=== PATIENT | male | born 1970 | race Caucasian/White ===

== ENCOUNTER 2017-03-24 02:39 | Inpatient (IN) ==
[2017-03-24] MEDS ORDERED: 0.9 % Sodium Chloride 1,000 ML IVC ONE (02:42)
[2017-03-24] MEDS ORDERED: Ipratropium/Albuterol Neb 3 ML IH ONE (02:43)
--- NOTE | 2017-03-24 02:49 | Emergency Department Note ---
Disposition Clinical Impression: Fever Qualifiers: Fever type: unspecified Qualified Code(s): R50.9 - Fever, unspecified UTI (urinary tract infection) Qualifiers: Urinary tract infection type: site unspecified Hematuria presence: with hematuria Qualified Code(s): N39.0 - Urinary tract infection, site not specified Pneumonia Qualifiers: Pneumonia type: due to unspecified organism Laterality: bilateral Lung location : unspecified part of lung Qualified Code(s): J18.9 - Pneumonia, unspecified organism Disposition: Admitted As Inpatient Condition: Good Fever HPI - General Chief Complaint: ED Fever Stated Complaint: fever Time Seen by Provider: 03/24/17 02:41 Source: patient Mode of arrival: EMS Limitations: physical limitation Nursing Notes Reviewed: Yes Vital Signs Reviewed: Yes - History of Present Illness HPI Narrative: 46-year-old male history of seizures, tracheostomy, quadriplegia who presents to the ER via EMS from nursing facility due to fever. EMS reports they were dispatched for a fever of 101.9 at the facility. Patient is currently being treated for UTI diagnosed today. He has received a dose of Levaquin. He denies any chest pain or shortness of breath. No recent illnesses that he is aware of. He does report pain in his lower extremities. Patient was given Tylenol prior to arrival. No other complaints. He does have an indwelling Farrell and has a history of multiple UTIs in the past requiring hospitalization. Pt Subjective Complaint: fever Onset (ago): unknown Maximum Temperature Reported: 101.9 F Temperature Source: oral Associated symptoms: Denies: cough, chest pain, dyspnea Improves with: nothing Worsens with: nothing Treatments prior to arrival fever: acetaminophen - Related Data Home Medications Medication Instructions Recorded Confirmed Benztropine Mesylate 1 mg GTUBE HS 07/04/15 08/11/16 CarBAMazepine 300 mg GTUBE BID 07/04/15 08/11/16 Folic Acid 1 mg GTUBE QAM 07/04/15 08/11/16 Ipratropium/Albuterol Neb [Duoneb] 3 ml IH QID PRN 07/04/15 08/11/16 LevETIRAcetam [Keppra] 250 mg GTUBE BID 07/04/15 08/11/16 OLANZapine [Zyprexa] 10 mg GTUBE BID 07/04/15 08/11/16 Potassium Chloride Elixir 50 meq GTUBE DAILY 09/28/15 08/11/16 [Potassium Chloride] Cyclobenzaprine [Flexeril] 10 mg GTUBE TID PRN 11/05/15 08/11/16 Topiramate [Topamax] 150 mg GTUBE QAM 11/05/15 08/11/16 Acetaminophen [Tylenol] 650 mg GTUBE Q6HR PRN 12/11/15 08/11/16 Docusate Sodium [Dok] 100 mg PO BID 12/11/15 08/11/16 Fluticasone/Salmeterol [Advair 1 each IH BID 12/11/15 08/11/16 250-50 Diskus] Guaifenesin [Diabetic Tussin Ex] 200 mg GTUBE Q4H PRN 12/11/15 08/11/16 Albuterol Neb [Proventil Neb] 2.5 mg IH Q4H 03/18/16 08/11/16 Polyvinyl Alcohol [Artificial 1 drop BOTH EYES BID 03/18/16 08/11/16 Tears] Trazodone HCl 100 mg GTUBE HS 03/18/16 08/11/16 clonazePAM [Klonopin] 2 mg GTUBE QPM 03/18/16 08/11/16 Aspirin/Calcium Carbonate/Mag 325 mg PO DAILY 08/11/16 08/11/16 [Aspirin Buffered 325 mg Tab] Fluocinolone Acetonide Oil 1 appl TP AD 08/11/16 08/11/16 [Dermotic] Ketoconazole 2% CRM [Nizoral Cream] 1 appl TP Q6H 08/11/16 08/11/16 Ketoconazole Shampoo [Nizoral 1 appl TP QWEEK 08/11/16 08/11/16 Shampoo] Melatonin/Pyridoxine [Melatonin 10 mg SL HS 08/11/16 08/11/16 Sublingual Tablet] Na Phos,M-B/Na Phos,Di-Ba [Fleet 230 ml RC Q48H 08/11/16 08/11/16 Enema Extra] Sertraline [Zoloft] 75 mg GTUBE DAILY 08/11/16 08/11/16 Zinc Oxide [Triple Paste] 1 appl TP DAILY 08/11/16 08/11/16 Previous Rx's Medication Instructions Recorded Ertapenem [INVanz] 1,000 mg IVPB DAILY 28 Days 08/16/16 Hydrocortisone [Cortizone-10] 28 gm TP Q6HR PRN #1 gel..gram. 08/16/16 OxyCODONE ER (12 HR) [OxyCONTIN] 5 mg PO BID PRN #30 tab.er.12h 08/16/16 OxyCODONE Immed Rel [Roxicodone 5 10 mg GTUBE QID PRN #30 tablet 08/16/16 MG] Vancomycin [Vancocin] 1,000 mg IV Q12HR 28 Days 08/16/16 Allergies Allergy/AdvReac Type Severity Reaction Status Date / Time Penicillins Allergy See Verified 08/11/16 06:57 Comments All systems ED: reviewed and negative except as stated. Constitutional: Reports: fever, weakness Cardiovascular: Denies: chest pain Respiratory: Denies: cough, dyspnea Gastrointestinal: Denies: abdominal pain, nausea, vomiting Fever PMH - Past Medical History Medical history: Reports: CHF, hepatitis, seizures, other Surgical history: Reports: tracheostomy, other Psychiatric history: Reports: anxiety, bipolar, depression - Social History Smoking Status: Current every day smoker Alcohol use: Reports: none, unknown Drug use: Reports: none Physical Exam - General Limitations: physical limitation General appearance: alert - Head Head exam: atraumatic, normocephalic, normal inspection - Eye Eye exam: Present: normal appearance, EOMI - ENT ENT exam: normal exam - Neck Neck exam: Present: normal inspection, other (Tracheostomy in place) - Chest Chest inspection: Present: normal inspection, symmetric chest wall rise - Respiratory Respiratory exam: Present: wheezes (Bilateral wheezing with diminished breath sounds.). Absent: respiratory distress, accessory muscle use - Cardiovascular Cardiovascular exam: Present: normal rhythm, tachycardia, normal heart sounds - Abdominal Exam Abdominal exam: Present: soft, Non-Tender, other (Patient has a suprapubic catheter with purulence around the entry site.). Absent: tenderness - Extremities Exam Extremities exam: Present: normal inspection - Expanded Upper Extremity Exam Shoulder exam: Present: normal inspection Arm exam: Present: normal inspection Elbow exam: Present: normal inspection Forearm/Wrist exam: Present: normal inspection Hand exam: Present: normal inspection - Expanded Lower Extremity Exam Hip/Pelvis exam: Present: normal inspection Upper leg exam: Present: normal inspection Knee exam: Present: normal inspection Lower leg exam: Present: normal inspection Ankle exam: Present: normal inspection Foot/toe exam: Present: normal inspection - Neurological Exam Neurological exam: Present: alert - Psychiatric Psychiatric exam: Present: normal affect, normal mood - Skin Skin exam: Present: warm, dry, intact, normal color Course Course Narrative: Patient seen and examined. Vital signs reviewed. He is 90% on room air. I reviewed his previous hospitalization showing that he has had multiple UTIs requiring hospitalization for sepsis in the past. We will get a chest x-ray, labs including cultures and lactate as well as a urinalysis. Vital Signs Temperature 101.6 F H 03/24/17 02:41 Pulse Rate 84 03/24/17 02:41 Respiratory Rate 16 03/24/17 02:41 Blood Pressure 105/63 03/24/17 02:41 O2 Sat by Pulse Oximetry 87 03/24/17 02:41 Temperature 101.6 F H 03/24/17 02:41 Pulse Rate 76 03/24/17 04:30 Respiratory Rate 20 03/24/17 03:45 Blood Pressure 126/76 03/24/17 04:30 O2 Sat by Pulse Oximetry 90 03/24/17 04:30 Oxygen Delivery Oxygen Delivery Trach Mask Fever - MDM Narrative Medical decision making narrative: 46-year-old male presents to the ER due to fever. Febrile to 101.9 at the nursing facility. He has a history of UTIs and was diagnosed with one today and started on Levaquin. The patient's chest x-ray here shows concern for developing pneumonia. His urinalysis does show a UTI as well. We did obtain a culture of the patient's suprapubic site. Patient given IV fluids in the emergency department. Vancomycin and cefepime given for pneumonia and UTI. He will be admitted to the hospitalist service for further management. - Lab Data Lab results reviewed: Yes I reviewed the patient's lab results. Result diagrams: 03/24/17 03:50 03/24/17 03:50 Lab Results 03/24/17 03/24/17 03/24/17 Range/Units 02:45 03:50 03:50 WBC 7.5 (4.3-11.1) K/mcL RBC 4.73 (4.19-5.50) M/mcL Hgb 14.3 (12.9-16.9) g/dL Hct 44.8 (37.5-50.1) % MCV 94.7 (83.0-100.0) fL MCH 30.2 (28.0-33.3) pg MCHC 31.9 (31.6-35.5) g/dL RDW 14.0 (11.5-14.5) % Plt Count 101 L (140-400) K/mcL MPV 11.7 (9.4-12.4) fL Immature Gran % 0.5 (0-4) % Seg Neutrophils % 51.1 % Lymphocytes % 34.5 % Monocytes % 13.4 % Eosinophils % 0.1 % Basophils % 0.4 % Neutrophils # 3.8 (1.6-8.9) K/mcL Lymphocytes # 2.6 (0.6-4.6) K/mcL Monocytes # 1.0 (0.0-1.3) K/mcL Eosinophils # 0.0 (0.0-0.6) K/mcL Basophils # 0.0 (0.0-0.2) K/mcL PT 13.5 H (9.4-12.1) Seconds INR 1.2 Sodium (136-145) mEq/L Potassium (3.5-4.5) mEq/L Chloride (98-109) mEq/L Carbon Dioxide (19-29) mEq/L BUN (8-26) mg/dL Creatinine (0.72-1.25) mg/dL Est GFR ( Amer) (> 60) Est GFR (Non-Af Amer) (> 60) BUN/Creatinine Ratio (6-26) Glucose (70-99) mg/dL Calculated Osmolality (280-300) Lactic Acid (0.5-2.2) mmol/L Calcium (8.6-10.8) mg/dL Total Bilirubin (0.2-1.2) mg/dL Direct Bilirubin (0.0-0.5) mg/dL Indirect Bilirubin (0.0-1.2) mg/dL AST (5-34) Units/L ALT (0-55) Units/L Alkaline Phosphatase (38-126) Units/L Serum Total Protein (6.0-8.3) g/dL Albumin (3.5-5.0) g/dL Globulin (2.4-3.5) g/dL Albumin/Globulin Ratio (1.1-2.2) Urine Color Dark Yellow (Yellow) Urine Clarity Cloudy A (Clear) Urine pH 7.0 (5.0-8.0) pH Units Ur Specific [place] 1.025 (1.010-1.025) Urine Protein 100 H (Neg-Trace) mg/dL Urine Glucose (UA) Normal (Normal) mg/dL Urine Ketones Negative (Negative) mg/dL Urine Blood Moderate H (Negative) Urine Nitrite Positive A (Negative) Urine Bilirubin Small H (Negative) Urine Urobilinogen Normal (Normal) mg/dL Ur Leukocyte Esterase Large H (Negative) Urine Microscopic RBC 5-15 H (0-3) per hpf Urine Microscopic WBC TNTC H (0-3) per hpf Ur Squamous Epith Cells Moderate H (None-Few) per lpf Urine Bacteria Many H (None-Few) per hpf Hyaline Casts None Seen (None-Few) per lpf Urine Yeast Test Not Performed Ur Culture Indicated? YES A (NO) 03/24/17 03/24/17 Range/Units 03:50 03:50 WBC (4.3-11.1) K/mcL RBC (4.19-5.50) M/mcL Hgb (12.9-16.9) g/dL Hct (37.5-50.1) % MCV (83.0-100.0) fL MCH (28.0-33.3) pg MCHC (31.6-35.5) g/dL RDW (11.5-14.5) % Plt Count (140-400) K/mcL MPV (9.4-12.4) fL Immature Gran % (0-4) % Seg Neutrophils % % Lymphocytes % % Monocytes % % Eosinophils % % Basophils % % Neutrophils # (1.6-8.9) K/mcL Lymphocytes # (0.6-4.6) K/mcL Monocytes # (0.0-1.3) K/mcL Eosinophils # (0.0-0.6) K/mcL Basophils # (0.0-0.2) K/mcL PT (9.4-12.1) Seconds INR Sodium 143 (136-145) mEq/L Potassium 3.1 L (3.5-4.5) mEq/L Chloride 109 (98-109) mEq/L Carbon Dioxide 24 (19-29) mEq/L BUN 20 (8-26) mg/dL Creatinine 0.61 L (0.72-1.25) mg/dL Est GFR ( Amer) > 60 (> 60) Est GFR (Non-Af Amer) > 60 (> 60) BUN/Creatinine Ratio 33 H (6-26) Glucose 105 H (70-99) mg/dL Calculated Osmolality 299 (280-300) Lactic Acid 0.7 (0.5-2.2) mmol/L Calcium 7.7 L (8.6-10.8) mg/dL Total Bilirubin 0.7 (0.2-1.2) mg/dL Direct Bilirubin 0.4 (0.0-0.5) mg/dL Indirect Bilirubin 0.3 (0.0-1.2) mg/dL AST 35 H (5-34) Units/L ALT 52 (0-55) Units/L Alkaline Phosphatase 135 H (38-126) Units/L Serum Total Protein 7.1 (6.0-8.3) g/dL Albumin 3.1 L (3.5-5.0) g/dL Globulin 4.0 H (2.4-3.5) g/dL Albumin/Globulin Ratio 0.8 L (1.1-2.2) Urine Color (Yellow) Urine Clarity (Clear) Urine pH (5.0-8.0) pH Units Ur Specific [place] (1.010-1.025) Urine Protein (Neg-Trace) mg/dL Urine Glucose (UA) (Normal) mg/dL Urine Ketones (Negative) mg/dL Urine Blood (Negative) Urine Nitrite (Negative) Urine Bilirubin (Negative) Urine Urobilinogen (Normal) mg/dL Ur Leukocyte Esterase (Negative) Urine Microscopic RBC (0-3) per hpf Urine Microscopic WBC (0-3) per hpf Ur Squamous Epith Cells (None-Few) per lpf Urine Bacteria (None-Few) per hpf Hyaline Casts (None-Few) per lpf Urine Yeast Ur Culture Indicated? (NO) - Radiology Data Radiology results reviewed: Yes I reviewed the patient's radiology results. Chest X-Ray 03/24/17 02:43 IMPRESSION: Tracheostomy tube appears stable. Bilaterality the cysts with patchy opacities suggestive of multifocal airspace disease. D/ / Mandeep King MD / Mandeep King MD Interpreting Provider: Mandeep King MD assandra - Henri Situation: Demographics, MOA Background: Presenting Complaint, Relevant PMH, Meds, & Allergies Assessment: Vital Signs, Course and respsone to treatment, Exam Concerns, Patient/Family Expectation, Pertinant Lab Results, Outstanding Labs Recommendation: Barrier(s) to disposition, Recommendation based on pending studies, treatments, or consults SKassandra Report Given to: Dr. Charbel Álvarez Repor Time: 05:09 (requests vanc and zosyn or cefipime) Attestation Statement - Attestation Attestation: I, Jayson Quinonez MD, personally evaluated this patient and discussed their management with the resident physician. I reviewed the resident's note and agree with the documented findings, medical decision making, and plan of care. 46-year-old male presents to the emergency department from a local halfway for fever. Patient is quadriplegic with a tracheostomy. He was apparently just diagnosed with a urinary tract infection which is a recurrent problem. He has a chronic indwelling Farrell catheter. Levaquin and has received one dose. Tonight he developed a fever with some increased congestion. In the emergency Department patient has a temp of 101.6. He complains of pain in his legs. No chest pain or difficulty breathing. On examination patient is a well-developed quadriplegic male in no acute distress. He is alert and answers questions. No cyanosis. He is mildly diaphoretic. Patent tracheostomy tube in place. Chest is nontender to palpation. Breath sounds are decreased but equal bilaterally. No definite rales or wheezes noted. Heart regular. Abdomen soft with normal bowel sounds. Labs reviewed. Significant UTI noted. Chest x-ray shows some patchy bilateral airspace disease. No acute changes on EKG. The hospitalist, Dr. Barger, was consulted and accepted admission of the patient.
[2017-03-24 02:58] LABS: Bilirubin,Urine Small (Negative); Blood,Urine Moderate (Negative); Clarity,Urine Cloudy (Clear); Color,Urine Dark Yellow (Yellow); Glucose,Urine (UA) Normal (Normal); Ketones,Urine Negative (Negative); Leukocyte Esterase,Urine Large (Negative); Nitrite,Urine Positive (Negative); Protein,Urine 100 mg/dL (Neg-Trace); Specific Gravity,Urine 1.025 (1.010-1.025); Urobilinogen,Urine Normal (Normal)
[2017-03-24 03:01] LABS: Bacteria,Urine Many per hpf (None-Few); Hyaline Casts,Urine None Seen per lpf (None-Few); Squamous Epithelial Cell,Urine Moderate per lpf (None-Few); WBC,Urine TNTC per hpf (0-3)
[2017-03-24 04:02] LABS: Basophils % 0.4 %; Eosinophils % 0.1 %; Hematocrit 44.8 % (37.5-50.1); Hemoglobin 14.3 g/dL (12.9-16.9); Immature Granulocytes % 0.5 % (0-4); Lymphocytes # 2.6 K/mcL (0.6-4.6); Lymphocytes % 34.5 %; Mean Corpuscular HGB Conc 31.9 g/dL (31.6-35.5); Mean Corpuscular Hemoglobin 30.2 pg (28.0-33.3); Mean Corpuscular Volume 94.7 fL (83.0-100.0); Mean Platelet Volume 11.7 fL (9.4-12.4); Monocytes % 13.4 %; Neutrophils # 3.8 K/mcL (1.6-8.9); Platelet Count 101 K/mcL (140-400); Red Blood Count 4.73 M/mcL (4.19-5.50); Segmented Neutrophils % 51.1 %
[2017-03-24 04:08] LABS: INR 1.2; Prothrombin Time 13.5 Seconds (9.4-12.1)
[2017-03-24 04:20] LABS: Alanine Aminotransferase 52 Units/L (0-55); Albumin 3.1 g/dL (3.5-5.0); Albumin/Globulin Ratio 0.8 (1.1-2.2); Alkaline Phosphatase 135 Units/L (38-126); Aspartate Amino Transferase 35 Units/L (5-34); BUN/Creatinine Ratio 33 (6-26); Bilirubin,Direct 0.4 mg/dL (0.0-0.5); Bilirubin,Indirect 0.3 mg/dL (0.0-1.2); Bilirubin,Total 0.7 mg/dL (0.2-1.2); Blood Urea Nitrogen 20 mg/dL (8-26); Calcium 7.7 mg/dL (8.6-10.8); Carbon Dioxide 24 mEq/L (19-29); Chloride 109 mEq/L (98-109); Glucose 105 mg/dL (70-99); Osmolality,Calculated 299 (280-300); Potassium 3.1 mEq/L (3.5-4.5); Sodium 143 mEq/L (136-145); Total Protein 7.1 g/dL (6.0-8.3); eGFR For African Americans > 60 (> 60); eGFR For Non-African Americans > 60 (> 60)
[2017-03-24] MEDS ORDERED: Piperacillin/Tazobactam 3.375 GM in D5% in Water (Mini-Bag+) 100 ML IVPB ONE (04:26)
[2017-03-24] MEDS ORDERED: Vancomycin 1,250 MG in D5% in Water 250 ML IVPB ONE ×2 (04:27→05:11)
[2017-03-24] MEDS ORDERED: Azithromycin 500 MG in D5% in Water 250 ML IVPB ONE (04:47)
[2017-03-24] MEDS ORDERED: Azithromycin 500 MG VIAL IVPB ONE (05:07)
[2017-03-24] MEDS ORDERED: Cefepime HCl 2,000 MG in D5% in Water (Mini-Bag+) 100 ML IVPB ONE (05:12)
[2017-03-24] MEDS ORDERED: Acetaminophen 325 MG TABLET PO ONE (05:20)
[2017-03-24] MEDS ORDERED: *HR* LORazepam 2 MG/ML VIAL IVP PRN (07:56)
[2017-03-24] MEDS ORDERED: Vancomycin 1,250 MG in D5% in Water 250 ML IVPB SCH (08:00)
--- NOTE | 2017-03-24 08:00 | Internal Med History&Physical ---
Date of Encounter: 03/24/17 Time of Encounter: 07:58 Assessment and Plan (1) Healthcare-associated pneumonia Current visit: Yes Status: Acute Acute metabolic encephalopathy secondary to Acute on chronic respiratory failure due to possible acute COPD exacerbation from healthcare associated pneumonia present upon admission and UTI Continue cefepime and vancomycin, add Levaquin Sputum cultures, urine cultures pending Blood cultures, deep suctioning by respiratory therapy Solu-Medrol, ordered ABG, aspiration and fall precautions Protonix 40 GI prophylaxis and subcutaneous heparin for DVT prophylaxis. The patient will be admitted as inpatient, expected stay more than commitments. Full code. Time spent on this admission 40 minutes. High risk due to respiratory failure (2) Chronic respiratory failure Current visit: Yes Status: Acute Qualifiers: Respiratory failure complication: hypoxia Qualified Code(s): J96.11 - Chronic respiratory failure with hypoxia (3) Swallowing impairment Current visit: No Status: Chronic Nothing by mouth for now, may order speech evaluation when he is more awake (4) Hypokalemia Current visit: No Status: Resolved Add potassium to IV fluids (5) Paraplegia, unspecified Current visit: No Status: Acute (6) Bipolar disorder Current visit: No Status: Chronic Qualifiers: Active/Remission status: remission status unspecified Qualified Code(s): F31.9 - Bipolar disorder, unspecified (7) Seizure disorder Current visit: No Status: Chronic Continue Keppra IV Resume carbamazepine and topiramate when able to swallow Ativan as needed IV (8) Quadriplegia and quadriparesis Current visit: No Status: Chronic Internal Medicine - H&P: HPI Chief complaint: Fever Admitted From: Emergency Dept History of present illness: Mr. Mathew is a 46 year old male with a past medical history of quadriplegia with multiple infections in the past with MRSA pseudomonas, Morganella, tobacco use, seizure disorder, was transferred from a alf by the EMS after he developed a fever 101.9. Apparently she was being treated for UTI and received 1 dose of Levaquin. His UA shows positive nitrates to numerous to count white blood cells and many bacteria. Potassium is 3.1. Chest x-ray showed multifocal opacities compatible with pneumonia. He was started on vancomycin and cefepime at the emergency room. Currently the patient is now responding, he wakes up but is not able to provide any history and mumbles. An ABG was ordered. No other history could be taken from the patient. Past Med Surg Social Fam HX - Past Medical History Medical history: CHF (Systolic versus diastolic), hepatitis (Hepatitis C), hypertension, seizures, other (Seizure disorder, tobacco use, multiple infections with MRSA, Proteus, Morganella, sepsis and bacteremia, quadriplegic, history of C. difficile, COPD oxygen dependent, dysphagia and history of aspiration, bipolar disorder, large bowel obstruction, Guillain-Orient, CVA according to prior records) Psychiatric history: anxiety, bipolar, depression - Past Surgical History Surgical History: tracheostomy, other (PEG tube in the past) - Social History Smoking Status: Current every day smoker Smokeless Tobacco Status: No Alcohol use: none, unknown Drug use: none - Family History Mother Living Status: Hx Family Cardiac Disorders: Yes Hx Family Respiratory Disorders: Yes Hx Family Cancer: Yes - Additional Family History Additional family history: Mother with heart disease Internal Medicine - H&P: Meds Benztropine Mesylate 1 mg GTUBE HS 07/04/15 [History] CarBAMazepine 300 mg GTUBE BID 07/04/15 [History] Folic Acid 1 mg GTUBE QAM 07/04/15 [History] Ipratropium/Albuterol Neb [Duoneb] 3 ml IH QID PRN 07/04/15 [History] LevETIRAcetam [Keppra] 250 mg GTUBE BID 07/04/15 [History] OLANZapine [Zyprexa] 10 mg GTUBE BID 07/04/15 [History] Potassium Chloride Elixir [Potassium Chloride] 50 meq GTUBE DAILY 09/28/15 [ History] Cyclobenzaprine [Flexeril] 10 mg GTUBE TID PRN 11/05/15 [History] Topiramate [Topamax] 150 mg GTUBE QAM 11/05/15 [History] Acetaminophen [Tylenol] 650 mg GTUBE Q6HR PRN 12/11/15 [History] Docusate Sodium [Dok] 100 mg PO BID 12/11/15 [History] Fluticasone/Salmeterol [Advair 250-50 Diskus] 1 each IH BID 12/11/15 [History] Guaifenesin [Diabetic Tussin Ex] 200 mg GTUBE Q4H PRN 12/11/15 [History] Albuterol Neb [Proventil Neb] 2.5 mg IH Q4H 03/18/16 [History] Polyvinyl Alcohol [Artificial Tears] 1 drop BOTH EYES BID 03/18/16 [History] Trazodone HCl 100 mg GTUBE HS 03/18/16 [History] clonazePAM [Klonopin] 2 mg GTUBE QPM 03/18/16 [History] Aspirin/Calcium Carbonate/Mag [Aspirin Buffered 325 mg Tab] 325 mg PO DAILY [History] Fluocinolone Acetonide Oil [Dermotic] 1 appl TP AD 08/11/16 [History] Ketoconazole 2% CRM [Nizoral Cream] 1 appl TP Q6H 08/11/16 [History] Ketoconazole Shampoo [Nizoral Shampoo] 1 appl TP QWEEK 08/11/16 [History] Melatonin/Pyridoxine [Melatonin Sublingual Tablet] 10 mg SL HS 08/11/16 [History ] Na Phos,M-B/Na Phos,Di-Ba [Fleet Enema Extra] 230 ml RC Q48H 08/11/16 [History] Sertraline [Zoloft] 75 mg GTUBE DAILY 08/11/16 [History] Zinc Oxide [Triple Paste] 1 appl TP DAILY 08/11/16 [History] Ertapenem [INVanz] 1,000 mg IVPB DAILY 28 Days 08/16/16 [Rx] Hydrocortisone [Cortizone-10] 28 gm TP Q6HR PRN #1 gel..gram. 08/16/16 [Rx] OxyCODONE ER (12 HR) [OxyCONTIN] 5 mg PO BID PRN #30 tab.er.12h 08/16/16 [Rx] OxyCODONE Immed Rel [Roxicodone 5 MG] 10 mg GTUBE QID PRN #30 tablet 08/16/16 [ Rx] Vancomycin [Vancocin] 1,000 mg IV Q12HR 28 Days 08/16/16 [Rx] Allergies Penicillins Allergy (Verified 08/11/16 06:57) See Comments REACTION UNKNOWN- ONLY LISTED AN ALLERGY ON ECF MAR All Systems PM: A 10-system review of systems was performed and is negative for pertinent findings except as documented above in the HPI. Review of systems: Unable to be completed due to the patient's status - Constitutional Vitals: Temp Pulse Resp BP Pulse Ox 98.9 F 76 16 111/63 90 03/24/17 06:14 03/24/17 04:30 03/24/17 06:14 03/24/17 06:14 03/24/17 04:30 General appearance: Present: A&O X 0 - Head Head exam: Present: atraumatic, normocephalic - Eye Eye exam: Present: PERRL, conjuntiva pink, sclera anicteric Pupils: Present: PERRL - Neck Neck exam general surgery: Present: supple. Absent: lymphadenopathy, trachea midline Additional comments: Trach tube placed with thick secretions Very dry mucosa - Respiratory Respiratory exam: Present: decreased breath sounds, CTAB, wheezes. Absent: accessory muscle use, rales, rhonchi - Cardiovascular Cardiovascular exam: Present: RRR, +S1, +S2. Absent: diastolic murmur, gallop, rubs, systolic murmur - GI/Abdominal GI/Abdominal exam: Present: distended, normal bowel sounds, soft, no peritoneal signs. Absent: tenderness Additional comments: Suprapubic catheter in place - Extremities Exam Extremities exam: Present: pedal edema (+2 pitting edema with erythema that appears chronic in both lower extremities), warm, radial pulses palpable and symetrical. Absent: calf tenderness, cyanotic - Neurological Exam Neurological exam: Present: CN II-XII intact, no focal deficits. Absent: oriented X3, pronater drift, facial droop, speech deficit - Skin Skin exam: Present: dry, intact Internal Med - H&P Results - Labs CBC & Chem 7: 03/24/17 03:50 03/24/17 03:50
[2017-03-24 08:02] LABS: ABG Base Excess 1.1 mEq/L (-2.0 to 3.0); ABG HCO3 27.6 mEQ/L (21-27); ABG Oxygen Saturation 97 % (95-98); ABG PCO2 50 mmHg (35-45); ABG PH 7.35 pH Units (7.32-7.45); ABG PO2 96 mmHg (85-104); ABG TCO2 29.1 mEq/L (20-26)
[2017-03-24 08:04] LABS: Blood Gas FiO2 60 %
[2017-03-24] MEDS: Nicotine 21 MG PATCH.TD24 TD SCH (10:02)
[2017-03-24] MEDS: Pantoprazole 40 MG VIAL IVP SCH (10:02)
[2017-03-24] MEDS: Levofloxacin 750 MG/150 ML 750 MG/150 ML BAG IVPB SCH (10:02)
[2017-03-24] MEDS: Cefepime HCl 1,000 MG in D5% in Water (Mini-Bag+) 100 ML IVPB SCH ×2 (10:03→18:30)
[2017-03-24] MEDS: MethylPREDNISolone 40 MG/ML VIAL IVP SCH ×2 (10:04→18:30)
[2017-03-24] MEDS: *HR* Heparin 5,000 UNIT/ML VIAL SQ SCH ×3 (10:04→22:40)
[2017-03-24] MEDS: Ipratropium/Albuterol Neb 3 ML IH SCH ×3 (10:44→22:55)
[2017-03-24] MEDS ORDERED: Acetaminophen 325 MG TABLET PO PRN (11:27)
[2017-03-24] MEDS ORDERED: Naloxone 0.4 MG/ML INJ IVP PRN (11:27)
[2017-03-24] MEDS ORDERED: 0.9 % Sodium Chloride 1,000 ML IVC SCH (11:30)
[2017-03-24] MEDS ORDERED: Scopolamine Patch 1.5 MG PATCH.TD72 TD ONE (11:37)
[2017-03-24] MEDS: clonazePAM 1 MG TABLET PO SCH (18:33)
[2017-03-24] MEDS: Vancomycin 1,250 MG in D5% in Water 250 ML IVPB SCH (20:21)
[2017-03-24] MEDS: Baclofen 10 MG TABLET PO SCH (22:39)
[2017-03-24] MEDS: CarBAMazepine XR (12 hr) 100 MG TAB PO SCH (22:39)
[2017-03-24] MEDS: traZODone 50 MG TABLET PO SCH (22:40)
[2017-03-24] MEDS: *HR* Morphine 2 MG/ML SYRINGE IVP PRN (22:55)
[2017-03-25] MEDS: MethylPREDNISolone 40 MG/ML VIAL IVP SCH ×3 (00:39→15:45)
[2017-03-25] MEDS: Ipratropium/Albuterol Neb 3 ML IH SCH ×4 (04:14→22:24)
[2017-03-25] MEDS: *HR* Morphine 2 MG/ML SYRINGE IVP PRN ×4 (04:16→22:09)
[2017-03-25 04:48] LABS: BUN/Creatinine Ratio 25 (6-26); Blood Urea Nitrogen 16 mg/dL (8-26); Calcium 8.8 mg/dL (8.6-10.8); Carbon Dioxide 26 mEq/L (19-29); Chloride 109 mEq/L (98-109); Glucose 115 mg/dL (70-99); Osmolality,Calculated 298 (280-300); Potassium 3.4 mEq/L (3.5-4.5); Sodium 143 mEq/L (136-145); eGFR For African Americans > 60 (> 60); eGFR For Non-African Americans > 60 (> 60)
[2017-03-25 04:49] LABS: Hematocrit 47.8 % (37.5-50.1); Immature Platelets 12.9 % (1.1-6.1); Mean Corpuscular HGB Conc 31.4 g/dL (31.6-35.5); Mean Corpuscular Hemoglobin 30.2 pg (28.0-33.3); Mean Corpuscular Volume 96.2 fL (83.0-100.0); Mean Platelet Volume 12.1 fL (9.4-12.4); Red Blood Count 4.97 M/mcL (4.19-5.50); Red Cell Distribution Width 13.5 % (11.5-14.5)
[2017-03-25] MEDS: Cefepime HCl 1,000 MG in D5% in Water (Mini-Bag+) 100 ML IVPB SCH ×2 (05:46→18:55)
[2017-03-25] MEDS: *HR* Heparin 5,000 UNIT/ML VIAL SQ SCH ×3 (05:47→22:03)
[2017-03-25] MEDS: Pantoprazole 40 MG VIAL IVP SCH (09:48)
[2017-03-25] MEDS: Nicotine 21 MG PATCH.TD24 TD SCH (09:48)
[2017-03-25] MEDS: CarBAMazepine XR (12 hr) 100 MG TAB PO SCH ×2 (09:49→21:59)
[2017-03-25] MEDS: Topiramate 100 MG TABLET PO SCH (09:49)
[2017-03-25] MEDS: Aspirin Enteric Coated 325 MG Tablet PO SCH (09:49)
[2017-03-25] MEDS: Baclofen 10 MG TABLET PO SCH ×2 (09:49→21:36)
[2017-03-25] MEDS: Folic Acid 1 MG TABLET PO SCH (09:49)
[2017-03-25] MEDS: Levofloxacin 750 MG/150 ML 750 MG/150 ML BAG IVPB SCH (10:49)
[2017-03-25] MEDS: Vancomycin 1,250 MG in D5% in Water 250 ML IVPB SCH (13:02)
[2017-03-25] MEDS ORDERED: Vancomycin 1,250 MG in D5% in Water 250 ML IVPB ONE (17:14)
--- NOTE | 2017-03-25 17:21 | Internal Med Progress Note ---
Date of Encounter: 03/26/17 Time of Encounter: 17:17 - Assessment and plan (1) Pneumonia Current Visit: No Status: Acute Qualifiers: Pneumonia type: due to methicillin-resistant Staphylococcus aureus (MRSA) Laterality: bilateral Lung location: lower lobe of lung Qualified Code(s): J15.212 - Pneumonia due to Methicillin resistant Staphylococcus aureus (2) Urinary tract infection Current Visit: No Status: Acute Qualifiers: Urinary tract infection type: acute cystitis Hematuria presence: with hematuria Qualified Code(s): N30.01 - Acute cystitis with hematuria (3) Sepsis Current Visit: No Status: Acute Qualifiers: Sepsis type: sepsis due to unspecified organism Qualified Code(s): A41.9 - Sepsis, unspecified organism (4) Acute kidney injury Current Visit: No Status: Resolved (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 Mathew is a 46 year old male with a past medical history of quadriplegia with multiple infections in the past with MRSA pseudomonas, Morganella, tobacco use, seizure disorder, was transferred from a halfway by the EMS after he developed a fever 101.9. Apparently she was being treated for UTI and received 1 dose of Levaquin. His UA shows positive nitrates to numerous to count white blood cells and many bacteria. Potassium is 3.1. Chest x-ray showed multifocal opacities compatible with pneumonia. He was started on vancomycin and cefepime at the emergency room. #1 sepsis, secondary to possible pneumonia and UTI. Blood cultures are pending but urine culture showed gram-negative rods. Patient has history of for MRSA and Pseudomonas pneumonia and therefore IV vancomycin since the time and Levaquin has been started. Patient has history of aspiration. Follow daily CBC. 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 # COPD continue nebulizer #4 hypokalemia potassium supplemented rechecked daily #5 bipolar and seizure disorder continue home medication - Constitutional Vitals: Temp Pulse Resp BP Pulse Ox 98.0 F 73 18 118/74 92 03/25/17 04:47 03/25/17 15:00 03/25/17 15:42 03/25/17 15:42 08/05/17 15:42 General appearance: Present: A&O X 0 - Head Head exam: Present: atraumatic, normocephalic - Eye Eye exam: Present: PERRL, conjuntiva pink, sclera anicteric Pupils: Present: PERRL - Neck Neck exam general surgery: Present: supple, trachea midline. Absent: lymphadenopathy - Respiratory Respiratory exam: Present: CTAB. Absent: accessory muscle use, rales, rhonchi, wheezes - Cardiovascular Cardiovascular exam: Present: RRR, +S1, +S2. Absent: diastolic murmur, gallop, rubs, systolic murmur - GI/Abdominal GI/Abdominal exam: Present: normal bowel sounds, soft, no peritoneal signs. Absent: distended, tenderness - Extremities Exam Extremities exam: Present: warm, radial pulses palpable and symetrical. Absent : calf tenderness, cyanotic, pedal edema - Neurological Exam Neurological exam: Present: CN II-XII intact, oriented X3, no focal deficits. Absent: pronater drift, facial droop, speech deficit - Skin Skin exam: Present: dry, intact Internal Medicine: Result - Labs CBC & Chem 7: 03/26/17 00:25 03/26/17 00:25 Labs: Short CBC 03/25/17 Range/Units 03:50 WBC 6.0 (4.3-11.1) K/mcL Hgb 15.0 (12.9-16.9) g/dL Hct 47.8 (37.5-50.1) % Plt Count 89 L (140-400) K/mcL BMP 03/25/17 03:50 Sodium 143 Potassium 3.4 L Chloride 109 Carbon Dioxide 26 BUN 16 Creatinine 0.64 L Glucose 115 H Calcium 8.8 - ABG Interpretation ABG results: ABG ABG pH 7.35 pH Units (7.32-7.45) 03/24/17 07:54 ABG pCO2 50 mmHg (35-45) H 03/24/17 07:54 ABG pO2 96 mmHg (85-104) 03/24/17 07:54 ABG O2 Saturation 97 % (95-98) 03/24/17 07:54 PT/INR, D-dimer PT 13.5 Seconds (9.4-12.1) H 03/24/17 03:50 Consult Discharge Plan - Plan Referrals: Kevin Caro MD [Primary Care Provider] -
[2017-03-25] MEDS: clonazePAM 1 MG TABLET PO SCH (18:55)
[2017-03-25] MEDS: *HR* OxyCODONE Immed Rel 5 MG TABLET PO PRN (18:55)
[2017-03-25] MEDS: Artificial Tears SOLN 15 ML BOTTLE BOTH EYES SCH (21:35)
[2017-03-25] MEDS: traZODone 50 MG TABLET PO SCH (21:38)
[2017-03-26] MEDS: MethylPREDNISolone 40 MG/ML VIAL IVP SCH ×4 (00:22→23:13)
[2017-03-26 00:46] LABS: Basophils % 0.3 %; Eosinophils # 0.1 K/mcL (0.0-0.6); Eosinophils % 0.7 %; Hematocrit 49.3 % (37.5-50.1); Hemoglobin 14.9 g/dL (12.9-16.9); Immature Granulocytes % 0.4 % (0-4); Lymphocytes # 1.3 K/mcL (0.6-4.6); Mean Corpuscular HGB Conc 30.2 g/dL (31.6-35.5); Mean Corpuscular Hemoglobin 30.2 pg (28.0-33.3); Mean Corpuscular Volume 99.8 fL (83.0-100.0); Monocytes # 0.8 K/mcL (0.0-1.3); Monocytes % 11.2 %; Neutrophils # 4.7 K/mcL (1.6-8.9); Red Blood Count 4.94 M/mcL (4.19-5.50); Red Cell Distribution Width 13.2 % (11.5-14.5); Segmented Neutrophils % 68.4 %
[2017-03-26 00:47] LABS: Platelet Count 89 K/mcL (140-400)
[2017-03-26] MEDS ORDERED: Vancomycin 1,250 MG in D5% in Water 250 ML IVPB SCH (01:00)
[2017-03-26 01:16] LABS: Alanine Aminotransferase 37 Units/L (0-55); Albumin 2.9 g/dL (3.5-5.0); Albumin/Globulin Ratio 0.8 (1.1-2.2); Alkaline Phosphatase 111 Units/L (38-126); Aspartate Amino Transferase 27 Units/L (5-34); BUN/Creatinine Ratio 23 (6-26); Bilirubin,Total 0.5 mg/dL (0.2-1.2); Blood Urea Nitrogen 13 mg/dL (8-26); Calcium 8.4 mg/dL (8.6-10.8); Carbon Dioxide 16 mEq/L (19-29); Chloride 115 mEq/L (98-109); Globulin 3.8 g/dL (2.4-3.5); Glucose 113 mg/dL (70-99); Magnesium 1.9 mg/dL (1.6-2.6); Osmolality,Calculated 295 (280-300); Potassium 4.3 mEq/L (3.5-4.5); Sodium 142 mEq/L (136-145); Total Protein 6.7 g/dL (6.0-8.3); eGFR For African Americans > 60 (> 60); eGFR For Non-African Americans > 60 (> 60)
[2017-03-26] MEDS: *HR* Morphine 2 MG/ML SYRINGE IVP PRN ×3 (02:46→17:47)
[2017-03-26] MEDS: Ipratropium/Albuterol Neb 3 ML IH SCH ×4 (03:47→22:13)
[2017-03-26] MEDS: Cefepime HCl 1,000 MG in D5% in Water (Mini-Bag+) 100 ML IVPB SCH ×2 (05:53→17:47)
[2017-03-26] MEDS: *HR* Heparin 5,000 UNIT/ML VIAL SQ SCH ×3 (06:01→21:43)
[2017-03-26] MEDS: Artificial Tears SOLN 15 ML BOTTLE BOTH EYES SCH ×2 (11:10→21:22)
[2017-03-26] MEDS: CarBAMazepine XR (12 hr) 100 MG TAB PO SCH ×2 (11:10→20:51)
[2017-03-26] MEDS: Pantoprazole 40 MG VIAL IVP SCH (11:10)
[2017-03-26] MEDS: Topiramate 100 MG TABLET PO SCH (11:10)
[2017-03-26] MEDS: Baclofen 10 MG TABLET PO SCH ×2 (11:10→20:51)
[2017-03-26] MEDS: Nicotine 21 MG PATCH.TD24 TD SCH (11:10)
[2017-03-26] MEDS: Folic Acid 1 MG TABLET PO SCH (11:11)
[2017-03-26] MEDS: Aspirin Enteric Coated 325 MG Tablet PO SCH (11:11)
[2017-03-26] MEDS: Levofloxacin 750 MG/150 ML 750 MG/150 ML BAG IVPB SCH (12:29)
[2017-03-26] MEDS: Vancomycin 1,500 MG in D5% in Water 250 ML IVPB SCH (14:27)
--- NOTE | 2017-03-26 16:12 | Internal Med Progress Note ---
Date of Encounter: 03/26/17 Time of Encounter: 16:10 - Assessment and plan (1) Pneumonia Current Visit: Yes Status: Acute Qualifiers: Pneumonia type: due to methicillin-resistant Staphylococcus aureus (MRSA) Laterality: bilateral Lung location: lower lobe of lung Qualified Code(s): J15.212 - Pneumonia due to Methicillin resistant Staphylococcus aureus (2) Urinary tract infection Current Visit: Yes Status: Acute Qualifiers: Urinary tract infection type: acute cystitis Hematuria presence: with hematuria Qualified Code(s): N30.01 - Acute cystitis with hematuria (3) Sepsis Current Visit: Yes Status: Acute Qualifiers: Sepsis type: sepsis due to unspecified organism Qualified Code(s): A41.9 - Sepsis, unspecified organism (4) Acute kidney injury Current Visit: Yes Status: Resolved (5) Guillain-[place]anto Current Visit: Yes Status: Chronic (6) Hypokalemia Current Visit: Yes Status: Resolved (7) DVT prophylaxis Current Visit: Yes Status: Acute (8) Encephalopathy acute Current Visit: Yes Status: Acute - Subjective Interval history: Mr. Mathew is a 46 year old male with a past medical history of quadriplegia with multiple infections in the past with MRSA pseudomonas, Morganella, tobacco use, seizure disorder, was transferred from a assisted by the EMS after he developed a fever 101.9. Apparently she was being treated for UTI and received 1 dose of Levaquin. His UA shows positive nitrates to numerous to count white blood cells and many bacteria. Potassium is 3.1. Chest x-ray showed multifocal opacities compatible with pneumonia. He was started on vancomycin and cefepime at the emergency room. #1 sepsis, secondary to possible pneumonia and UTI. Blood cultures are pending but urine culture showed Providencia Sturatii. Wound culture shows Staph. Patient has history of for MRSA and Pseudomonas pneumonia and therefore IV vancomycin will be continued and IV cefipime will be added and dc IV cipro.. Patient has history of aspiration. Follow daily CBC. 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 # COPD continue nebulizer #4 hypokalemia potassium supplemented rechecked daily #5 bipolar and seizure disorder continue home medication Overall looks much better .Reduce IVF. - Constitutional Vitals: Temp Pulse Resp BP Pulse Ox 97.3 F L 60 16 109/73 96 03/26/17 07:00 08/06/17 07:00 03/26/17 11:08 03/26/17 07:00 03/26/17 11:08 General appearance: Present: A&O X 0 - Head Head exam: Present: atraumatic, normocephalic - Eye Eye exam: Present: PERRL, conjuntiva pink, sclera anicteric Pupils: Present: PERRL - Neck Neck exam general surgery: Present: supple, trachea midline. Absent: lymphadenopathy - Respiratory Respiratory exam: Present: decreased breath sounds, rhonchi. Absent: accessory muscle use, rales, wheezes - Cardiovascular Cardiovascular exam: Present: RRR, +S1, +S2. Absent: diastolic murmur, gallop, rubs, systolic murmur - GI/Abdominal GI/Abdominal exam: Present: normal bowel sounds, soft, no peritoneal signs. Absent: distended, tenderness - Extremities Exam Extremities exam: Present: warm, radial pulses palpable and symetrical. Absent : calf tenderness, cyanotic, pedal edema - Neurological Exam Neurological exam: Present: CN II-XII intact, oriented X3, no focal deficits. Absent: pronater drift, facial droop, speech deficit - Skin Skin exam: Present: dry, intact Internal Medicine: Result - Labs CBC & Chem 7: 03/26/17 00:25 03/26/17 00:25 Labs: Short CBC 03/26/17 Range/Units 00:25 WBC 6.9 (4.3-11.1) K/mcL Hgb 14.9 (12.9-16.9) g/dL Hct 49.3 (37.5-50.1) % Plt Count 89 L (140-400) K/mcL Neutrophils # 4.7 (1.6-8.9) K/mcL BMP 03/26/17 00:25 Sodium 142 Potassium 4.3 Chloride 115 H Carbon Dioxide 16 L BUN 13 Creatinine 0.56 L Glucose 113 H Calcium 8.4 L Liver Function 03/26/17 Range/Units 00:25 Total Bilirubin 0.5 (0.2-1.2) mg/dL AST 27 (5-34) Units/L ALT 37 (0-55) Units/L Alkaline Phosphatase 111 (38-126) Units/L Albumin 2.9 L (3.5-5.0) g/dL - ABG Interpretation ABG results: ABG ABG pH 7.35 pH Units (7.32-7.45) 03/24/17 07:54 ABG pCO2 50 mmHg (35-45) H 03/24/17 07:54 ABG pO2 96 mmHg (85-104) 03/24/17 07:54 ABG O2 Saturation 97 % (95-98) 03/24/17 07:54 PT/INR, D-dimer PT 13.5 Seconds (9.4-12.1) H 03/24/17 03:50 Consult Discharge Plan - Plan Referrals: Kevin Caro MD [Primary Care Provider] -
[2017-03-26] MEDS: clonazePAM 1 MG TABLET PO SCH (17:47)
[2017-03-26] MEDS: 0.9 % Sodium Chloride 1,000 ML IVC SCH (17:48)
[2017-03-26] MEDS: traZODone 50 MG TABLET PO SCH (20:52)
[2017-03-26] MEDS: *HR* OxyCODONE Immed Rel 5 MG TABLET PO PRN (20:54)
[2017-03-27] MEDS: Vancomycin 1,500 MG in D5% in Water 250 ML IVPB SCH (01:27)
[2017-03-27] MEDS: Ipratropium/Albuterol Neb 3 ML IH SCH ×4 (03:24→22:40)
[2017-03-27] MEDS: *HR* Morphine 2 MG/ML SYRINGE IVP PRN ×4 (05:46→22:25)
[2017-03-27] MEDS: *HR* Heparin 5,000 UNIT/ML VIAL SQ SCH ×3 (05:48→22:24)
[2017-03-27] MEDS: Cefepime HCl 1,000 MG in D5% in Water (Mini-Bag+) 100 ML IVPB SCH (05:51)
[2017-03-27 06:05] LABS: Basophils % 0.2 %; Hematocrit 54.1 % (37.5-50.1); Hemoglobin 16.4 g/dL (12.9-16.9); Immature Granulocytes % 0.5 % (0-4); Lymphocytes # 1.4 K/mcL (0.6-4.6); Lymphocytes % 21.4 %; Mean Corpuscular HGB Conc 30.3 g/dL (31.6-35.5); Mean Corpuscular Hemoglobin 29.4 pg (28.0-33.3); Mean Platelet Volume 12.1 fL (9.4-12.4); Monocytes # 0.4 K/mcL (0.0-1.3); Monocytes % 5.4 %; Neutrophils # 4.8 K/mcL (1.6-8.9); Platelet Count 117 K/mcL (140-400); Red Blood Count 5.58 M/mcL (4.19-5.50); Red Cell Distribution Width 13.3 % (11.5-14.5); Segmented Neutrophils % 72.5 %
[2017-03-27 06:10] LABS: Alanine Aminotransferase 42 Units/L (0-55); Albumin 3.4 g/dL (3.5-5.0); Albumin/Globulin Ratio 0.8 (1.1-2.2); Alkaline Phosphatase 130 Units/L (38-126); Aspartate Amino Transferase 26 Units/L (5-34); BUN/Creatinine Ratio 21 (6-26); Bilirubin,Total 0.5 mg/dL (0.2-1.2); Blood Urea Nitrogen 12 mg/dL (8-26); Calcium 9.1 mg/dL (8.6-10.8); Carbon Dioxide 26 mEq/L (19-29); Chloride 109 mEq/L (98-109); Globulin 4.3 g/dL (2.4-3.5); Glucose 148 mg/dL (70-99); Magnesium 1.8 mg/dL (1.6-2.6); Osmolality,Calculated 301 (280-300); Potassium 3.5 mEq/L (3.5-4.5); Sodium 144 mEq/L (136-145); Total Protein 7.7 g/dL (6.0-8.3); eGFR For African Americans > 60 (> 60); eGFR For Non-African Americans > 60 (> 60)
[2017-03-27] MEDS: Baclofen 10 MG TABLET PO SCH ×2 (09:51→22:23)
[2017-03-27] MEDS: Aspirin Enteric Coated 325 MG Tablet PO SCH (09:52)
[2017-03-27] MEDS: Topiramate 100 MG TABLET PO SCH (09:52)
[2017-03-27] MEDS: MethylPREDNISolone 40 MG/ML VIAL IVP SCH ×2 (09:53→16:30)
[2017-03-27] MEDS: CarBAMazepine XR (12 hr) 100 MG TAB PO SCH ×2 (09:53→22:58)
[2017-03-27] MEDS: Nicotine 21 MG PATCH.TD24 TD SCH (09:53)
[2017-03-27] MEDS: Folic Acid 1 MG TABLET PO SCH (09:53)
[2017-03-27] MEDS: Artificial Tears SOLN 15 ML BOTTLE BOTH EYES SCH ×2 (10:13→22:24)
--- NOTE | 2017-03-27 13:55 | Internal Med Progress Note ---
Date of Encounter: 03/27/17 Time of Encounter: 13:50 - Assessment and plan (1) Pneumonia Current Visit: Yes Status: Acute Qualifiers: Pneumonia type: due to methicillin-resistant Staphylococcus aureus (MRSA) Laterality: bilateral Lung location: lower lobe of lung Qualified Code(s): J15.212 - Pneumonia due to Methicillin resistant Staphylococcus aureus (2) Urinary tract infection Current Visit: Yes Status: Acute Qualifiers: Urinary tract infection type: acute cystitis Hematuria presence: with hematuria Qualified Code(s): N30.01 - Acute cystitis with hematuria (3) Sepsis Current Visit: Yes Status: Acute Qualifiers: Sepsis type: sepsis due to unspecified organism Qualified Code(s): A41.9 - Sepsis, unspecified organism (4) Acute kidney injury Current Visit: Yes Status: Resolved (5) Guillain-[place] Current Visit: Yes Status: Chronic (6) Hypokalemia Current Visit: Yes Status: Resolved (7) DVT prophylaxis Current Visit: Yes Status: Acute (8) Encephalopathy acute Current Visit: Yes Status: Acute - Subjective Interval history: Mr. Mathew is a 46 year old male with a past medical history of quadriplegia with multiple infections in the past with MRSA pseudomonas, Morganella, tobacco use, seizure disorder, was transferred from a [facility] by the EMS after he developed a fever 101.9. Apparently she was being treated for UTI and received 1 dose of Levaquin. His UA shows positive nitrates to numerous to count white blood cells and many bacteria. Potassium is 3.1. Chest x-ray showed multifocal opacities compatible with pneumonia. He was started on vancomycin and cefepime at the emergency room. #1 sepsis, secondary to possible pneumonia and UTI. Blood cultures are pending but urine culture showed Providencia Sturatii which is only sensitive to cephalosporins and imipenem. Patient is allergic to penicillin. Safely primary started but now he has rash on his chest extending to both shoulders. Cefepime discontinued. Will watch it for now.. Wound culture shows Staph MRSA sensitive to clindamycin and Doxy beside Zyvox daptomycin and vancomycin. Continue vancomycin for now.. Patient has history of for MRSA and Pseudomonas pneumonia and therefore IV vancomycin will be continued . Consult infectious disease for choice of antibiotics. Patient has history of aspiration. Follow daily CBC. 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 # COPD continue nebulizer and steroids #4 hypokalemia potassium supplemented rechecked daily #5 bipolar and seizure disorder continue home medication Overall looks much better .Reduce IVF. - Constitutional Vitals: Temp Pulse Resp BP Pulse Ox 97.7 F 63 15 127/87 96 03/27/17 11:48 03/27/17 11:48 03/27/17 11:48 03/27/17 11:48 03/27/17 11:48 General appearance: Present: A&O X 0 - Head Head exam: Present: atraumatic, normocephalic - Eye Eye exam: Present: PERRL, conjuntiva pink, sclera anicteric Pupils: Present: PERRL - Neck Neck exam general surgery: Present: supple, trachea midline. Absent: lymphadenopathy - Respiratory Respiratory exam: Present: CTAB. Absent: accessory muscle use, rales, rhonchi, wheezes Additional comments: Across the chest is a rash which extends in the shoulder area at the edges maculopapular noitching..Patient is quadriplegic.No worsening of breathing. - Cardiovascular Cardiovascular exam: Present: RRR, +S1, +S2. Absent: diastolic murmur, gallop, rubs, systolic murmur - GI/Abdominal GI/Abdominal exam: Present: normal bowel sounds, soft, no peritoneal signs. Absent: distended, tenderness - Extremities Exam Extremities exam: Present: warm, radial pulses palpable and symetrical. Absent : calf tenderness, cyanotic, pedal edema - Neurological Exam Neurological exam: Present: CN II-XII intact, oriented X3, no focal deficits. Absent: pronater drift, facial droop, speech deficit - Skin Skin exam: Present: dry, intact Internal Medicine: Result - Labs CBC & Chem 7: 03/27/17 05:44 03/27/17 05:44 Labs: Short CBC 03/27/17 Range/Units 05:44 WBC 6.7 (4.3-11.1) K/mcL Hgb 16.4 D (12.9-16.9) g/dL Hct 54.1 H (37.5-50.1) % Plt Count 117 L (140-400) K/mcL Neutrophils # 4.8 (1.6-8.9) K/mcL BMP 03/27/17 05:44 Sodium 144 Potassium 3.5 Chloride 109 Carbon Dioxide 26 BUN 12 Creatinine 0.56 L Glucose 148 H Calcium 9.1 Liver Function 03/27/17 Range/Units 05:44 Total Bilirubin 0.5 (0.2-1.2) mg/dL AST 26 (5-34) Units/L ALT 42 (0-55) Units/L Alkaline Phosphatase 130 H (38-126) Units/L Albumin 3.4 L (3.5-5.0) g/dL - ABG Interpretation ABG results: ABG ABG pH 7.35 pH Units (7.32-7.45) 03/24/17 07:54 ABG pCO2 50 mmHg (35-45) H 03/24/17 07:54 ABG pO2 96 mmHg (85-104) 03/24/17 07:54 ABG O2 Saturation 97 % (95-98) 03/24/17 07:54 PT/INR, D-dimer PT 13.5 Seconds (9.4-12.1) H 03/24/17 03:50 Consult Discharge Plan - Plan Referrals: Kevin Caro MD [Primary Care Provider] -
[2017-03-27] MEDS: 0.9 % Sodium Chloride 1,000 ML IVC SCH (14:00)
--- NOTE | 2017-03-27 14:05 | Infectious Disease Consult ---
Date of Encounter: 03/27/17 Time of Encounter: 14:00 Assessment and Plan (1) Sepsis Status: Acute Assessment and plan: Transferred from [facility] after developing a fever 101.9 F after receiving one dose of Levaquin for a UTI. Previous MRSA, pseudomonas, and Morganella infections. Since admission he has met two SIRS criteria of fever 101.6 F and tachypnea respiratory rate 24. Labs on admission revealed WBC 11.3, lactic acid 0.7, BUN 28, creatinine 0.61 and UA revealed positive nitrates to numerous to count white blood cells and many bacteria. Chest x-ray showed multifocal opacities. He was started on vancomycin, Levaquin , and cefepime in the emergency room. Of note, patient developed rash on anterior neck, chest, and shoulders but nursing in unsure whether the onset was related to vancomycin administration. Levaquin was discontinued 03/26/17 Would culture collected 03/24/17 at supra-pubic catheter site reveals MRSA sensitive to Cipro, Clindamycin, daptomycin, gentamicin, Zyvox, rifampin, tetracycline, and vancomycin. Blood cultures collected 03/24/17 show no growth to date. Urine culture collected 03/24/17 is positive for Providencia stuartii sensitive to cefepime, ceftazidime, ceftriaxone, ertapenem, imipenem, Zosyn, and Bactrim. (Patient is allergic to penicillin). Patient has been on cefepime and vancomycin since 03/24/17. Recommendations: CXR reviewed and is unchanged since 08/11/16. Will discus case with radiologist and adjust antibiotic regimen if there is further concern for Healthcare- associated pneumonia. Agree with Cefepime and Vancomycin at this time. Duration of treatment depends on clinical course. Continue to monitor for drug toxicities and dose adjust antibiotics. Plan to transition to Doxycycline & Bactrim upon discharge. Qualifiers: Sepsis type: sepsis due to unspecified organism Qualified Code(s): A41.9 - Sepsis, unspecified organism (2) Catheter-associated urinary tract infection Status: Acute Assessment and plan: Transferred from [facility] after developing a fever 101.9 F after receiving one dose of Levaquin for a UTI. Previous MRSA, pseudomonas, and Morganella infections. He was started on vancomycin, Levaquin, and cefepime in the emergency room. Of note, patient developed rash on anterior neck, chest, and shoulders but nursing in unsure whether the onset was related to vancomycin administration. Levaquin was discontinued 03/26/17 Urine culture collected 03/24/17 is positive for Providencia stuartii sensitive to cefepime, ceftazidime, ceftriaxone, ertapenem, imipenem, Zosyn, and Bactrim. (Patient is allergic to penicillin). Patient has been on cefepime and vancomycin since 03/24/17. Recommendations: Placement of new Farrell catheter. Agree with Cefepime and Vancomycin at this time. Duration of treatment depends on clinical course. Continue to monitor for drug toxicities and dose adjust antibiotics. Plan to transition to Bactrim upon discharge. Qualifiers: Indwelling urinary catheter type: cystostomy catheter Encounter type: initial encounter Qualified Code(s): T83.510A - Infection and inflammatory reaction due to cystostomy catheter, initial encounter; N39.0 - Urinary tract infection, site not specified (3) Infection of skin due to methicillin resistant Staphylococcus aureus (MRSA) Status: Acute Assessment and plan: Would culture collected 03/24/17 at supra-pubic catheter site reveals MRSA sensitive to Cipro, Clindamycin, daptomycin, doxycycline, gentamicin, Zyvox, rifampin, tetracycline, and vancomycin. Agree with Vancomycin at this time. Duration of treatment depends on clinical course. Continue to monitor for drug toxicities and dose adjust antibiotics. Plan to transition to Doxycycline upon discharge. (4) Chronic respiratory failure Status: Acute Assessment and plan: Tracheostomy in place Qualifiers: Respiratory failure complication: hypoxia Qualified Code(s): J96.11 - Chronic respiratory failure with hypoxia Infectious Disease HPI - Data of Consult Requesting Physician: Daniel Braswell MD Primary Care Provider: Kevin Caro MD - Consult Narrative Reason for consult: choice antibiotics for UTI and pneumonia History of present illness: Mr. Mathew is a 46 year old male that was admitted on 03/24/17 for fever while receiving outpatient treatment for a UTI. Infectious disease was consulted on 03/27/17 for "multilobular pneumonia, history of MRSA and also UTI with gram-negative rods. Patient has developed a rash on cephalosporin, question choice antibiotics for UTI and pneumonia." Mr. Mathew is a 46 year old male [facility] resident with a PMH significant for quadriplegia, indwelling suprapubic catheter, tracheostomy after an accident , CHF, hepatitis, seizure disorder, and previous MRSA, pseudomonas, and Morganella infections that was transferred to ED after developing a fever 101.9 F after receiving one dose of Levaquin for a UTI. The patient is awake and has limited ability to communicate due to tracheostomy. able to provide any history. Since admission he has met two SIRS criteria of fever 101.6 F and tachypnea respiratory rate 24. Labs on admission revealed WBC 7.5, lactic acid 0.7, BUN 28, creatinine 0.61 and UA revealed positive nitrates, too numerous to count white blood cells, and many bacteria. Chest x-ray showed multifocal opacities. He was started on Levaquin, vancomycin , and cefepime in the emergency room. Of note, patient developed rash on anterior neck, chest, and shoulders, nursing in unsure whether the onset was related to vancomycin administration. Levaquin was discontinued 03/26/17 Would culture collected 03/24/17 at supra-pubic catheter site reveals MRSA sensitive to Cipro, Clindamycin, daptomycin, gentamicin, Zyvox, rifampin, tetracycline, and vancomycin. Blood cultures collected 03/24/17 shows no growth to date. Urine culture collected 03/24/17 is positive for Providencia stuartii sensitive to cefepime, ceftazidime, ceftriaxone, ertapenem, imipenem, Zosyn, and Bactrim. (Patient is allergic to penicillin). Patient has been on cefepime and vancomycin since 03/24/17. Today the patient denies any complains and nursing reports purulent drainage from suprapubic catheter site. CC: Daniel Braswell MD Past Med Surg Social Fam HX - Past Medical History Medical history: CHF, hepatitis, hypertension, seizures, other Psychiatric history: anxiety, bipolar, depression - Past Surgical History Surgical History: tracheostomy, other - Social History Smoking Status: Current every day smoker Smokeless Tobacco Status: No Alcohol use: none, unknown Drug use: none - Family History Mother Living Status: Hx Family Cardiac Disorders: Yes Hx Family Respiratory Disorders: Yes Hx Family Cancer: Yes Infectious Disease-CN:Meds Benztropine Mesylate 1 mg PO HS 07/04/15 [History] Folic Acid 1 mg PO QAM 07/04/15 [History] Ipratropium/Albuterol Neb [Duoneb] 3 ml IH QID PRN 07/04/15 [History] LevETIRAcetam [Keppra] 250 mg PO BID 07/04/15 [History] OLANZapine [Zyprexa] 10 mg PO BID 07/04/15 [History] Potassium Chloride Elixir [Potassium Chloride] 60 meq PO DAILY 09/28/15 [History ] Topiramate [Topamax] 150 mg PO QAM 11/05/15 [History] Acetaminophen [Tylenol] 650 mg PO Q6HR PRN 12/11/15 [History] Docusate Sodium [Dok] 100 mg PO BID 12/11/15 [History] Fluticasone/Salmeterol [Advair 250-50 Diskus] 1 puff IH BID 12/11/15 [History] Guaifenesin [Diabetic Tussin Ex] 200 mg PO Q4H PRN 12/11/15 [History] Polyvinyl Alcohol [Artificial Tears] 1 drop BOTH EYES BID 03/18/16 [History] Trazodone HCl 100 mg PO HS 03/18/16 [History] clonazePAM [Klonopin] 2 mg PO QPM 03/18/16 [History] Aspirin/Calcium Carbonate/Mag [Aspirin Buffered 325 mg Tab] 325 mg PO DAILY [History] Fluocinolone Acetonide Oil [Dermotic] 1 appl TP AD 08/11/16 [History] Ketoconazole 2% CRM [Nizoral Cream] 1 appl TP Q6H 08/11/16 [History] Ketoconazole Shampoo [Nizoral Shampoo] 1 appl TP QWEEK 08/11/16 [History] Melatonin/Pyridoxine [Melatonin Sublingual Tablet] 10 mg SL HS 08/11/16 [History ] Na Phos,M-B/Na Phos,Di-Ba [Fleet Enema Extra] 230 ml RC Q48H 08/11/16 [History] Sertraline [Zoloft] 75 mg PO DAILY 08/11/16 [History] Zinc Oxide [Triple Paste] 1 appl TP DAILY 08/11/16 [History] Baclofen [Lioresal] 10 mg PO BID 03/24/17 [History] CarBAMazepine [Carbamazepine ER] 300 mg PO BID 03/24/17 [History] Furosemide [Lasix] 40 mg PO DAILY 03/24/17 [History] OxyCODONE Immed Rel [Roxicodone 5 MG] 20 mg PO Q6H PRN 03/24/17 [History] Allergies Penicillins Allergy (Verified 08/11/16 06:57) See Comments REACTION UNKNOWN- ONLY LISTED AN ALLERGY ON ECF MAR Review of systems: Travel: denies recent travel Animal exposure:[default value] Sick contacts: Denies. [default value] exposed to small children. Diet: denies ingestion of undercooked or raw meats. Dental: denies recent dental procedures - Constitutional Constitutional: Present: chills, fever(s). Absent: night sweats, weight gain, weight loss - EENT Eyes: Absent: change in vision Nose, mouth and throat: Absent: nasal congestion, nasal obstruction, odynophagia , sore throat Additional comments: Tracheostomy in place - Cardiovascular Cardiovascular: Absent: chest pain, edema, palpitations - Respiratory Respiratory: Absent: cough, dyspnea on exertion, chest congestion, excessive phlegm production - Gastrointestinal Gastrointestinal: Present: abdominal pain (Suprapubic). Absent: change in bowel habits, diarrhea, nausea, vomiting - Genitourinary Genitourinary: dysuria Additional comments: Suprapubic catheter - Musculoskeletal Musculoskeletal: Present: abnormal gait, atrophy, limited range of motion - Integumentary Integumentary: Present: changing lesions (Drainage from superior catheter site) . Absent: erythema - Neurological Neurological: Present: weakness. Absent: numbness, tremor(s) Additional comments: Quadriplegic - Endocrine Endocrine: Absent: cold intolerance, heat intolerance, polydipsia, polyphagia, polyuria Exam - Constitutional Vitals: Temp Pulse Resp BP Pulse Ox 97.7 F 63 15 127/87 96 03/27/17 11:48 03/27/17 11:48 03/27/17 11:48 03/27/17 11:48 03/27/17 11:48 General appearance: cooperative, no acute distress, no febrile, no obese - Head Head exam: Present: atraumatic, normal inspection, normocephalic - Eye Eye exam: Present: PERRL, conjuntiva pink - ENT ENT exam: Present: mucous membranes moist, normal oropharynx - Neck Additional comments: Tracheostomy in place, bandages intact, no surrounding erythema - Respiratory Respiratory exam: Present: CTAB. Absent: decreased breath sounds, rales, rhonchi - Cardiovascular Cardiovascular exam: Present: RRR, +S1, +S2 - GI/Abdominal GI/Abdominal exam: Present: firm, normal bowel sounds, tenderness (Suprapubic). Absent: distended, guarding, rigid - Extremities Exam Extremities exam: Present: pedal edema. Absent: full ROM Additional comments: 1+ pedal edema, quadriplegia, no active range of motion - Neurological Exam Neurological exam: Present: alert Additional comments: He answers questions appropriately, quadriplegic - Skin Skin exam: Present: dry, warm. Absent: erythema Additional comments: No purulent drainage from Suprapubic catheter site, no surrounding erythema or wound dehiscence Infectious Disease CN: Results - Labs CBC & Chem 7: 03/28/17 07:28 03/27/17 05:44 Cultures: Cultures 03/25/17 01:55 Sputum Culture - Final Sputum Microbiology 03/24/17 04:30 Wound Culture - Final Abdomen Staphylococcus aureus Consult Discharge Plan - Plan Referrals: Kevin Caro MD [Primary Care Provider] - - Attending Attestation I examined this patient and my medical decision-making was reviewed with the Resident Physician. I agree with the documented findings, disposition and treatment plan as described except to the extent set forth below. This is an addendum to original report dictated by resident physician, please refer to his note for full detail. Patient is a 46-year-old gentleman with unfortunate medical history that is extensive including quadriplegia, history of Mccormick Felipe syndrome, status post PEG and suprapubic catheter placement with multiple infections in the past was transferred from the [facility] for a fever of 11.9 Fahrenheit. Since admission he has met two SIRS criteria of fever 101.6 F and tachypnea respiratory rate 24. Labs on admission revealed WBC 7.5, lactic acid 0.7, BUN 28, creatinine 0.61 and UA revealed positive nitrates, too numerous to count white blood cells, and many bacteria. Chest x-ray showed multifocal opacities. He was started on Levaquin, vancomycin , and cefepime in the emergency room. Of note, patient developed rash on anterior neck, chest, and shoulders, nursing in unsure whether the onset was related to vancomycin administration. Levaquin was discontinued 03/26/17 Would culture collected 03/24/17 at supra-pubic catheter site reveals MRSA sensitive to Cipro, Clindamycin, daptomycin, gentamicin, Zyvox, rifampin, tetracycline, and vancomycin. Blood cultures collected 03/24/17 shows no growth to date. Urine culture collected 03/24/17 is positive for Providencia stuartii sensitive to cefepime, ceftazidime, ceftriaxone, ertapenem, imipenem, Zosyn, and Bactrim. (Patient is allergic to penicillin). Patient has been on cefepime and vancomycin since 03/24/17. Agree with Cefepime and Vancomycin at this time. Duration of treatment depends on clinical course. Continue to monitor for drug toxicities and dose adjust antibiotics. Plan to transition to Bactrim upon discharge. Monitor labs and for drug toxicity.
[2017-03-27] MEDS ORDERED: Vancomycin 1,250 MG in D5% in Water 250 ML IVPB SCH (16:00)
[2017-03-27] MEDS: *HR* OxyCODONE Immed Rel 5 MG TABLET PO PRN (16:29)
[2017-03-27] MEDS: clonazePAM 1 MG TABLET PO SCH (16:29)
[2017-03-27] MEDS: traZODone 50 MG TABLET PO SCH (22:23)
[2017-03-28] MEDS: MethylPREDNISolone 40 MG/ML VIAL IVP SCH ×3 (01:08→17:49)
[2017-03-28] MEDS: *HR* OxyCODONE Immed Rel 5 MG TABLET PO PRN ×2 (01:23→21:08)
[2017-03-28] MEDS: *HR* Morphine 2 MG/ML SYRINGE IVP PRN ×5 (02:15→23:37)
[2017-03-28] MEDS: Ipratropium/Albuterol Neb 3 ML IH SCH ×4 (03:22→22:08)
[2017-03-28] MEDS: 0.9 % Sodium Chloride 1,000 ML IVC SCH (06:01)
[2017-03-28] MEDS: *HR* Heparin 5,000 UNIT/ML VIAL SQ SCH ×3 (06:01→21:09)
[2017-03-28 08:15] LABS: Basophils % 0.3 %; Eosinophils % 0.3 %; Immature Granulocytes % 0.6 % (0-4); Lymphocytes % 20.4 %; Monocytes % 10.5 %; Segmented Neutrophils % 67.9 %
[2017-03-28 08:17] LABS: Hemoglobin 16.4 g/dL (12.9-16.9); Immature Platelets 13.1 % (1.1-6.1); Lymphocytes # 1.4 K/mcL (0.6-4.6); Mean Corpuscular HGB Conc 29.8 g/dL (31.6-35.5); Mean Corpuscular Hemoglobin 29.9 pg (28.0-33.3); Mean Corpuscular Volume 100.2 fL (83.0-100.0); Mean Platelet Volume 12.7 fL (9.4-12.4); Monocytes # 0.7 K/mcL (0.0-1.3); Neutrophils # 4.8 K/mcL (1.6-8.9); Red Blood Count 5.49 M/mcL (4.19-5.50); Red Cell Distribution Width 13.5 % (11.5-14.5)
[2017-03-28 08:18] LABS: Platelet Count 84 K/mcL (140-400)
--- NOTE | 2017-03-28 08:44 | Infectious Disease Progress No ---
Date of Encounter: 03/28/17 Time of Encounter: 08:43 - Assessment and Plan (1) Sepsis Current Visit: Yes Status: Acute Transferred from [facility] after developing a fever 101.9 F after receiving one dose of Levaquin for a UTI. Previous MRSA, pseudomonas, and Morganella infections. Since admission he has met two SIRS criteria of fever 101.6 F and tachypnea respiratory rate 24. Labs on admission revealed WBC 11.3, lactic acid 0.7, BUN 28, creatinine 0.61 and UA revealed positive nitrates to numerous to count white blood cells and many bacteria. Chest x-ray showed multifocal opacities. He was started on vancomycin, Levaquin , and cefepime in the emergency room. Of note, patient developed rash on anterior neck, chest, and shoulders but nursing in unsure whether the onset was related to vancomycin administration. Levaquin was discontinued 03/26/17 Would culture collected 03/24/17 at supra-pubic catheter site reveals MRSA sensitive to Cipro, Clindamycin, daptomycin, gentamicin, Zyvox, rifampin, tetracycline, and vancomycin. Blood cultures collected 03/24/17 show no growth to date. Urine culture collected 03/24/17 is positive for Providencia stuartii sensitive to cefepime, ceftazidime, ceftriaxone, ertapenem, imipenem, Zosyn, and Bactrim. (Patient is allergic to penicillin). Patient started on cefepime and vancomycin 03/24/17. Cefepime has been discontinued. Unable to drawl a vancomycin trough for 2 days and his last dose of vancomycin was given 03/26/17. Recommendations: Case discussed with radiologist and CXR is unchanged since 08/11/16. Continue to monitor for drug toxicities and dose adjust antibiotics. Continue Doxycycline & Bactrim upon discharge. Duration of treatment through 04/03/17 Qualifiers: Sepsis type: sepsis due to unspecified organism Qualified Code(s): A41.9 - Sepsis, unspecified organism (2) Catheter-associated urinary tract infection Current Visit: Yes Status: Acute [facility]red from [facility] after developing a fever 101.9 F after receiving one dose of Levaquin for a UTI. Previous MRSA, pseudomonas, and Morganella infections. He was started on vancomycin, Levaquin, and cefepime in the emergency room. Of note, patient developed rash on anterior neck, chest, and shoulders but nursing in unsure whether the onset was related to vancomycin administration. Levaquin was discontinued 03/26/17 Urine culture collected 03/24/17 is positive for Providencia stuartii sensitive to cefepime, ceftazidime, ceftriaxone, ertapenem, imipenem, Zosyn, and Bactrim. Recommendations: Placed new Farrell catheter. Continue Bactrim DS BID PO upon discharge. Duration of treatment depends on clinical course. Continue to monitor for drug toxicities and dose adjust antibiotics. Qualifiers: Indwelling urinary catheter type: cystostomy catheter Encounter type: initial encounter Qualified Code(s): T83.510A - Infection and inflammatory reaction due to cystostomy catheter, initial encounter; N39.0 - Urinary tract infection, site not specified (3) Infection of skin due to methicillin resistant Staphylococcus aureus (MRSA) Current Visit: Yes Status: Acute Would culture collected 03/24/17 at supra-pubic catheter site reveals MRSA sensitive to Cipro, Clindamycin, daptomycin, doxycycline, gentamicin, Zyvox, rifampin, tetracycline, and vancomycin. Continue doxycycline 100 mg twice a day by mouth upon discharge. Duration of treatment depends on clinical course. Continue to monitor for drug toxicities and dose adjust antibiotics. (4) Chronic respiratory failure Current Visit: Yes Status: Acute Continue current management. Tracheostomy in place Qualifiers: Respiratory failure complication: hypoxia Qualified Code(s): J96.11 - Chronic respiratory failure with hypoxia - Subjective Interval history: Patient seen and examined. Patient denies any new complaints. Patient has limited communication with trach in place. Nursing reports unable to drawl a vancomycin trough for 2 days and his last dose of vancomycin was given 03/26/17. Infect Dis PN-Objective Data - Labs CBC & Chem 7: 03/29/17 11:18 03/29/17 08:26 Labs: Laboratory Results - last 24 hr 03/27/17 03/28/17 03/28/17 12:52 07:28 08:29 WBC 7.0 RBC 5.49 Hgb 16.4 Hct 55.0 H MCV 100.2 H MCH 29.9 MCHC 29.8 L RDW 13.5 Plt Count 84 L MPV 12.7 H Immature Gran % 0.6 Seg Neutrophils % 67.9 Lymphocytes % 20.4 Monocytes % 10.5 Eosinophils % 0.3 Basophils % 0.3 Neutrophils # 4.8 Lymphocytes # 1.4 Monocytes # 0.7 Eosinophils # 0.0 Basophils # 0.0 Immature Plt Fraction 13.1 H Specimen Rejected Hemolyzed Volume Cultures: Cultures 03/25/17 01:55 Sputum Culture - Final Sputum Exam - Constitutional Vitals: Temp Pulse Resp BP Pulse Ox 97.8 F 58 13 124/83 95 03/28/17 07:37 03/28/17 07:37 03/28/17 07:37 03/28/17 07:37 03/28/17 07:37 General appearance: cooperative, no acute distress, no febrile - Head Head exam: Present: atraumatic, normal inspection, normocephalic - Eye Eye exam: Present: PERRL, conjuntiva pink - ENT ENT exam: Present: mucous membranes moist, normal oropharynx - Neck Additional comments: Tracheostomy in place, bandages intact, no surrounding erythema - Respiratory Respiratory exam: Present: CTAB. Absent: decreased breath sounds, rales, rhonchi, tachypnea - Cardiovascular Cardiovascular exam: Present: RRR, +S1, +S2. Absent: diastolic murmur, systolic murmur - GI/Abdominal GI/Abdominal exam: Present: firm, normal bowel sounds, tenderness (Suprapubic). Absent: distended, guarding - Extremities Exam Extremities exam: Present: pedal edema. Absent: full ROM Additional comments: 1+ pedal edema, quadriplegia, no active range of motion - Neurological Exam Additional comments: answers questions appropriately, quadriplegic - Skin Skin exam: Present: dry. Absent: erythema, rash Additional comments: No purulent drainage from Suprapubic catheter site, no surrounding erythema or wound dehiscence Consult Discharge Plan - Plan Referrals: Kevin Caro MD [Primary Care Provider] - - Attending Attestation I examined this patient and my medical decision-making was reviewed with the Resident Physician. I agree with the documented findings, disposition and treatment plan as described except to the extent set forth below.
[2017-03-28] MEDS: Topiramate 100 MG TABLET PO SCH (09:42)
[2017-03-28] MEDS: CarBAMazepine XR (12 hr) 100 MG TAB PO SCH ×2 (09:43→21:08)
[2017-03-28] MEDS: Folic Acid 1 MG TABLET PO SCH (09:44)
[2017-03-28] MEDS: Baclofen 10 MG TABLET PO SCH ×2 (09:44→21:09)
[2017-03-28] MEDS: Aspirin Enteric Coated 325 MG Tablet PO SCH (09:44)
[2017-03-28] MEDS: Nicotine 21 MG PATCH.TD24 TD SCH (09:45)
[2017-03-28] MEDS: Artificial Tears SOLN 15 ML BOTTLE BOTH EYES SCH ×2 (09:45→21:09)
[2017-03-28] MEDS: Doxycycline 100 MG CAPSULE PO SCH (17:49)
[2017-03-28] MEDS: clonazePAM 1 MG TABLET PO SCH (17:49)
--- NOTE | 2017-03-28 17:51 | Internal Med Progress Note ---
Date of Encounter: 03/28/17 Time of Encounter: 12:45 - Assessment and plan (1) Urinary tract infection Current Visit: Yes Status: Acute Assessment and plan: Patient has chronic urinary catheter; urine culture grows resistant Providencia , sensitive to carbapenems, third and fourth generation cephalosporins; continue IV Cefepime, goal to change to PO Bactrim upon discharge; ID on board; Qualifiers: Urinary tract infection type: acute cystitis Hematuria presence: with hematuria Qualified Code(s): N30.01 - Acute cystitis with hematuria (2) Pneumonia Current Visit: Yes Status: Acute Assessment and plan: Improving oxygen requirements. Blood cultures remain negative. Continue IV antibiotics. Patient has trach collar, chronic dysphagia/dysarthria and multiple episodes of aspiration and pneumonia in the past. Qualifiers: Pneumonia type: due to unspecified organism Laterality: bilateral Lung location: lower lobe of lung Qualified Code(s): J18.9 - Pneumonia, unspecified organism (3) Sepsis Current Visit: Yes Status: Acute Assessment and plan: Due to UTI, pneumonia and wound infection at PEG site. Wound culture grows MRSA -Continue IV vancomycin, gold to switch to oral doxycycline at discharge. Qualifiers: Sepsis type: sepsis due to unspecified organism Qualified Code(s): A41.9 - Sepsis, unspecified organism (4) CHF (congestive heart failure) Current Visit: Yes Status: Chronic Qualifiers: Congestive heart failure type: unspecified congestive heart failure type Congestive heart failure chronicity: chronic Qualified Code(s): I50.9 - Heart failure, unspecified (5) Hepatitis C Current Visit: Yes Status: Chronic Qualifiers: Viral hepatitis chronicity: chronic Hepatic coma status: without hepatic coma Qualified Code(s): B18.2 - Chronic viral hepatitis C (6) COPD (chronic obstructive pulmonary disease) Current Visit: Yes Status: Chronic Assessment and plan: Improving. We will change steroids to oral prednisone. Continue when necessary bronchodilators and supplemental oxygen. Wean down FiO2 as tolerated. Patient is on chronic trach collar. Continue IV antibiotics. Qualifiers: COPD type: unspecified COPD Qualified Code(s): J44.9 - Chronic obstructive pulmonary disease, unspecified (7) Back pain Current Visit: Yes Status: Chronic Qualifiers: Back pain location: low back pain Chronicity: chronic Back pain laterality: bilateral Sciatica presence: without sciatica Qualified Code(s) : M54.5 - Low back pain; G89.29 - Other chronic pain (8) Paraplegia, unspecified Current Visit: Yes Status: Chronic Assessment and plan: requires higher level of nursing care; frequent repositioning and pressure ulcer prophylaxis; (9) Bipolar disorder Current Visit: Yes Status: Chronic Qualifiers: Active/Remission status: remission status unspecified Qualified Code(s): F31.9 - Bipolar disorder, unspecified (10) Seizure disorder Current Visit: Yes Status: Chronic (11) Neurogenic bladder Current Visit: Yes Status: Chronic (12) Depression Current Visit: Yes Status: Chronic Qualifiers: Depression Type: unspecified Qualified Code(s): F32.9 - Major depressive disorder, single episode, unspecified - Subjective Interval history: Reports chronic back pain; no chest or abdominal pain, no constipation; - Constitutional Vitals: Temp Pulse Resp BP Pulse Ox 97.1 F L 80 12 106/71 95 03/28/17 16:26 03/28/17 16:26 03/28/17 16:26 03/28/17 16:26 03/28/17 16:26 General appearance: Present: A&O X 1, answers questions appropriately - Respiratory Respiratory exam: Present: CTAB. Absent: accessory muscle use, rales, rhonchi, wheezes - Cardiovascular Cardiovascular exam: Present: RRR, +S1, +S2. Absent: diastolic murmur, gallop, rubs, systolic murmur - GI/Abdominal GI/Abdominal exam: Present: distended, firm, normal bowel sounds, soft, no peritoneal signs. Absent: tenderness - Extremities Exam Extremities exam: Present: pedal edema, warm, radial pulses palpable and symmetrical. Absent: calf tenderness, cyanotic - Neurological Exam Neurological exam: Present: altered, no focal deficits (dysarthria- chronic), strengths equal and symetr throughout (0-1/5 motor power in B/L LE). Absent: pronater drift, facial droop, speech deficit Internal Medicine: Result - Labs CBC & Chem 7: 03/28/17 07:28 03/27/17 05:44 Labs: Short CBC 03/28/17 Range/Units 07:28 WBC 7.0 (4.3-11.1) K/mcL Hgb 16.4 (12.9-16.9) g/dL Hct 55.0 H (37.5-50.1) % Plt Count 84 L (140-400) K/mcL Neutrophils # 4.8 (1.6-8.9) K/mcL - ABG Interpretation ABG results: ABG ABG pH 7.35 pH Units (7.32-7.45) 03/24/17 07:54 ABG pCO2 50 mmHg (35-45) H 03/24/17 07:54 ABG pO2 96 mmHg (85-104) 03/24/17 07:54 ABG O2 Saturation 97 % (95-98) 03/24/17 07:54 PT/INR, D-dimer PT 13.5 Seconds (9.4-12.1) H 03/24/17 03:50 Consult Discharge Plan - Plan Referrals: Kevin Caro MD [Primary Care Provider] -
[2017-03-28] MEDS: Sulfamethoxazole/Trimeth DS 1 EACH TABLET PO SCH (21:09)
[2017-03-28] MEDS: traZODone 50 MG TABLET PO SCH (21:09)
[2017-03-28] MEDS: levETIRAcetam 250 MG TABLET PO SCH (23:37)
[2017-03-29] MEDS: Ipratropium/Albuterol Neb 3 ML IH SCH ×4 (03:47→22:20)
[2017-03-29] MEDS: *HR* OxyCODONE Immed Rel 5 MG TABLET PO PRN ×3 (04:06→18:30)
[2017-03-29] MEDS: *HR* Heparin 5,000 UNIT/ML VIAL SQ SCH ×3 (06:51→21:22)
--- NOTE | 2017-03-29 08:15 | Infectious Disease Progress No ---
Date of Encounter: 03/29/17 Time of Encounter: 08:14 - Assessment and Plan (1) Sepsis Current Visit: Yes Status: Acute Transferred from shelter after developing a fever 101.9 F after receiving one dose of Levaquin for a UTI. Since admission he has met two SIRS criteria of fever 101.6 F and tachypnea respiratory rate 24. Labs on admission revealed WBC 11.3, lactic acid 0.7, BUN 28, creatinine 0.61 and UA revealed positive nitrates to numerous to count white blood cells and many bacteria. Chest x-ray showed multifocal opacities. He was started on vancomycin, Levaquin , and cefepime in the emergency room. Of note, patient developed rash on anterior neck, chest, and shoulders but nursing in unsure whether the onset was related to vancomycin administration. Levaquin was discontinued 03/26/17 Would culture collected 03/24/17 at supra-pubic catheter site reveals MRSA sensitive to Cipro, Clindamycin, daptomycin, gentamicin, Zyvox, rifampin, tetracycline, and vancomycin. Blood cultures collected 03/24/17 show no growth to date. Urine culture collected 03/24/17 is positive for Providencia stuartii sensitive to cefepime, ceftazidime, ceftriaxone, ertapenem, imipenem, Zosyn, and Bactrim. (Patient is allergic to penicillin). Patient started on cefepime and vancomycin 03/24/17. Cefepime has been discontinued. Unable to drawl a vancomycin trough for 2 days and his last dose of vancomycin was given 03/26/17. Recommendations: Case discussed with radiologist and CXR is unchanged since 08/11/16. Continue to monitor for drug toxicities and dose adjust antibiotics. Continue Doxycycline & Bactrim upon discharge. Duration of treatment depends on clinical course. Qualifiers: Sepsis type: sepsis due to unspecified organism Qualified Code(s): A41.9 - Sepsis, unspecified organism (2) Catheter-associated urinary tract infection Current Visit: Yes Status: Acute Transferred from shelter after developing a fever 101.9 F after receiving one dose of Levaquin for a UTI. Previous MRSA, pseudomonas, and Morganella infections. He was started on vancomycin, Levaquin, and cefepime in the emergency room. Of note, patient developed rash on anterior neck, chest, and shoulders but nursing in unsure whether the onset was related to vancomycin administration. Levaquin was discontinued 03/26/17 Urine culture collected 03/24/17 is positive for Providencia stuartii sensitive to cefepime, ceftazidime, ceftriaxone, ertapenem, imipenem, Zosyn, and Bactrim. Recommendations: Placed new Farrell catheter. Continue Bactrim DS BID PO upon discharge. Duration of treatment through 04/07/17 Qualifiers: Indwelling urinary catheter type: cystostomy catheter Encounter type: initial encounter Qualified Code(s): T83.510A - Infection and inflammatory reaction due to cystostomy catheter, initial encounter; N39.0 - Urinary tract infection, site not specified (3) Infection of skin due to methicillin resistant Staphylococcus aureus (MRSA) Current Visit: Yes Status: Acute Would culture collected 03/24/17 at supra-pubic catheter site reveals MRSA sensitive to Cipro, Clindamycin, daptomycin, doxycycline, gentamicin, Zyvox, rifampin, tetracycline, and vancomycin. Continue doxycycline 100 mg twice a day by mouth upon discharge. Duration of treatment through 04/07 (4) Chronic respiratory failure Current Visit: Yes Status: Acute Continue current management. Tracheostomy in place Qualifiers: Respiratory failure complication: hypoxia Qualified Code(s): J96.11 - Chronic respiratory failure with hypoxia - Subjective Interval history: Patient seen and examined after he was feed breakfast. Patient denies any new complaints. Patient has limited communication with trach in place. Patient was switched over to oral antibiotics. Infect Dis PN-Objective Data - Labs CBC & Chem 7: 03/29/17 11:18 03/29/17 08:26 Labs: Laboratory Results - last 24 hr 03/28/17 03/28/17 07:28 08:29 WBC 7.0 RBC 5.49 Hgb 16.4 Hct 55.0 H MCV 100.2 H MCH 29.9 MCHC 29.8 L RDW 13.5 Plt Count 84 L MPV 12.7 H Immature Gran % 0.6 Seg Neutrophils % 67.9 Lymphocytes % 20.4 Monocytes % 10.5 Eosinophils % 0.3 Basophils % 0.3 Neutrophils # 4.8 Lymphocytes # 1.4 Monocytes # 0.7 Eosinophils # 0.0 Basophils # 0.0 Immature Plt Fraction 13.1 H Specimen Rejected Volume Cultures: Cultures 03/25/17 01:55 Sputum Culture - Final Sputum Exam - Constitutional Vitals: Temp Pulse Resp BP Pulse Ox 97.0 F L 61 10 99/79 94 03/29/17 07:28 03/29/17 07:28 03/29/17 07:28 03/29/17 07:28 03/29/17 07:28 General appearance: average body habitus, cooperative, no acute distress, no febrile - Head Head exam: Present: atraumatic, normal inspection, normocephalic - Eye Eye exam: Present: PERRL, conjuntiva pink - ENT ENT exam: Present: mucous membranes moist, normal oropharynx Additional comments: Tracheostomy in place, bandages intact, no surrounding erythema - Neck Additional comments: Tracheostomy in place, bandages intact, no surrounding erythema - Respiratory Respiratory exam: Present: wheezes (Mild expiratory wheeze). Absent: accessory muscle use, decreased breath sounds, respiratory distress - Cardiovascular Cardiovascular exam: Present: RRR, +S1, +S2 - GI/Abdominal GI/Abdominal exam: Present: hypoactive bowel sounds, soft. Absent: guarding, hyperactive bowel sounds, tenderness - Extremities Exam Extremities exam: Present: pedal edema. Absent: full ROM, tenderness Additional comments: 2+ pedal edema, quadriplegia, no active range of motion lower extremities. - Neurological Exam Neurological exam: Present: alert. Absent: altered Additional comments: answers questions appropriately, able to flex left arm without assistance - Psychiatric Psychiatric exam: Present: normal affect, normal mood - Skin Skin exam: Present: dry, warm Additional comments: No purulent drainage from Suprapubic catheter site, no surrounding erythema or wound dehiscence Consult Discharge Plan - Plan Referrals: Kevin Caro MD [Primary Care Provider] - - Attending Attestation I examined this patient and my medical decision-making was reviewed with the Resident Physician. I agree with the documented findings, disposition and treatment plan as described except to the extent set forth below.
[2017-03-29 09:23] LABS: Alanine Aminotransferase 55 Units/L (0-55); Albumin 3.2 g/dL (3.5-5.0); Albumin/Globulin Ratio 0.8 (1.1-2.2); Alkaline Phosphatase 112 Units/L (38-126); BUN/Creatinine Ratio 24 (6-26); Bilirubin,Total 0.6 mg/dL (0.2-1.2); Blood Urea Nitrogen 12 mg/dL (8-26); Calcium 8.8 mg/dL (8.6-10.8); Carbon Dioxide 16 mEq/L (19-29); Chloride 113 mEq/L (98-109); Glucose 80 mg/dL (70-99); Osmolality,Calculated 289 (280-300); Sodium 140 mEq/L (136-145); Total Protein 7.2 g/dL (6.0-8.3); eGFR For African Americans > 60 (> 60); eGFR For Non-African Americans > 60 (> 60)
[2017-03-29 09:24] LABS: Aspartate Amino Transferase 42 Units/L (5-34)
[2017-03-29 09:25] LABS: Potassium 3.9 mEq/L (3.5-4.5)
[2017-03-29] MEDS: Doxycycline 100 MG CAPSULE PO SCH ×2 (10:03→18:30)
[2017-03-29] MEDS: Artificial Tears SOLN 15 ML BOTTLE BOTH EYES SCH ×2 (10:03→21:25)
[2017-03-29] MEDS: Aspirin Enteric Coated 325 MG Tablet PO SCH (10:03)
[2017-03-29] MEDS: Sulfamethoxazole/Trimeth DS 1 EACH TABLET PO SCH ×2 (10:03→21:23)
[2017-03-29] MEDS: levETIRAcetam 250 MG TABLET PO SCH ×2 (10:04→21:23)
[2017-03-29] MEDS: Folic Acid 1 MG TABLET PO SCH (10:04)
[2017-03-29] MEDS: Nicotine 21 MG PATCH.TD24 TD SCH (10:06)
[2017-03-29] MEDS: predniSONE 20 MG TABLET PO SCH (10:06)
[2017-03-29] MEDS: Baclofen 10 MG TABLET PO SCH ×2 (10:06→21:24)
[2017-03-29] MEDS: CarBAMazepine XR (12 hr) 100 MG TAB PO SCH ×2 (10:07→21:23)
[2017-03-29] MEDS: Topiramate 100 MG TABLET PO SCH (10:08)
[2017-03-29 11:33] LABS: Basophils % 0.3 %; Eosinophils # 0.2 K/mcL (0.0-0.6); Eosinophils % 2.7 %; Hematocrit 48.2 % (37.5-50.1); Hemoglobin 15.2 g/dL (12.9-16.9); Immature Platelets 12.1 % (1.1-6.1); Lymphocytes # 1.1 K/mcL (0.6-4.6); Lymphocytes % 17.9 %; Mean Corpuscular HGB Conc 31.5 g/dL (31.6-35.5); Mean Corpuscular Hemoglobin 30.1 pg (28.0-33.3); Mean Corpuscular Volume 95.4 fL (83.0-100.0); Mean Platelet Volume 12.3 fL (9.4-12.4); Monocytes # 0.6 K/mcL (0.0-1.3); Monocytes % 9.4 %; Neutrophils # 4.3 K/mcL (1.6-8.9); Platelet Count 124 K/mcL (140-400); Red Blood Count 5.05 M/mcL (4.19-5.50); Red Cell Distribution Width 13.7 % (11.5-14.5); Segmented Neutrophils % 68.7 %
--- NOTE | 2017-03-29 14:25 | Discharge Summary ---
Date of Encounter: 03/29/17 Time of Encounter: 14:12 - Discharge Diagnosis (1) Wound infection Priority: Primary Status: Acute (2) Urinary tract infection Priority: Primary Status: Acute Qualifiers: Urinary tract infection type: acute cystitis Hematuria presence: with hematuria Qualified Code(s): N30.01 - Acute cystitis with hematuria (3) Pneumonia Priority: Primary Status: Acute Qualifiers: Pneumonia type: due to unspecified organism Laterality: bilateral Lung location: lower lobe of lung Qualified Code(s): J18.9 - Pneumonia, unspecified organism (4) Sepsis Priority: Primary Status: Acute Qualifiers: Sepsis type: sepsis due to unspecified organism Qualified Code(s): A41.9 - Sepsis, unspecified organism (5) CHF (congestive heart failure) Priority: Secondary Status: Chronic Qualifiers: Congestive heart failure type: unspecified congestive heart failure type Congestive heart failure chronicity: chronic Qualified Code(s): I50.9 - Heart failure, unspecified (6) Hepatitis C Priority: Secondary Status: Chronic Qualifiers: Viral hepatitis chronicity: chronic Hepatic coma status: without hepatic coma Qualified Code(s): B18.2 - Chronic viral hepatitis C (7) COPD (chronic obstructive pulmonary disease) Priority: Secondary Status: Chronic Qualifiers: COPD type: unspecified COPD Qualified Code(s): J44.9 - Chronic obstructive pulmonary disease, unspecified (8) Back pain Priority: Secondary Status: Chronic Qualifiers: Back pain location: low back pain Chronicity: chronic Back pain laterality: bilateral Sciatica presence: without sciatica Qualified Code(s) : M54.5 - Low back pain; G89.29 - Other chronic pain (9) Paraplegia, unspecified Priority: Secondary Status: Chronic (10) Bipolar disorder Priority: Secondary Status: Chronic Qualifiers: Active/Remission status: remission status unspecified Qualified Code(s): F31.9 - Bipolar disorder, unspecified (11) Seizure disorder Priority: Secondary Status: Chronic (12) Neurogenic bladder Priority: Secondary Status: Chronic (13) Depression Priority: Secondary Status: Chronic Qualifiers: Depression Type: unspecified Qualified Code(s): F32.9 - Major depressive disorder, single episode, unspecified - Discharge Medications Home Medications: Benztropine Mesylate 1 mg PO HS 07/04/15 [History] Folic Acid 1 mg PO QAM 07/04/15 [History] Ipratropium/Albuterol Neb [Duoneb] 3 ml IH QID PRN 07/04/15 [History] LevETIRAcetam [Keppra] 250 mg PO BID 07/04/15 [History] OLANZapine [Zyprexa] 10 mg PO BID 07/04/15 [History] Potassium Chloride Elixir [Potassium Chloride] 60 meq PO DAILY 09/28/15 [History ] Topiramate [Topamax] 150 mg PO QAM 11/05/15 [History] Acetaminophen [Tylenol] 650 mg PO Q6HR PRN 12/11/15 [History] Docusate Sodium [Dok] 100 mg PO BID 12/11/15 [History] Fluticasone/Salmeterol [Advair 250-50 Diskus] 1 puff IH BID 12/11/15 [History] Guaifenesin [Diabetic Tussin Ex] 200 mg PO Q4H PRN 12/11/15 [History] Polyvinyl Alcohol [Artificial Tears] 1 drop BOTH EYES BID 03/18/16 [History] Trazodone HCl 100 mg PO HS 03/18/16 [History] Aspirin/Calcium Carbonate/Mag [Aspirin Buffered 325 mg Tab] 325 mg PO DAILY [History] Fluocinolone Acetonide Oil [Dermotic] 1 appl TP AD 08/11/16 [History] Ketoconazole 2% CRM [Nizoral Cream] 1 appl TP Q6H 08/11/16 [History] Ketoconazole Shampoo [Nizoral Shampoo] 1 appl TP QWEEK 08/11/16 [History] Melatonin/Pyridoxine [Melatonin Sublingual Tablet] 10 mg SL HS 08/11/16 [History ] Na Phos,M-B/Na Phos,Di-Ba [Fleet Enema Extra] 230 ml RC Q48H 08/11/16 [History] Sertraline [Zoloft] 75 mg PO DAILY 08/11/16 [History] Zinc Oxide [Triple Paste] 1 appl TP DAILY 08/11/16 [History] Baclofen [Lioresal] 10 mg PO BID 03/24/17 [History] CarBAMazepine [Carbamazepine ER] 300 mg PO BID 03/24/17 [History] Furosemide [Lasix] 40 mg PO DAILY 03/24/17 [History] Doxycycline 100 mg PO BIDWM #20 03/29/17 [Rx] OxyCODONE Immed Rel [Roxicodone 5 MG] 20 mg PO Q6H PRN #30 03/29/17 [Rx] Sulfamethoxazole/Trimeth DS [Bactrim Ds] 1 each PO BID #20 tab 03/29/17 [Rx] clonazePAM [Klonopin] 2 mg PO QPM #20 03/29/17 [Rx] Allergies/Adverse Reactions: Allergies Penicillins Allergy (Verified 08/11/16 06:57) See Comments REACTION UNKNOWN- ONLY LISTED AN ALLERGY ON ECF MAR Date of admission: 03/24/17 11:40 Primary care physician: Kevin Caro MD Consults: 03/27/17 13:47 Consult to Infectious Diseases [CONS] Routine Consulting Provider: [facility] Reason for Consult: Patient has multilobular pneumonia history of MRSA and also UTI with her gram-negative rods. Patient has developed a rash on cephalosporin question choice antibiotics for UTI and pneumonia. Time Notified: 13:48 Call Completed: No Discharging clinician: Sydni Borjas Anticipated date of discharge: 03/29/17 - Patient Status Disposition: Transfer SNF Condition: Fair Functional capacity at discharge: bed bound Overall status at discharge: patient is progressing back to baseline - Discharge Instructions Follow Up With: Kevin Caro MD [Primary Care Provider] - Additional Instructions: F/up with PCP in 1-2 weeks - Diet and Activity Activity: as per physical therapy, wear oxygen at all times Diet: low fat, low cholesterol, low salt diet, other (mechanical soft diet, honey-thick liquids) Hospital course: Mr. Mathew is a 46 year old male with history of quadriplegia, chronic suprapubic catheter, tracheostomy, bedbound status, was admitted with dyspnea. He was noted to have sepsis secondary to possible pneumonia and catheter associated UTI. He was started on broad-spectrum IV antibiotics, IV hydration and supplemental oxygen, bronchodilators and his clinical condition gradually improved. Blood and sputum cultures remained negative. Urine culture grew Providencia stuartii and suprapubic catheter site culture grew MRSA. Due to his multiple antibiotic allergies and documented rash, infectious diseases was consulted and patient is currently medically stable for discharge with oral Bactrim and Doxycycline. - Time Spent with Patient Total time spent providing and/or coordinating discharge services: Greater than 30 minutes (45 min) - Constitutional Vitals: Temp Pulse Resp BP Pulse Ox 98.1 F 79 14 102/76 93 03/29/17 11:26 03/29/17 11:26 03/29/17 11:26 03/29/17 11:26 03/29/17 11:26 General appearance: Present: A&O X 2, answers questions appropriately - Respiratory Respiratory exam: Present: CTAB (coarse breath sounds B/L). Absent: accessory muscle use, rales, rhonchi, wheezes - Cardiovascular Cardiovascular exam: Present: RRR, +S1, +S2. Absent: diastolic murmur, gallop, rubs, systolic murmur
--- NOTE | 2017-03-29 14:28 | Physician Discharge Referral ---
ExtendedCare Referral Info Transfer To: [facility] Provider in Charge: Sydni Borjas Provider in Charge after Transfer: PCP Institutional Level of Care: Skilled - Diagnosis (1) Wound infection Priority: Primary Status: Acute (2) Urinary tract infection Priority: Primary Status: Acute (3) Pneumonia Priority: Primary Status: Acute (4) Sepsis Priority: Primary Status: Acute (5) CHF (congestive heart failure) Priority: Secondary Status: Chronic (6) Hepatitis C Priority: Secondary Status: Chronic (7) COPD (chronic obstructive pulmonary disease) Priority: Secondary Status: Chronic (8) Back pain Priority: Secondary Status: Chronic (9) Paraplegia, unspecified Priority: Secondary Status: Chronic (10) Bipolar disorder Priority: Secondary Status: Chronic (11) Seizure disorder Priority: Secondary Status: Chronic (12) Neurogenic bladder Priority: Secondary Status: Chronic (13) Depression Priority: Secondary Status: Chronic Expected Duration of Placement: longterm Prognosis: Fair Aware of Diagnosis: Patient Aware of Prognosis: Patient - Transfer Medications Home Medications: Benztropine Mesylate 1 mg PO HS 07/04/15 [History] Folic Acid 1 mg PO QAM 07/04/15 [History] Ipratropium/Albuterol Neb [Duoneb] 3 ml IH QID PRN 07/04/15 [History] LevETIRAcetam [Keppra] 250 mg PO BID 07/04/15 [History] OLANZapine [Zyprexa] 10 mg PO BID 07/04/15 [History] Potassium Chloride Elixir [Potassium Chloride] 60 meq PO DAILY 09/28/15 [History ] Topiramate [Topamax] 150 mg PO QAM 11/05/15 [History] Acetaminophen [Tylenol] 650 mg PO Q6HR PRN 12/11/15 [History] Docusate Sodium [Dok] 100 mg PO BID 12/11/15 [History] Fluticasone/Salmeterol [Advair 250-50 Diskus] 1 puff IH BID 12/11/15 [History] Guaifenesin [Diabetic Tussin Ex] 200 mg PO Q4H PRN 12/11/15 [History] Polyvinyl Alcohol [Artificial Tears] 1 drop BOTH EYES BID 03/18/16 [History] Trazodone HCl 100 mg PO HS 03/18/16 [History] Aspirin/Calcium Carbonate/Mag [Aspirin Buffered 325 mg Tab] 325 mg PO DAILY [History] Fluocinolone Acetonide Oil [Dermotic] 1 appl TP AD 08/11/16 [History] Ketoconazole 2% CRM [Nizoral Cream] 1 appl TP Q6H 08/11/16 [History] Ketoconazole Shampoo [Nizoral Shampoo] 1 appl TP QWEEK 08/11/16 [History] Melatonin/Pyridoxine [Melatonin Sublingual Tablet] 10 mg SL HS 08/11/16 [History ] Na Phos,M-B/Na Phos,Di-Ba [Fleet Enema Extra] 230 ml RC Q48H 08/11/16 [History] Sertraline [Zoloft] 75 mg PO DAILY 08/11/16 [History] Zinc Oxide [Triple Paste] 1 appl TP DAILY 08/11/16 [History] Baclofen [Lioresal] 10 mg PO BID 03/24/17 [History] CarBAMazepine [Carbamazepine ER] 300 mg PO BID 03/24/17 [History] Furosemide [Lasix] 40 mg PO DAILY 03/24/17 [History] Doxycycline 100 mg PO BIDWM #20 03/29/17 [Rx] OxyCODONE Immed Rel [Roxicodone 5 MG] 20 mg PO Q6H PRN #30 03/29/17 [Rx] Sulfamethoxazole/Trimeth DS [Bactrim Ds] 1 each PO BID #20 tab 03/29/17 [Rx] clonazePAM [Klonopin] 2 mg PO QPM #20 03/29/17 [Rx] Allergies/Adverse Reactions: Allergies Penicillins Allergy (Verified 08/11/16 06:57) See Comments REACTION UNKNOWN- ONLY LISTED AN ALLERGY ON ECF MAR - Respiratory Orders Oxygen / L per min (5L/min via trach collar mask) Smoking Cessation: Smoking cessation has been advised. For more information, call the [place] Tobacco Quit Line at 9-895-TRIZ-NOW. - Ancillary Orders May use pressure relief devices daily prn - Advance Directives Code Status: Full Code - Mobility Orders Bedrest - Rehabiliation Orders Rehab Orders: ROM Exercises, Evaluation for Physical Therapy, Evaluation for Occupational Therapy - Diet Orders Cardiac CERTIFICATION: I certify that the transfer of the above named patient to an Extended Care Facility is necessary for the continuing treatment of the diagnosis listed. The above information is true and accurate reflection of patient's current condition. Confidential - Redisclosure prohibited without a patient's written consent.
[2017-03-29] MEDS: clonazePAM 1 MG TABLET PO SCH (18:30)
[2017-03-29] MEDS: traZODone 50 MG TABLET PO SCH (21:23)
[2017-03-30] MEDS: Ipratropium/Albuterol Neb 3 ML IH SCH ×2 (05:02→09:43)
[2017-03-30 05:56] LABS: Basophils % 0.1 %; Eosinophils # 0.1 K/mcL (0.0-0.6); Eosinophils % 1.6 %; Hematocrit 45.7 % (37.5-50.1); Hemoglobin 14.6 g/dL (12.9-16.9); Immature Granulocytes % 0.9 % (0-4); Lymphocytes # 2.1 K/mcL (0.6-4.6); Lymphocytes % 27.7 %; Mean Corpuscular HGB Conc 31.9 g/dL (31.6-35.5); Mean Platelet Volume 12.2 fL (9.4-12.4); Monocytes % 13.8 %; Neutrophils # 4.2 K/mcL (1.6-8.9); Platelet Count 107 K/mcL (140-400); Red Blood Count 4.71 M/mcL (4.19-5.50); Red Cell Distribution Width 13.9 % (11.5-14.5); Segmented Neutrophils % 55.9 %
[2017-03-30 06:09] LABS: Alanine Aminotransferase 70 Units/L (0-55); Albumin 3.1 g/dL (3.5-5.0); Albumin/Globulin Ratio 0.9 (1.1-2.2); Alkaline Phosphatase 114 Units/L (38-126); Aspartate Amino Transferase 49 Units/L (5-34); BUN/Creatinine Ratio 22 (6-26); Bilirubin,Total 0.5 mg/dL (0.2-1.2); Blood Urea Nitrogen 11 mg/dL (8-26); Calcium 8.6 mg/dL (8.6-10.8); Carbon Dioxide 24 mEq/L (19-29); Chloride 112 mEq/L (98-109); Globulin 3.6 g/dL (2.4-3.5); Glucose 119 mg/dL (70-99); Osmolality,Calculated 303 (280-300); Sodium 146 mEq/L (136-145); Total Protein 6.7 g/dL (6.0-8.3); eGFR For African Americans > 60 (> 60); eGFR For Non-African Americans > 60 (> 60)
[2017-03-30 06:45] LABS: Potassium 2.6 mEq/L (3.5-4.5)
[2017-03-30] MEDS: *HR* Heparin 5,000 UNIT/ML VIAL SQ SCH (06:47)
[2017-03-30 07:24] VITALS: BP 100/71
[2017-03-30] MEDS: predniSONE 20 MG TABLET PO SCH (09:19)
[2017-03-30] MEDS: Aspirin Enteric Coated 325 MG Tablet PO SCH (09:19)
[2017-03-30] MEDS: Doxycycline 100 MG CAPSULE PO SCH (09:19)
[2017-03-30] MEDS: Baclofen 10 MG TABLET PO SCH (09:19)
[2017-03-30] MEDS: Folic Acid 1 MG TABLET PO SCH (09:20)
[2017-03-30] MEDS: CarBAMazepine XR (12 hr) 100 MG TAB PO SCH (09:20)
[2017-03-30] MEDS: Topiramate 100 MG TABLET PO SCH (09:20)
[2017-03-30] MEDS: levETIRAcetam 250 MG TABLET PO SCH (09:20)
[2017-03-30] MEDS: Sulfamethoxazole/Trimeth DS 1 EACH TABLET PO SCH (09:20)
[2017-03-30] MEDS: *HR* OxyCODONE Immed Rel 5 MG TABLET PO PRN (09:21)
[2017-03-30] MEDS: Artificial Tears SOLN 15 ML BOTTLE BOTH EYES SCH (09:21)
[2017-03-30] MEDS: Nicotine 21 MG PATCH.TD24 TD SCH (09:22)
[2017-03-30] MEDS ORDERED: Aminoglycoside Consult 1 EACH MC ONE (12:52)
--- NOTE | 2017-03-30 18:11 | Internal Med Progress Note ---
Date of Encounter: 03/30/17 Time of Encounter: 10:30 - Assessment and plan (1) Wound infection Status: Acute (2) Urinary tract infection Status: Acute Assessment and plan: Patient has chronic urinary catheter; urine culture grows resistant Providencia , continue Bactrim; SPC to be changed at the [facility]; Qualifiers: Urinary tract infection type: acute cystitis Hematuria presence: with hematuria Qualified Code(s): N30.01 - Acute cystitis with hematuria (3) Pneumonia Status: Acute Assessment and plan: Stable oxygen requirements. Blood and sputum cultures remain negative. Continue antibiotics. Patient has trach collar, chronic dysphagia/dysarthria and multiple episodes of aspiration and pneumonia in the past. Patient was scheduled for discharge yesterday, however was noted to have aspirated for particles which were suctioned from his tracheostomy. Speech therapy evaluation was completed and patient continues to be at high risk for aspiration, however can safely tolerate honey thick liquids and mechanically altered soft diet at this time. Patient is also noted to be noncompliant at the [facility] and continues to eat regular food after signing of the liver, at his own risk. These findings have been explained and reinforced to the patient. He is currently medically stable for discharge back to [facility]. Qualifiers: Pneumonia type: due to unspecified organism Laterality: bilateral Lung location: lower lobe of lung Qualified Code(s): J18.9 - Pneumonia, unspecified organism (4) Sepsis Status: Acute Qualifiers: Sepsis type: sepsis due to unspecified organism Qualified Code(s): A41.9 - Sepsis, unspecified organism (5) CHF (congestive heart failure) Status: Chronic Qualifiers: Congestive heart failure type: unspecified congestive heart failure type Congestive heart failure chronicity: chronic Qualified Code(s): I50.9 - Heart failure, unspecified (6) Hepatitis C Status: Chronic Qualifiers: Viral hepatitis chronicity: chronic Hepatic coma status: without hepatic coma Qualified Code(s): B18.2 - Chronic viral hepatitis C (7) COPD (chronic obstructive pulmonary disease) Status: Chronic Qualifiers: COPD type: unspecified COPD Qualified Code(s): J44.9 - Chronic obstructive pulmonary disease, unspecified (8) Back pain Status: Chronic Qualifiers: Back pain location: low back pain Chronicity: chronic Back pain laterality: bilateral Sciatica presence: without sciatica Qualified Code(s) : M54.5 - Low back pain; G89.29 - Other chronic pain (9) Paraplegia, unspecified Status: Chronic (10) Bipolar disorder Status: Chronic Qualifiers: Active/Remission status: remission status unspecified Qualified Code(s): F31.9 - Bipolar disorder, unspecified (11) Seizure disorder Status: Chronic (12) Neurogenic bladder Status: Chronic (13) Depression Status: Chronic Qualifiers: Depression Type: unspecified Qualified Code(s): F32.9 - Major depressive disorder, single episode, unspecified - Subjective Interval history: Denies new complaints; no cough, dyspnea' noted to have copious secretions from trach site; - Constitutional Vitals: Temp Pulse Resp BP Pulse Ox 97.9 F 67 18 100/71 90 03/30/17 07:00 03/30/17 07:00 03/30/17 09:52 03/30/17 07:00 03/30/17 09:52 General appearance: Present: A&O X 3, answers questions appropriately - Respiratory Respiratory exam: Present: CTAB, rhonchi (B/L posterior scattered). Absent: accessory muscle use, rales, wheezes - Cardiovascular Cardiovascular exam: Present: RRR, +S1, +S2. Absent: diastolic murmur, gallop, rubs, systolic murmur Internal Medicine: Result - Labs CBC & Chem 7: 03/30/17 05:48 03/30/17 05:48 Labs: Short CBC 03/30/17 Range/Units 05:48 WBC 7.5 (4.3-11.1) K/mcL Hgb 14.6 (12.9-16.9) g/dL Hct 45.7 (37.5-50.1) % Plt Count 107 L (140-400) K/mcL Neutrophils # 4.2 (1.6-8.9) K/mcL BMP 03/30/17 05:48 Sodium 146 H Potassium 2.6 L D Chloride 112 H Carbon Dioxide 24 BUN 11 Creatinine 0.51 L Glucose 119 H Calcium 8.6 Liver Function 03/30/17 Range/Units 05:48 Total Bilirubin 0.5 (0.2-1.2) mg/dL AST 49 H (5-34) Units/L ALT 70 H (0-55) Units/L Alkaline Phosphatase 114 (38-126) Units/L Albumin 3.1 L (3.5-5.0) g/dL - ABG Interpretation ABG results: ABG ABG pH 7.35 pH Units (7.32-7.45) 03/24/17 07:54 ABG pCO2 50 mmHg (35-45) H 03/24/17 07:54 ABG pO2 96 mmHg (85-104) 03/24/17 07:54 ABG O2 Saturation 97 % (95-98) 03/24/17 07:54 PT/INR, D-dimer PT 13.5 Seconds (9.4-12.1) H 03/24/17 03:50 Consult Discharge Plan - Plan Additional Instructions: F/up with PCP in 1-2 weeks Referrals: Kevin Caro MD [Primary Care Provider] -
== END 2017-03-30 12:53 | DRG 720 ==
LOC: EMEROO 02:39 → 2NENU 02:39 → SUATTDRO 11:40
PROVIDERS: ADMIT Hospitalist; ATTEND Internal Medicine

== ENCOUNTER 2017-05-07 23:59 | Inpatient (IN) ==
[2017-05-08] MEDS ORDERED: Levofloxacin 750 MG/150 ML 750 MG/150 ML BAG IVPB ONE (00:17)
[2017-05-08] MEDS ORDERED: Vancomycin 1,250 MG in D5% in Water 250 ML IVPB ONE (00:19)
--- NOTE | 2017-05-08 00:22 | Emergency Department Note ---
Disposition Clinical Impression: Sepsis Qualifiers: Sepsis type: sepsis due to unspecified organism Qualified Code(s): A41.9 - Sepsis, unspecified organism Disposition: Admitted As Inpatient Condition: Fair Time of Disposition: 04:16 General Adult HPI - General Chief complaint: ED Fever Stated complaint: poss infection Time Seen by Provider: 05/08/17 00:09 Source: patient, EMS Limitations: no limitations Nursing Notes Reviewed: Yes Vital Signs Reviewed: Yes - History of Present Illness HPI Narrative: Mr. Mathew, a 47-year-old male, presents from [facility] for evaluation of fever. Patient has indwelling suprapubic catheter as well as a chronic tracheostomy. He had a left upper extremity PICC line through which she was receiving on an unknown antibiotic for the past 2 weeks for pneumonia. PMH: Congestive heart failure, hypertension, quadriplegia, indwelling suprapubic catheter, chronic tracheostomy, anxiety, bipolar, depression, hepatitis ROS: Positive: Fever, back pain Negative: Dyspnea, diaphoresis, Pain Scale: 7 - Related Data Home Medications Medication Instructions Recorded Confirmed Benztropine Mesylate 1 mg PO HS 07/04/15 03/24/17 Folic Acid 1 mg PO QAM 07/04/15 03/24/17 Ipratropium/Albuterol Neb [Duoneb] 3 ml IH QID PRN 07/04/15 03/24/17 LevETIRAcetam [Keppra] 250 mg PO BID 07/04/15 03/24/17 OLANZapine [Zyprexa] 10 mg PO BID 07/04/15 03/24/17 Potassium Chloride Elixir 60 meq PO DAILY 09/28/15 03/24/17 [Potassium Chloride] Topiramate [Topamax] 150 mg PO QAM 11/05/15 03/24/17 Acetaminophen [Tylenol] 650 mg PO Q6HR PRN 12/11/15 03/24/17 Docusate Sodium [Dok] 100 mg PO BID 12/11/15 03/24/17 Fluticasone/Salmeterol [Advair 1 puff IH BID 12/11/15 03/24/17 250-50 Diskus] Guaifenesin [Diabetic Tussin Ex] 200 mg PO Q4H PRN 12/11/15 03/24/17 Polyvinyl Alcohol [Artificial 1 drop BOTH EYES BID 03/18/16 03/24/17 Tears] Trazodone HCl 100 mg PO HS 03/18/16 03/24/17 Aspirin/Calcium Carbonate/Mag 325 mg PO DAILY 08/11/16 03/24/17 [Aspirin Buffered 325 mg Tab] Fluocinolone Acetonide Oil 1 appl TP AD 08/11/16 03/24/17 [Dermotic] Ketoconazole 2% CRM [Nizoral Cream] 1 appl TP Q6H 08/11/16 03/24/17 Ketoconazole Shampoo [Nizoral 1 appl TP QWEEK 08/11/16 03/24/17 Shampoo] Melatonin/Pyridoxine [Melatonin 10 mg SL HS 08/11/16 03/24/17 Sublingual Tablet] Na Phos,M-B/Na Phos,Di-Ba [Fleet 230 ml RC Q48H 08/11/16 03/24/17 Enema Extra] Sertraline [Zoloft] 75 mg PO DAILY 08/11/16 03/24/17 Zinc Oxide [Triple Paste] 1 appl TP DAILY 08/11/16 03/24/17 Baclofen [Lioresal] 10 mg PO BID 03/24/17 03/24/17 CarBAMazepine [Carbamazepine ER] 300 mg PO BID 03/24/17 03/24/17 Furosemide [Lasix] 40 mg PO DAILY 03/24/17 03/24/17 Previous Rx's Medication Instructions Recorded Doxycycline 100 mg PO BIDWM #20 03/29/17 OxyCODONE Immed Rel [Roxicodone 5 20 mg PO Q6H PRN #30 03/29/17 MG] Sulfamethoxazole/Trimeth DS 1 each PO BID #20 tab 03/29/17 [Bactrim Ds] clonazePAM [Klonopin] 2 mg PO QPM #20 03/29/17 Allergies Allergy/AdvReac Type Severity Reaction Status Date / Time Penicillins Allergy See Verified 08/11/16 06:57 Comments All systems ED: reviewed and negative except as stated. Past Medical History - Past Medical History Medical history: Reports: CHF, hepatitis, hypertension, seizures, other Surgical history: Reports: tracheostomy, other Psychiatric history: Reports: anxiety, bipolar, depression - Social History Smoking Status: Current every day smoker Smokeless Tobacco Status: No Alcohol use: Reports: none, unknown Drug use: Reports: none Physical Exam Vital Signs Reviewed General: Patient is alert, oriented, and in no acute distress. HEENT: No facial asymmetry. Head is normocephalic and atraumatic. PERRLA, EOMI. oral mucosa moist. Trachea midline. Cardiovascular: Heart regular rate and rhythm without clicks, rubs, gallops, or murmurs. No JVD. PMI nondisplaced. 2+ bilateral pitting pedal edema with venous stasis changes. Respiratory: Symmetric chest rise with poor respiratory effort. Bilateral breath sounds have scattered wheezes without crackles or rhonchi. Tracheostomy in place. Surrounding tissue is not erythematous. Abdomen: Bowel sounds present normoactive x-4 quadrants. Abdomen is soft, nondistended, and nontender. Skin: Bilateral sacral superficial skin breakdown; stage I. Psych: Patient's affect is appropriate for situation. - General Limitations: no limitations General appearance: alert, in no apparent distress Course Course Narrative: SIRS (+) on intake vitals. Patient is trach dependent and had a PICC line in place. [facility] in a prison. Today, staff at the prison pulled his PICC line and sent it with the patient for us. Unfortunately, it is sitting exposed on the bedside. No useful cultures will be obtainable from the PICC line. Additionally, patient has poor vascular access which was the indication for the PICC line placement. Patient had thick mucus discharge from his tracheostomy tube. Patient respiratory was able to suction after which patient's breathing seemed to come easier. Patient does not have a speech For his tracheostomy. As such, I am attempting my best to lip read to obtain an appropriate history and physical. Peripheral IV access obtained using ultrasound. Patient's chest x-ray returned showing no acute disease. Patient's laboratory work shows UTI. Assessment: Urosepsis. I discussed the patient with the admitting hospitalist who agrees to accept him for continued evaluation and management. Chest X-Ray 05/08/17 02:50 IMPRESSION: No acute disease. D/ / Pawel Martinez MD / Pawel Martinez MD Interpreting Provider: Pawel Martinez MD Vital Signs Temperature 100.2 F H 05/08/17 00:07 Pulse Rate 122 05/08/17 00:07 Respiratory Rate 25 05/08/17 00:07 Blood Pressure 107/90 05/08/17 00:07 O2 Sat by Pulse Oximetry 96 05/08/17 00:07 Temperature 100.2 F H 05/08/17 00:07 Pulse Rate 126 05/08/17 03:38 Respiratory Rate 21 05/08/17 04:42 Blood Pressure 134/101 05/08/17 04:42 O2 Sat by Pulse Oximetry 95 05/08/17 03:38 Oxygen Delivery Oxygen Delivery Room Air Medical Decision Making - Lab Data Lab results reviewed: Yes I reviewed the patient's lab results. Result diagrams: 05/08/17 01:55 05/08/17 01:55 Lab Results 05/08/17 05/08/17 05/08/17 Range/Units 01:55 01:55 01:55 WBC 13.6 H (4.3-11.1) K/mcL RBC 4.69 (4.19-5.50) M/mcL Hgb 14.0 (12.9-16.9) g/dL Hct 44.3 (37.5-50.1) % MCV 94.5 (83.0-100.0) fL MCH 29.9 (28.0-33.3) pg MCHC 31.6 (31.6-35.5) g/dL RDW 13.7 (11.5-14.5) % Plt Count 177 (140-400) K/mcL MPV 11.0 (9.4-12.4) fL Immature Gran % 0.4 (0-4) % Seg Neutrophils % 72.5 % Lymphocytes % 13.1 % Monocytes % 11.7 % Eosinophils % 2.1 % Basophils % 0.2 % Neutrophils # 9.9 H (1.6-8.9) K/mcL Lymphocytes # 1.8 (0.6-4.6) K/mcL Monocytes # 1.6 H (0.0-1.3) K/mcL Eosinophils # 0.3 (0.0-0.6) K/mcL Basophils # 0.0 (0.0-0.2) K/mcL PT 11.5 (9.4-12.1) Seconds INR 1.1 APTT 31.3 (26.0-36.0) Seconds Sodium 137 (136-145) mEq/L Potassium 3.5 (3.5-4.5) mEq/L Chloride 99 (98-109) mEq/L Carbon Dioxide 27 (19-29) mEq/L BUN 13 (8-26) mg/dL Creatinine 0.64 L (0.72-1.25) mg/dL Est GFR ( Amer) > 60 (> 60) Est GFR (Non-Af Amer) > 60 (> 60) BUN/Creatinine Ratio 20 (6-26) Glucose 111 H (70-99) mg/dL Calculated Osmolality 285 (280-300) Lactic Acid (0.5-2.2) mmol/L Calcium 9.3 (8.6-10.8) mg/dL Phosphorus 3.3 (2.3-4.7) mg/dL Magnesium 1.9 (1.6-2.6) mg/dL Total Bilirubin 0.9 (0.2-1.2) mg/dL Direct Bilirubin 0.5 (0.0-0.5) mg/dL Indirect Bilirubin 0.4 (0.0-1.2) mg/dL AST 24 (5-34) Units/L ALT 31 (0-55) Units/L Alkaline Phosphatase 137 H (38-126) Units/L Troponin I (0-0.03) ng/mL Serum Total Protein 8.4 H (6.0-8.3) g/dL Albumin 3.6 (3.5-5.0) g/dL Globulin 4.8 H (2.4-3.5) g/dL Albumin/Globulin Ratio 0.8 L (1.1-2.2) Ur Specimen Adequacy Urine Color (Yellow) Urine Clarity (Clear) Urine pH (5.0-8.0) pH Units Ur Specific Russell (1.010-1.025) Urine Protein (Neg-Trace) mg/dL Urine Glucose (UA) (Normal) mg/dL Urine Ketones (Negative) mg/dL Urine Blood (Negative) Urine Nitrite (Negative) Urine Bilirubin (Negative) Urine Urobilinogen (Normal) mg/dL Ur Leukocyte Esterase (Negative) Urine Microscopic RBC (0-3) per hpf Urine Microscopic WBC (0-3) per hpf Ur Squamous Epith Cells (None-Few) per lpf Triple Phos Crystals Urine Bacteria (None-Few) per hpf Hyaline Casts Ur Culture Indicated? (NO) 05/08/17 05/08/17 05/08/17 Range/Units 01:55 01:55 02:10 WBC (4.3-11.1) K/mcL RBC (4.19-5.50) M/mcL Hgb (12.9-16.9) g/dL Hct (37.5-50.1) % MCV (83.0-100.0) fL MCH (28.0-33.3) pg MCHC (31.6-35.5) g/dL RDW (11.5-14.5) % Plt Count (140-400) K/mcL MPV (9.4-12.4) fL Immature Gran % (0-4) % Seg Neutrophils % % Lymphocytes % % Monocytes % % Eosinophils % % Basophils % % Neutrophils # (1.6-8.9) K/mcL Lymphocytes # (0.6-4.6) K/mcL Monocytes # (0.0-1.3) K/mcL Eosinophils # (0.0-0.6) K/mcL Basophils # (0.0-0.2) K/mcL PT (9.4-12.1) Seconds INR APTT (26.0-36.0) Seconds Sodium (136-145) mEq/L Potassium (3.5-4.5) mEq/L Chloride (98-109) mEq/L Carbon Dioxide (19-29) mEq/L BUN (8-26) mg/dL Creatinine (0.72-1.25) mg/dL Est GFR ( Amer) (> 60) Est GFR (Non-Af Amer) (> 60) BUN/Creatinine Ratio (6-26) Glucose (70-99) mg/dL Calculated Osmolality (280-300) Lactic Acid 1.2 (0.5-2.2) mmol/L Calcium (8.6-10.8) mg/dL Phosphorus (2.3-4.7) mg/dL Magnesium (1.6-2.6) mg/dL Total Bilirubin (0.2-1.2) mg/dL Direct Bilirubin (0.0-0.5) mg/dL Indirect Bilirubin (0.0-1.2) mg/dL AST (5-34) Units/L ALT (0-55) Units/L Alkaline Phosphatase (38-126) Units/L Troponin I 0.01 (0-0.03) ng/mL Serum Total Protein (6.0-8.3) g/dL Albumin (3.5-5.0) g/dL Globulin (2.4-3.5) g/dL Albumin/Globulin Ratio (1.1-2.2) Ur Specimen Adequacy See below A Urine Color Dark Yellow (Yellow) Urine Clarity Turbid A (Clear) Urine pH 8.5 H (5.0-8.0) pH Units Ur Specific Russell 1.025 (1.010-1.025) Urine Protein >=300 H (Neg-Trace) mg/dL Urine Glucose (UA) Normal (Normal) mg/dL Urine Ketones Negative (Negative) mg/dL Urine Blood Moderate H (Negative) Urine Nitrite Positive A (Negative) Urine Bilirubin Negative (Negative) Urine Urobilinogen Normal (Normal) mg/dL Ur Leukocyte Esterase Large H (Negative) Urine Microscopic RBC 5-15 H (0-3) per hpf Urine Microscopic WBC 3-5 H (0-3) per hpf Ur Squamous Epith Cells Few (None-Few) per lpf Triple Phos Crystals Present Urine Bacteria Many H (None-Few) per hpf Hyaline Casts Test Not Performed Ur Culture Indicated? YES A (NO) - Radiology Data Radiology results reviewed: Yes I reviewed the patient's radiology results. - EKG Data EKG #1 EKG attestation: Yes I reviewed and interpreted this EKG. EKG results narrative: EKG dated 05/08/17 at 00:16 interpreted as sinus tachycardia with a rate of 123. Substantial baseline artifact. Normal intervals. Normal axis. Nonspecific ST-T changes. Compared to previous dated 08/11/2016 showed no acute ischemic changes. Critical Care Time Critical Care Time: Yes Total Critical Care Time: 35 Attestation: Critical care performed: Time is exclusive of separately billable procedures. Time includes: direct patient care, patient reassessment, coordination of patient care, interpretation of data (laboratory data, radiology data, and respiratory data), review of patient's medical records, medical consultation and documentation of patient care. Procedures included in critical care time: Procedures excluded from critical care time: Attestation Statement - Attestation Attestation: I, Jayson Quinonez MD, personally evaluated this patient and discussed their management with the resident physician. I reviewed the resident's note and agree with the documented findings, medical decision making, and plan of care. 47-year-old prison patient with quadriplegia and a permanent tracheostomy referred to the emergency department for evaluation of fever. Patient had a PICC line which was removed at the prison because they thought it might be causing his fever. Patient also has a suprapubic catheter. Patient denies shortness of breath and reports that his breathing feels normal for him. Complains of some generalized pain. On examination well-developed quadriplegic male in no distress. He is alert. No cyanosis or diaphoresis. Chest is nontender to palpation. Breath sounds are equal bilaterally with a few scattered wheezes. Heart tachycardic and regular. Abdomen is soft with normal bowel sounds. There is moderate edema of the lower extremities bilaterally. Labs reviewed. Chest x-ray negative. Patient meets sepsis criteria but not severe sepsis. The hospitalist, Dr. Tobin, was consulted and accepted admission of the patient.
[2017-05-08 02:04] LABS: Basophils % 0.2 %; Eosinophils # 0.3 K/mcL (0.0-0.6); Eosinophils % 2.1 %; Hematocrit 44.3 % (37.5-50.1); Immature Granulocytes % 0.4 % (0-4); Lymphocytes # 1.8 K/mcL (0.6-4.6); Lymphocytes % 13.1 %; Mean Corpuscular HGB Conc 31.6 g/dL (31.6-35.5); Mean Corpuscular Hemoglobin 29.9 pg (28.0-33.3); Mean Corpuscular Volume 94.5 fL (83.0-100.0); Monocytes # 1.6 K/mcL (0.0-1.3); Monocytes % 11.7 %; Neutrophils # 9.9 K/mcL (1.6-8.9); Platelet Count 177 K/mcL (140-400); Red Blood Count 4.69 M/mcL (4.19-5.50); Red Cell Distribution Width 13.7 % (11.5-14.5); Segmented Neutrophils % 72.5 %
[2017-05-08] MEDS: 0.9 % Sodium Chloride 1,000 ML IVC SCH ×4 (02:06→20:15)
[2017-05-08 02:09] LABS: INR 1.1; Prothrombin Time 11.5 Seconds (9.4-12.1)
[2017-05-08 02:12] LABS: Activated Partial Thrombo Time 31.3 Seconds (26.0-36.0)
[2017-05-08 02:17] LABS: Bilirubin,Urine Negative (Negative); Blood,Urine Moderate (Negative); Clarity,Urine Turbid (Clear); Color,Urine Dark Yellow (Yellow); Glucose,Urine (UA) Normal (Normal); Ketones,Urine Negative (Negative); Leukocyte Esterase,Urine Large (Negative); Nitrite,Urine Positive (Negative); PH,Urine 8.5 pH Units (5.0-8.0); Protein,Urine >=300 mg/dL (Neg-Trace); Specific Gravity,Urine 1.025 (1.010-1.025); Urobilinogen,Urine Normal (Normal)
[2017-05-08 02:25] LABS: Bacteria,Urine Many per hpf (None-Few); Squamous Epithelial Cell,Urine Few per lpf (None-Few)
[2017-05-08 02:26] LABS: Triple Phosphate Crystal,Urine Present
[2017-05-08 02:44] LABS: Alanine Aminotransferase 31 Units/L (0-55); Albumin 3.6 g/dL (3.5-5.0); Albumin/Globulin Ratio 0.8 (1.1-2.2); Alkaline Phosphatase 137 Units/L (38-126); Aspartate Amino Transferase 24 Units/L (5-34); BUN/Creatinine Ratio 20 (6-26); Bilirubin,Direct 0.5 mg/dL (0.0-0.5); Bilirubin,Indirect 0.4 mg/dL (0.0-1.2); Bilirubin,Total 0.9 mg/dL (0.2-1.2); Blood Urea Nitrogen 13 mg/dL (8-26); Calcium 9.3 mg/dL (8.6-10.8); Carbon Dioxide 27 mEq/L (19-29); Chloride 99 mEq/L (98-109); Globulin 4.8 g/dL (2.4-3.5); Glucose 111 mg/dL (70-99); Magnesium 1.9 mg/dL (1.6-2.6); Osmolality,Calculated 285 (280-300); Phosphorous 3.3 mg/dL (2.3-4.7); Potassium 3.5 mEq/L (3.5-4.5); Sodium 137 mEq/L (136-145); Total Protein 8.4 g/dL (6.0-8.3); eGFR For African Americans > 60 (> 60); eGFR For Non-African Americans > 60 (> 60)
[2017-05-08] MEDS ORDERED: 0.9 % Sodium Chloride 1,000 ML IVC ONE (04:09)
[2017-05-08] MEDS: *HR* OxyCODONE Immed Rel 5 MG TABLET PO PRN ×2 (06:25→13:47)
--- NOTE | 2017-05-08 10:20 | Internal Med History&Physical ---
Date of Encounter: 05/08/17 Time of Encounter: 10:00 Assessment and Plan (1) Sepsis Current visit: No Status: Acute Patient with recurrent sepsis. Present on admission.Multiple potential sources. He did receive the IV fluids as per sepsis protocol. Lactic acid is normal. He remains febrile but hemodynamically stable. Today to closely monitor. I am primarily concerned about sepsis related to his left arm at the site of the previous PICC line. I will check an ultrasound to look for underlying phlebitis. He is on vancomycin and I will continue this pending discussion with infectious disease. Apparently he had possibly a rash with vancomycin. He was also given 1 dose of Levaquin in the emergency room. Blood cultures are pending. Unfortunately PICC culture may be limited as it has not been sent to the lab since admission. 1030: I discussed the case with ID who will see later today/. Continue Vanco for now. Qualifiers: Sepsis type: sepsis due to unspecified organism Qualified Code(s): A41.9 - Sepsis, unspecified organism (2) Quadriplegia and quadriparesis Current visit: No Status: Chronic (3) Cellulitis Current visit: Yes Status: Acute See discussion above, suspected PICC associated infection. Blood cultures pending to rule out bacteremia. (4) Decubitus ulcer, buttock Current visit: Yes Status: Acute Do not appear to be infected. Continue wound care measures. Qualifiers: Pressure ulcer stage: unspecified pressure ulcer stage Laterality: left Qualified Code(s): L89.329 - Pressure ulcer of left buttock, unspecified stage (5) Yeast dermatitis Current visit: Yes Status: Acute Nystatin powder (6) COPD (chronic obstructive pulmonary disease) Current visit: No Status: Chronic Stable, no evidence of exacerbation. Monitor. Bronchodilators as needed. Pulmonary toilet Qualifiers: COPD type: unspecified COPD Qualified Code(s): J44.9 - Chronic obstructive pulmonary disease, unspecified (7) Chronic respiratory failure Current visit: Yes Status: Acute Stable, trache, monitor Qualifiers: Respiratory failure complication: hypoxia Qualified Code(s): J96.11 - Chronic respiratory failure with hypoxia Internal Medicine - H&P: HPI Admitted From: Emergency Dept Plans for Post Hospital Care: Transfer [facility] History of present illness: Mr. Mathew is a 47 year old male who has a history of quadriplegia with a chronic trach, intermittent ventilation but not every night, chronic suprapubic catheter, essentially bedbound. He is recently admitted to our facility from March 24 or 03/29/2017 for sepsis felt to be secondary to catheter associated UTI versus pneumonia. Initially started during that admission on broad- spectrum antibiotics. Ultimately he had urine growing out Providencia stuartii and he was noted to have MRSA and his suprapubic catheter site. He was seen by infectious disease and ultimately sent home on a course of Bactrim and doxycycline. Unclear how long he took these medications on record review. Patient now is brought back to the emergency room for recurrent sepsis. He during his last month did have some type of infection for which she received some type of antibiotic via a PICC line in his left upper extremity. Patient states the PICC line was removed yesterday and he was transported here with a PICC tip specimen in a cup. On arrival to our emergency department patient was febrile with a temperature of 99.7, pulse of 110, respiratory rate is 16, blood pressure 128/89, satting 96 % on room air. On exam he appeared chronically ill, mildly diaphoretic. Lungs were fairly clear, heart cardiac without murmur, abdomen was soft nontender, extremities showed pitting edema bilaterally. He has numerous wounds including left buttock ulcers, and bilateral heel ulcers. He is also noted to have significant pain and redness and swelling at his left arm at the area of the previous PICC line. White blood cell count 13.6, hemoglobin 14. BUN/ creatinine and creatinine 13 over 0.64, blood sugar 111. Urinalysis showed 5- 15 white blood cells. Lactic acid was normal. Chest x-ray showed no acute process. He should have blood cultures performed as well as urine culture. He was given empiric Levaquin and vancomycin in the emergency department. She currently denies any chest pain or shortness of breath. He denies cough. States she does have chronic back pain. He is a very limited historian. He denies any nausea or vomiting. No Ddarrhea. Past Med Surg Social Fam HX - Past Medical History Medical history: CHF, hepatitis, hypertension, seizures, other Psychiatric history: anxiety, bipolar, depression - Past Surgical History Surgical History: tracheostomy, other - Social History Smoking Status: Current every day smoker Smokeless Tobacco Status: No Alcohol use: none, unknown Drug use: none Occupational status: unemployed Current living situation: [facility] Activity Level: Bed bound Recent Out of Country Travel Within the Last 8 Weeks: No Exposure or Possible Exposure to Illness During Travel: No - Family History Mother Living Status: Hx Family Cardiac Disorders: Yes Hx Family Respiratory Disorders: Yes Hx Family Cancer: Yes Internal Medicine - H&P: Meds Benztropine Mesylate 1 mg PO HS 07/04/15 [History] Folic Acid 1 mg PO QAM 07/04/15 [History] Ipratropium/Albuterol Neb [Duoneb] 3 ml IH QID PRN 07/04/15 [History] LevETIRAcetam [Keppra] 250 mg PO BID 07/04/15 [History] OLANZapine [Zyprexa] 10 mg PO BID 07/04/15 [History] Potassium Chloride Elixir [Potassium Chloride] 60 meq PO DAILY 09/28/15 [History ] Topiramate [Topamax] 150 mg PO QAM 11/05/15 [History] Acetaminophen [Tylenol] 650 mg PO Q6HR PRN 12/11/15 [History] Docusate Sodium [Dok] 100 mg PO BID 12/11/15 [History] Fluticasone/Salmeterol [Advair 250-50 Diskus] 1 puff IH BID 12/11/15 [History] Guaifenesin [Diabetic Tussin Ex] 200 mg PO Q4H PRN 12/11/15 [History] Polyvinyl Alcohol [Artificial Tears] 1 drop BOTH EYES BID 03/18/16 [History] Trazodone HCl 100 mg PO HS 03/18/16 [History] Aspirin/Calcium Carbonate/Mag [Aspirin Buffered 325 mg Tab] 325 mg PO DAILY [History] Ketoconazole Shampoo [Nizoral Shampoo] 1 appl TP QWEEK 08/11/16 [History] Melatonin/Pyridoxine [Melatonin Sublingual Tablet] 10 mg SL HS 08/11/16 [History ] Na Phos,M-B/Na Phos,Di-Ba [Fleet Enema Extra] 230 ml RC Q48H 08/11/16 [History] Sertraline [Zoloft] 75 mg PO DAILY 08/11/16 [History] Baclofen [Lioresal] 10 mg PO BID 03/24/17 [History] CarBAMazepine [Carbamazepine ER] 300 mg PO BID 03/24/17 [History] Furosemide [Lasix] 40 mg PO DAILY 03/24/17 [History] OxyCODONE Immed Rel [Roxicodone 5 MG] 20 mg PO Q6H PRN #30 03/29/17 [Rx] clonazePAM [Klonopin] 2 mg PO QPM #20 03/29/17 [Rx] 3 Allergy/AdvReac Type Severity Reaction Status Date / Time Penicillins Allergy See Verified 08/11/16 06:57 Comments ROS unobtainable: due to mental status All Systems PM: A 10-system review of systems was performed and is negative for pertinent findings except as documented above in the HPI. Limited review of systems due to his trach - Constitutional Vitals: Temp Pulse Resp BP Pulse Ox 99.7 F H 110 16 128/89 96 05/08/17 06:43 05/08/17 06:43 05/08/17 06:43 05/08/17 06:43 05/08/17 06:43 General appearance: Present: A&O X 3, no acute distress - Head Head exam: Present: atraumatic, normocephalic - Eye Eye exam: Present: PERRL, conjuntiva pink, sclera anicteric Pupils: Present: PERRL - ENT ENT exam: Present: mucous membranes moist Additional comments: Trach is intact, some dried secretions, yellow at the exit of the trach - Neck Neck exam general surgery: Present: supple, trachea midline. Absent: lymphadenopathy - Respiratory Respiratory exam: Present: CTAB. Absent: accessory muscle use, rales, rhonchi, wheezes - Cardiovascular Cardiovascular exam: Present: +S1, +S2, tachycardia. Absent: diastolic murmur, gallop, rubs, systolic murmur - GI/Abdominal GI/Abdominal exam: Present: normal bowel sounds, soft, no peritoneal signs. Absent: distended, tenderness Additional comments: The catheter which appears intact no significant redness or erythema - Extremities Exam Extremities exam: Present: warm, radial pulses palpable and symmetrical. Absent : calf tenderness, cyanotic, pedal edema Additional comments: Plan refill less than 2.5 seconds. Distal pulses intact. Bilateral lower extremities have pitting edema all the way up to the thighs. Possible superficial scabs on anterior shins - Neurological Exam Neurological exam: Present: CN II-XII intact, oriented X3, no focal deficits. Absent: pronater drift, facial droop, speech deficit - Skin Skin exam: Present: dry, intact Additional comments: Bilateral groin yeast dermatitis Patient has bilateral ulcers of both heels are proximally silver dollar in size which are unstageable. The right heel appears worse with sloughing skin over the top. No significant drainage noted Patient has left buttock linear ulcers, 3 which are at least stage II possibly stage III without significant erythema or drainage. He appears to have healed ulcers over his right buttock. Patient's left upper extremity at the site of the prior PICC line is diffusely erythematous, warm and firm. The PICC site itself does not show any obvious drainage. The erythema extends from his medial forearm and approximately a 10" vertical x 2-3 inch with diameter area. The erythematous confluent, no fluctuance, no crepitance. Internal Med - H&P Results - Labs CBC & Chem 7: 05/08/17 01:55 05/08/17 01:55
[2017-05-08] MEDS ORDERED: Naloxone 0.4 MG/ML INJ IVP PRN (10:39)
[2017-05-08] MEDS ORDERED: Ipratropium/Albuterol Neb 3 ML IH PRN (10:41)
[2017-05-08] MEDS ORDERED: *HR* OxyCODONE Immed Rel 5 MG TABLET PO PRN (10:41)
[2017-05-08] MEDS ORDERED: Ketoconazole Shampoo 120 ML BOTTLE TP SCH (10:45)
[2017-05-08] MEDS ORDERED: SODIUM PHOSPHATE DIBASIC RC SCH (10:45)
[2017-05-08] MEDS ORDERED: SODIUM PHOSPHATE MONOBASIC RC SCH (10:45)
[2017-05-08] MEDS ORDERED: Vancomycin 1,500 MG in D5% in Water 250 ML IVPB SCH (11:00)
[2017-05-08] MEDS: Acetaminophen 325 MG TABLET PO PRN ×2 (16:16→22:26)
[2017-05-08] MEDS: Vancomycin 1,250 MG in D5% in Water 250 ML IVPB SCH (16:19)
[2017-05-08] MEDS: clonazePAM 1 MG TABLET PO SCH (17:39)
[2017-05-08] MEDS ORDERED: PYRIDOXINE SL SCH (21:00)
[2017-05-08] MEDS ORDERED: MELATONIN SL SCH (21:00)
[2017-05-08] MEDS: CarBAMazepine XR (12 hr) 100 MG TAB PO SCH (21:30)
[2017-05-08] MEDS: Baclofen 10 MG TABLET PO SCH (21:31)
[2017-05-08] MEDS: Budesonide/Formoterol 80/4.5 MDI IH SCH (21:31)
[2017-05-08] MEDS: Artificial Tears SOLN 15 ML BOTTLE BOTH EYES SCH (21:31)
[2017-05-08] MEDS: levETIRAcetam 250 MG TABLET PO SCH (21:31)
[2017-05-08] MEDS: OLANZapine 10 MG TAB.RAPDIS PO SCH (21:31)
[2017-05-08] MEDS: GuaiFENesin Liq 200 MG/10 ML UDC PO PRN (22:26)
[2017-05-08 22:44] LABS: blaKPC Carbapenem-Resist Gene Not Detected (Not Detect)
[2017-05-08 22:45] LABS: Acinetobacter baumannii by PCR Not Detected (Not Detect); Candida albicans by PCR Not Detected (Not Detect); Candida glabrata by PCR Not Detected (Not Detect); Candida krusei by PCR Not Detected (Not Detect); Candida parapsilosis by PCR Not Detected (Not Detect); Candida tropicalis by PCR Not Detected (Not Detect); Enterococcus by PCR Not Detected (Not Detect); Escherichia coli by PCR Not Detected (Not Detect); Klebsiella oxytoca by PCR Not Detected (Not Detect); Klebsiella pneumoniae by PCR Not Detected (Not Detect); Pseudomonas aeruginosa by PCR Not Detected (Not Detect); Serratia marcescens by PCR Not Detected (Not Detect); Staphylococcus aureus by PCR ***DETECTED*** (Not Detect); Streptococcus agalactiae(B)PCR Not Detected (Not Detect); Streptococcus by PCR Not Detected (Not Detect); Streptococcus pneumoniae PCR Not Detected (Not Detect); Streptococcus pyogenes (A) PCR Not Detected (Not Detect); mecA Methicillin-Resist Gene ***DETECTED*** (Not Detect); vanA/B Vancomycin-Resist Genes Not Detected (Not Detect)
[2017-05-09] MEDS ORDERED: Acetaminophen 325 MG TABLET PO ONE (00:45)
[2017-05-09] MEDS: 0.9 % Sodium Chloride 1,000 ML IVC SCH (03:00)
[2017-05-09 04:59] LABS: BUN/Creatinine Ratio 19 (6-26); Blood Urea Nitrogen 10 mg/dL (8-26); Calcium 8.1 mg/dL (8.6-10.8); Carbon Dioxide 15 mEq/L (19-29); Chloride 110 mEq/L (98-109); Glucose 86 mg/dL (70-99); Osmolality,Calculated 284 (280-300); Potassium 2.9 mEq/L (3.5-4.5); Sodium 138 mEq/L (136-145); eGFR For African Americans > 60 (> 60); eGFR For Non-African Americans > 60 (> 60)
[2017-05-09] MEDS: Vancomycin 1,250 MG in D5% in Water 250 ML IVPB SCH ×2 (05:22→16:03)
[2017-05-09 07:08] LABS: Basophils % 0.4 %; Eosinophils # 0.3 K/mcL (0.0-0.6); Eosinophils % 3.6 %; Hematocrit 38.1 % (37.5-50.1); Hemoglobin 12.1 g/dL (12.9-16.9); Immature Granulocytes % 0.6 % (0-4); Immature Platelets 5.6 % (1.1-6.1); Lymphocytes % 14.6 %; Mean Corpuscular HGB Conc 31.8 g/dL (31.6-35.5); Mean Corpuscular Volume 94.3 fL (83.0-100.0); Mean Platelet Volume 10.8 fL (9.4-12.4); Neutrophils # 4.6 K/mcL (1.6-8.9); Platelet Count 121 K/mcL (140-400); Red Blood Count 4.04 M/mcL (4.19-5.50); Red Cell Distribution Width 13.9 % (11.5-14.5); Segmented Neutrophils % 66.8 %
[2017-05-09 07:18] LABS: BUN/Creatinine Ratio 17 (6-26); Blood Urea Nitrogen 9 mg/dL (8-26); Calcium 8.3 mg/dL (8.6-10.8); Carbon Dioxide 20 mEq/L (19-29); Chloride 107 mEq/L (98-109); Glucose 108 mg/dL (70-99); Osmolality,Calculated 283 (280-300); Sodium 137 mEq/L (136-145); eGFR For African Americans > 60 (> 60); eGFR For Non-African Americans > 60 (> 60)
[2017-05-09 07:21] LABS: Potassium 2.5 mEq/L (3.5-4.5)
[2017-05-09] MEDS: Potassium Chloride Elixir 20 MEQ/15 ML UDC PO SCH ×2 (08:41→09:29)
[2017-05-09] MEDS: Artificial Tears SOLN 15 ML BOTTLE BOTH EYES SCH ×2 (08:41→21:54)
[2017-05-09] MEDS: Aspirin Enteric Coated 325 MG Tablet PO SCH (08:42)
[2017-05-09] MEDS: Folic Acid 1 MG TABLET PO SCH (08:42)
[2017-05-09] MEDS: OLANZapine 10 MG TAB.RAPDIS PO SCH ×2 (08:43→21:55)
[2017-05-09] MEDS: levETIRAcetam 250 MG TABLET PO SCH ×2 (08:43→21:55)
[2017-05-09] MEDS: CarBAMazepine XR (12 hr) 100 MG TAB PO SCH ×2 (08:44→21:55)
[2017-05-09] MEDS: Baclofen 10 MG TABLET PO SCH ×2 (08:44→21:55)
[2017-05-09] MEDS: Topiramate 100 MG TABLET PO SCH (08:45)
[2017-05-09] MEDS: *HR* OxyCODONE Immed Rel 5 MG TABLET PO PRN ×3 (08:45→21:55)
[2017-05-09] MEDS: 0.9 % Sodium Chloride w KCl 40 MEQ/1,000 ML MLS IVC SCH ×2 (08:46→17:27)
[2017-05-09] MEDS ORDERED: Potassium Chloride Elixir 20 MEQ/15 ML UDC PO SCH (09:00)
[2017-05-09] MEDS: Budesonide/Formoterol 80/4.5 MDI IH SCH ×2 (10:57→23:02)
[2017-05-09] MEDS ORDERED: Melatonin 3 MG TABLET PO PRN (12:34)
--- NOTE | 2017-05-09 13:56 | Internal Med Progress Note ---
Date of Encounter: 05/09/17 Time of Encounter: 08:40 - Assessment and plan (1) Sepsis Current Visit: Yes Status: Suspected Assessment and plan: Patient with bacteremia with gram-positive cocci. Catheter tip culture positive for staph aureus. Concern for MRSA bacteremia. Continue treatment with intravenous vancomycin. Infectious disease has been consulted. Monitor vital signs. If patient continues to have fever, we will get ARMOND. High risk for complications. Repeat blood cultures in the morning Qualifiers: Sepsis type: methicillin resistant Staphylococcus aureus Qualified Code(s) : A41.02 - Sepsis due to Methicillin resistant Staphylococcus aureus (2) PICC line infection Current Visit: Yes Status: Acute Assessment and plan: Catheter tip culture positive for staph aureus. Qualifiers: Encounter type: initial encounter Qualified Code(s): T80.219A - Unspecified infection due to central venous catheter, initial encounter (3) Cellulitis Current Visit: Yes Status: Acute Assessment and plan: Left upper extremity cellulitis at site of PICC line. Improving. Qualifiers: Site of cellulitis: extremity Site of cellulitis of extremity: upper extremity Laterality: left Qualified Code(s): L03.114 - Cellulitis of left upper limb (4) Chronic respiratory failure Current Visit: Yes Status: Chronic Assessment and plan: Currently on room air but with trach in place Qualifiers: Respiratory failure complication: hypoxia Qualified Code(s): J96.11 - Chronic respiratory failure with hypoxia (5) COPD (chronic obstructive pulmonary disease) Current Visit: Yes Status: Chronic Qualifiers: COPD type: unspecified COPD Qualified Code(s): J44.9 - Chronic obstructive pulmonary disease, unspecified (6) Decubitus ulcer, buttock Current Visit: Yes Status: Acute Assessment and plan: Stage II to stage III. Continue local wound care Qualifiers: Pressure ulcer stage: unspecified pressure ulcer stage Laterality: left Qualified Code(s): L89.329 - Pressure ulcer of left buttock, unspecified stage (7) Quadriplegia and quadriparesis Current Visit: No Status: Chronic Assessment and plan: Continue prophylactic measures for decubitus ulcers. (8) Yeast dermatitis Current Visit: Yes Status: Acute Assessment and plan: Continue topical ketoconazole (9) Superficial venous thrombosis of left upper extremity Current Visit: Yes Status: Acute Assessment and plan: Patient with SVT in left upper extremity basilic vein. Likely thrombophlebitis. Continue IV antibiotics. Warm compresses - Subjective Interval history: Patient is awake and alert. Has chronic back pain. He denies any fever at this time. He did have a temperature of 101.9 last night - Constitutional Vitals: Temp Pulse Resp BP Pulse Ox 99.1 F 93 16 115/74 91 05/09/17 10:00 05/09/17 10:00 05/09/17 10:59 05/09/17 10:00 05/09/17 10:59 General appearance: Present: cooperative, A&O X 3, no acute distress - Eye Eye exam: Present: EOMI, PERRL, conjuntiva pink, sclera anicteric - ENT ENT exam: Present: mucous membranes moist Additional comments: Tracheostomy in place - Neck Neck exam general surgery: Present: supple, trachea midline. Absent: lymphadenopathy - Respiratory Respiratory exam: Present: CTAB. Absent: accessory muscle use, rales, rhonchi, wheezes - Cardiovascular Cardiovascular exam: Present: RRR, +S1, +S2. Absent: diastolic murmur, gallop, rubs, systolic murmur - GI/Abdominal GI/Abdominal exam: Present: normal bowel sounds, soft, no peritoneal signs. Absent: distended, tenderness - Extremities Exam Extremities exam: Present: warm, radial pulses palpable and symmetrical. Absent : calf tenderness, cyanotic, pedal edema Additional comments: Cellulitis involving left upper extremity improving - Skin Skin exam: Present: dry, intact Internal Medicine: Result - Labs CBC & Chem 7: 05/09/17 06:59 05/09/17 06:59 Labs: Short CBC 05/09/17 Range/Units 06:59 WBC 6.9 (4.3-11.1) K/mcL Hgb 12.1 L D (12.9-16.9) g/dL Hct 38.1 (37.5-50.1) % Plt Count 121 L (140-400) K/mcL Neutrophils # 4.6 (1.6-8.9) K/mcL BMP 05/09/17 05/09/17 04:39 06:59 Sodium 138 137 Potassium 2.9 L 2.5 L* Chloride 110 H 107 Carbon Dioxide 15 L 20 BUN 10 9 Creatinine 0.54 L 0.52 L Glucose 86 108 H Calcium 8.1 L 8.3 L - ABG Interpretation ABG results: PT/INR, D-dimer PT 11.5 Seconds (9.4-12.1) 05/08/17 01:55 Consult Discharge Plan - Plan Referrals: NONE,PCP [Primary Care Provider] -
--- NOTE | 2017-05-09 15:45 | Infectious Disease Consult ---
Date of Encounter: 05/09/17 Time of Encounter: 15:40 Assessment and Plan (1) Sepsis Status: Suspected Assessment and plan: The patient had three SIRS criteria on admission. Likely secondary to bacteremia and UTI. Improved. WBC has normalized. The patient has continued to have intermittent fevers. Tachycardia has improved. Blood cultures drawn 05/08/17 are positive 2/2 sets for MRSA. Qualifiers: Sepsis type: methicillin resistant Staphylococcus aureus Qualified Code(s) : A41.02 - Sepsis due to Methicillin resistant Staphylococcus aureus (2) Bacteremia Status: Resolved Assessment and plan: Causative organism MRSA per PCR. Source likely the LUE PICC line, which has been removed. Blood cultures drawn 05/08/17 are positive 2/2 sets for MRSA. Uncomplicated. The patient does not have any indwelling hardware or lines. The patient has one major and one minor Modified Dawson's Criteria. He has no endocarditis stigmata. Recommend a TTE prior to discharge. If negative, he will need a ARMOND. Repeat blood cultures in the AM. Continue Vancomycin IV. Pharmacy to dose. Goal trough ~15. Duration of treatment depends on the clinical picture. Monitor renal function and for drug toxicity and dose-adjust antibiotics. Avoid re-insertion of central venous access until blood cultures are negative x 48 hours. (3) PICC line infection Status: Acute Assessment and plan: Patient had a PICC line in the LUE that has been discontinued. Likely the source of the patient's bacteremia given the clinical picture. The PICC line was removed at the [facility] and sent here with the patient in his bed. Catheter tip culture positive for MSSA, but we cannot really consider this a true culture considering it was placed in bed with the patient and sent here before it was sent to the lab for culture. Additionally, no blood cultures were obtained from the line prior to it being removed. Qualifiers: Encounter type: initial encounter Qualified Code(s): T80.219A - Unspecified infection due to central venous catheter, initial encounter (4) Urinary tract infection Status: Acute Assessment and plan: Causative organism unclear. Gram stain shows GNR. Colonization vs. true infection. Await culture to finalize. The patient appears to be improving with just Vancomycin so I'm not sure that the bacteruria is contributing to the patient's sepsis. Consider switching out suprapubic catheter while here. Place fenestrated guaze around catheter to help prevent further breakdown of the skin at the stoma. Qualifiers: Urinary tract infection type: acute cystitis Hematuria presence: with hematuria Qualified Code(s): N30.01 - Acute cystitis with hematuria (5) Thrombocytopenia Status: Acute Assessment and plan: Etiology unclear, but appears to date back to 2016: infection vs. other. Monitor closely. If this does not resolve with the treatment of the patient's infection, consider Hem/Onc consult. (6) Superficial venous thrombosis of left upper extremity Status: Acute Assessment and plan: LUE venous doppler study shows SVT in the left basilic vein. Supportive care: pain management, elevation, warm compresses. Further recommendations from the primary team. (7) Hypokalemia Status: Resolved Assessment and plan: Potassium 2.5 on this AM's labs. Further management per the primary team. (8) Paraplegia, unspecified Status: Chronic (9) Status post tracheostomy Status: Chronic (10) COPD (chronic obstructive pulmonary disease) Status: Chronic Qualifiers: COPD type: unspecified COPD Qualified Code(s): J44.9 - Chronic obstructive pulmonary disease, unspecified (11) Decubitus ulcer of heel, bilateral Status: Acute Assessment and plan: Continue offloading. Consult wound care for recommendations. Clinically these do not appear infected and are unlikely the source of the patient's bacteremia. (12) Decubitus ulcer, buttock Status: Acute Assessment and plan: Continue offloading. Frequent turns. Wound care consult for recommendations. Clinically does not appear infected and very unlikely the source of the patient' s bacteremia. Qualifiers: Pressure ulcer stage: unspecified pressure ulcer stage Laterality: left Qualified Code(s): L89.329 - Pressure ulcer of left buttock, unspecified stage Infectious Disease HPI - Data of Consult Patient: known to practice within the last 3 years Consult date: 05/09/17 Requesting Physician: Mamie Saab MD Primary Care Provider: PCP NONE - Consult Narrative Reason for consult: Fever History of present illness: Mr. Mathew is a 47 year old male's medical history of CHF, hypertension, quadriplegia, chronic indwelling suprapubic catheter, chronic respiratory failure with tracheostomy, and hepatitis. The patient was admitted to the hospital May 08 for sepsis. We're consulted May 09 for further evaluation regarding possible infection. Is a 47-year-old male, well-known to the infectious disease service as we are consult on his case when he was admitted to the hospital back in March. At that time, the patient was noted to have a catheter associated UTI and grew MRSA as well as an infection of the skin surrounding his suprapubic catheter. He was treated with oral Bactrim and doxycycline and discharged back to the [facility] care facility where he completed his course of treatment. The patient presented back to the emergency department with complaints of fever. He was also noted to have a PICC line that was sent with him that had been discontinued at the [facility]. The patient was complaining of left upper extremity pain as well. Upon arrival, the patient did have a low-grade fever was tachycardic. His white blood cell count was elevated with neutrophilic predominance. She'll lactic acid were normal. Chest x-ray was completed that was negative. Urinalysis was obtained that was positive for nitrites, leukocyte esterase, and 3-5 white blood cells as well as many bacteria. Urine culture is pending and is showing gram-negative rods. Blood cultures were obtained 2 sets from a peripheral stick her +2 out of 2 sets for MRSA. The patient was started on IV Levaquin and IV vancomycin and was admitted to the hospital. Since admission, the patient's white blood cell count has normalized. He did have a fever early this morning of 101.9. He had a left upper extremity venous Doppler study that showed a superficial venous thrombus in the left upper extremity basilic vein. Currently, he is on IV vancomycin. We've asked to evaluate and make further recommendations. During my exam today, the patient's sister is at the bedside so she provides some of the history. The patient has a tracheostomy and does not have a speech problem and is therefore somewhat difficult to understand. The patient states that he was sent to the emergency department because he had a headache. He does state that he had a fever was complaining of some left upper extremity pain that started about 2 days ago. He states he did have a PICC line but he is unsure what they were treating. He that he was in his usual state of health until about 2 days ago. Denies any chills or rigors. He denies any headache at this time or neck pain. He denies any chest pain or shortness of breath, but he does report chronic cough productive of a small amount of yellow sputum. He denies any nausea, vomiting, diarrhea, constipation. He denies any urinary changes or abdominal pain. He does complain of left upper extremity pain, redness, and swelling. He reports a decubitus ulcer to his sacral area and bilateral heels. I called and spoke with the nurse at [facility]. Apparently, the patient had a sputum culture come back positive for Proteus mirabilis ESBL in late March. A PICC line was placed 04/20/17 and the patient was treated with a seven day course of IV Amikacin at the [facility]. The PICC line has remained in place since then until the day the patient spiked a fever. CC: Mamie Saab MD Past Med Surg Social Fam HX - Past Medical History Attestation: Yes The following information was validated with the patient. Source: patient, old records reviewed, obtained from family, nursing notes reviewed Medical history: CHF, hepatitis, hypertension, seizures, other (Quadriplegia) Psychiatric history: anxiety, bipolar, depression - Past Surgical History Surgical History: tracheostomy, other - Social History Smoking Status: Current every day smoker Packs per day: 0.5 Smokeless Tobacco Status: No Alcohol use: none, unknown Drug use: none Occupational status: disabled Current living situation: [facility] Activity Level: Wheelchair bound Recent Out of Country Travel Within the Last 8 Weeks: No Exposure or Possible Exposure to Illness During Travel: No - Family History Mother Living Status: Hx Family Cardiac Disorders: Yes Hx Family Respiratory Disorders: Yes Hx Family Cancer: Yes Infectious Disease-CN:Meds Benztropine Mesylate 1 mg PO HS 07/04/15 [History] Folic Acid 1 mg PO QAM 07/04/15 [History] Ipratropium/Albuterol Neb [Duoneb] 3 ml IH QID PRN 07/04/15 [History] LevETIRAcetam [Keppra] 250 mg PO BID 07/04/15 [History] OLANZapine [Zyprexa] 10 mg PO BID 07/04/15 [History] Potassium Chloride Elixir [Potassium Chloride] 60 meq PO DAILY 09/28/15 [History ] Topiramate [Topamax] 150 mg PO QAM 11/05/15 [History] Acetaminophen [Tylenol] 650 mg PO Q6HR PRN 12/11/15 [History] Docusate Sodium [Dok] 100 mg PO BID 12/11/15 [History] Fluticasone/Salmeterol [Advair 250-50 Diskus] 1 puff IH BID 12/11/15 [History] Guaifenesin [Diabetic Tussin Ex] 200 mg PO Q4H PRN 12/11/15 [History] Polyvinyl Alcohol [Artificial Tears] 1 drop BOTH EYES BID 03/18/16 [History] Trazodone HCl 100 mg PO HS 03/18/16 [History] Aspirin/Calcium Carbonate/Mag [Aspirin Buffered 325 mg Tab] 325 mg PO DAILY [History] Ketoconazole Shampoo [Nizoral Shampoo] 1 appl TP QWEEK 08/11/16 [History] Melatonin/Pyridoxine [Melatonin Sublingual Tablet] 10 mg SL HS 08/11/16 [History ] Na Phos,M-B/Na Phos,Di-Ba [Fleet Enema Extra] 230 ml RC Q48H 08/11/16 [History] Sertraline [Zoloft] 75 mg PO DAILY 08/11/16 [History] Baclofen [Lioresal] 10 mg PO BID 03/24/17 [History] CarBAMazepine [Carbamazepine ER] 300 mg PO BID 03/24/17 [History] Furosemide [Lasix] 40 mg PO DAILY 03/24/17 [History] OxyCODONE Immed Rel [Roxicodone 5 MG] 20 mg PO Q6H PRN #30 03/29/17 [Rx] clonazePAM [Klonopin] 2 mg PO QPM #20 03/29/17 [Rx] 3 Allergy/AdvReac Type Severity Reaction Status Date / Time Penicillins Allergy See Verified 08/11/16 06:57 Comments ROS unobtainable: other (Somewhat difficult to obtain from the patient) All systems: reviewed and no additional remarkable complaints except as stated Exam - Constitutional Vitals: Temp Pulse Resp BP Pulse Ox 98.8 F 73 15 100/87 92 05/09/17 15:38 05/09/17 15:38 05/09/17 15:38 05/09/17 15:38 05/09/17 15:38 General appearance: average body habitus, cooperative, no acute distress - Head Head exam: Present: atraumatic, normal inspection, normocephalic - Eye Eye exam: Present: EOMI, normal appearance, PERRL Pupils: Present: normal accommodation Additional comments: No subconjunctival hemorrhage noted. - ENT ENT exam: Present: mucous membranes moist - Neck Neck exam: Present: normal inspection Additional comments: Tracheostomy midline with scant secretions noted within the inner cannula of the tracheostomy. - Respiratory Respiratory exam: Present: rhonchi (Scattered). Absent: rales, respiratory distress, wheezes - Cardiovascular Cardiovascular exam: Present: RRR, +S1, +S2 - GI/Abdominal GI/Abdominal exam: Present: normal bowel sounds, soft. Absent: distended, tenderness Additional comments: Suprapubic catheter noted with small amount of purulent drainage noted around the catheter. - Extremities Exam Extremities exam: Present: pedal edema (1+ BLE) Additional comments: Stage II pressure ulcers noted to the bilateral heels. Dry without redness, warmth, or erythema. Stage II ulcer noted to the right buttock. No drainage, warmth, or erythema noted. - Back Exam Back exam: Present: normal inspection. Absent: paraspinal tenderness, vertebral tenderness - Neurological Exam Neurological exam: Present: alert, oriented X3. Absent: no focal deficits ( Paralysis noted to the BLE with very limited movement of the BUE.), facial droop , speech deficit - Psychiatric Psychiatric exam: Present: normal affect, normal mood - Skin Skin exam: Present: dry, intact, normal color, warm Additional comments: No endocarditis stigmata noted. Infectious Disease CN: Results - Labs CBC & Chem 7: 05/09/17 06:59 05/09/17 06:59 Cultures: Cultures 05/08/17 13:19 Catheter Tip Culture - Preliminary Intravenous or Arterial Cath Staphylococcus aureus Cultures 05/08/17 13:19 Catheter Tip Culture - Preliminary Intravenous or Arterial Cath Staphylococcus aureus 05/08/17 02:10 Urine Culture - Preliminary Urine,Clean Catch Gram Negative Ankit 05/08/17 01:09 Blood Culture - Preliminary Peripheral Venipuncture Gram Positive Cocci 05/08/17 01:55 Blood Culture - Preliminary Peripheral Venipuncture Gram Positive Cocci Serology: Serology 05/08/17 05/08/17 Range/Units 02:10 01:55 Ur Specimen Adequacy See below A Urine Color Dark Yellow (Yellow) Urine Clarity Turbid A (Clear) Urine pH 8.5 H (5.0-8.0) pH Units Ur Specific [place] 1.025 (1.010-1.025) Urine Protein >=300 H (Neg-Trace) mg/dL Urine Glucose (UA) Normal (Normal) mg/dL Urine Ketones Negative (Negative) mg/dL Urine Blood Moderate H (Negative) Urine Nitrite Positive A (Negative) Urine Bilirubin Negative (Negative) Urine Urobilinogen Normal (Normal) mg/dL Ur Leukocyte Esterase Large H (Negative) Urine Microscopic RBC 5-15 H (0-3) per hpf Urine Microscopic WBC 3-5 H (0-3) per hpf Ur Squamous Epith Cells Few (None-Few) per lpf Triple Phos Crystals Present Urine Bacteria Many H (None-Few) per hpf Hyaline Casts Test Not Performed Ur Culture Indicated? YES A (NO) A. baumannii (PCR) Not Detected (Not Detect) Vee albicans (PCR) Not Detected (Not Detect) C. glabrata (PCR) Not Detected (Not Detect) C. krusei (PCR) Not Detected (Not Detect) C. parapsilosis (PCR) Not Detected (Not Detect) C. tropicalis (PCR) Not Detected (Not Detect) Enterobacteriac sp PCR Not Detected (Not Detect) E. cloacae complex PCR Not Detected (Not Detect) Enterococcus sp PCR Not Detected (Not Detect) E. coli (PCR) Not Detected (Not Detect) H. influenzae (PCR) Not Detected (Not Detect) Klebsiella oxytoca PCR Not Detected (Not Detect) Klebsiella pneumoniae Not Detected (Not Detect) List. monocytogenes PCR Not Detected (Not Detect) N. meningitidis (PCR) Not Detected (Not Detect) Proteus species (PCR) Not Detected (Not Detect) Serratia marcescens PCR Not Detected (Not Detect) Staphylococcus sp PCR DETECTED A (Not Detect) Staph aureus (PCR) DETECTED A (Not Detect) mecA-Methicil Res Gene DETECTED A (Not Detect) Streptococcus sp PCR Not Detected (Not Detect) Group A Strep DNA Not Detected (Not Detect) Group B Strep (PCR) Not Detected (Not Detect) Strep pneumoniae (PCR) Not Detected (Not Detect) P. aeruginosa (PCR) Not Detected (Not Detect) Manny/B-Vanco Res Genes Not Detected (Not Detect) KPC (blaKPC) Detect PCR Not Detected (Not Detect) Consult Discharge Plan - Plan Referrals: NONE,PCP [Primary Care Provider] -
[2017-05-09] MEDS: *HR* Heparin 5,000 UNIT/ML VIAL SQ SCH (17:27)
[2017-05-09] MEDS: clonazePAM 1 MG TABLET PO SCH (17:28)
--- NOTE | 2017-05-09 18:27 | Electrocardiograph Report ---
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
[2017-05-10] MEDS: 0.9 % Sodium Chloride w KCl 40 MEQ/1,000 ML MLS IVC SCH ×4 (02:45→23:17)
[2017-05-10] MEDS: *HR* OxyCODONE Immed Rel 5 MG TABLET PO PRN ×4 (04:30→23:16)
[2017-05-10] MEDS: *HR* Heparin 5,000 UNIT/ML VIAL SQ SCH ×2 (06:27→16:47)
[2017-05-10 06:31] LABS: BUN/Creatinine Ratio 12 (6-26); Blood Urea Nitrogen 6 mg/dL (8-26); Calcium 8.7 mg/dL (8.6-10.8); Carbon Dioxide 22 mEq/L (19-29); Chloride 110 mEq/L (98-109); Glucose 79 mg/dL (70-99); Osmolality,Calculated 291 (280-300); Potassium 3.3 mEq/L (3.5-4.5); Sodium 142 mEq/L (136-145); eGFR For African Americans > 60 (> 60); eGFR For Non-African Americans > 60 (> 60)
[2017-05-10 06:36] LABS: Basophils % 0.3 %; Eosinophils # 0.6 K/mcL (0.0-0.6); Eosinophils % 9.3 %; Hematocrit 42.5 % (37.5-50.1); Hemoglobin 13.1 g/dL (12.9-16.9); Immature Granulocytes % 0.7 % (0-4); Lymphocytes # 1.6 K/mcL (0.6-4.6); Lymphocytes % 25.4 %; Mean Corpuscular HGB Conc 30.8 g/dL (31.6-35.5); Mean Corpuscular Hemoglobin 29.4 pg (28.0-33.3); Mean Corpuscular Volume 95.3 fL (83.0-100.0); Mean Platelet Volume 11.7 fL (9.4-12.4); Monocytes # 0.9 K/mcL (0.0-1.3); Monocytes % 14.5 %; Neutrophils # 3.1 K/mcL (1.6-8.9); Platelet Count 129 K/mcL (140-400); Red Blood Count 4.46 M/mcL (4.19-5.50); Red Cell Distribution Width 13.7 % (11.5-14.5); Segmented Neutrophils % 49.8 %
--- NOTE | 2017-05-10 07:34 | Venous Imaging Report ---
UE Venous Duplex Patient Name:Fidel Mathew Order Number:[id number] Procedure Date:05/08/2017 Date:1970Age:47 yrs Gender:Male Location:[facility] Room #: 3A63 Retail [employer] Manager:Yamileth Gunderson RDCS Referring MD:Ed Hall MD Reading MD:Jaret Adamson MD Primary Indications:r/o DVT/phlebitis Secondary Indications: Impressions: Upper extremity abnormal superficial exam: left Basilic Upper Arm vein acute thrombosis. Recommendations: After imaging the patient returned to their room. Test completed on 05/08/2017 at 9:07:00 pm. Critical findings reported to DHARMESH Glynn by phone at 9:15:00 pm on 05/08/2017 by Yamileth Gunderson RDCS. Findings Venous Duplex Results: Left: There is an occlusive thrombus seen in the left basilic upper arm. Prior Study: No prior study available for comparison. Upper Extremity Venous Duplex Side Vein Compress Spontaneous Flow Augment Left Jugular Normal Yes Phasic Yes Left Subclavian Normal Yes Phasic Yes Left Axillary Normal Yes Phasic Yes Left Brachial Normal Yes Phasic Yes Left Cephalic Normal Yes Phasic Yes Left Basilic Upper Arm None no Absent no Left Basilic Forearm Normal Yes Phasic Yes Left Radial Normal Yes Phasic Yes Left Ulnar Normal Yes Phasic Yes Right Subclavian Normal Yes Phasic Yes Updated by Jaret Adamson MD on 05/10/2017 7:26:59 AM electronically signed on 05/10/2017 7:27:16 AM with status of Final
[2017-05-10] MEDS: 0.9 % Sodium Chloride 1,000 ML IVC SCH ×8 (07:43→11:54)
[2017-05-10] MEDS: CarBAMazepine XR (12 hr) 100 MG TAB PO SCH ×2 (10:34→21:08)
[2017-05-10] MEDS: Topiramate 100 MG TABLET PO SCH (10:34)
[2017-05-10] MEDS: levETIRAcetam 250 MG TABLET PO SCH ×2 (10:35→21:08)
[2017-05-10] MEDS: OLANZapine 10 MG TAB.RAPDIS PO SCH ×2 (10:36→21:08)
[2017-05-10] MEDS: Baclofen 10 MG TABLET PO SCH ×2 (10:36→21:08)
[2017-05-10] MEDS: Folic Acid 1 MG TABLET PO SCH (10:36)
[2017-05-10] MEDS: Aspirin Enteric Coated 325 MG Tablet PO SCH (10:36)
[2017-05-10] MEDS: Potassium Chloride Elixir 20 MEQ/15 ML UDC PO SCH (10:37)
[2017-05-10] MEDS: Vancomycin 1,250 MG in D5% in Water 250 ML IVPB SCH ×2 (10:38→23:17)
[2017-05-10] MEDS: Artificial Tears SOLN 15 ML BOTTLE BOTH EYES SCH ×2 (10:55→21:09)
[2017-05-10] MEDS: Budesonide/Formoterol 80/4.5 MDI IH SCH ×2 (11:00→20:25)
[2017-05-10] MEDS: Ertapenem 1,000 MG in 0.9 % Sodium Chloride Mini Bag 100 ML IVPB SCH (13:45)
--- NOTE | 2017-05-10 13:53 | Infectious Disease Progress No ---
Date of Encounter: 05/10/17 Time of Encounter: 13:50 - Assessment and Plan (1) Sepsis Current Visit: Yes Status: Acute The patient had three SIRS criteria on admission. Likely secondary to bacteremia and UTI. Improved. WBC has normalized. Fevers and tachycardia have resolved. Blood cultures drawn 05/08/17 are positive 2/2 sets for MRSA. Repeat blood cultures drawn 05/10/17 are pending x 1 set. Qualifiers: Sepsis type: methicillin resistant Staphylococcus aureus Qualified Code(s) : A41.02 - Sepsis due to Methicillin resistant Staphylococcus aureus (2) Bacteremia Current Visit: No Status: Resolved Causative organism MRSA per PCR. Source likely the LUE PICC line, which has been removed. Blood cultures drawn 05/08/17 are positive 2/2 sets for MRSA. Uncomplicated. The patient does not have any indwelling hardware or lines. The patient has one major and one minor Modified Dawson's Criteria. He has no endocarditis stigmata. Recommend a TTE prior to discharge. If negative, he will need a ARMOND. Repeat blood cultures 05/10/17 are pending x 1 set. Recommend getting 2 sets of blood cultures at a time so will re-order blood cultures for the AM. Continue Vancomycin IV. Pharmacy to dose. Goal trough ~15. Duration of treatment depends on the clinical picture. Monitor renal function and for drug toxicity and dose-adjust antibiotics. Avoid re-insertion of central venous access until blood cultures are negative x 48 hours. (3) PICC line infection Current Visit: Yes Status: Acute atient had a PICC line in the LUE that has been discontinued. Likely the source of the patient's bacteremia given the clinical picture. The PICC line was removed at the [facility] and sent here with the patient in his bed. Catheter tip culture positive for MSSA originally, but looks like the culture report was changed this morning to MRSA. Additionally, no blood cultures were obtained from the line prior to it being removed. Qualifiers: Encounter type: initial encounter Qualified Code(s): T80.219A - Unspecified infection due to central venous catheter, initial encounter (4) Urinary tract infection Current Visit: No Status: Acute Causative organism Proteus mirabilis. Colonization vs. true infection. The patient appears to be improving with just Vancomycin so I'm not sure that the bacteruria is contributing to the patient's sepsis. Consider switching out suprapubic catheter while here. Place fenestrated guaze around catheter to help prevent further breakdown of the skin at the stoma. Qualifiers: Urinary tract infection type: acute cystitis Hematuria presence: with hematuria Qualified Code(s): N30.01 - Acute cystitis with hematuria (5) Thrombocytopenia Current Visit: No Status: Acute Etiology unclear, but appears to date back to 2016: infection vs. other. Monitor closely. If this does not resolve with the treatment of the patient's infection, consider Hem/Onc consult. (6) Superficial venous thrombosis of left upper extremity Current Visit: Yes Status: Acute LUE venous doppler study shows SVT in the left basilic vein. Supportive care: pain management, elevation, warm compresses. Further recommendations from the primary team. (7) Hypokalemia Current Visit: No Status: Resolved Potassium 3.3 on this AM's labs. Further management per the primary team. (8) Paraplegia, unspecified Current Visit: No Status: Chronic (9) Status post tracheostomy Current Visit: No Status: Chronic (10) COPD (chronic obstructive pulmonary disease) Current Visit: Yes Status: Chronic Qualifiers: COPD type: unspecified COPD Qualified Code(s): J44.9 - Chronic obstructive pulmonary disease, unspecified (11) Decubitus ulcer of heel, bilateral Current Visit: Yes Status: Acute Continue offloading. Consult wound care for recommendations. Clinically these do not appear infected and are unlikely the source of the patient's bacteremia. (12) Decubitus ulcer, buttock Current Visit: Yes Status: Acute Continue offloading. Frequent turns. Wound care consult for recommendations. Clinically does not appear infected and very unlikely the source of the patient' s bacteremia. Qualifiers: Pressure ulcer stage: unspecified pressure ulcer stage Laterality: left Qualified Code(s): L89.329 - Pressure ulcer of left buttock, unspecified stage - Subjective Interval history: Patient seen and examined. No acute events noted overnight. Patient resting quietly in bed with eyes closed, but awakens easily. Complains of chronic back pain. Denies fevers, chills, or rigors. Denies chest pain or shortness of breath. Reports a cough productive of light brown sputum. Denies nausea, vomiting, or diarrhea. Denies abdominal pain. Infect Dis PN-Objective Data - Labs CBC & Chem 7: 05/10/17 04:50 05/10/17 04:50 Labs: Laboratory Results - last 24 hr 05/10/17 05/10/17 05/10/17 04:50 04:50 04:50 WBC 6.1 RBC 4.46 Hgb 13.1 Hct 42.5 MCV 95.3 MCH 29.4 MCHC 30.8 L RDW 13.7 Plt Count 129 L MPV 11.7 Immature Gran % 0.7 Seg Neutrophils % 49.8 Lymphocytes % 25.4 Monocytes % 14.5 Eosinophils % 9.3 Basophils % 0.3 Neutrophils # 3.1 Lymphocytes # 1.6 Monocytes # 0.9 Eosinophils # 0.6 Basophils # 0.0 Sodium 142 Potassium 3.3 L Chloride 110 H Carbon Dioxide 22 BUN 6 L Creatinine 0.50 L Est GFR ( Amer) > 60 Est GFR (Non-Af Amer) > 60 BUN/Creatinine Ratio 12 Glucose 79 Calculated Osmolality 291 Calcium 8.7 Vancomycin Trough 14.2 Cultures: Cultures 05/08/17 13:19 Catheter Tip Culture - Final Intravenous or Arterial Cath Methicillin Resistant S.aureus Exam - Constitutional Vitals: Temp Pulse Resp BP Pulse Ox 98.0 F 101 18 119/83 97 05/10/17 11:50 05/10/17 11:50 05/10/17 11:50 05/10/17 11:50 05/10/17 11:50 General appearance: average body habitus, cooperative, no acute distress - Head Head exam: Present: atraumatic, normal inspection, normocephalic - Eye Eye exam: Present: EOMI, normal appearance, PERRL Pupils: Present: normal accommodation Additional comments: No subconjunctival hemorrhage noted. - ENT ENT exam: Present: mucous membranes moist - Neck Neck exam: Present: normal inspection Additional comments: Tracheostomy midline with moderate amount of light brown sputum noted in the inner cannula. No drainage from around the tracheostomy site. - Respiratory Respiratory exam: Present: CTAB. Absent: rales, respiratory distress, rhonchi, wheezes - Cardiovascular Cardiovascular exam: Present: RRR, +S1, +S2 - GI/Abdominal GI/Abdominal exam: Present: normal bowel sounds, soft. Absent: distended, tenderness Additional comments: Suprapubic catheter noted to be draining clear yellow urine. - Extremities Exam Extremities exam: Present: pedal edema (1+ BLE). Absent: joint swelling, tenderness Additional comments: Stage II ulcers noted to the bilateral heels. LUE tender with palpation and ROM. No pain in the shoulder joint illicited with movement or palpation. Extremity is red, but not warm to touch. - Neurological Exam Neurological exam: Present: alert, oriented X3. Absent: no focal deficits ( Paralysis noted to the BLE with minimal movement of the BUE.), facial droop - Psychiatric Psychiatric exam: Present: normal affect, normal mood - Skin Skin exam: Present: dry, intact, normal color, warm Additional comments: No endocarditis stigmata noted. Consult Discharge Plan - Plan Referrals: NONE,PCP [Primary Care Provider] -
[2017-05-10] MEDS: clonazePAM 1 MG TABLET PO SCH (16:47)
--- NOTE | 2017-05-10 16:50 | Internal Med Progress Note ---
Date of Encounter: 05/10/17 Time of Encounter: 15:30 - Assessment and plan (1) Sepsis Current Visit: Yes Status: Acute Assessment and plan: Most likely from site of prior PICC line/thrombophlebitis. Continue current antibiotics. Infectious disease is following. Repeat blood cultures have been ordered. Will get echocardiogram to look for any signs of endocarditis. High- risk for complications. Qualifiers: Sepsis type: methicillin resistant Staphylococcus aureus Qualified Code(s) : A41.02 - Sepsis due to Methicillin resistant Staphylococcus aureus (2) PICC line infection Current Visit: Yes Status: Acute Assessment and plan: PICC line has been discontinued. We will repeat blood cultures. Qualifiers: Encounter type: initial encounter Qualified Code(s): T80.219A - Unspecified infection due to central venous catheter, initial encounter (3) Cellulitis Current Visit: Yes Status: Acute Assessment and plan: Resolving at site of prior PICC line and an antecubital fossa. Patient most likely has underlying thrombophlebitis. Qualifiers: Site of cellulitis: extremity Site of cellulitis of extremity: upper extremity Laterality: left Qualified Code(s): L03.114 - Cellulitis of left upper limb (4) Chronic respiratory failure Current Visit: Yes Status: Chronic Assessment and plan: With trach in place. On room air currently. Qualifiers: Respiratory failure complication: hypoxia Qualified Code(s): J96.11 - Chronic respiratory failure with hypoxia (5) COPD (chronic obstructive pulmonary disease) Current Visit: Yes Status: Chronic Assessment and plan: Continue bronchodilators as needed. Not in acute exacerbation. Qualifiers: COPD type: unspecified COPD Qualified Code(s): J44.9 - Chronic obstructive pulmonary disease, unspecified (6) Decubitus ulcer, buttock Current Visit: Yes Status: Acute Assessment and plan: Continue local wound care. Qualifiers: Pressure ulcer stage: unspecified pressure ulcer stage Laterality: left Qualified Code(s): L89.329 - Pressure ulcer of left buttock, unspecified stage (7) Quadriplegia and quadriparesis Current Visit: Yes Status: Chronic Assessment and plan: Continue prophylactic measures for decubitus ulcers. (8) Yeast dermatitis Current Visit: Yes Status: Acute Assessment and plan: On topical ketoconazole (9) Superficial venous thrombosis of left upper extremity Current Visit: Yes Status: Acute Assessment and plan: With possible thrombophlebitis. Symptomatic treatment. No need for anticoagulation. - Subjective Interval history: Patient complains of low back pain which is chronic. Also has some discomfort in the left upper extremity at site of prior PICC line. Denies any fever or chills. No nausea or vomiting. Was evaluated by speech therapy earlier and has been placed on honey thickened liquids. - Constitutional Vitals: Temp Pulse Resp BP Pulse Ox 98.0 F 101 18 119/83 97 05/10/17 11:50 05/10/17 11:50 05/10/17 11:50 05/10/17 11:50 05/10/17 11:50 General appearance: Present: cooperative, A&O X 3, no acute distress, answers questions appropriately - ENT Additional comments: trach in place - Neck Neck exam general surgery: Present: supple, trachea midline. Absent: lymphadenopathy - Respiratory Respiratory exam: Present: CTAB. Absent: accessory muscle use, rales, rhonchi, wheezes - Cardiovascular Cardiovascular exam: Present: RRR, +S1, +S2. Absent: diastolic murmur, gallop, rubs, systolic murmur - GI/Abdominal GI/Abdominal exam: Present: normal bowel sounds, soft, no peritoneal signs. Absent: distended, tenderness - Extremities Exam Extremities exam: Present: tenderness (Left upper extremity in the antecubital fossa), warm, radial pulses palpable and symmetrical. Absent: calf tenderness, cyanotic, pedal edema - Neurological Exam Neurological exam: Present: CN II-XII intact, oriented X3, no focal deficits. Absent: facial droop, speech deficit - Skin Skin exam: Present: dry, erythema (Mild erythema over the left Upper extremity in the antecubital fossa and the site of prior PICC line), intact Internal Medicine: Result - Labs CBC & Chem 7: 05/10/17 04:50 05/10/17 04:50 Labs: Short CBC 05/10/17 Range/Units 04:50 WBC 6.1 (4.3-11.1) K/mcL Hgb 13.1 (12.9-16.9) g/dL Hct 42.5 (37.5-50.1) % Plt Count 129 L (140-400) K/mcL Neutrophils # 3.1 (1.6-8.9) K/mcL BMP 05/10/17 04:50 Sodium 142 Potassium 3.3 L Chloride 110 H Carbon Dioxide 22 BUN 6 L Creatinine 0.50 L Glucose 79 Calcium 8.7 - ABG Interpretation ABG results: PT/INR, D-dimer PT 11.5 Seconds (9.4-12.1) 05/08/17 01:55 Consult Discharge Plan - Plan Referrals: NONE,PCP [Primary Care Provider] -
[2017-05-10] MEDS: Acetaminophen 325 MG TABLET PO PRN (21:08)
[2017-05-11] MEDS: *HR* Heparin 5,000 UNIT/ML VIAL SQ SCH ×2 (05:53→17:52)
[2017-05-11] MEDS: *HR* OxyCODONE Immed Rel 5 MG TABLET PO PRN ×3 (05:53→20:34)
[2017-05-11 06:25] LABS: BUN/Creatinine Ratio 11 (6-26); Blood Urea Nitrogen 5 mg/dL (8-26); Calcium 8.3 mg/dL (8.6-10.8); Carbon Dioxide 17 mEq/L (19-29); Chloride 112 mEq/L (98-109); Glucose 83 mg/dL (70-99); Osmolality,Calculated 284 (280-300); Sodium 139 mEq/L (136-145); eGFR For African Americans > 60 (> 60); eGFR For Non-African Americans > 60 (> 60)
[2017-05-11] MEDS: Potassium Chloride Elixir 20 MEQ/15 ML UDC PO SCH (07:51)
[2017-05-11] MEDS: OLANZapine 10 MG TAB.RAPDIS PO SCH ×2 (07:51→20:35)
[2017-05-11] MEDS: CarBAMazepine XR (12 hr) 100 MG TAB PO SCH ×2 (07:51→20:34)
[2017-05-11] MEDS: Baclofen 10 MG TABLET PO SCH ×2 (07:51→20:35)
[2017-05-11] MEDS: Aspirin Enteric Coated 325 MG Tablet PO SCH (07:52)
[2017-05-11] MEDS: levETIRAcetam 250 MG TABLET PO SCH ×2 (07:52→20:35)
[2017-05-11] MEDS: Folic Acid 1 MG TABLET PO SCH (07:52)
[2017-05-11] MEDS: Topiramate 100 MG TABLET PO SCH (07:53)
[2017-05-11] MEDS: 0.9 % Sodium Chloride w KCl 40 MEQ/1,000 ML MLS IVC SCH (07:53)
[2017-05-11] MEDS: Ertapenem 1,000 MG in 0.9 % Sodium Chloride Mini Bag 100 ML IVPB SCH (07:54)
[2017-05-11] MEDS: Artificial Tears SOLN 15 ML BOTTLE BOTH EYES SCH ×2 (07:54→20:35)
[2017-05-11] MEDS: Budesonide/Formoterol 80/4.5 MDI IH SCH ×2 (10:50→20:05)
[2017-05-11] MEDS: Vancomycin 1,250 MG in D5% in Water 250 ML IVPB SCH (11:03)
--- NOTE | 2017-05-11 14:17 | Infectious Disease Progress No ---
Date of Encounter: 05/11/17 Time of Encounter: 14:15 - Assessment and Plan (1) Sepsis Current Visit: Yes Status: Acute The patient had three SIRS criteria on admission. Likely secondary to bacteremia and UTI. Improved. WBC has normalized. Fevers and tachycardia have resolved. Blood cultures drawn 05/08/17 are positive 2/2 sets for MRSA. Repeat blood cultures drawn 05/10/17 are NGTD x 1 set. Additional blood cultures ordered to be drawn at 0600 this morning not collected. I called [facility] and they will send someone up to collect them ERIN. Qualifiers: Sepsis type: methicillin resistant Staphylococcus aureus Qualified Code(s) : A41.02 - Sepsis due to Methicillin resistant Staphylococcus aureus (2) Bacteremia Current Visit: No Status: Resolved Causative organism MRSA per PCR. Source likely the LUE PICC line, which has been removed. Blood cultures drawn 05/08/17 are positive 2/2 sets for MRSA. Uncomplicated. The patient does not have any indwelling hardware or lines. The patient has one major and one minor Modified Dawson's Criteria. He has no endocarditis stigmata. Recommend a TTE prior to discharge. If negative, he will need a ARMOND. Repeat blood cultures 05/10/17 are NGTDx 1 set. Additional blood cultures ordered to be drawn at 0600 this morning not collected. I called [facility] and they will send someone up to collect them ERIN. Continue Vancomycin IV. Pharmacy to dose. Goal trough ~15. Duration of treatment depends on the clinical picture. Monitor renal function and for drug toxicity and dose-adjust antibiotics. Avoid re-insertion of central venous access until blood cultures are negative x 48 hours. (3) PICC line infection Current Visit: Yes Status: Acute atient had a PICC line in the LUE that has been discontinued. Likely the source of the patient's bacteremia given the clinical picture. The PICC line was removed at the [facility] and sent here with the patient in his bed. Catheter tip culture positive for MRSA. Additionally, no blood cultures were obtained from the line prior to it being removed. Qualifiers: Encounter type: initial encounter Qualified Code(s): T80.219A - Unspecified infection due to central venous catheter, initial encounter (4) Urinary tract infection Current Visit: No Status: Acute Causative organism Proteus mirabilis. Colonization vs. true infection. The patient appears to be improving with just Vancomycin so I'm not sure that the bacteruria is contributing to the patient's sepsis. Ertapenem started by the primary team, but recommend stopping as this is most likely asymptomatic bacteriuria and the patient is at high risk for developing resistance with the unnecessary use of antibiotics. Consider switching out suprapubic catheter while here. Place fenestrated guaze around catheter to help prevent further breakdown of the skin at the stoma. Qualifiers: Urinary tract infection type: acute cystitis Hematuria presence: with hematuria Qualified Code(s): N30.01 - Acute cystitis with hematuria (5) Thrombocytopenia Current Visit: No Status: Acute Etiology unclear, but appears to date back to 2016: infection vs. other. Monitor closely. If this does not resolve with the treatment of the patient's infection, consider Hem/Onc consult. (6) Superficial venous thrombosis of left upper extremity Current Visit: Yes Status: Acute LUE venous doppler study shows SVT in the left basilic vein. Supportive care: pain management, elevation, warm compresses. Further recommendations from the primary team. (7) Hypokalemia Current Visit: No Status: Resolved Resolved. Potassium 4.0 on this AM's labs. Further management per the primary team. (8) Paraplegia, unspecified Current Visit: No Status: Chronic (9) Status post tracheostomy Current Visit: No Status: Chronic (10) COPD (chronic obstructive pulmonary disease) Current Visit: Yes Status: Chronic Qualifiers: COPD type: unspecified COPD Qualified Code(s): J44.9 - Chronic obstructive pulmonary disease, unspecified (11) Decubitus ulcer of heel, bilateral Current Visit: Yes Status: Acute Continue offloading. Consult wound care for recommendations. Clinically these do not appear infected and are unlikely the source of the patient's bacteremia. (12) Decubitus ulcer, buttock Current Visit: Yes Status: Acute Continue offloading. Frequent turns. Wound care consult for recommendations. Clinically does not appear infected and very unlikely the source of the patient' s bacteremia. Qualifiers: Pressure ulcer stage: unspecified pressure ulcer stage Laterality: left Qualified Code(s): L89.329 - Pressure ulcer of left buttock, unspecified stage - Subjective Interval history: Patient seen and examined. No acute events noted overnight. Patient resting quietly in bed with family at bedside. Complains of chronic back pain, currently 04/30. Denies fevers, chills, or rigors. Denies chest pain or shortness of breath. Reports a cough productive of light brown sputum. Denies nausea, vomiting, or diarrhea. Denies abdominal pain. States he ate lunch, but may have had some aspiration. Reports watering of his right eye without visual impairment. Infect Dis PN-Objective Data - Labs CBC & Chem 7: 05/10/17 04:50 05/11/17 05:44 Labs: Laboratory Results - last 24 hr 05/11/17 05:44 Sodium 139 Potassium 4.0 Chloride 112 H Carbon Dioxide 17 L BUN 5 L Creatinine 0.46 L Est GFR ( Amer) > 60 Est GFR (Non-Af Amer) > 60 BUN/Creatinine Ratio 11 Glucose 83 Calculated Osmolality 284 Calcium 8.3 L Cultures: Cultures 05/10/17 03:47 Blood Culture - Preliminary Peripheral Venipuncture No growth. 05/08/17 13:19 Catheter Tip Culture - Final Intravenous or Arterial Cath Methicillin Resistant S.aureus Exam - Constitutional Vitals: Temp Pulse Resp BP Pulse Ox 98.4 F 79 14 101/65 93 05/11/17 08:45 05/11/17 08:45 05/11/17 10:50 05/11/17 08:45 05/11/17 10:50 General appearance: average body habitus, cooperative, no acute distress - Head Head exam: Present: atraumatic, normal inspection, normocephalic - Eye Eye exam: Present: EOMI, normal appearance, PERRL Pupils: Present: normal accommodation Additional comments: Clear drainage noted from the right eye. - ENT ENT exam: Present: mucous membranes moist - Neck Neck exam: Present: normal inspection Additional comments: Tracheostomy midline without drainage. - Respiratory Respiratory exam: Present: rhonchi (Scattered bilaterally), wheezes (Fine expiratory wheezes bilateral bases). Absent: rales, respiratory distress, tachypnea - Cardiovascular Cardiovascular exam: Present: RRR, +S1, +S2 - GI/Abdominal GI/Abdominal exam: Present: distended, normal bowel sounds, tenderness ( generalized, mild) - Extremities Exam Extremities exam: Present: pedal edema (1+ BLE), tenderness (LUE). Absent: joint swelling Additional comments: Upper LUE tender with palpation. Erythema improved 2+ edema noted extending down into the hand. - Neurological Exam Neurological exam: Present: alert, oriented X3. Absent: no focal deficits ( Paralysis noted to the BLE with minimal movement of the BUE.), facial droop, speech deficit - Psychiatric Psychiatric exam: Present: normal affect, normal mood - Skin Skin exam: Present: dry, intact, normal color, warm - Additional findings Additional findings: Allevyn dressings noted to the bilateral heels. Consult Discharge Plan - Plan Referrals: NONE,PCP [Primary Care Provider] -
--- NOTE | 2017-05-11 15:49 | Internal Med Progress Note ---
Date of Encounter: 05/11/17 Time of Encounter: 14:30 - Assessment and plan (1) Sepsis Current Visit: Yes Status: Acute Assessment and plan: Continue antibiotics per infectious disease recommendations. Repeat blood cultures drawn yesterday are so far negative. We will get 2-D echocardiogram. Monitor vital signs. Repeat blood cultures ordered for today. Qualifiers: Sepsis type: methicillin resistant Staphylococcus aureus Qualified Code(s) : A41.02 - Sepsis due to Methicillin resistant Staphylococcus aureus (2) PICC line infection Current Visit: Yes Status: Acute Assessment and plan: With superficial thrombophlebitis. Continue IV antibiotics. Qualifiers: Encounter type: initial encounter Qualified Code(s): T80.219A - Unspecified infection due to central venous catheter, initial encounter (3) Cellulitis Current Visit: Yes Status: Acute Assessment and plan: Improving. Qualifiers: Site of cellulitis: extremity Site of cellulitis of extremity: upper extremity Laterality: left Qualified Code(s): L03.114 - Cellulitis of left upper limb (4) Chronic respiratory failure Current Visit: Yes Status: Chronic Assessment and plan: With trach in place. Qualifiers: Respiratory failure complication: hypoxia Qualified Code(s): J96.11 - Chronic respiratory failure with hypoxia (5) COPD (chronic obstructive pulmonary disease) Current Visit: Yes Status: Chronic Assessment and plan: Continue bronchodilators as needed Qualifiers: COPD type: unspecified COPD Qualified Code(s): J44.9 - Chronic obstructive pulmonary disease, unspecified (6) Decubitus ulcer, buttock Current Visit: Yes Status: Acute Assessment and plan: Continue local wound care. Frequent turning. Qualifiers: Pressure ulcer stage: unspecified pressure ulcer stage Laterality: left Qualified Code(s): L89.329 - Pressure ulcer of left buttock, unspecified stage (7) Quadriplegia and quadriparesis Current Visit: Yes Status: Chronic (8) Yeast dermatitis Current Visit: Yes Status: Acute Assessment and plan: On topical ketoconazole (9) Superficial venous thrombosis of left upper extremity Current Visit: Yes Status: Acute Assessment and plan: Supportive care. Pain control. - Subjective Interval history: Continues to have low back pain. Complains of swelling in his left hand. States that he does not want any more IV catheters. No fever or chills reported overnight. - Constitutional Vitals: Temp Pulse Resp BP Pulse Ox 98.4 F 79 14 101/65 93 05/11/17 08:45 05/11/17 08:45 05/11/17 10:50 05/11/17 08:45 05/11/17 10:50 General appearance: Present: cooperative, A&O X 3, no acute distress, answers questions appropriately - ENT Additional comments: Trach in place. Whitish discharge noted - Respiratory Respiratory exam: Present: CTAB. Absent: accessory muscle use, rales, rhonchi, wheezes - Cardiovascular Cardiovascular exam: Present: RRR, +S1, +S2. Absent: diastolic murmur, gallop, rubs, systolic murmur - GI/Abdominal GI/Abdominal exam: Present: normal bowel sounds, soft, no peritoneal signs. Absent: distended, tenderness - Extremities Exam Extremities exam: Present: warm, radial pulses palpable and symmetrical. Absent : calf tenderness, cyanotic, pedal edema Additional comments: Swelling present over left upper extremity. Erythema over antecubital fossa improving. - Neurological Exam Neurological exam: Present: alert, oriented X3, no focal deficits. Absent: facial droop, speech deficit Internal Medicine: Result - Labs CBC & Chem 7: 05/10/17 04:50 05/11/17 05:44 Labs: BMP 05/11/17 05:44 Sodium 139 Potassium 4.0 Chloride 112 H Carbon Dioxide 17 L BUN 5 L Creatinine 0.46 L Glucose 83 Calcium 8.3 L - ABG Interpretation ABG results: PT/INR, D-dimer PT 11.5 Seconds (9.4-12.1) 05/08/17 01:55 Consult Discharge Plan - Plan Referrals: NONE,PCP [Primary Care Provider] -
[2017-05-11] MEDS: clonazePAM 1 MG TABLET PO SCH (17:49)
--- NOTE | 2017-05-11 18:06 | Event Note ---
Date of Encounter: 05/11/17 Time of Encounter: 18:05 I was called to change out his suprapubic tube. His old suprapubic tube was removed. I then placed a new 22 [place] suprapubic tube under sterile conditions. Slightly bloody urine returned. He tolerated the procedure well.
[2017-05-12] MEDS: Vancomycin 1,250 MG in D5% in Water 250 ML IVPB SCH ×2 (06:20→10:55)
[2017-05-12] MEDS: *HR* Heparin 5,000 UNIT/ML VIAL SQ SCH (06:20)
[2017-05-12 08:03] LABS: BUN/Creatinine Ratio 11 (6-26); Blood Urea Nitrogen 5 mg/dL (8-26); Calcium 8.9 mg/dL (8.6-10.8); Carbon Dioxide 21 mEq/L (19-29); Chloride 110 mEq/L (98-109); Glucose 102 mg/dL (70-99); Osmolality,Calculated 291 (280-300); Sodium 142 mEq/L (136-145); eGFR For African Americans > 60 (> 60); eGFR For Non-African Americans > 60 (> 60)
[2017-05-12 08:06] LABS: Basophils % 0.7 %; Eosinophils # 0.5 K/mcL (0.0-0.6); Eosinophils % 11.8 %; Hematocrit 42.7 % (37.5-50.1); Hemoglobin 13.2 g/dL (12.9-16.9); Immature Granulocytes % 0.9 % (0-4); Lymphocytes # 1.2 K/mcL (0.6-4.6); Lymphocytes % 27.1 %; Mean Corpuscular HGB Conc 30.9 g/dL (31.6-35.5); Mean Corpuscular Hemoglobin 29.4 pg (28.0-33.3); Mean Corpuscular Volume 95.1 fL (83.0-100.0); Mean Platelet Volume 11.1 fL (9.4-12.4); Monocytes # 0.5 K/mcL (0.0-1.3); Monocytes % 12.5 %; Platelet Count 161 K/mcL (140-400); Red Blood Count 4.49 M/mcL (4.19-5.50); Red Cell Distribution Width 13.5 % (11.5-14.5)
[2017-05-12] MEDS ORDERED: Lidocaine -MPF 1% 5 ML AMPUL INFILT ONE (10:07)
[2017-05-12] MEDS ORDERED: Lidocaine -MPF 1% 2 ML VIAL INFILT ONE (10:15)
--- NOTE | 2017-05-12 10:22 | Infectious Disease Progress No ---
Date of Encounter: 05/12/17 Time of Encounter: 10:20 - Assessment and Plan (1) Sepsis Current Visit: Yes Status: Acute The patient had three SIRS criteria on admission. Likely secondary to bacteremia and UTI. Improved. WBC has normalized. Fevers and tachycardia have resolved. Blood cultures drawn 05/08/17 are positive 2/2 sets for MRSA. Repeat blood cultures drawn 05/10/17 are NGTD x 1 set. Repeat blood cultures drawn 05/11/17 are pending x 2 sets. Qualifiers: Sepsis type: methicillin resistant Staphylococcus aureus Qualified Code(s) : A41.02 - Sepsis due to Methicillin resistant Staphylococcus aureus (2) Bacteremia Current Visit: No Status: Resolved Causative organism MRSA per PCR. Source likely the LUE PICC line, which has been removed. Blood cultures drawn 05/08/17 are positive 2/2 sets for MRSA. Uncomplicated. The patient does not have any indwelling hardware or lines. The patient has one major and one minor Modified [place]'s Criteria. He has no endocarditis stigmata. Recommend a TTE prior to discharge. If negative, he will need a ARMOND. Repeat blood cultures 05/10/17 are NGTDx 1 set. Additional blood cultures drawn 05/11/17 are pending x 2 sets. Continue Vancomycin IV. Pharmacy to dose. Goal trough ~15. Duration of treatment depends on the clinical picture. Monitor renal function and for drug toxicity and dose-adjust antibiotics. Okay to consult VAT for PICC placement. (3) PICC line infection Current Visit: Yes Status: Acute atient had a PICC line in the LUE that has been discontinued. Likely the source of the patient's bacteremia given the clinical picture. The PICC line was removed at the [facility] and sent here with the patient in his bed. Catheter tip culture positive for MRSA. Additionally, no blood cultures were obtained from the line prior to it being removed. Qualifiers: Encounter type: initial encounter Qualified Code(s): T80.219A - Unspecified infection due to central venous catheter, initial encounter (4) Urinary tract infection Current Visit: No Status: Acute Causative organism Proteus mirabilis. Colonization vs. true infection. The patient appears to be improving with just Vancomycin so I'm not sure that the bacteruria is contributing to the patient's sepsis. Suprapubic catheter exchanged 05/11/17 by Urology. Qualifiers: Urinary tract infection type: acute cystitis Hematuria presence: with hematuria Qualified Code(s): N30.01 - Acute cystitis with hematuria (5) Thrombocytopenia Current Visit: No Status: Resolved Etiology unclear, but appears to date back to 2016: infection vs. other. Resolved. (6) Superficial venous thrombosis of left upper extremity Current Visit: Yes Status: Acute LUE venous doppler study shows SVT in the left basilic vein. Supportive care: pain management, elevation, warm compresses. Further recommendations from the primary team. (7) Hypokalemia Current Visit: No Status: Resolved Resolved. Further management per the primary team. (8) Paraplegia, unspecified Current Visit: No Status: Chronic (9) Status post tracheostomy Current Visit: No Status: Chronic (10) COPD (chronic obstructive pulmonary disease) Current Visit: Yes Status: Chronic Qualifiers: COPD type: unspecified COPD Qualified Code(s): J44.9 - Chronic obstructive pulmonary disease, unspecified (11) Decubitus ulcer of heel, bilateral Current Visit: Yes Status: Acute Continue offloading. Consult wound care for recommendations. Clinically these do not appear infected and are unlikely the source of the patient's bacteremia. (12) Decubitus ulcer, buttock Current Visit: Yes Status: Acute Continue offloading. Frequent turns.--> patient refusing. Wound care consult for recommendations. Clinically does not appear infected and very unlikely the source of the patient' s bacteremia. Qualifiers: Pressure ulcer stage: unspecified pressure ulcer stage Laterality: left Qualified Code(s): L89.329 - Pressure ulcer of left buttock, unspecified stage - Subjective Interval history: Patient seen and examined. No acute events noted overnight. Patient resting quietly in bed. Complains of chronic back pain, currently 03/30. Denies fevers, chills, or rigors. Reports some mild shortness of breath and a cough productive of light brown sputum. Denies nausea, vomiting, or diarrhea. Denies abdominal pain. States last BM was this morning. States he ate breakfast. States his right eye is no longer bothering him. Infect Dis PN-Objective Data - Labs CBC & Chem 7: 05/12/17 07:40 05/12/17 07:40 Labs: Laboratory Results - last 24 hr 05/12/17 05/12/17 07:40 07:40 WBC 4.3 RBC 4.49 Hgb 13.2 Hct 42.7 MCV 95.1 MCH 29.4 MCHC 30.9 L RDW 13.5 Plt Count 161 MPV 11.1 Immature Gran % 0.9 Seg Neutrophils % 47.0 Lymphocytes % 27.1 Monocytes % 12.5 Eosinophils % 11.8 Basophils % 0.7 Neutrophils # 2.0 Lymphocytes # 1.2 Monocytes # 0.5 Eosinophils # 0.5 Basophils # 0.0 Sodium 142 Potassium 3.0 L D Chloride 110 H Carbon Dioxide 21 BUN 5 L Creatinine 0.47 L Est GFR ( Amer) > 60 Est GFR (Non-Af Amer) > 60 BUN/Creatinine Ratio 11 Glucose 102 H Calculated Osmolality 291 Calcium 8.9 Cultures: Cultures 05/11/17 05:44 Blood Culture - Preliminary Peripheral Venipuncture No growth. 05/10/17 03:47 Blood Culture - Preliminary Peripheral Venipuncture No growth. 05/08/17 13:19 Catheter Tip Culture - Final Intravenous or Arterial Cath Methicillin Resistant S.aureus Exam - Constitutional Vitals: Temp Pulse Resp BP Pulse Ox 98.9 F 81 18 138/81 100 05/12/17 08:25 05/12/17 08:25 05/12/17 08:25 05/12/17 08:25 05/12/17 08:25 General appearance: average body habitus, cooperative, no acute distress - Head Head exam: Present: atraumatic, normal inspection, normocephalic - Eye Eye exam: Present: EOMI, normal appearance, PERRL Pupils: Present: normal accommodation Additional comments: No subconjunctival hemorrhage noted. - ENT ENT exam: Present: mucous membranes moist - Neck Neck exam: Present: normal inspection Additional comments: Tracheostomy midline without erythema or drainage. - Respiratory Respiratory exam: Present: CTAB. Absent: rales, respiratory distress, rhonchi, wheezes - Cardiovascular Cardiovascular exam: Present: RRR, +S1, +S2 - GI/Abdominal GI/Abdominal exam: Present: distended, normal bowel sounds, soft. Absent: tenderness Additional comments: Suprapubic catheter noted to be draining clear yellow urine. - Extremities Exam Extremities exam: Present: pedal edema (1+ BLE), tenderness (LUE). Absent: joint swelling Additional comments: LUE 1+ edema, upper extremity tender. Erythema resolved. - Back Exam Additional comments: Patient declines to turn to evaluate his back. - Neurological Exam Neurological exam: Present: alert, oriented X3, no focal deficits - Psychiatric Psychiatric exam: Present: normal affect, normal mood - Skin Skin exam: Present: dry, intact, normal color, warm Additional comments: No endocarditis stigmata noted. Consult Discharge Plan - Plan Referrals: NONE,PCP [Primary Care Provider] -
[2017-05-12] MEDS: Baclofen 10 MG TABLET PO SCH (10:53)
[2017-05-12] MEDS: CarBAMazepine XR (12 hr) 100 MG TAB PO SCH (10:53)
[2017-05-12] MEDS: Aspirin Enteric Coated 325 MG Tablet PO SCH (10:53)
[2017-05-12] MEDS: Folic Acid 1 MG TABLET PO SCH (10:54)
[2017-05-12] MEDS: OLANZapine 10 MG TAB.RAPDIS PO SCH (10:54)
[2017-05-12] MEDS: levETIRAcetam 250 MG TABLET PO SCH (10:54)
[2017-05-12] MEDS: Topiramate 100 MG TABLET PO SCH (10:54)
[2017-05-12] MEDS: Artificial Tears SOLN 15 ML BOTTLE BOTH EYES SCH (10:55)
[2017-05-12] MEDS: Budesonide/Formoterol 80/4.5 MDI IH SCH (11:16)
[2017-05-12] MEDS: *HR* OxyCODONE Immed Rel 5 MG TABLET PO PRN (13:33)
[2017-05-12] MEDS: GuaiFENesin Liq 200 MG/10 ML UDC PO PRN (13:33)
[2017-05-12 14:29] VITALS: BP 128/86
--- NOTE | 2017-05-12 14:50 | Discharge Summary ---
Date of Encounter: 05/12/17 Time of Encounter: 14:34 - Discharge Diagnosis (1) Sepsis Priority: Primary Status: Acute Qualifiers: Sepsis type: methicillin resistant Staphylococcus aureus Qualified Code(s) : A41.02 - Sepsis due to Methicillin resistant Staphylococcus aureus (2) PICC line infection Priority: Secondary Status: Acute Qualifiers: Encounter type: initial encounter Qualified Code(s): T80.219A - Unspecified infection due to central venous catheter, initial encounter (3) Cellulitis Priority: Secondary Status: Acute Qualifiers: Site of cellulitis: extremity Site of cellulitis of extremity: upper extremity Laterality: left Qualified Code(s): L03.114 - Cellulitis of left upper limb (4) Chronic respiratory failure Priority: Secondary Status: Chronic Qualifiers: Respiratory failure complication: hypoxia Qualified Code(s): J96.11 - Chronic respiratory failure with hypoxia (5) COPD (chronic obstructive pulmonary disease) Priority: Secondary Status: Chronic Qualifiers: COPD type: unspecified COPD Qualified Code(s): J44.9 - Chronic obstructive pulmonary disease, unspecified (6) Decubitus ulcer, buttock Priority: Secondary Status: Acute Qualifiers: Pressure ulcer stage: unspecified pressure ulcer stage Laterality: left Qualified Code(s): L89.329 - Pressure ulcer of left buttock, unspecified stage (7) Quadriplegia and quadriparesis Priority: Secondary Status: Chronic (8) Yeast dermatitis Priority: Secondary Status: Acute (9) Superficial venous thrombosis of left upper extremity Priority: Secondary Status: Acute - Discharge Medications Prescriptions: Vancomycin HCl in Dextrose 5 % [Vancomycin-D5w 1.25 Gram/250Ml] 1.25 gm IV Q12HR #28 vial clonazePAM [Klonopin] 2 mg PO QPM #14 tablet Enoxaparin [Lovenox] 40 mg SQ DAILY #14 syr OxyCODONE Immed Rel [Roxicodone 5 MG] 20 mg PO Q6H PRN #30 tablet PRN Reason: Pain Potassium Chloride Elixir [Potassium Chloride] 40 meq PO BID #250 mls Home Medications: Benztropine Mesylate 1 mg PO HS 07/04/15 [History] Folic Acid 1 mg PO QAM 07/04/15 [History] Ipratropium/Albuterol Neb [Duoneb] 3 ml IH QID PRN 07/04/15 [History] LevETIRAcetam [Keppra] 250 mg PO BID 07/04/15 [History] OLANZapine [Zyprexa] 10 mg PO BID 07/04/15 [History] Topiramate [Topamax] 150 mg PO QAM 11/05/15 [History] Acetaminophen [Tylenol] 650 mg PO Q6HR PRN 12/11/15 [History] Docusate Sodium [Dok] 100 mg PO BID 12/11/15 [History] Fluticasone/Salmeterol [Advair 250-50 Diskus] 1 puff IH BID 12/11/15 [History] Guaifenesin [Diabetic Tussin Ex] 200 mg PO Q4H PRN 12/11/15 [History] Polyvinyl Alcohol [Artificial Tears] 1 drop BOTH EYES BID 03/18/16 [History] Trazodone HCl 100 mg PO HS 03/18/16 [History] Aspirin/Calcium Carbonate/Mag [Aspirin Buffered 325 mg Tab] 325 mg PO DAILY [History] Ketoconazole Shampoo [Nizoral Shampoo] 1 appl TP QWEEK 08/11/16 [History] Melatonin/Pyridoxine [Melatonin Sublingual Tablet] 10 mg SL HS 08/11/16 [History ] Na Phos,M-B/Na Phos,Di-Ba [Fleet Enema Extra] 230 ml RC Q48H 08/11/16 [History] Sertraline [Zoloft] 75 mg PO DAILY 08/11/16 [History] Baclofen [Lioresal] 10 mg PO BID 03/24/17 [History] CarBAMazepine [Carbamazepine ER] 300 mg PO BID 03/24/17 [History] Furosemide [Lasix] 40 mg PO DAILY 03/24/17 [History] Enoxaparin [Lovenox] 40 mg SQ DAILY #14 syr 05/12/17 [Rx] OxyCODONE Immed Rel [Roxicodone 5 MG] 20 mg PO Q6H PRN #30 tablet 05/12/17 [Rx] Potassium Chloride Elixir [Potassium Chloride] 40 meq PO BID #250 mls 05/12/17 [ Rx] Vancomycin HCl in Dextrose 5 % [Vancomycin-D5w 1.25 Gram/250Ml] 1.25 gm IV Q12HR #28 vial 05/12/17 [Rx] clonazePAM [Klonopin] 2 mg PO QPM #14 tablet 05/12/17 [Rx] Allergies/Adverse Reactions: 3 Allergy/AdvReac Type Severity Reaction Status Date / Time Penicillins Allergy See Verified 08/11/16 06:57 Comments Procedures/tests Complete & Pending: Procedures Performed prior 72 hours Category Date Time Status ECG 12 lead ECG [ECG] Routine Y 05/11/17 07:02 Completed EV echocardiogram Routine Y 05/11/17 14:32 Completed Date of admission: 05/08/17 10:39 Primary care physician: PCP NONE Consults: 05/10/17 11:36 Consult to Urology [CONS] Routine Consulting Provider: Urology Liz Reason for Consult: Suprapubic catheter replacement Time Notified: 11:37 Call Completed: Yes 05/10/17 11:46 Consult to Speech Therapy [CONS] Routine Comment: Evaluate, develop and implement POC Reason for Consult: Patient has trach and is coughing when admin thin liquid. Call Completed: No 05/12/17 04:45 Consult to PICC team [Consult to Invasive Line Access Team] [CONS] Stat Reason for Consult: No IV access, possible prison antibiotics Line Type: PICC 05/12/17 10:07 Consult to Invasive Line Access Team [CONS] Routine Reason for Consult: Picc Line Insertion Line Type: PICC Discharging clinician: Mamie Saab Anticipated date of discharge: 05/12/17 - Patient Status Disposition: Transfer SNF Condition: Good Functional capacity at discharge: bed bound Overall status at discharge: patient is progressing back to baseline - Ambulatory Orders Ambulatory Orders: EV ARMOND transesophageal echo Time Frame: 1 Week, Facility: [facility], Location: Cardiopulmonary Svc - Discharge Instructions Instructions: Sepsis (DC) Follow Up With: Radha Gunderson HOSPITAL ACCOUNT MANAGER [Advanced Practice Nurse] - 05/17/17 10:00 am (in 1 week) NONE,PCP [Primary Care Provider] - (With PCP In 1 week) - Diet and Activity Activity: increase activity as tolerated Diet: low fat, low cholesterol, low salt diet Hospital course: Mr. Mathew is a 47 year old male patient with history of quadriplegia, chronic tracheostomy, suprapubic catheter and decubitus ulcers who had recently been treated at a different facility for infection requiring intravenous antibiotics. Patient had helped line placed then. He was found to have increased erythema and tenderness at the site of the PICC line at the senior living where he resides. As such this PICC line was removed and patient was sent to the ER here. The PICC line was also sent with the patient in a specimen cup. In the ER, the patient was slightly febrile and had tachycardia. He was therefore admitted here with sepsis from possible cellulitis involving his left upper extremity and possible PICC line infection. He was started on treatment with broad-spectrum antibiotics. A venous Doppler of the left upper extremity was done which showed superficial venous thrombosis of the left upper extremity. So the patient was diagnosed with superficial thrombophlebitis and sepsis related to this. His blood cultures became positive for gram-positive cocci. Infectious disease was consulted and per their recommendations patient continued to receive vancomycin. Repeat blood cultures were also drawn and these have been negative so far. At this time, patient is clinically getting better and is stable to be discharged back to senior living with IV antibiotics. A new PICC line has now been placed and patient will be discharged with intravenous vancomycin for at least 14 days. A 2-D echocardiogram was done here but his labs could not be clearly visualized. Patient has one major and one minor modified [place] criteria. He has not had any further fevers and so does not require urgent ARMOND. ARMOND will be arranged as outpatient. Patient also had urine culture positive for Proteus mirabilis. Per discussion with infectious disease, this appears to be from colonization as patient is clinically getting better with antibiotics that would not treat Proteus. As such, they did not recommend treating this infection as it is likely from colonization. The patient did have a suprapubic catheter exchanged here. Patient will be discharged today back to skilled rehabilitation and he can follow up with infectious disease as outpatient. - Time Spent with Patient Total time spent providing and/or coordinating discharge services: Greater than 30 minutes (50 min) - Constitutional Vitals: Temp Pulse Resp BP Pulse Ox 98.9 F 83 18 128/86 100 05/12/17 14:28 05/12/17 14:28 05/12/17 14:28 05/12/17 14:28 05/12/17 14:28 General appearance: Present: cooperative, A&O X 3, no acute distress, answers questions appropriately - Neck Neck exam general surgery: Present: supple, trachea midline. Absent: lymphadenopathy - Respiratory Respiratory exam: Present: CTAB. Absent: accessory muscle use, rales, rhonchi, wheezes - Cardiovascular Cardiovascular exam: Present: RRR, +S1, +S2. Absent: diastolic murmur, gallop, rubs, systolic murmur - GI/Abdominal GI/Abdominal exam: Present: normal bowel sounds, soft, no peritoneal signs. Absent: distended, tenderness - Extremities Exam Extremities exam: Present: warm, radial pulses palpable and symmetrical. Absent : calf tenderness, cyanotic, pedal edema - Neurological Exam Neurological exam: Present: alert, oriented X3, no focal deficits. Absent: facial droop, speech deficit - Skin Skin exam: Present: dry, intact
--- NOTE | 2017-05-12 14:59 | Physician Discharge Referral ---
ExtendedCare Referral Info Provider in Charge after Transfer: PCP Institutional Level of Care: Skilled - Diagnosis (1) Sepsis Priority: Primary Status: Acute (2) PICC line infection Priority: Secondary Status: Acute (3) Cellulitis Priority: Secondary Status: Acute (4) Chronic respiratory failure Priority: Secondary Status: Chronic (5) COPD (chronic obstructive pulmonary disease) Priority: Secondary Status: Chronic (6) Decubitus ulcer, buttock Priority: Secondary Status: Acute (7) Quadriplegia and quadriparesis Priority: Secondary Status: Chronic (8) Yeast dermatitis Priority: Secondary Status: Acute (9) Superficial venous thrombosis of left upper extremity Priority: Secondary Status: Acute Prognosis: Fair Aware of Diagnosis: Patient, Family Aware of Prognosis: Patient, Family - Transfer Medications Prescriptions: Vancomycin HCl in Dextrose 5 % [Vancomycin-D5w 1.25 Gram/250Ml] 1.25 gm IV Q12HR #28 vial clonazePAM [Klonopin] 2 mg PO QPM #14 tablet Enoxaparin [Lovenox] 40 mg SQ DAILY #14 syr OxyCODONE Immed Rel [Roxicodone 5 MG] 20 mg PO Q6H PRN #30 tablet PRN Reason: Pain Potassium Chloride Elixir [Potassium Chloride] 40 meq PO BID #250 mls Home Medications: Benztropine Mesylate 1 mg PO HS 07/04/15 [History] Folic Acid 1 mg PO QAM 07/04/15 [History] Ipratropium/Albuterol Neb [Duoneb] 3 ml IH QID PRN 07/04/15 [History] LevETIRAcetam [Keppra] 250 mg PO BID 07/04/15 [History] OLANZapine [Zyprexa] 10 mg PO BID 07/04/15 [History] Topiramate [Topamax] 150 mg PO QAM 11/05/15 [History] Acetaminophen [Tylenol] 650 mg PO Q6HR PRN 12/11/15 [History] Docusate Sodium [Dok] 100 mg PO BID 12/11/15 [History] Fluticasone/Salmeterol [Advair 250-50 Diskus] 1 puff IH BID 12/11/15 [History] Guaifenesin [Diabetic Tussin Ex] 200 mg PO Q4H PRN 12/11/15 [History] Polyvinyl Alcohol [Artificial Tears] 1 drop BOTH EYES BID 03/18/16 [History] Trazodone HCl 100 mg PO HS 03/18/16 [History] Aspirin/Calcium Carbonate/Mag [Aspirin Buffered 325 mg Tab] 325 mg PO DAILY [History] Ketoconazole Shampoo [Nizoral Shampoo] 1 appl TP QWEEK 08/11/16 [History] Melatonin/Pyridoxine [Melatonin Sublingual Tablet] 10 mg SL HS 08/11/16 [History ] Na Phos,M-B/Na Phos,Di-Ba [Fleet Enema Extra] 230 ml RC Q48H 08/11/16 [History] Sertraline [Zoloft] 75 mg PO DAILY 08/11/16 [History] Baclofen [Lioresal] 10 mg PO BID 03/24/17 [History] CarBAMazepine [Carbamazepine ER] 300 mg PO BID 03/24/17 [History] Furosemide [Lasix] 40 mg PO DAILY 03/24/17 [History] Enoxaparin [Lovenox] 40 mg SQ DAILY #14 syr 05/12/17 [Rx] OxyCODONE Immed Rel [Roxicodone 5 MG] 20 mg PO Q6H PRN #30 tablet 05/12/17 [Rx] Potassium Chloride Elixir [Potassium Chloride] 40 meq PO BID #250 mls 05/12/17 [ Rx] Vancomycin HCl in Dextrose 5 % [Vancomycin-D5w 1.25 Gram/250Ml] 1.25 gm IV Q12HR #28 vial 05/12/17 [Rx] clonazePAM [Klonopin] 2 mg PO QPM #14 tablet 05/12/17 [Rx] Allergies/Adverse Reactions: 3 Allergy/AdvReac Type Severity Reaction Status Date / Time Penicillins Allergy See Verified 08/11/16 06:57 Comments - Respiratory Orders Smoking Cessation: Smoking cessation has been advised. For more information, call the [place] Tobacco Quit Line at 6-017-DYEL-NOW. - Lab Orders Lab Orders: Other (include drug levels w/frequency) (Get Vancomycin trough level tomorrow 05/13/17; CBC, BMP, Vancomycin trough level every Monday whle receiving Vancomycin) - Ancillary Orders May consult with Dentist, Magazine Keeper, Tactical Intelligence Officer PRN - Advance Directives Code Status: Full Code - Mobility Orders Other (per PT) - Rehabiliation Orders Rehab Potential: Fair Rehab Orders: Evaluation for Physical Therapy, Evaluation for Occupational Therapy - Diet Orders Mechanical Soft (HOney thick liquids) CERTIFICATION: I certify that the transfer of the above named patient to an Extended Care Facility is necessary for the continuing treatment of the diagnosis listed. The above information is true and accurate reflection of patient's current condition. Confidential - Redisclosure prohibited without a patient's written consent.
[2017-05-12] MEDS ORDERED: Aminoglycoside Consult 1 EACH MC ONE (17:09)
--- NOTE | 2017-05-15 08:35 | Electrocardiograph Report ---
[place] [id number] Test Date: 2017-05-11 Pat Name: Fidel Mathew Department: 115 Room: 3A63 Gender: M Subassembler: EDUARDO : [id number] Requested By: Mamie Saab Order Number: [id number] Reading MD: David Wilburn DO Measurements Intervals Shushan Rate: 73 P: 61 GA: 169 QRS: 79 QRSD: 108 T: 73 QT: 405 QTc: 430 Interpretive Statements SINUS RHYTHM POSSIBLE LEFT VENTRICULAR HYPERTROPHY POSSIBLE INFERIOR MYOCARDIAL INFARCTION, OF INDETERMINATE AGE Electronically Signed On 05-14-2017 9:33:25 EDT by David Wilburn DO
== END 2017-05-12 17:10 | DRG 721 ==
LOC: EMEROO 23:59 → 3ANU 23:59 → SUATTDRO 05-08 10:39
PROVIDERS: ADMIT Pediatrics; ATTEND Internal Medicine

== ENCOUNTER 2017-06-27 01:02 | Inpatient (IN) ==
--- NOTE | 2017-06-27 01:30 | Emergency Department Note ---
Disposition Clinical Impression: Healthcare-associated pneumonia Altered mental status Qualifiers: Altered mental status type: unspecified Qualified Code(s): R41.82 - Altered mental status, unspecified Disposition: Admitted As Inpatient Condition: Fair Altered Mental Status HPI - General Chief Complaint: ED Altered Mental Status Stated Complaint: decrease loc Time Seen by Provider: 06/27/17 01:05 Source: EMS Mode of arrival: EMS Limitations: altered mental status, physical limitation Nursing Notes Reviewed: Yes Vital Signs Reviewed: Yes - History of Present Illness HPI Narrative: 47-year-old male history of quadriplegia currently residing at [facility] presents to the ER due to altered mental status. EMS reports they were called due to decreased level of consciousness at the nursing facility. Patient has been admitted multiple times being septic from UTIs and other sources. Upon arrival patient opens his eyes spontaneously but is nonverbal. He is moving his left upper extremity. Unable to obtain any history from the patient. He is noted to be hypothermic upon arrival. MD complaint: altered mental status Onset (ago): unknown Context: history of similar presentation - Related Data Home Medications Medication Instructions Recorded Confirmed Benztropine Mesylate 1 mg PO HS 07/04/15 06/27/17 Folic Acid 1 mg PO QAM 07/04/15 06/27/17 Ipratropium/Albuterol Neb [Duoneb] 3 ml IH QID PRN 07/04/15 06/27/17 LevETIRAcetam [Keppra] 250 mg PO BID 07/04/15 06/27/17 OLANZapine [Zyprexa] 10 mg PO BID 07/04/15 06/27/17 Topiramate [Topamax] 150 mg PO QAM 11/05/15 06/27/17 Acetaminophen [Tylenol] 650 mg PO Q6HR PRN 12/11/15 06/27/17 Docusate Sodium [Dok] 100 mg PO BID 12/11/15 06/27/17 Fluticasone/Salmeterol [Advair 1 puff IH BID 12/11/15 06/27/17 250-50 Diskus] Guaifenesin [Diabetic Tussin Ex] 200 mg PO Q4H PRN 12/11/15 06/27/17 Polyvinyl Alcohol [Artificial 1 drop BOTH EYES BID 03/18/16 06/27/17 Tears] Trazodone HCl 100 mg PO HS 03/18/16 06/27/17 Aspirin/Calcium Carbonate/Mag 325 mg PO DAILY 08/11/16 06/27/17 [Aspirin Buffered 325 mg Tab] Ketoconazole Shampoo [Nizoral 1 appl TP QWEEK 08/11/16 06/27/17 Shampoo] Na Phos,M-B/Na Phos,Di-Ba [Fleet 230 ml RC Q48H 08/11/16 06/27/17 Enema Extra] Sertraline [Zoloft] 75 mg PO DAILY 08/11/16 06/27/17 Baclofen [Lioresal] 10 mg PO BID 03/24/17 06/27/17 CarBAMazepine [Carbamazepine ER] 300 mg PO BID 03/24/17 06/27/17 Furosemide [Lasix] 40 mg PO DAILY 03/24/17 06/27/17 Melatonin 10 mg PO HS 06/27/17 06/27/17 Morphine Sulfate [Arymo ER] 15 mg PO Q12H 06/27/17 06/27/17 Morphine Sulfate [Arymo ER] 30 mg PO Q12H 06/27/17 06/27/17 Potassium Chloride Elixir 40 meq PO DAILY 06/27/17 06/27/17 [Potassium Chloride] Scopolamine Patch [Transderm-Scop] 1.5 mg TD Q72H 06/27/17 06/27/17 Previous Rx's Medication Instructions Recorded OxyCODONE Immed Rel [Roxicodone 5 20 mg PO Q6H PRN #30 tablet 05/12/17 MG] clonazePAM [Klonopin] 2 mg PO QPM #14 tablet 05/12/17 Allergies Allergy/AdvReac Type Severity Reaction Status Date / Time Penicillins Allergy See Verified 06/27/17 07:29 Comments Limitations: ROS unobtainable due to patients medical condition Past Medical History - Past Medical History Attestation: Yes The following information was validated with the patient. Source: old records reviewed Medical history: Reports: CHF, hepatitis, hypertension, seizures, other Surgical history: Reports: tracheostomy, other Psychiatric history: Reports: anxiety, bipolar, depression - Social History Smoking Status: Current every day smoker Smokeless Tobacco Status: No Alcohol use: Reports: none, unknown Drug use: Reports: none Physical Exam - General Limitations: altered mental status, physical limitation General appearance: alert, lethargic - Eye Eye exam: Present: normal appearance - ENT ENT exam: normal exam - Neck Neck exam: Present: normal inspection - Chest Chest inspection: Present: normal inspection - Respiratory Respiratory exam: Present: wheezes, other (Course bilateral breath sounds.). Absent: stridor, prolonged expiratory phase - Cardiovascular Cardiovascular exam: Present: regular rate, normal rhythm, normal heart sounds - Abdominal Exam Abdominal exam: Present: soft. Absent: distention, guarding, rigidity - Extremities Exam Extremities exam: Present: normal inspection - Expanded Upper Extremity Exam Shoulder exam: Present: normal inspection Arm exam: Present: normal inspection Elbow exam: Present: normal inspection Forearm/Wrist exam: Present: normal inspection Hand exam: Present: normal inspection - Expanded Lower Extremity Exam Hip/Pelvis exam: Present: normal inspection Upper leg exam: Present: normal inspection Knee exam: Present: normal inspection Lower leg exam: Present: normal inspection Ankle exam: Present: normal inspection Foot/toe exam: Present: normal inspection - Neurological Exam Neurological exam: Present: alert, other (Moving his left upper extremity spontaneously.). Absent: oriented X3 - Skin Skin exam: Present: warm, dry Course Course Narrative: Patient seen and examined. He is alert here. Not answering questions. We will due to altered mental status and sepsis workup. He is hypothermic we will check a rectal temp is well. Vital Signs Temperature 94.9 F L 06/27/17 01:03 Pulse Rate 95 06/27/17 01:03 Respiratory Rate 18 06/27/17 01:03 Blood Pressure 145/74 06/27/17 01:03 O2 Sat by Pulse Oximetry 98 06/27/17 01:03 Temperature 97.7 F 06/28/17 19:13 Pulse Rate 54 06/28/17 19:13 Respiratory Rate 16 06/28/17 19:13 Blood Pressure 100/66 06/28/17 19:13 O2 Sat by Pulse Oximetry 94 06/28/17 19:13 Oxygen Delivery Oxygen Delivery Trach Mask,Ventilator Altered Mental Status - MDM Narrative Medical decision making narrative: 47-year-old male presents to the ER from nursing facility due to altered mental status. He is alert however he is not answering questions here. Noted to be hypothermic upon arrival placed on a bear hugger. EKG demonstrated no acute findings. Chest x-ray with atelectasis versus pneumonia. He has a harsh cough in the room. Slightly elevated white count. Patient treated with vancomycin and aztreonam and Levaquin. Admitted to the hospitalist service for healthcare associated pneumonia. - Lab Data Lab results reviewed: Yes I reviewed the patient's lab results. Result diagrams: 06/28/17 04:15 06/28/17 04:15 Lab Results 06/27/17 06/27/17 06/27/17 Range/Units 01:48 01:48 01:48 WBC 5.9 (4.3-11.1) K/mcL RBC 5.05 (4.19-5.50) M/mcL Hgb 15.3 (12.9-16.9) g/dL Hct 48.2 (37.5-50.1) % MCV 95.4 (83.0-100.0) fL MCH 30.3 (28.0-33.3) pg MCHC 31.7 (31.6-35.5) g/dL RDW 13.4 (11.5-14.5) % Plt Count 174 (140-400) K/mcL MPV 11.4 (9.4-12.4) fL Immature Gran % 0.3 (0-4) % Seg Neutrophils % 46.4 % Lymphocytes % 33.8 % Monocytes % 7.5 % Eosinophils % 11.3 % Basophils % 0.7 % Neutrophils # 2.7 (1.6-8.9) K/mcL Lymphocytes # 2.0 (0.6-4.6) K/mcL Monocytes # 0.4 (0.0-1.3) K/mcL Eosinophils # 0.7 H (0.0-0.6) K/mcL Basophils # 0.0 (0.0-0.2) K/mcL PT 11.5 (9.4-12.1) Seconds INR 1.1 APTT 34.7 (26.0-36.0) Seconds Sodium 140 (136-145) mEq/L Potassium 3.6 (3.5-4.5) mEq/L Chloride 100 (98-109) mEq/L Carbon Dioxide 27 (19-29) mEq/L BUN 12 (8-26) mg/dL Creatinine 0.58 L (0.72-1.25) mg/dL Est GFR ( Amer) > 60 (> 60) Est GFR (Non-Af Amer) > 60 (> 60) BUN/Creatinine Ratio 21 (6-26) Glucose 101 H (70-99) mg/dL Calculated Osmolality 290 (280-300) Lactic Acid (0.5-2.2) mmol/L Calcium 9.5 (8.6-10.8) mg/dL Total Bilirubin 0.6 (0.2-1.2) mg/dL Direct Bilirubin 0.4 (0.0-0.5) mg/dL Indirect Bilirubin 0.2 (0.0-1.2) mg/dL AST 41 H (5-34) Units/L ALT 43 (0-55) Units/L Alkaline Phosphatase 197 H (38-126) Units/L Ammonia (18-72) mcmol/L Troponin I (0-0.03) ng/mL Serum Total Protein 8.4 H (6.0-8.3) g/dL Albumin 3.7 (3.5-5.0) g/dL Globulin 4.7 H (2.4-3.5) g/dL Albumin/Globulin Ratio 0.8 L (1.1-2.2) TSH 0.720 (0.350-4.840) mcIU/mL Urine Color (Yellow) Urine Clarity (Clear) Urine pH (5.0-8.0) pH Units Ur Specific [place] (1.010-1.025) Urine Protein (Neg-Trace) mg/dL Urine Glucose (UA) (Normal) mg/dL Urine Ketones (Negative) mg/dL Urine Blood (Negative) Urine Nitrite (Negative) Urine Bilirubin (Negative) Urine Urobilinogen (Normal) mg/dL Ur Leukocyte Esterase (Negative) Urine Microscopic RBC (0-3) per hpf Urine Microscopic WBC (0-3) per hpf Ur Squamous Epith Cells (None-Few) per lpf Calcium Oxalate Crystal Urine Bacteria (None-Few) per hpf Hyaline Casts (None-Few) per lpf Urine Yeast (None Seen) per hpf Ur Culture Indicated? (NO) Urine Opiates Screen (Tiqvky=024) ng/mL Ur Barbiturates Screen (Jubxpi=083) ng/mL Ur Phencyclidine Scrn (Cutoff=25) ng/mL Ur Amphetamines Screen (Zcfcvu=0345) ng/mL U Benzodiazepines Scrn (Ilztol=899) ng/mL Urine Cocaine Screen (Cutoff= 300) ng/mL U Marijuana (THC) Screen (Cutoff = 50) ng/mL 06/27/17 06/27/17 06/27/17 Range/Units 01:48 01:48 01:48 WBC (4.3-11.1) K/mcL RBC (4.19-5.50) M/mcL Hgb (12.9-16.9) g/dL Hct (37.5-50.1) % MCV (83.0-100.0) fL MCH (28.0-33.3) pg MCHC (31.6-35.5) g/dL RDW (11.5-14.5) % Plt Count (140-400) K/mcL MPV (9.4-12.4) fL Immature Gran % (0-4) % Seg Neutrophils % % Lymphocytes % % Monocytes % % Eosinophils % % Basophils % % Neutrophils # (1.6-8.9) K/mcL Lymphocytes # (0.6-4.6) K/mcL Monocytes # (0.0-1.3) K/mcL Eosinophils # (0.0-0.6) K/mcL Basophils # (0.0-0.2) K/mcL PT (9.4-12.1) Seconds INR APTT (26.0-36.0) Seconds Sodium (136-145) mEq/L Potassium (3.5-4.5) mEq/L Chloride (98-109) mEq/L Carbon Dioxide (19-29) mEq/L BUN (8-26) mg/dL Creatinine (0.72-1.25) mg/dL Est GFR ( Amer) (> 60) Est GFR (Non-Af Amer) (> 60) BUN/Creatinine Ratio (6-26) Glucose (70-99) mg/dL Calculated Osmolality (280-300) Lactic Acid 0.9 (0.5-2.2) mmol/L Calcium (8.6-10.8) mg/dL Total Bilirubin (0.2-1.2) mg/dL Direct Bilirubin (0.0-0.5) mg/dL Indirect Bilirubin (0.0-1.2) mg/dL AST (5-34) Units/L ALT (0-55) Units/L Alkaline Phosphatase (38-126) Units/L Ammonia 42 (18-72) mcmol/L Troponin I 0.02 (0-0.03) ng/mL Serum Total Protein (6.0-8.3) g/dL Albumin (3.5-5.0) g/dL Globulin (2.4-3.5) g/dL Albumin/Globulin Ratio (1.1-2.2) TSH (0.350-4.840) mcIU/mL Urine Color (Yellow) Urine Clarity (Clear) Urine pH (5.0-8.0) pH Units Ur Specific [place] (1.010-1.025) Urine Protein (Neg-Trace) mg/dL Urine Glucose (UA) (Normal) mg/dL Urine Ketones (Negative) mg/dL Urine Blood (Negative) Urine Nitrite (Negative) Urine Bilirubin (Negative) Urine Urobilinogen (Normal) mg/dL Ur Leukocyte Esterase (Negative) Urine Microscopic RBC (0-3) per hpf Urine Microscopic WBC (0-3) per hpf Ur Squamous Epith Cells (None-Few) per lpf Calcium Oxalate Crystal Urine Bacteria (None-Few) per hpf Hyaline Casts (None-Few) per lpf Urine Yeast (None Seen) per hpf Ur Culture Indicated? (NO) Urine Opiates Screen (Zwikcu=101) ng/mL Ur Barbiturates Screen (Qxgmcq=498) ng/mL Ur Phencyclidine Scrn (Cutoff=25) ng/mL Ur Amphetamines Screen (Omexty=9507) ng/mL U Benzodiazepines Scrn (Sykvpk=250) ng/mL Urine Cocaine Screen (Cutoff= 300) ng/mL U Marijuana (THC) Screen (Cutoff = 50) ng/mL 06/27/17 06/27/17 Range/Units 02:15 02:16 WBC (4.3-11.1) K/mcL RBC (4.19-5.50) M/mcL Hgb (12.9-16.9) g/dL Hct (37.5-50.1) % MCV (83.0-100.0) fL MCH (28.0-33.3) pg MCHC (31.6-35.5) g/dL RDW (11.5-14.5) % Plt Count (140-400) K/mcL MPV (9.4-12.4) fL Immature Gran % (0-4) % Seg Neutrophils % % Lymphocytes % % Monocytes % % Eosinophils % % Basophils % % Neutrophils # (1.6-8.9) K/mcL Lymphocytes # (0.6-4.6) K/mcL Monocytes # (0.0-1.3) K/mcL Eosinophils # (0.0-0.6) K/mcL Basophils # (0.0-0.2) K/mcL PT (9.4-12.1) Seconds INR APTT (26.0-36.0) Seconds Sodium (136-145) mEq/L Potassium (3.5-4.5) mEq/L Chloride (98-109) mEq/L Carbon Dioxide (19-29) mEq/L BUN (8-26) mg/dL Creatinine (0.72-1.25) mg/dL Est GFR ( Amer) (> 60) Est GFR (Non-Af Amer) (> 60) BUN/Creatinine Ratio (6-26) Glucose (70-99) mg/dL Calculated Osmolality (280-300) Lactic Acid (0.5-2.2) mmol/L Calcium (8.6-10.8) mg/dL Total Bilirubin (0.2-1.2) mg/dL Direct Bilirubin (0.0-0.5) mg/dL Indirect Bilirubin (0.0-1.2) mg/dL AST (5-34) Units/L ALT (0-55) Units/L Alkaline Phosphatase (38-126) Units/L Ammonia (18-72) mcmol/L Troponin I (0-0.03) ng/mL Serum Total Protein (6.0-8.3) g/dL Albumin (3.5-5.0) g/dL Globulin (2.4-3.5) g/dL Albumin/Globulin Ratio (1.1-2.2) TSH (0.350-4.840) mcIU/mL Urine Color Dark Yellow (Yellow) Urine Clarity Cloudy A (Clear) Urine pH 5.5 (5.0-8.0) pH Units Ur Specific [place] 1.024 (1.010-1.025) Urine Protein 30 H (Neg-Trace) mg/dL Urine Glucose (UA) Normal (Normal) mg/dL Urine Ketones Negative (Negative) mg/dL Urine Blood Small H (Negative) Urine Nitrite Negative (Negative) Urine Bilirubin Negative (Negative) Urine Urobilinogen Normal (Normal) mg/dL Ur Leukocyte Esterase Moderate H (Negative) Urine Microscopic RBC 3-5 H (0-3) per hpf Urine Microscopic WBC 50-100 H (0-3) per hpf Ur Squamous Epith Cells Many H (None-Few) per lpf Calcium Oxalate Crystal Present Urine Bacteria None Seen (None-Few) per hpf Hyaline Casts Few (None-Few) per lpf Urine Yeast Moderate H (None Seen) per hpf Ur Culture Indicated? YES A (NO) Urine Opiates Screen Positive H (Zngpmq=212) ng/mL Ur Barbiturates Screen Negative (Kgolff=332) ng/mL Ur Phencyclidine Scrn Negative (Cutoff=25) ng/mL Ur Amphetamines Screen Negative (Rwnngg=2428) ng/mL U Benzodiazepines Scrn Positive H (Nnxitk=551) ng/mL Urine Cocaine Screen Negative (Cutoff= 300) ng/mL U Marijuana (THC) Screen Negative (Cutoff = 50) ng/mL - Radiology Data Radiology results reviewed: Yes I reviewed the patient's radiology results. Chest X-Ray 06/27/17 01:05 IMPRESSION: Atelectasis versus pneumonia. Right PICC which appears coiled in the inferior right IJ. Recommend repositioning. D/ / Cordelia Burrows MD / Cordelia Burrows MD Interpreting Provider: Cordelia Burrows MD Head CT 06/27/17 01:05 IMPRESSION: No acute intracranial abnormality. Mild sinusitis. D/ / Cordelia Burrows MD / Cordelia Burrows MD Interpreting Provider: Cordelia Burrows MD - EKG Data EKG attestation: Yes I reviewed and interpreted this EKG. EKG results narrative: EKG demonstrates sinus rhythm with rate of 99 bpm. Motion artifact in all leads. Normal axis. Normal intervals. Normal R-wave progression. No gross ST elevations or depressions. No acute ischemic findings. Critical Care Time Critical Care Time: Yes Total Critical Care Time: 40 Attestation: Critical care performed: Time is exclusive of separately billable procedures. Time includes: direct patient care, patient reassessment, coordination of patient care, interpretation of data (laboratory data, radiology data, and respiratory data), review of patient's medical records, medical consultation and documentation of patient care. Procedures included in critical care time: Procedures excluded from critical care time: S.Estefania - Henri Situation: Demographics, MOA Background: Presenting Complaint, Relevant PMH, Meds, & Allergies Assessment: Vital Signs, Course and respsone to treatment, Exam Concerns, Patient/Family Expectation, Pertinant Lab Results Recommendation: Barrier(s) to disposition, Recommendation based on pending studies, treatments, or consults Henri Report Given to: Dr. Lior Álvarez Repor Time: 04:50 (Request ertapenem) Attestation Statement - Attestation Attestation: I, Jayson Quinonez MD, personally evaluated this patient and discussed their management with the resident physician. I reviewed the resident's note and agree with the documented findings, medical decision making, and plan of care. 47-year-old male quadriplegic presents to the emergency department [place] embol[facility] for decreased level of consciousness. Patient has had similar episodes in the past secondary to sepsis. On arrival here the patient was awake but unable to answer questions or follow commands. On examination patient is a well-developed quadriplegic male in no distress. He is awake but appears confused and disoriented and unable to answer questions or follow commands. There is no cyanosis or diaphoresis. Breath sounds are decreased bilaterally with some coarse bilateral rales. Heart regular rate and rhythm. Abdomen soft with normal bowel sounds. Labs reviewed. Chest x-ray showed atelectasis versus pneumonia. The hospitalist, Dr. Tinajero, was consulted and accepted admission of the patient.
[2017-06-27 02:03] LABS: Basophils % 0.7 %; Eosinophils # 0.7 K/mcL (0.0-0.6); Eosinophils % 11.3 %; Hematocrit 48.2 % (37.5-50.1); Hemoglobin 15.3 g/dL (12.9-16.9); Immature Granulocytes % 0.3 % (0-4); Lymphocytes % 33.8 %; Mean Corpuscular HGB Conc 31.7 g/dL (31.6-35.5); Mean Corpuscular Hemoglobin 30.3 pg (28.0-33.3); Mean Corpuscular Volume 95.4 fL (83.0-100.0); Mean Platelet Volume 11.4 fL (9.4-12.4); Monocytes # 0.4 K/mcL (0.0-1.3); Monocytes % 7.5 %; Neutrophils # 2.7 K/mcL (1.6-8.9); Platelet Count 174 K/mcL (140-400); Red Blood Count 5.05 M/mcL (4.19-5.50); Red Cell Distribution Width 13.4 % (11.5-14.5); Segmented Neutrophils % 46.4 %
[2017-06-27 02:18] LABS: INR 1.1; Prothrombin Time 11.5 Seconds (9.4-12.1)
[2017-06-27 02:21] LABS: Activated Partial Thrombo Time 34.7 Seconds (26.0-36.0)
[2017-06-27 02:22] LABS: Alanine Aminotransferase 43 Units/L (0-55); Albumin 3.7 g/dL (3.5-5.0); Albumin/Globulin Ratio 0.8 (1.1-2.2); Alkaline Phosphatase 197 Units/L (38-126); Aspartate Amino Transferase 41 Units/L (5-34); BUN/Creatinine Ratio 21 (6-26); Bilirubin,Direct 0.4 mg/dL (0.0-0.5); Bilirubin,Indirect 0.2 mg/dL (0.0-1.2); Bilirubin,Total 0.6 mg/dL (0.2-1.2); Blood Urea Nitrogen 12 mg/dL (8-26); Calcium 9.5 mg/dL (8.6-10.8); Carbon Dioxide 27 mEq/L (19-29); Chloride 100 mEq/L (98-109); Globulin 4.7 g/dL (2.4-3.5); Glucose 101 mg/dL (70-99); Osmolality,Calculated 290 (280-300); Potassium 3.6 mEq/L (3.5-4.5); Sodium 140 mEq/L (136-145); Total Protein 8.4 g/dL (6.0-8.3); eGFR For African Americans > 60 (> 60); eGFR For Non-African Americans > 60 (> 60)
[2017-06-27 03:18] LABS: Bilirubin,Urine Negative (Negative); Blood,Urine Small (Negative); Clarity,Urine Cloudy (Clear); Color,Urine Dark Yellow (Yellow); Glucose,Urine (UA) Normal (Normal); Ketones,Urine Negative (Negative); Leukocyte Esterase,Urine Moderate (Negative); Nitrite,Urine Negative (Negative); PH,Urine 5.5 pH Units (5.0-8.0); Protein,Urine 30 mg/dL (Neg-Trace); Specific Gravity,Urine 1.024 (1.010-1.025); Urobilinogen,Urine Normal (Normal)
[2017-06-27 03:19] LABS: Amphetamine Screen,Urine Negative ng/mL (Cutoff=1000); Barbiturate Screen,Urine Negative ng/mL (Cutoff=200); Benzodiazepines Screen,Urine Positive ng/mL (Cutoff=200); Cannabinoid Screen,Urine Negative ng/mL (Cutoff = 50); Cocaine Screen,Urine Negative ng/mL (Cutoff= 300); Opiate Screen,Urine Positive ng/mL (Cutoff=300); Phencyclidine Screen,Urine Negative ng/mL (Cutoff=25)
[2017-06-27 03:21] LABS: Bacteria,Urine None Seen per hpf (None-Few); Hyaline Casts,Urine Few per lpf (None-Few); Squamous Epithelial Cell,Urine Many per lpf (None-Few); WBC,Urine 50-100 per hpf (0-3)
[2017-06-27 03:35] LABS: Calcium Oxalate Crystals,Urine Present; Yeast,Urine Moderate per hpf (None Seen)
[2017-06-27] MEDS ORDERED: Levofloxacin 750 MG/150 ML 750 MG/150 ML BAG IVPB ONE (04:32)
[2017-06-27] MEDS ORDERED: Vancomycin 1,250 MG in D5% in Water 250 ML IVPB ONE (04:32)
[2017-06-27] MEDS ORDERED: Aztreonam 2,000 MG in Water for inj. (sterile) 20 ML IVP ONE (04:32)
[2017-06-27] MEDS ORDERED: Ertapenem 1,000 MG in Water for inj. (sterile) 10 ML IVP ONE (04:44)
[2017-06-27] MEDS ORDERED: GuaiFENesin Liq 200 MG/10 ML UDC PO PRN (07:53)
[2017-06-27] MEDS ORDERED: Ipratropium/Albuterol Neb 3 ML IH PRN (07:53)
[2017-06-27] MEDS ORDERED: Acetaminophen 325 MG TABLET PO PRN (07:53)
[2017-06-27] MEDS ORDERED: *HR* Dextrose 50 % in Water (Syg) 50 ML SYRINGE IVP PRN (07:56)
[2017-06-27] MEDS ORDERED: D5% in Water 1,000 ML IVC PRN (07:56)
[2017-06-27] MEDS ORDERED: Dextrose Gel 15 GM PO PRN ×2 (07:56)
[2017-06-27] MEDS ORDERED: NON-FORMULARY MEDICATION 1 EACH EACH (Na Phos,M-B/Na Phos,Di-Ba [Fleet Enema Extra] 230 ML RC SCH (08:00)
[2017-06-27] MEDS ORDERED: Ketoconazole Shampoo 120 ML BOTTLE TP SCH (08:00)
[2017-06-27] MEDS ORDERED: Ondansetron 4 MG/2 ML VIAL IVP PRN (08:01)
[2017-06-27] MEDS ORDERED: Naloxone 0.4 MG/ML INJ IVP PRN (08:01)
--- NOTE | 2017-06-27 10:51 | Internal Med History&Physical ---
Date of Encounter: 06/27/17 Time of Encounter: 10:30 Assessment and Plan (1) Healthcare-associated pneumonia Current visit: Yes Status: Acute Healthcare associated pneumonia, present on admission, likely bacterial gram- positive cocci - causing acute encephalopathy and cough and increased secretions in tracheostomy Continue empiric IV Cefepime, IV Vancomycin, IV Levaquin, DuoNeb breathing treatment Chest x-ray - bibasilar opacities, possibly pneumonia CT head - no acute intracranial abnormality Lactic acid - 0.9 Troponin - 0.02 WBC - 5.9 Cultures - pending ID consult for recurrent UTIs and HCAP Palliative care consult - sister is power of banking attorney, but patient is able to make decisions for himself at this time Cardiac telemetry, continuous pulse ox, labs in a.m., monitor closely (2) UTI (urinary tract infection) Current visit: No Status: Acute UTI, likely gram-negative bacteria - does have a history of recurrent UTIs due to chronic indwelling suprapubic catheter Continue empiric IV Levaquin, Cefepime, Vancomycin UA - moderate leukocyte esterase Cultures - pending Qualifiers: Urinary tract infection type: acute cystitis Hematuria presence: without hematuria Qualified Code(s): N30.00 - Acute cystitis without hematuria (3) Quadriplegia and quadriparesis Current visit: Yes Status: Chronic Patient has a history of quadriplegia and is bedbound - 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 He does have a tracheostomy and is on O2 via a trach mask According to patient and sister, patient is on hospice care at the [facility] Continue all medications including Zoloft, Scopolamine patch, Trazodone, Baclofen Patient is also on Morphine (4) Seizure disorder Current visit: Yes Status: Chronic Seizure disorder, stable Continue home dose of Keppra, Topamax, Tegretol (5) Bipolar disorder Current visit: Yes Status: Chronic Bipolar disorder, stable Home dose of Klonopin, Zyprexa, Cogentin Qualifiers: Active/Remission status: remission status unspecified Qualified Code(s): F31.9 - Bipolar disorder, unspecified (6) Neurogenic bladder Current visit: Yes Status: Chronic Chronic neurogenic bladder - chronic indwelling suprapubic catheter (7) DVT prophylaxis Current visit: Yes Status: Acute Continue heparin subcutaneous Internal Medicine - H&P: HPI Chief complaint: Altered mental status Admitted From: Emergency Dept Plans for Post Hospital Care: Transfer Custodial Facility History of present illness: Mr. Mathew is a 47 year old male with past medical history of CHF, hypertension , quadriplegia due to history of trauma and Guillain-[place], chronic indwelling suprapubic catheter, tracheostomy, chronic respiratory failure and hepatitis. Patient presents to the ED from [facility] for altered mental status. Examined in the ED. Patient is awake and alert. He is in mild distress. He does have a tracheostomy. He is able to provide minimal history due to medical condition. He is able to answer some questions. Sister is at bedside and she provides most of the history. Past medical records were reviewed. Nursing staff at [facility] apparently found the patient with decreased level of consciousness. Patient was initially hypothermic when he presented, was placed on a bear hugger. Currently patient seems to be back to baseline mental status. Patient does have bibasilar opacities seen on chest x- ray which could be likely pneumonia. CT of the head is negative for acute intracranial abnormality. Patient at this time denies chest pain or shortness of breath. He denies cough or abdominal pain. He is not sure as to why he was sent to the hospital. Since sister states that patient refuses to get a PEG tube and continues to have high risk for aspiration. He apparently is able to swallow all his pills at the [facility]. Patient also has a chronic indwelling suprapubic catheter and he does have a history of recurrent UTIs and has been admitted for sepsis in the recent past. Patient also has a right- sided PICC line. He does have history of PICC line infection in the past. Initial workup in the ED is otherwise negative. Patient also does have a UTI. Cultures pending. His white count is within normal limits and his lactic acid is also within normal limits. Chest x-ray does show bibasilar opacities which could be healthcare associated pneumonia. CT of the head is negative. Patient will need to be on broad-spectrum IV antibiotics and also DuoNeb breathing treatment. We will also consult infectious disease. Sister states that patient is on hospice care at the [facility], we will consult palliative care. Patient and family members have been explained about his condition and guarded prognosis in detail. They understood and agreed. CODE STATUS full code. Past Med Surg Social Fam HX - Past Medical History Medical history: CHF, hepatitis, hypertension, seizures, other Psychiatric history: anxiety, bipolar, depression - Past Surgical History Surgical History: tracheostomy, other - Social History Smoking Status: Current every day smoker Smokeless Tobacco Status: No Alcohol use: none, unknown Drug use: none - Family History Mother Living Status: Hx Family Cardiac Disorders: Yes Hx Family Respiratory Disorders: Yes Hx Family Cancer: Yes Internal Medicine - H&P: Meds Benztropine Mesylate 1 mg PO HS 07/04/15 [History] Folic Acid 1 mg PO QAM 07/04/15 [History] Ipratropium/Albuterol Neb [Duoneb] 3 ml IH QID PRN 07/04/15 [History] LevETIRAcetam [Keppra] 250 mg PO BID 07/04/15 [History] OLANZapine [Zyprexa] 10 mg PO BID 07/04/15 [History] Topiramate [Topamax] 150 mg PO QAM 11/05/15 [History] Acetaminophen [Tylenol] 650 mg PO Q6HR PRN 12/11/15 [History] Docusate Sodium [Dok] 100 mg PO BID 12/11/15 [History] Fluticasone/Salmeterol [Advair 250-50 Diskus] 1 puff IH BID 12/11/15 [History] Guaifenesin [Diabetic Tussin Ex] 200 mg PO Q4H PRN 12/11/15 [History] Polyvinyl Alcohol [Artificial Tears] 1 drop BOTH EYES BID 03/18/16 [History] Trazodone HCl 100 mg PO HS 03/18/16 [History] Aspirin/Calcium Carbonate/Mag [Aspirin Buffered 325 mg Tab] 325 mg PO DAILY [History] Ketoconazole Shampoo [Nizoral Shampoo] 1 appl TP QWEEK 08/11/16 [History] Na Phos,M-B/Na Phos,Di-Ba [Fleet Enema Extra] 230 ml RC Q48H 08/11/16 [History] Sertraline [Zoloft] 75 mg PO DAILY 08/11/16 [History] Baclofen [Lioresal] 10 mg PO BID 03/24/17 [History] CarBAMazepine [Carbamazepine ER] 300 mg PO BID 03/24/17 [History] Furosemide [Lasix] 40 mg PO DAILY 03/24/17 [History] OxyCODONE Immed Rel [Roxicodone 5 MG] 20 mg PO Q6H PRN #30 tablet 05/12/17 [Rx] clonazePAM [Klonopin] 2 mg PO QPM #14 tablet 05/12/17 [Rx] Melatonin 10 mg PO HS 06/27/17 [History] Morphine Sulfate [Arymo ER] 15 mg PO Q12H 06/27/17 [History] Morphine Sulfate [Arymo ER] 30 mg PO Q12H 06/27/17 [History] Potassium Chloride Elixir [Potassium Chloride] 40 meq PO DAILY 06/27/17 [History ] Scopolamine Patch [Transderm-Scop] 1.5 mg TD Q72H 06/27/17 [History] 3 Allergy/AdvReac Type Severity Reaction Status Date / Time Penicillins Allergy See Verified 06/27/17 07:29 Comments All Systems PM: A 10-system review of systems was performed and is negative for pertinent findings except as documented above in the HPI. - Constitutional Constitutional: fatigue, weakness, no fever(s) - EENT Eyes: no blurry vision - Cardiovascular Cardiovascular ROS IM: dyspnea, no chest pain, no orthopnea, no palpitations - Respiratory Respiratory: cough, dyspnea, wheezing, chest congestion, no hemoptysis - Gastrointestinal Gastrointestinal: no abdominal pain, no bloating, no diarrhea, no nausea, no vomiting - Neurological Neurological ROS: confusion, no dizziness, no loss of vision - Constitutional Vitals: Temp Pulse Resp BP Pulse Ox 96.1 F L 78 16 106/70 97 06/27/17 03:24 06/27/17 09:30 06/27/17 09:30 06/27/17 09:30 06/27/17 09:30 General appearance: Present: cooperative, mild distress, A&O X 3, answers questions appropriately Exam: Chronically ill-appearing, generalized weakness, patient is bedbound, quadriplegic, tracheostomy - Head Head exam: Present: atraumatic - Eye Eye exam: Present: EOMI - ENT ENT exam: Present: mucous membranes dry - Neck Additional comments: Tracheostomy in place, site looks okay - Respiratory Respiratory exam: Present: rhonchi (Lateral), wheezes (Mild bilateral), tachypnea. Absent: accessory muscle use, chest wall tenderness, rales - Cardiovascular Cardiovascular exam: Present: RRR, +S1, +S2 - GI/Abdominal GI/Abdominal exam: Present: soft, no peritoneal signs. 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 He is able to verbalize. Follow commands. He does have a tracheostomy. He has good thermostat maker strength in both hands. Internal Med - H&P Results - Labs CBC & Chem 7: 06/27/17 01:48 06/27/17 01:48
[2017-06-27] MEDS: Ipratropium/Albuterol Neb 3 ML IH SCH ×3 (11:21→21:09)
[2017-06-27] MEDS: Aspirin Enteric Coated 325 MG Tablet PO SCH (14:35)
[2017-06-27] MEDS: OLANZapine 10 MG TAB.RAPDIS PO SCH ×2 (14:36→22:36)
[2017-06-27] MEDS: Scopolamine Patch 1.5 MG PATCH.TD72 TD SCH (14:36)
[2017-06-27] MEDS: Cefepime HCl 2,000 MG in Water for inj. (sterile) 20 ML IVP SCH ×2 (14:36→18:00)
[2017-06-27] MEDS: Furosemide 40 MG TABLET PO SCH (14:36)
[2017-06-27] MEDS: Artificial Tears SOLN 15 ML BOTTLE BOTH EYES SCH ×2 (14:36→21:50)
[2017-06-27] MEDS: Folic Acid 1 MG TABLET PO SCH (14:37)
[2017-06-27] MEDS: Potassium Chloride Elixir 20 MEQ/15 ML UDC PO SCH (14:37)
[2017-06-27] MEDS: Topiramate 100 MG TABLET PO SCH (14:38)
[2017-06-27] MEDS: Baclofen 10 MG TABLET PO SCH ×2 (14:38→22:36)
[2017-06-27] MEDS: levETIRAcetam 250 MG TABLET PO SCH ×2 (14:38→22:37)
[2017-06-27] MEDS: CarBAMazepine XR (12 hr) 100 MG TAB PO SCH ×2 (14:39→22:36)
--- NOTE | 2017-06-27 15:22 | Palliative - Consult Note ---
<Eugene Campbell - Last Filed: 06/27/17 15:39> Date of Encounter: 06/27/17 Time of Encounter: 14:00 - Assessment and Plan (1) Healthcare-associated pneumonia Current Visit: Yes Status: Acute Assessment and plan: Patient has pneumonia present on admission. -Likely due to gram positive cocci. Empiric IV cefepime, IV vancomycin, IV Levaquin, DuoNeb's as needed. -Chest x-rays demonstrated bilateral opacities, possibly demonstrating basilar pneumonia. -Lactic acid 0.9. -Infectious disease has been consult. -Cultures are currently pending. -Cardiac telemetry, continuous pulse ox, continue to monitor vital signs. (2) Advanced care planning/counseling discussion Current Visit: Yes Status: Acute Assessment and plan: Patient reported that he is a full code. States that he would like chest compressions. Trach is visualized. -Sister was not present in the room at the time of examination. (3) Bipolar disorder Current Visit: Yes Status: Chronic Assessment and plan: Home dose of Klonopin, Topamax, Tegretol Qualifiers: Active/Remission status: remission status unspecified Qualified Code(s): F31.9 - Bipolar disorder, unspecified (4) Quadriplegia and quadriparesis Current Visit: Yes Status: Chronic Assessment and plan: She has no history of quadriplegia. Patient is bedbound. -Secondary to Guillain-[place] and history of trauma. -Is capable however of moving his left arm. (5) Seizure disorder Current Visit: Yes Status: Chronic Assessment and plan: Home dose of Keppra, Topamax, Tegretol (6) UTI (urinary tract infection) Current Visit: No Status: Acute Assessment and plan: UTIs likely due to gram-negative bacteria. -Patient has a history of recurrent UTIs. -Likely due to indwelling catheter. -IV Levaquin, cefepime, vancomycin. -Urinalysis: Demonstrated moderate leukocyte esterase. -Urine cultures are currently pending. Qualifiers: Urinary tract infection type: site unspecified Hematuria presence: with hematuria Qualified Code(s): N39.0 - Urinary tract infection, site not specified; R31.9 - Hematuria, unspecified; R31.9 - Hematuria, unspecified (7) DVT prophylaxis Current Visit: No Status: Acute Assessment and plan: Heparin subcutaneous Palliative-CN HPI - Data of Consult Consult date: 06/27/17 Requesting Physician: Mark Russo MD Primary Care Provider: Kevin Caro MD - Consult Narrative Palliative Care/Comfort Measures: Palliative care History of present illness: Mr. Mathew is a 47 year old male with a history of quadriplegia presenting from [facility] presenting to the ER with the chief complaint of altered mental status. EMS reported that they were called for a diminished level of consciousness. He has been admitted several times in the past for sepsis secondary to UTIs. Patient was nonverbal on arrival. He is capable of moving his upper left extremity. Patient was hypothermic on arrival. Patient was seen and examined at bedside in the ER a few hours after arrival. Patient is awake and alert. He is able to verbalize and is alert and oriented 3. Due to his trach however, he has difficulty enunciating longer words. Patient denies having any pain. He reports that he is a full code and states that he would like chest compressions. Trach is visualized. Patient's sister was not in the room at the time of examination. CC: Mark Russo MD Past Med Surg Social Fam HX - Past Medical History Medical history: CHF, hepatitis, hypertension, seizures, other Psychiatric history: anxiety, bipolar, depression - Past Surgical History Surgical History: tracheostomy, other - Social History Smoking Status: Current every day smoker Smokeless Tobacco Status: No Alcohol use: none, unknown Drug use: none - Family History Mother Living Status: Hx Family Cardiac Disorders: Yes Hx Family Respiratory Disorders: Yes Hx Family Cancer: Yes Medications and Allergies Benztropine Mesylate 1 mg PO HS 07/04/15 [History] Folic Acid 1 mg PO QAM 07/04/15 [History] Ipratropium/Albuterol Neb [Duoneb] 3 ml IH QID PRN 07/04/15 [History] LevETIRAcetam [Keppra] 250 mg PO BID 07/04/15 [History] OLANZapine [Zyprexa] 10 mg PO BID 07/04/15 [History] Topiramate [Topamax] 150 mg PO QAM 11/05/15 [History] Acetaminophen [Tylenol] 650 mg PO Q6HR PRN 12/11/15 [History] Docusate Sodium [Dok] 100 mg PO BID 12/11/15 [History] Fluticasone/Salmeterol [Advair 250-50 Diskus] 1 puff IH BID 12/11/15 [History] Guaifenesin [Diabetic Tussin Ex] 200 mg PO Q4H PRN 12/11/15 [History] Polyvinyl Alcohol [Artificial Tears] 1 drop BOTH EYES BID 03/18/16 [History] Trazodone HCl 100 mg PO HS 03/18/16 [History] Aspirin/Calcium Carbonate/Mag [Aspirin Buffered 325 mg Tab] 325 mg PO DAILY [History] Ketoconazole Shampoo [Nizoral Shampoo] 1 appl TP QWEEK 08/11/16 [History] Na Phos,M-B/Na Phos,Di-Ba [Fleet Enema Extra] 230 ml RC Q48H 08/11/16 [History] Sertraline [Zoloft] 75 mg PO DAILY 08/11/16 [History] Baclofen [Lioresal] 10 mg PO BID 03/24/17 [History] CarBAMazepine [Carbamazepine ER] 300 mg PO BID 03/24/17 [History] Furosemide [Lasix] 40 mg PO DAILY 03/24/17 [History] OxyCODONE Immed Rel [Roxicodone 5 MG] 20 mg PO Q6H PRN #30 tablet 05/12/17 [Rx] clonazePAM [Klonopin] 2 mg PO QPM #14 tablet 05/12/17 [Rx] Melatonin 10 mg PO HS 06/27/17 [History] Morphine Sulfate [Arymo ER] 15 mg PO Q12H 06/27/17 [History] Morphine Sulfate [Arymo ER] 30 mg PO Q12H 06/27/17 [History] Potassium Chloride Elixir [Potassium Chloride] 40 meq PO DAILY 06/27/17 [History ] Scopolamine Patch [Transderm-Scop] 1.5 mg TD Q72H 06/27/17 [History] 3 Allergy/AdvReac Type Severity Reaction Status Date / Time Penicillins Allergy See Verified 06/27/17 07:29 Comments - Constitutional Constitutional ROS PAL: as per HPI - Cardiovascular Cardiovascular ROS: no irregular heart rhythm, no rapid heart rate, no slow heart rate - Respiratory Respiratory: as per HPI, no snoring, no stridor, no pain on inspiration - Psychiatric Psychiatric general PM: no confusion Palliative Care-Exam - Constitutional Vitals: Temp Pulse Resp BP Pulse Ox 96.1 F L 84 14 112/80 96 06/27/17 03:24 06/27/17 14:53 06/27/17 14:53 06/27/17 14:53 06/27/17 14:53 Exam: Patient is unable to move his legs and his right arm. - Neck Additional comments: Trach visualized. - Respiratory Respiratory exam: Present: decreased breath sounds - Cardiovascular Cardiovascular exam: Present: RRR - Expanded Neurological Exam Patient oriented to: Present: person, place, time Internal Medicine - CN: Reslt - Labs CBC & Chem 7: 06/27/17 01:48 06/27/17 01:48 - ABG Interpretation ABG results: PT/INR, D-dimer PT 11.5 Seconds (9.4-12.1) 06/27/17 01:48 Consult Discharge Plan - Plan Referrals: Kevin Caro MD [Primary Care Provider] - Palliative Quality Palliative Quality: Screen for Code Status: Yes, Screen for Goals of Care: Yes, Screen for Pain: Yes, If Pain Regimen Started, Initiate Bowel Regimen: No, Screen for Nausea/Vomitting: No Code Status: Full code <Shoaib Castillo - Last Filed: 06/28/17 10:05> Date of Encounter: 06/28/17 Palliative-CN HPI - Data of Consult Requesting Physician: Mark Russo MD Primary Care Provider: Kevin Caro MD - Consult Narrative History of present illness: Mr. Mathew is a 47 year old male CC: Mark Russo MD Palliative Care-Exam - Constitutional Vitals: Temp Pulse Resp BP Pulse Ox 97.7 F 62 18 126/80 94 06/28/17 08:47 06/28/17 08:47 06/28/17 08:47 06/28/17 08:47 06/28/17 08:47 Internal Medicine - CN: Reslt - Labs CBC & Chem 7: 06/28/17 04:15 06/28/17 04:15 Labs: Short CBC 06/28/17 Range/Units 04:15 WBC 5.4 (4.3-11.1) K/mcL Hgb 14.6 (12.9-16.9) g/dL Hct 45.1 (37.5-50.1) % Plt Count 129 L (140-400) K/mcL Neutrophils # 3.2 (1.6-8.9) K/mcL BMP 06/28/17 04:15 Sodium 139 Potassium 2.7 L Chloride 99 Carbon Dioxide 27 BUN 11 Creatinine 0.52 L Glucose 80 Calcium 9.0 - ABG Interpretation ABG results: PT/INR, D-dimer PT 11.5 Seconds (9.4-12.1) 06/27/17 01:48 - Attending Attestation I examined this patient and my medical decision-making was reviewed with the Resident Physician. I agree with the documented findings, disposition and treatment plan as described except to the extent set forth below.
[2017-06-27] MEDS ORDERED: Cefepime HCl 2,000 MG in D5% in Water (Mini-Bag+) 100 ML IVPB SCH (16:00)
[2017-06-27] MEDS: Budesonide/Formoterol 80/4.5 MDI IH SCH ×2 (16:15→21:09)
[2017-06-27] MEDS: Insulin LISPRO 300 UNITS/3 ML VIAL SQ SCH ×2 (16:51→18:01)
[2017-06-27] MEDS: *HR* Heparin 5,000 UNIT/ML VIAL SQ SCH (17:59)
[2017-06-27] MEDS: Famotidine 20 MG TABLET PO SCH (17:59)
[2017-06-27] MEDS ORDERED: Famotidine 20 MG/2 ML VIAL IVP SCH (18:00)
[2017-06-27] MEDS ORDERED: Vancomycin 1,000 MG in D5% in Water 250 ML IVPB SCH (18:00)
[2017-06-27] MEDS: clonazePAM 1 MG TABLET PO SCH (18:00)
[2017-06-27] MEDS: *HR* Morphine 2 MG/ML SYRINGE IVP PRN ×2 (18:51→21:45)
[2017-06-27] MEDS: Vancomycin 1,250 MG in D5% in Water 250 ML IVPB SCH (21:43)
[2017-06-27] MEDS: traZODone 50 MG TABLET PO SCH (22:36)
[2017-06-27] MEDS: Melatonin 3 MG TABLET PO SCH (22:36)
[2017-06-28] MEDS: Insulin LISPRO 300 UNITS/3 ML VIAL SQ SCH ×4 (00:12→17:48)
[2017-06-28] MEDS: Cefepime HCl 2,000 MG in Water for inj. (sterile) 20 ML IVP SCH ×4 (00:14→23:11)
[2017-06-28] MEDS: Ipratropium/Albuterol Neb 3 ML IH SCH ×3 (03:46→16:12)
[2017-06-28 04:37] LABS: Basophils % 0.6 %; Eosinophils # 0.4 K/mcL (0.0-0.6); Hematocrit 45.1 % (37.5-50.1); Hemoglobin 14.6 g/dL (12.9-16.9); Immature Granulocytes % 0.2 % (0-4); Lymphocytes # 1.2 K/mcL (0.6-4.6); Lymphocytes % 21.3 %; Mean Corpuscular HGB Conc 32.4 g/dL (31.6-35.5); Mean Corpuscular Hemoglobin 30.7 pg (28.0-33.3); Mean Corpuscular Volume 94.7 fL (83.0-100.0); Mean Platelet Volume 11.5 fL (9.4-12.4); Monocytes # 0.7 K/mcL (0.0-1.3); Monocytes % 12.6 %; Neutrophils # 3.2 K/mcL (1.6-8.9); Platelet Count 129 K/mcL (140-400); Red Blood Count 4.76 M/mcL (4.19-5.50); Red Cell Distribution Width 13.2 % (11.5-14.5); Segmented Neutrophils % 58.3 %
[2017-06-28 04:45] LABS: BUN/Creatinine Ratio 21 (6-26); Blood Urea Nitrogen 11 mg/dL (8-26); Carbon Dioxide 27 mEq/L (19-29); Chloride 99 mEq/L (98-109); Glucose 80 mg/dL (70-99); Magnesium 1.5 mg/dL (1.6-2.6); Osmolality,Calculated 286 (280-300); Potassium 2.7 mEq/L (3.5-4.5); Sodium 139 mEq/L (136-145); eGFR For African Americans > 60 (> 60); eGFR For Non-African Americans > 60 (> 60)
[2017-06-28] MEDS: Vancomycin 1,250 MG in D5% in Water 250 ML IVPB SCH (06:26)
[2017-06-28] MEDS: *HR* Heparin 5,000 UNIT/ML VIAL SQ SCH ×2 (06:27→17:48)
[2017-06-28] MEDS: CarBAMazepine XR (12 hr) 100 MG TAB PO SCH ×2 (09:30→22:57)
[2017-06-28] MEDS: Famotidine 20 MG TABLET PO SCH ×2 (09:31→16:22)
[2017-06-28] MEDS: levETIRAcetam 250 MG TABLET PO SCH ×2 (09:31→20:52)
[2017-06-28] MEDS: Baclofen 10 MG TABLET PO SCH ×2 (09:31→20:51)
[2017-06-28] MEDS: Topiramate 100 MG TABLET PO SCH (09:31)
[2017-06-28] MEDS: Furosemide 40 MG TABLET PO SCH (09:31)
[2017-06-28] MEDS: Aspirin Enteric Coated 325 MG Tablet PO SCH (09:31)
[2017-06-28] MEDS: Folic Acid 1 MG TABLET PO SCH (09:31)
[2017-06-28] MEDS: OLANZapine 10 MG TAB.RAPDIS PO SCH ×2 (09:31→20:50)
[2017-06-28] MEDS: Potassium Chloride Elixir 20 MEQ/15 ML UDC PO SCH (09:44)
[2017-06-28] MEDS: Artificial Tears SOLN 15 ML BOTTLE BOTH EYES SCH ×2 (09:49→22:57)
--- NOTE | 2017-06-28 10:08 | Palliative Progress Note ---
<Eugene Campbell - Last Filed: 06/28/17 10:13> Date of Encounter: 06/28/17 Time of Encounter: 09:30 - Assessment and plan (1) Healthcare-associated pneumonia Current Visit: Yes Status: Acute Assessment and plan: Patient has pneumonia present on admission. -Likely due to gram positive cocci. Empiric IV cefepime, IV vancomycin, IV Levaquin, DuoNeb's as needed. -Chest x-rays demonstrated bilateral opacities, possibly demonstrating basilar pneumonia. -Lactic acid 0.9. -Infectious disease has been consult. -Cultures are currently pending. -Cardiac telemetry, continuous pulse ox, continue to monitor vital signs. (2) Advanced care planning/counseling discussion Current Visit: Yes Status: Acute Assessment and plan: Patient reported that he is a full code. States that he would like chest compressions. Trach is visualized. -Sister was not present in the room at the time of examination. -Sister successfully reached via telephone; denies that her brother was ever on hospice. (3) Bipolar disorder Current Visit: Yes Status: Chronic Assessment and plan: Home dose of Klonopin, Topamax, Tegretol Qualifiers: Active/Remission status: remission status unspecified Qualified Code(s): F31.9 - Bipolar disorder, unspecified (4) Quadriplegia and quadriparesis Current Visit: Yes Status: Chronic (5) Seizure disorder Current Visit: Yes Status: Chronic (6) UTI (urinary tract infection) Current Visit: No Status: Acute Assessment and plan: UTIs likely due to gram-negative bacteria. -Patient has a history of recurrent UTIs. -Likely due to indwelling catheter. -IV Levaquin, cefepime, vancomycin. -Urinalysis: Demonstrated moderate leukocyte esterase. -Urine cultures are currently pending. Qualifiers: Urinary tract infection type: site unspecified Hematuria presence: with hematuria Qualified Code(s): N39.0 - Urinary tract infection, site not specified; R31.9 - Hematuria, unspecified; R31.9 - Hematuria, unspecified (7) DVT prophylaxis Current Visit: No Status: Acute Assessment and plan: Heparin sub Q - Time Spent With Patient Total time spent is greater than 50% in coordination of care (as documented) at patient's floor/unit and/or counseling patient: - Subjective Interval history: Patient was seen and examined at bedside this morning. He states that he has no new complaints. Denies difficulty breathing. Denies pain, fever, chills, weakness, and confusion. - Constitutional Vitals: Abnormal lab results Plt Count 129 K/mcL (140-400) L 06/28/17 04:15 Potassium 2.7 mEq/L (3.5-4.5) L 06/28/17 04:15 Creatinine 0.52 mg/dL (0.72-1.25) L 06/28/17 04:15 POC Glucose 91 (58-89) H 06/28/17 05:47 Magnesium 1.5 mg/dL (1.6-2.6) L 06/28/17 04:15 AST 41 Units/L (5-34) H 06/27/17 01:48 Alkaline Phosphatase 197 Units/L (38-126) H 06/27/17 01:48 Serum Total Protein 8.4 g/dL (6.0-8.3) H 06/27/17 01:48 Globulin 4.7 g/dL (2.4-3.5) H 06/27/17 01:48 Albumin/Globulin Ratio 0.8 (1.1-2.2) L 06/27/17 01:48 Urine Clarity Cloudy (Clear) A 06/27/17 02:16 Urine Protein 30 mg/dL (Neg-Trace) H 06/27/17 02:16 Urine Blood Small (Negative) H 06/27/17 02:16 Ur Leukocyte Esterase Moderate (Negative) H 06/27/17 02:16 Urine Microscopic RBC 3-5 per hpf (0-3) H 06/27/17 02:16 Urine Microscopic WBC 50-100 per hpf (0-3) H 06/27/17 02:16 Ur Squamous Epith Cells Many per lpf (None-Few) H 06/27/17 02:16 Urine Yeast Moderate per hpf (None Seen) H 06/27/17 02:16 Ur Culture Indicated? YES (NO) A 06/27/17 02:16 Urine Opiates Screen Positive ng/mL (Erfdwe=726) H 06/27/17 02:15 U Benzodiazepines Scrn Positive ng/mL (Spffuv=131) H 06/27/17 02:15 - Head Head exam: Present: normal inspection, normocephalic - Neck Additional comments: Trach presenting - Respiratory Respiratory exam: Present: decreased breath sounds. Absent: rales, rhonchi - Cardiovascular Cardiovascular exam: Present: RRR - Neurological Exam Neurological exam: Present: oriented X3 - Psychiatric Psychiatric exam: Present: normal affect, normal mood Palliative Quality Palliative Quality: Screen for Code Status: Yes, Screen for Goals of Care: Yes, Screen for Pain: Yes, If Pain Regimen Started, Initiate Bowel Regimen: No, Screen for Nausea/Vomitting: No - Labs CBC & Chem 7: 06/28/17 04:15 06/28/17 04:15 Labs: Laboratory Results - last 24 hr 06/27/17 06/28/17 06/28/17 23:31 04:15 04:15 WBC 5.4 RBC 4.76 Hgb 14.6 Hct 45.1 MCV 94.7 MCH 30.7 MCHC 32.4 RDW 13.2 Plt Count 129 L MPV 11.5 Immature Gran % 0.2 Seg Neutrophils % 58.3 Lymphocytes % 21.3 Monocytes % 12.6 Eosinophils % 7.0 Basophils % 0.6 Neutrophils # 3.2 Lymphocytes # 1.2 Monocytes # 0.7 Eosinophils # 0.4 Basophils # 0.0 Sodium 139 Potassium 2.7 L Chloride 99 Carbon Dioxide 27 BUN 11 Creatinine 0.52 L Est GFR ( Amer) > 60 Est GFR (Non-Af Amer) > 60 BUN/Creatinine Ratio 21 Glucose 80 POC Glucose 106 H Calculated Osmolality 286 Lactic Acid Calcium 9.0 Magnesium 1.5 L 06/28/17 06/28/17 04:15 05:47 WBC RBC Hgb Hct MCV MCH MCHC RDW Plt Count MPV Immature Gran % Seg Neutrophils % Lymphocytes % Monocytes % Eosinophils % Basophils % Neutrophils # Lymphocytes # Monocytes # Eosinophils # Basophils # Sodium Potassium Chloride Carbon Dioxide BUN Creatinine Est GFR ( Amer) Est GFR (Non-Af Amer) BUN/Creatinine Ratio Glucose POC Glucose 91 H Calculated Osmolality Lactic Acid 0.6 Calcium Magnesium - ABG Interpretation ABG results: PT/INR, D-dimer PT 11.5 Seconds (9.4-12.1) 06/27/17 01:48 Consult Discharge Plan - Plan Referrals: Kevin Caro MD [Primary Care Provider] - <Shoaib Castillo - Last Filed: 06/28/17 13:17> Date of Encounter: 06/28/17 - Time Spent With Patient Total time spent is greater than 50% in coordination of care (as documented) at patient's floor/unit and/or counseling patient: - Subjective Interval history: The patient very recently joined hospice, is unable to articulate to us why he did that. Did contact his sister as per the resident note and she was unaware that he had even done this. The patient can clearly reestablish himself with hospice after discharge if he so desires. Does appear to me, however that the patient is to give this further thought as he appears to wish to have very aggressive care and that generally is opposed to the hospice philosophy. The patient has been very clear on his CODE STATUS desires, he also is clear that he wishes to have aggressive care as already noted he can revisit hospice when he gets back to [facility] palliative care will therefore sign off at this time please feel free to reconsult if we can help in any way. - Constitutional Vitals: Abnormal lab results Plt Count 129 K/mcL (140-400) L 06/28/17 04:15 Potassium 2.7 mEq/L (3.5-4.5) L 06/28/17 04:15 Creatinine 0.52 mg/dL (0.72-1.25) L 06/28/17 04:15 POC Glucose 91 (58-89) H 06/28/17 05:47 Magnesium 1.5 mg/dL (1.6-2.6) L 06/28/17 04:15 AST 41 Units/L (5-34) H 06/27/17 01:48 Alkaline Phosphatase 197 Units/L (38-126) H 06/27/17 01:48 Serum Total Protein 8.4 g/dL (6.0-8.3) H 06/27/17 01:48 Globulin 4.7 g/dL (2.4-3.5) H 06/27/17 01:48 Albumin/Globulin Ratio 0.8 (1.1-2.2) L 06/27/17 01:48 Urine Clarity Cloudy (Clear) A 06/27/17 02:16 Urine Protein 30 mg/dL (Neg-Trace) H 06/27/17 02:16 Urine Blood Small (Negative) H 06/27/17 02:16 Ur Leukocyte Esterase Moderate (Negative) H 06/27/17 02:16 Urine Microscopic RBC 3-5 per hpf (0-3) H 06/27/17 02:16 Urine Microscopic WBC 50-100 per hpf (0-3) H 06/27/17 02:16 Ur Squamous Epith Cells Many per lpf (None-Few) H 06/27/17 02:16 Urine Yeast Moderate per hpf (None Seen) H 06/27/17 02:16 Ur Culture Indicated? YES (NO) A 06/27/17 02:16 Urine Opiates Screen Positive ng/mL (Kgoklp=457) H 06/27/17 02:15 U Benzodiazepines Scrn Positive ng/mL (Bbkhjh=640) H 06/27/17 02:15 - Attending Attestation I examined this patient and my medical decision-making was reviewed with the Resident Physician. I agree with the documented findings, disposition and treatment plan as described except to the extent set forth below. The patient very recently joined hospice, is unable to articulate to us why he did that. Did contact his sister as per the resident note and she was unaware that he had even done this. The patient can clearly reestablish himself with hospice after discharge if he so desires. Does appear to me, however that the patient is to give this further thought as he appears to wish to have very aggressive care and that generally is opposed to the hospice philosophy. The patient has been very clear on his CODE STATUS desires, he also is clear that he wishes to have aggressive care as already noted he can revisit hospice when he gets back to [facility] palliative care will therefore sign off at this time please feel free to reconsult if we can help in any way. - Labs CBC & Chem 7: 06/28/17 04:15 06/28/17 04:15 Labs: Laboratory Results - last 24 hr 06/27/17 06/27/17 06/28/17 16:34 23:31 04:15 WBC 5.4 RBC 4.76 Hgb 14.6 Hct 45.1 MCV 94.7 MCH 30.7 MCHC 32.4 RDW 13.2 Plt Count 129 L MPV 11.5 Immature Gran % 0.2 Seg Neutrophils % 58.3 Lymphocytes % 21.3 Monocytes % 12.6 Eosinophils % 7.0 Basophils % 0.6 Neutrophils # 3.2 Lymphocytes # 1.2 Monocytes # 0.7 Eosinophils # 0.4 Basophils # 0.0 Sodium Potassium Chloride Carbon Dioxide BUN Creatinine Est GFR ( Amer) Est GFR (Non-Af Amer) BUN/Creatinine Ratio Glucose POC Glucose 86 106 H Calculated Osmolality Lactic Acid Calcium Magnesium 06/28/17 06/28/17 06/28/17 04:15 04:15 05:47 WBC RBC Hgb Hct MCV MCH MCHC RDW Plt Count MPV Immature Gran % Seg Neutrophils % Lymphocytes % Monocytes % Eosinophils % Basophils % Neutrophils # Lymphocytes # Monocytes # Eosinophils # Basophils # Sodium 139 Potassium 2.7 L Chloride 99 Carbon Dioxide 27 BUN 11 Creatinine 0.52 L Est GFR ( Amer) > 60 Est GFR (Non-Af Amer) > 60 BUN/Creatinine Ratio 21 Glucose 80 POC Glucose 91 H Calculated Osmolality 286 Lactic Acid 0.6 Calcium 9.0 Magnesium 1.5 L - ABG Interpretation ABG results: PT/INR, D-dimer PT 11.5 Seconds (9.4-12.1) 06/27/17 01:48
[2017-06-28] MEDS ORDERED: Aminoglycoside Consult 1 EACH MC ONE (10:10)
[2017-06-28] MEDS: Budesonide/Formoterol 80/4.5 MDI IH SCH ×2 (10:29→20:14)
[2017-06-28] MEDS: Levofloxacin 750 MG/150 ML 750 MG/150 ML BAG IVPB SCH (10:51)
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
--- NOTE | 2017-06-28 16:15 | Electrocardiograph Report ---
[place] [id number] Test Date: 2017-06-27 Pat Name: Fidel Mathew Department: 103 Room: 2A71 Gender: M Solderer [place]: : 1970 Requested By: Rudolph Chery Order Number: [id number] Reading MD: Sebastián Mcclure MD Measurements Intervals [place] Rate: 99 P: 46 MI: 198 QRS: 82 QRSD: 93 T: 44 QT: 331 QTc: 387 Interpretive Statements SINUS RHYTHM WITH OCCASIONAL SUPRAVENTRICULAR PREMATURE COMPLEXES LEFT ATRIAL ENLARGEMENT BASELINE ARTIFACT Electronically Signed On 06-28-2017 16:13:57 EST by Sebastián Mcclure MD
[2017-06-28] MEDS: clonazePAM 1 MG TABLET PO SCH (16:22)
[2017-06-28] MEDS: Vancomycin 1,000 MG in D5% in Water 250 ML IVPB SCH (17:48)
[2017-06-28] MEDS ORDERED: Ipratropium/Albuterol Neb 3 ML IH PRN (18:26)
[2017-06-28] MEDS: Melatonin 3 MG TABLET PO SCH (20:50)
[2017-06-28] MEDS: traZODone 50 MG TABLET PO SCH (20:50)
[2017-06-29 05:14] LABS: BUN/Creatinine Ratio 22 (6-26); Blood Urea Nitrogen 13 mg/dL (8-26); Calcium 9.5 mg/dL (8.6-10.8); Carbon Dioxide 32 mEq/L (19-29); Chloride 100 mEq/L (98-109); Glucose 95 mg/dL (70-99); Magnesium 1.9 mg/dL (1.6-2.6); Osmolality,Calculated 294 (280-300); Potassium 3.3 mEq/L (3.5-4.5); Sodium 142 mEq/L (136-145); eGFR For African Americans > 60 (> 60); eGFR For Non-African Americans > 60 (> 60)
[2017-06-29] MEDS: *HR* Heparin 5,000 UNIT/ML VIAL SQ SCH ×2 (06:26→16:19)
[2017-06-29] MEDS: Vancomycin 1,000 MG in D5% in Water 250 ML IVPB SCH (06:26)
[2017-06-29] MEDS: *HR* Morphine 2 MG/ML SYRINGE IVP PRN ×4 (06:52→23:48)
[2017-06-29] MEDS: Budesonide/Formoterol 80/4.5 MDI IH SCH ×2 (08:10→19:53)
[2017-06-29] MEDS: Aspirin Enteric Coated 325 MG Tablet PO SCH (09:50)
[2017-06-29] MEDS: Folic Acid 1 MG TABLET PO SCH (09:51)
[2017-06-29] MEDS: Topiramate 100 MG TABLET PO SCH (09:51)
[2017-06-29] MEDS: Famotidine 20 MG TABLET PO SCH ×2 (09:51→16:19)
[2017-06-29] MEDS: OLANZapine 10 MG TAB.RAPDIS PO SCH ×2 (09:51→21:12)
[2017-06-29] MEDS: Furosemide 40 MG TABLET PO SCH (09:51)
[2017-06-29] MEDS: Baclofen 10 MG TABLET PO SCH ×2 (09:51→21:12)
[2017-06-29] MEDS: Artificial Tears SOLN 15 ML BOTTLE BOTH EYES SCH (09:52)
[2017-06-29] MEDS: Cefepime HCl 2,000 MG in Water for inj. (sterile) 20 ML IVP SCH ×3 (09:53→23:48)
[2017-06-29] MEDS: Levofloxacin 750 MG/150 ML 750 MG/150 ML BAG IVPB SCH (09:53)
[2017-06-29] MEDS: Potassium Chloride Elixir 20 MEQ/15 ML UDC PO SCH (09:54)
[2017-06-29] MEDS: levETIRAcetam 250 MG TABLET PO SCH ×2 (09:54→21:11)
[2017-06-29] MEDS: CarBAMazepine XR (12 hr) 100 MG TAB PO SCH ×2 (10:08→21:11)
[2017-06-29] MEDS: Silvasorb 44.4 ML TUBE TP SCH (16:19)
[2017-06-29] MEDS: clonazePAM 1 MG TABLET PO SCH (16:20)
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
[2017-06-29] MEDS: Melatonin 3 MG TABLET PO SCH (21:11)
[2017-06-29] MEDS: traZODone 50 MG TABLET PO SCH (21:12)
[2017-06-30] MEDS: Artificial Tears SOLN 15 ML BOTTLE BOTH EYES SCH ×2 (06:39→09:37)
[2017-06-30] MEDS: *HR* Heparin 5,000 UNIT/ML VIAL SQ SCH (06:42)
[2017-06-30] MEDS: *HR* Morphine 2 MG/ML SYRINGE IVP PRN ×2 (06:51→12:04)
[2017-06-30 07:10] VITALS: BP 97/63
[2017-06-30] MEDS: Aspirin Enteric Coated 325 MG Tablet PO SCH (09:33)
[2017-06-30] MEDS: OLANZapine 10 MG TAB.RAPDIS PO SCH (09:33)
[2017-06-30] MEDS: Topiramate 100 MG TABLET PO SCH (09:33)
[2017-06-30] MEDS: CarBAMazepine XR (12 hr) 100 MG TAB PO SCH (09:33)
[2017-06-30] MEDS: Famotidine 20 MG TABLET PO SCH (09:34)
[2017-06-30] MEDS: Furosemide 40 MG TABLET PO SCH (09:34)
[2017-06-30] MEDS: Baclofen 10 MG TABLET PO SCH (09:34)
[2017-06-30] MEDS: levETIRAcetam 250 MG TABLET PO SCH (09:35)
[2017-06-30] MEDS: Folic Acid 1 MG TABLET PO SCH (09:35)
[2017-06-30] MEDS: Silvasorb 44.4 ML TUBE TP SCH (09:35)
[2017-06-30] MEDS: Potassium Chloride Elixir 20 MEQ/15 ML UDC PO SCH (09:35)
[2017-06-30] MEDS: Cefepime HCl 2,000 MG in Water for inj. (sterile) 20 ML IVP SCH (09:35)
[2017-06-30] MEDS: Scopolamine Patch 1.5 MG PATCH.TD72 TD SCH (09:35)
[2017-06-30] MEDS: Levofloxacin 750 MG/150 ML 750 MG/150 ML BAG IVPB SCH (09:36)
--- NOTE | 2017-06-30 10:22 | Discharge Summary ---
Date of Encounter: 06/30/17 Time of Encounter: 09:30 - Discharge Diagnosis (1) Healthcare-associated pneumonia Priority: Primary Status: Acute Comments: Healthcare associated pneumonia, present on admission, likely bacterial gram- positive cocci - causing acute encephalopathy and cough and increased secretions in tracheostomy - symptoms now improved Continue PO Levaquin DuoNeb breathing treatment, O2 via trach collar IV vancomycin has been discontinued as cultures are negative Chest x-ray - bibasilar opacities, possibly pneumonia CT head - no acute intracranial abnormality Lactic acid - 0.9 Troponin - 0.02 WBC - 5.4 Cultures - no growth Palliative care consult - sister is power of insurance defense attorney, but patient is able to make decisions for himself at this time 06/28 - patient states he feels better and wants to go home, denies shortness of breath or chest pain, complains of cough 06/29 - denies chest pain or shortness of breath. Continues to have copious secretions from tracheostomy. Anticipate discharge to [facility] tomorrow 06/30 - doing well on room air and without trach collar. Denies chest pain or shortness of breath or cough. Secretions from tracheostomy have improved. States he feels better and wants to go back to the intermediate. Patient states he wants to smoke when he goes back to [facility]. He has been counseled about smoking cessation. Tolerating oral diet well. Being discharged on Levaquin by mouth. Advised to return if symptoms worsen. Follow-up with primary care physician. 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 and is on O2 via a trach collar According to patient and sister - patient is on hospice care at the [facility] Palliative care consult - appreciate input Continue all medications including Zoloft, Scopolamine patch, Trazodone, Baclofen, Patient is also on Morphine at the [facility] (4) Seizure disorder Priority: Secondary Status: Chronic Comments: Seizure disorder, stable Continue home dose of Keppra, Topamax, Tegretol (5) Bipolar disorder Priority: Secondary Status: Chronic Comments: Bipolar disorder, stable Home dose of Klonopin, Zyprexa, Cogentin Qualifiers: Active/Remission status: remission status unspecified Qualified Code(s): F31.9 - Bipolar disorder, unspecified (6) Neurogenic bladder Priority: Secondary Status: Chronic Comments: Chronic neurogenic bladder - chronic indwelling suprapubic catheter (7) Tobacco abuse Priority: Secondary Status: Chronic Comments: Counseled about cessation, nicotine patch - Discharge Medications Prescriptions: Baclofen [Lioresal] 10 mg PO BID #10 tablet Benztropine Mesylate 1 mg PO HS #30 tablet CarBAMazepine [Carbamazepine ER] 300 mg PO BID #30 tab.er.12h clonazePAM [Klonopin] 2 mg PO QPM #7 tablet Ipratropium/Albuterol Neb [Duoneb] 3 ml IH QID PRN #30 inhsol PRN Reason: Shortness Of Breath levoFLOXacin [Levaquin] 750 mg PO Q24H 7 Days #7 tablet Nicotine Patch [Nicoderm] 14 mg TD DAILY #30 patch.td24 OLANZapine [Zyprexa] 10 mg PO BID #30 tablet OxyCODONE Immed Rel [Roxicodone 5 MG] 20 mg PO Q6H PRN #3 tablet PRN Reason: Pain Sertraline [Zoloft] 75 mg PO DAILY #30 tablet Trazodone HCl 100 mg PO HS #30 tablet Home Medications: Folic Acid 1 mg PO QAM 07/04/15 [History] Ipratropium/Albuterol Neb [Duoneb] 3 ml IH QID PRN 07/04/15 [History] LevETIRAcetam [Keppra] 250 mg PO BID 07/04/15 [History] Topiramate [Topamax] 150 mg PO QAM 11/05/15 [History] Acetaminophen [Tylenol] 650 mg PO Q6HR PRN 12/11/15 [History] Docusate Sodium [Dok] 100 mg PO BID 12/11/15 [History] Fluticasone/Salmeterol [Advair 250-50 Diskus] 1 puff IH BID 12/11/15 [History] Guaifenesin [Diabetic Tussin Ex] 200 mg PO Q4H PRN 12/11/15 [History] Polyvinyl Alcohol [Artificial Tears] 1 drop BOTH EYES BID 03/18/16 [History] Aspirin/Calcium Carbonate/Mag [Aspirin Buffered 325 mg Tab] 325 mg PO DAILY [History] Ketoconazole Shampoo [Nizoral Shampoo] 1 appl TP QWEEK 08/11/16 [History] Na Phos,M-B/Na Phos,Di-Ba [Fleet Enema Extra] 230 ml RC Q48H 08/11/16 [History] Furosemide [Lasix] 40 mg PO DAILY 03/24/17 [History] Melatonin 10 mg PO HS 06/27/17 [History] Potassium Chloride Elixir [Potassium Chloride] 40 meq PO DAILY 06/27/17 [History ] Scopolamine Patch [Transderm-Scop] 1.5 mg TD Q72H 06/27/17 [History] Baclofen [Lioresal] 10 mg PO BID #10 tablet 06/30/17 [Rx] Benztropine Mesylate 1 mg PO HS #30 tablet 06/30/17 [Rx] CarBAMazepine [Carbamazepine ER] 300 mg PO BID #30 tab.er.12h 06/30/17 [Rx] Ipratropium/Albuterol Neb [Duoneb] 3 ml IH QID PRN #30 inhsol 06/30/17 [Rx] Nicotine Patch [Nicoderm] 14 mg TD DAILY #30 patch.td24 06/30/17 [Rx] OLANZapine [Zyprexa] 10 mg PO BID #30 tablet 06/30/17 [Rx] OxyCODONE Immed Rel [Roxicodone 5 MG] 20 mg PO Q6H PRN #3 tablet 06/30/17 [Rx] Sertraline [Zoloft] 75 mg PO DAILY #30 tablet 06/30/17 [Rx] Trazodone HCl 100 mg PO HS #30 tablet 06/30/17 [Rx] clonazePAM [Klonopin] 2 mg PO QPM #7 tablet 06/30/17 [Rx] levoFLOXacin [Levaquin] 750 mg PO Q24H 7 Days #7 tablet 06/30/17 [Rx] Allergies/Adverse Reactions: 3 Allergy/AdvReac Type Severity Reaction Status Date / Time Penicillins Allergy See Verified 06/27/17 07:29 Comments Procedures/tests Complete & Pending: Procedures Performed prior 72 hours Category Date Time Status ECG 12 lead ECG [ECG] AM 0600 Y 06/28/17 06:00 Ordered Date of admission: 06/27/17 08:00 Primary care physician: Kevin Caro MD Consults: 06/27/17 08:04 Consult to Infectious Diseases [CONS] Routine Consulting Provider: Infectious Disease Liz Reason for Consult: recent sepsis, HCAP Call Completed: No 06/27/17 10:39 Consult to Palliative Care [CONS] Routine Comment: Consulting Provider: Palliative Care Liz Reason for Consult: quadriplegia, hospice care at [facility] Call Completed: No 06/27/17 15:58 Consult to Invasive Line Access Team [CONS] Routine Reason for Consult: limited access Line Type: EPIV 06/27/17 17:10 Consult to Coating Manager [CONS] Routine Reason for SW Consult: from [facility] 06/28/17 07:37 Consult to Speech Therapy [CONS] Routine Comment: Evaluate, develop and implement POC Reason for Consult: swallow eval Call Completed: No 06/29/17 04:35 Consult to Wound Care [CONS] Routine Reason for Consult: R heel. Call Completed: No Anticipated date of discharge: 06/30/17 - Patient Status Disposition: Transfer SNF Condition: Fair Functional capacity at discharge: bed bound Overall status at discharge: patient is back to baseline - Discharge Instructions Follow Up With: Kevin Caro MD [Primary Care Provider] - (Patient will follow up with [facility] pcp) - Diet and Activity Activity: increase activity as tolerated, wear oxygen at all times Diet: advance to your usual diet Hospital course: Mr. 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 He presented to the ED with altered mental status. He was apparently found tohave decreased level of consciousness. He was initially hypothermic and was placed on. On initial exam in the ED patient was back to baseline mental status. Patient does have bibasilar opacity seen on chest x-ray which is likely pneumonia. He was admitted for healthcare associated pneumonia. Patient was started on empiric IV cefepime and IV vancomycin and IV Levaquin and also given breathing treatments. He was on O2 via trach collar. Cultures did not show any growth. Patient's antibiotics were then step down and he is being discharged with Levaquin. Patient does have high risk for aspiration. Speech therapy has evaluated the patient. Patient refuses to get a PEG tube and wants to continue eating by mouth. He has signed a waiver form so that he can be fed by mouth. Patient's symptoms of cough and acute encephalopathy and now resolved. He initially had increased secretion and tracheostomy which is now improved. He has been advised to continue breathing treatment at the nursing facility. Patient was continued on all his home medications. No other acute events or complications during his stay. Patient has been explained about his condition and plan of care in detail. He understood and agreed. No unanswered questions. Palliative care was also consulted because patient was enrolled recently hospice care at the nursing facility. patient currently has good functional capacity. He is able to make decisions for himself. Patient's sister is the power of insurance defense attorney. She was present on the day of admission. Patient wants to remain a full code and wants to continue eating by mouth. He refuses a PEG tube. Patient also states that he wants to smoke a cigarette when he goes back to the nursing facility. He states he will continue breathing treatments and all his other home medications. Patient is back to his baseline status. He is being discharged in stable condition. Time spent discussing smoking cessation with patient: 3 to 10 minutes - Time Spent with Patient Total time spent providing and/or coordinating discharge services: Greater than 30 minutes - Constitutional Vitals: Temp Pulse Resp BP Pulse Ox 97.4 F L 62 15 97/63 95 06/30/17 07:08 06/30/17 07:08 06/30/17 07:08 06/30/17 07:08 06/30/17 07:08 General appearance: Present: cooperative, disheveled, A&O X 3, pleasant, no acute distress, answers questions appropriately Exam: Chronically ill-appearing, generalized weakness, patient is bedbound, quadriplegic, tracheostomy - Head Head exam: Present: atraumatic - Eye Eye exam: Present: EOMI - ENT ENT exam: Present: mucous membranes dry - Neck Additional comments: Tracheostomy site looks okay, secretions have now improved - Respiratory Respiratory exam: Present: CTAB. Absent: accessory muscle use, chest wall tenderness, rales, rhonchi, wheezes, tachypnea - Cardiovascular Cardiovascular exam: Present: RRR, +S1, +S2 - GI/Abdominal GI/Abdominal exam: Present: soft. Absent: distended, firm, guarding, tenderness - Extremities Exam Extremities exam: Present: pedal edema (Mild bilateral), radial pulses palpable and symmetrical. 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 He is able to verbalize. Follow commands. Seems to be at baseline at this time. He does have a tracheostomy. 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
--- NOTE | 2017-06-30 10:37 | Physician Discharge Referral ---
ExtendedCare Referral Info Provider in Charge after Transfer: PCP Institutional Level of Care: Skilled - Diagnosis (1) Healthcare-associated pneumonia Priority: Primary Status: Acute (2) UTI (urinary tract infection) Priority: Primary Status: Acute (3) Quadriplegia and quadriparesis Priority: Primary Status: Chronic (4) Seizure disorder Priority: Secondary Status: Chronic (5) Bipolar disorder Priority: Secondary Status: Chronic (6) Neurogenic bladder Priority: Secondary Status: Chronic (7) Tobacco abuse Priority: Secondary Status: Chronic Prognosis: Fair Aware of Diagnosis: Patient, Family Aware of Prognosis: Patient, Family - Transfer Medications Prescriptions: Baclofen [Lioresal] 10 mg PO BID #10 tablet Benztropine Mesylate 1 mg PO HS #30 tablet CarBAMazepine [Carbamazepine ER] 300 mg PO BID #30 tab.er.12h clonazePAM [Klonopin] 2 mg PO QPM #7 tablet Ipratropium/Albuterol Neb [Duoneb] 3 ml IH QID PRN #30 inhsol PRN Reason: Shortness Of Breath levoFLOXacin [Levaquin] 750 mg PO Q24H 7 Days #7 tablet Nicotine Patch [Nicoderm] 14 mg TD DAILY #30 patch.td24 OLANZapine [Zyprexa] 10 mg PO BID #30 tablet OxyCODONE Immed Rel [Roxicodone 5 MG] 20 mg PO Q6H PRN #3 tablet PRN Reason: Pain Sertraline [Zoloft] 75 mg PO DAILY #30 tablet Trazodone HCl 100 mg PO HS #30 tablet Home Medications: Folic Acid 1 mg PO QAM 07/04/15 [History] Ipratropium/Albuterol Neb [Duoneb] 3 ml IH QID PRN 07/04/15 [History] LevETIRAcetam [Keppra] 250 mg PO BID 07/04/15 [History] Topiramate [Topamax] 150 mg PO QAM 11/05/15 [History] Acetaminophen [Tylenol] 650 mg PO Q6HR PRN 12/11/15 [History] Docusate Sodium [Dok] 100 mg PO BID 12/11/15 [History] Fluticasone/Salmeterol [Advair 250-50 Diskus] 1 puff IH BID 12/11/15 [History] Guaifenesin [Diabetic Tussin Ex] 200 mg PO Q4H PRN 12/11/15 [History] Polyvinyl Alcohol [Artificial Tears] 1 drop BOTH EYES BID 03/18/16 [History] Aspirin/Calcium Carbonate/Mag [Aspirin Buffered 325 mg Tab] 325 mg PO DAILY [History] Ketoconazole Shampoo [Nizoral Shampoo] 1 appl TP QWEEK 08/11/16 [History] Na Phos,M-B/Na Phos,Di-Ba [Fleet Enema Extra] 230 ml RC Q48H 08/11/16 [History] Furosemide [Lasix] 40 mg PO DAILY 03/24/17 [History] Melatonin 10 mg PO HS 06/27/17 [History] Potassium Chloride Elixir [Potassium Chloride] 40 meq PO DAILY 06/27/17 [History ] Scopolamine Patch [Transderm-Scop] 1.5 mg TD Q72H 06/27/17 [History] Baclofen [Lioresal] 10 mg PO BID #10 tablet 06/30/17 [Rx] Benztropine Mesylate 1 mg PO HS #30 tablet 06/30/17 [Rx] CarBAMazepine [Carbamazepine ER] 300 mg PO BID #30 tab.er.12h 06/30/17 [Rx] Ipratropium/Albuterol Neb [Duoneb] 3 ml IH QID PRN #30 inhsol 06/30/17 [Rx] Nicotine Patch [Nicoderm] 14 mg TD DAILY #30 patch.td24 06/30/17 [Rx] OLANZapine [Zyprexa] 10 mg PO BID #30 tablet 06/30/17 [Rx] OxyCODONE Immed Rel [Roxicodone 5 MG] 20 mg PO Q6H PRN #3 tablet 06/30/17 [Rx] Sertraline [Zoloft] 75 mg PO DAILY #30 tablet 06/30/17 [Rx] Trazodone HCl 100 mg PO HS #30 tablet 06/30/17 [Rx] clonazePAM [Klonopin] 2 mg PO QPM #7 tablet 06/30/17 [Rx] levoFLOXacin [Levaquin] 750 mg PO Q24H 7 Days #7 tablet 06/30/17 [Rx] Allergies/Adverse Reactions: 3 Allergy/AdvReac Type Severity Reaction Status Date / Time Penicillins Allergy See Verified 06/27/17 07:29 Comments - Respiratory Orders Oxygen / L per min (Via trach collar) Smoking Cessation: Smoking cessation has been advised. For more information, call the [place] Tobacco Quit Line at 8-280-APAA-NOW. - Ancillary Orders May use pressure relief devices daily prn - Advance Directives Code Status: Full Code - Rehabiliation Orders Rehab Orders: Evaluation for Physical Therapy, Evaluation for Occupational Therapy - Treatments Skin tear care topically daily PRN per policy - Diet Orders Pureed, Cardiac CERTIFICATION: I certify that the transfer of the above named patient to an Extended Care Facility is necessary for the continuing treatment of the diagnosis listed. The above information is true and accurate reflection of patient's current condition. Confidential - Redisclosure prohibited without a patient's written consent.
[2017-06-30] MEDS: Budesonide/Formoterol 80/4.5 MDI IH SCH (11:45)
[2017-07-01] MEDS ORDERED: levoFLOXacin 750 MG TABLET PO SCH (09:00)
== END 2017-06-30 12:58 | DRG 139 ==
LOC: EMEROO 01:02 → 2ANU 01:02
PROVIDERS: ADMIT Internal Medicine; ATTEND Internal Medicine

== ENCOUNTER 2017-07-13 05:44 | Observation (INO) ==
[2017-07-13] MEDS ORDERED: *HR* HYDROmorphone (PF) 1 MG/ML SYRINGE IVP ONE ×3 (05:55→08:19)
--- NOTE | 2017-07-13 05:58 | Emergency Department Note ---
Disposition Clinical Impression: Quadriplegia and quadriparesis Intertrochanteric fracture of right femur Qualifiers: Encounter type: initial encounter Fracture type: closed Fracture alignment: displaced Qualified Code(s): S72.141A - Displaced intertrochanteric fracture of right femur, initial encounter for closed fracture Disposition: Admitted As Inpatient Condition: Good Referrals: Kevin Caro MD [Primary Care Provider] - Forms: ED Satisfaction Letter Time of Disposition: 07:03 Fall HPI - General Chief Complaint: ED Fall Stated Complaint: fall/right hip pain Time Seen by Provider: 07/13/17 05:48 Source: patient, EMS Mode of arrival: EMS Limitations: no limitations Nursing Notes Reviewed: Yes Vital Signs Reviewed: Yes - History of Present Illness HPI Narrative: 47-year-old male quadriplegic with tracheostomy presents to the ED via EMS from [facility] after fall. He complains of her right hip pain. States he was attempting to go to the bathroom when he fell out of his wheelchair onto his right side. His right leg is shortened and externally rotated. There is a palpable deformity. Femoral pulses are +2 bilaterally. He has significant edema to bilateral lower extremities. He denies any head injury or loss of consciousness. Denies any neck pain. Does not take any anticoagulants. Denies any chest pain or shortness of breath. 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 Fall From: wheelchair Place Fall Occurred: senior care/SNF Loss of Consciousness: none Prolonged Down Time?: no Symptoms Prior to Fall: none - Related Data Home Medications Medication Instructions Recorded Confirmed Folic Acid 1 mg PO QAM 07/04/15 06/27/17 Ipratropium/Albuterol Neb [Duoneb] 3 ml IH QID PRN 07/04/15 06/27/17 LevETIRAcetam [Keppra] 250 mg PO BID 07/04/15 06/27/17 Topiramate [Topamax] 150 mg PO QAM 11/05/15 06/27/17 Acetaminophen [Tylenol] 650 mg PO Q6HR PRN 12/11/15 06/27/17 Docusate Sodium [Dok] 100 mg PO BID 12/11/15 06/27/17 Fluticasone/Salmeterol [Advair 1 puff IH BID 12/11/15 06/27/17 250-50 Diskus] Guaifenesin [Diabetic Tussin Ex] 200 mg PO Q4H PRN 12/11/15 06/27/17 Polyvinyl Alcohol [Artificial 1 drop BOTH EYES BID 03/18/16 06/27/17 Tears] Aspirin/Calcium Carbonate/Mag 325 mg PO DAILY 08/11/16 06/27/17 [Aspirin Buffered 325 mg Tab] Ketoconazole Shampoo [Nizoral 1 appl TP QWEEK 08/11/16 06/27/17 Shampoo] Na Phos,M-B/Na Phos,Di-Ba [Fleet 230 ml RC Q48H 08/11/16 06/27/17 Enema Extra] Furosemide [Lasix] 40 mg PO DAILY 03/24/17 06/27/17 Melatonin 10 mg PO HS 06/27/17 06/27/17 Potassium Chloride Elixir 40 meq PO DAILY 06/27/17 06/27/17 [Potassium Chloride] Scopolamine Patch [Transderm-Scop] 1.5 mg TD Q72H 06/27/17 06/27/17 Previous Rx's Medication Instructions Recorded Baclofen [Lioresal] 10 mg PO BID #10 tablet 06/30/17 Benztropine Mesylate 1 mg PO HS #30 tablet 06/30/17 CarBAMazepine [Carbamazepine ER] 300 mg PO BID #30 tab.er.12h 06/30/17 Ipratropium/Albuterol Neb [Duoneb] 3 ml IH QID PRN #30 inhsol 06/30/17 Nicotine Patch [Nicoderm] 14 mg TD DAILY #30 patch.td24 06/30/17 OLANZapine [Zyprexa] 10 mg PO BID #30 tablet 06/30/17 OxyCODONE Immed Rel [Roxicodone 5 20 mg PO Q6H PRN #3 tablet 06/30/17 MG] Sertraline [Zoloft] 75 mg PO DAILY #30 tablet 06/30/17 Trazodone HCl 100 mg PO HS #30 tablet 06/30/17 clonazePAM [Klonopin] 2 mg PO QPM #7 tablet 06/30/17 levoFLOXacin [Levaquin] 750 mg PO Q24H 7 Days #7 tablet 06/30/17 Allergies Allergy/AdvReac Type Severity Reaction Status Date / Time Penicillins Allergy See Verified 06/27/17 07:29 Comments All systems ED: reviewed and negative except as stated. Review of Systems: As Per HPI Constitutional: Denies: fever Cardiovascular: Denies: chest pain Respiratory: Denies: cough, dyspnea Gastrointestinal: Denies: abdominal pain, nausea, vomiting Genitourinary: Reports: as per HPI Musculoskeletal: Reports: arthralgia Integumentary: Reports: as per HPI Neurological: Reports: as per HPI Psychiatric: Reports: as per HPI Endocrine: Reports: as per HPI Hematological/Lymphatic: Reports: as per HPI Allergic/Immunologic: Reports: as per HPI Fall PMH - Past Medical History Medical history: Reports: CHF, hepatitis, hypertension, seizures, other Surgical history: Reports: tracheostomy, other Psychiatric history: Reports: anxiety, bipolar, depression - Social History Smoking Status: Current every day smoker Alcohol use: Reports: none, unknown Drug use: Reports: none Physical Exam - General Limitations: no limitations General appearance: alert - Head Head exam: atraumatic, normocephalic, normal inspection - Eye Eye exam: Present: normal appearance, PERRL, EOMI - ENT ENT exam: normal exam, normal oropharynx, mucous membranes moist - Neck Neck exam: Present: full ROM, other (tracheostomy, trachea midline) - Chest Chest inspection: Present: normal inspection, symmetric chest wall rise - Respiratory Respiratory exam: Present: normal lung sounds bilaterally. Absent: respiratory distress - Cardiovascular Cardiovascular exam: Present: regular rate, normal rhythm, normal heart sounds - Abdominal Exam Abdominal exam: Present: soft, Non-Tender, normal bowel sounds, other ( suprapubic catheter). Absent: tenderness, distention, guarding, rebound, rigidity - Extremities Exam Extremities exam: Present: pedal edema (bilateral lower extremity), other ( quadriplegic) - Expanded Lower Extremity Exam Hip/Pelvis exam: Present: tenderness, deformity (right hip/femur), crepitus, external rotation, shortening, pelvis stable Upper leg exam: Present: normal inspection, tenderness (proximal right), deformity 1 - deformity and tenderness Knee exam: Present: normal inspection Lower leg exam: Present: normal inspection Ankle exam: Present: normal inspection Foot/toe exam: Present: normal inspection - Neurological Exam Neurological exam: Present: alert, oriented X3 - Skin Skin exam: Present: warm, dry, intact, normal color Course - Reevaluation(s) Reevaluation #1: Patient has a right inter trochanteric femoral neck fracture. Time: 06:57 - Consultations Consultation #1: Consulted the orthopedic surgeon on-call Dr. Oconnor will be happy to consult on the floor. No emergent surgical intervention at this time. Time: 06:57 Consultation #2: Spoke with on-call hospitalist paty Etienne to admit for right intertrochanteric femoral neck fracture. No further orders at this time Time: 06:59 Vital Signs Temperature 97.8 F 07/13/17 05:47 Pulse Rate 109 07/13/17 05:47 Respiratory Rate 22 07/13/17 05:47 Blood Pressure 116/82 07/13/17 05:47 O2 Sat by Pulse Oximetry 91 07/13/17 05:47 Temperature 97.8 F 07/13/17 05:47 Pulse Rate 114 07/13/17 07:00 Respiratory Rate 22 07/13/17 05:47 Blood Pressure 110/86 07/13/17 07:00 O2 Sat by Pulse Oximetry 93 07/13/17 07:00 Oxygen Delivery Oxygen Delivery Room Air Fall - Medical Records Medical records reviewed: Yes I reviewed the patient's medical records. - Radiology Data Radiology results reviewed: Yes I reviewed the patient's radiology results. Pelvis X-Ray 07/13/17 05:52 IMPRESSION: 1. Right intertrochanteric femoral neck fracture as described. 2. 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 D/ / Janessa Ch MD / Janessa Ch MD Interpreting Provider: Janessa Ch MD Femur X-Ray 07/13/17 05:59 IMPRESSION: 1. Right intertrochanteric femoral neck fracture as described. 2. 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 D/ / Janessa Ch MD / Janessa Ch MD Interpreting Provider: Janessa Ch MD Attestation Statement - Attestation Attestation: I, Jayson Quinonez MD, personally evaluated this patient and discussed their management with the resident physician. I reviewed the resident's note and agree with the documented findings, medical decision making, and plan of care. 47-year-old male quadriplegic presents to the emergency department after a fall from a wheelchair at the senior care with a complaint of pain in the right hip area. No other pain or injury. On examination patient is a quadriplegic male in no acute distress. He is alert and answers questions appropriately. No cyanosis or diaphoresis. There is tenderness to palpation over the right hip and proximal femur area. He does have some external rotation and mild shortening of the right lower extremity. Unable to palpate distal pulses due to chronic lymphedema. X-ray showed a comminuted intertrochanteric fracture of the right hip. The orthopedist consumer relations specialist, Dr. Oconnor, was consulted and will consult on the patient. The hospitalist, Dr. Delvalle, was consulted and accepted admission of the patient.
[2017-07-13 07:26] LABS: Basophils % 0.2 %; Eosinophils # 0.3 K/mcL (0.0-0.6); Eosinophils % 2.3 %; Hematocrit 48.1 % (37.5-50.1); Hemoglobin 15.7 g/dL (12.9-16.9); Immature Granulocytes % 2.4 % (0-4); Lymphocytes # 1.6 K/mcL (0.6-4.6); Lymphocytes % 12.9 %; Mean Corpuscular HGB Conc 32.6 g/dL (31.6-35.5); Mean Corpuscular Hemoglobin 30.3 pg (28.0-33.3); Mean Corpuscular Volume 92.9 fL (83.0-100.0); Mean Platelet Volume 11.9 fL (9.4-12.4); Monocytes # 1.6 K/mcL (0.0-1.3); Monocytes % 12.4 %; Neutrophils # 8.8 K/mcL (1.6-8.9); Platelet Count 183 K/mcL (140-400); Red Blood Count 5.18 M/mcL (4.19-5.50); Red Cell Distribution Width 13.2 % (11.5-14.5); Segmented Neutrophils % 69.8 %
[2017-07-13 08:35] VITALS: BP 129/87
--- NOTE | 2017-07-13 10:23 | Orthopedic Consult Note ---
Date of Encounter: 07/13/17 Time of Encounter: 10:21 Assessment and Plan (1) Intertrochanteric fracture of right femur Current Visit: Yes Status: Acute Diagnosis and treatment plan were discussed with Fidel. He is nonambulatory and puts no weight on the leg for transfers. He is fully dependent on others for transfers to wheelchair. He does have some right hip pain, however he did have a significant amount of hip pain prior to his fall. At this point we discussed the risks and benefits of both operative and nonoperative intervention , and with his ambulatory status and multiple medical comorbidities there would be minimal benefit to surgical fixation. He did voice understanding of this and is in agreement. He will be transferred back to his facility and will follow up in 3 weeks. He is okay for assisted transfers as they were performing previously. Qualifiers: Encounter type: initial encounter Fracture type: closed Fracture alignment: displaced Qualified Code(s): S72.141A - Displaced intertrochanteric fracture of right femur, initial encounter for closed fracture History of Present Illness Chief complaint: R hip fracture HPI: Mr. Mathew is a 47 year old male nonambulatory paraplegic patient who was at his nursing facility being transferred to wheelchair when he fell during the transfer. He is typically max assist and does no transferring on his own and does not put weight on the lower extremities. He is brought to the emergency department and an x-ray showed a minimally displaced right intertrochanteric fracture with end-stage DJD. He has some right hip pain with motion currently, although he did have right hip pain before the fall. Past Med Surg Social Fam HX - Past Medical History Medical history: CHF, hepatitis, hypertension, seizures, other Psychiatric history: anxiety, bipolar, depression - Past Surgical History Surgical History: tracheostomy, other - Social History Smoking Status: Current every day smoker Smokeless Tobacco Status: No Alcohol use: none, unknown Drug use: none - Family History Mother Living Status: Hx Family Cardiac Disorders: Yes Hx Family Respiratory Disorders: Yes Hx Family Cancer: Yes Medications and Allergies Folic Acid 1 mg PO QAM 07/04/15 [History] Ipratropium/Albuterol Neb [Duoneb] 3 ml IH QID PRN 07/04/15 [History] LevETIRAcetam [Keppra] 250 mg PO BID 07/04/15 [History] Topiramate [Topamax] 150 mg PO QAM 11/05/15 [History] Acetaminophen [Tylenol] 650 mg PO Q6HR PRN 12/11/15 [History] Docusate Sodium [Dok] 100 mg PO BID 12/11/15 [History] Fluticasone/Salmeterol [Advair 250-50 Diskus] 1 puff IH BID 12/11/15 [History] Guaifenesin [Diabetic Tussin Ex] 200 mg PO Q4H PRN 12/11/15 [History] Polyvinyl Alcohol [Artificial Tears] 1 drop BOTH EYES BID 03/18/16 [History] Aspirin/Calcium Carbonate/Mag [Aspirin Buffered 325 mg Tab] 325 mg PO DAILY [History] Ketoconazole Shampoo [Nizoral Shampoo] 1 appl TP QWEEK 08/11/16 [History] Na Phos,M-B/Na Phos,Di-Ba [Fleet Enema Extra] 230 ml RC Q48H 08/11/16 [History] Furosemide [Lasix] 40 mg PO DAILY 03/24/17 [History] Melatonin 10 mg PO HS 06/27/17 [History] Potassium Chloride Elixir [Potassium Chloride] 40 meq PO DAILY 06/27/17 [History ] Scopolamine Patch [Transderm-Scop] 1.5 mg TD Q72H 06/27/17 [History] Baclofen [Lioresal] 10 mg PO BID #10 tablet 06/30/17 [Rx] Benztropine Mesylate 1 mg PO HS #30 tablet 06/30/17 [Rx] CarBAMazepine [Carbamazepine ER] 300 mg PO BID #30 tab.er.12h 06/30/17 [Rx] Ipratropium/Albuterol Neb [Duoneb] 3 ml IH QID PRN #30 inhsol 06/30/17 [Rx] Nicotine Patch [Nicoderm] 14 mg TD DAILY #30 patch.td24 06/30/17 [Rx] OLANZapine [Zyprexa] 10 mg PO BID #30 tablet 06/30/17 [Rx] OxyCODONE Immed Rel [Roxicodone 5 MG] 20 mg PO Q6H PRN #3 tablet 06/30/17 [Rx] Sertraline [Zoloft] 75 mg PO DAILY #30 tablet 06/30/17 [Rx] Trazodone HCl 100 mg PO HS #30 tablet 06/30/17 [Rx] clonazePAM [Klonopin] 2 mg PO QPM #7 tablet 06/30/17 [Rx] levoFLOXacin [Levaquin] 750 mg PO Q24H 7 Days #7 tablet 06/30/17 [Rx] 3 Allergy/AdvReac Type Severity Reaction Status Date / Time Penicillins Allergy See Verified 06/27/17 07:29 Comments All Systems Reviewed: A 10-system review of systems was performed and is negative for pertinent findings except as documented above in the HPI. Physical Exam - Constitutional Vitals: Temp Pulse Resp BP Pulse Ox 98.7 F 115 18 129/87 92 07/13/17 08:35 07/13/17 08:35 07/13/17 08:35 07/13/17 08:35 07/13/17 08:35 General appearance IM: A&O X 3, thin Exam: Consult Exam: Constitutional -Vitals reviewed -NAD Psychiatric -The patient is fully alert and oriented x 3. Respiratory: -Respiratory effort normal, trach in place Abdomen: -Soft abdomen -Non tender -Non distended: Left upper extremity: -No deformities. The overlying skin is intact. No obvious signs of acute trauma. -No tenderness to palpation throughout. -No significant pain with passive motion of the shoulder, elbow, wrist, and fingers within the limits of the bed. -Flexion contracture of fingers, able to flex and extend at elbow but minimal motion of fingers/hand -Sensation grossly intact to light touch throughout the median, radial, and ulnar distributions. -Radial pulse is present Right upper extremity: -No deformities. The overlying skin is intact. No obvious signs of acute trauma. -No tenderness to palpation throughout. -No significant pain with passive motion of the shoulder, elbow, wrist, and fingers within the limits of the bed. -Flexion contracture of fingers, able to flex and extend at elbow but minimal motion of fingers/hand -Sensation grossly intact to light touch throughout the median, radial, and ulnar distributions. -Radial pulse is present Left lower extremity: -No deformities. The overlying skin is intact. No obvious signs of acute trauma. -No tenderness to palpation throughout. -No pain with passive motion of the hip, knee, ankle, and toes within the limits of the bed. -No pain with axial loading of the thigh. -No motor -Sensation is grossly intact to light touch at baseline. -Toes have good capillary refill. -Chronic edema Right lower extremity: -No deformities. The overlying skin is intact. No obvious signs of acute trauma. -No tenderness to palpation throughout. -No pain with passive motion of the knee, ankle, and toes within the limits of the bed. -Pain with log roll and hip flexion -No motor -Sensation is grossly intact to light touch at baseline. -Toes have good capillary refill. -Chronic edema Results - Labs Result Diagrams: 07/13/17 07:19 Labs: Abnormal lab results WBC 12.6 K/mcL (4.3-11.1) H 07/13/17 07:19 Monocytes # 1.6 K/mcL (0.0-1.3) H 07/13/17 07:19 All other labs normal. - Diagnostic results Hip x-ray: image reviewed (Minimally displaced R intertrochanteric fracture) Consult Discharge Plan - Plan Referrals: Kevin Caro MD [Primary Care Provider] -
[2017-07-13 10:27] LABS: BUN/Creatinine Ratio 25 (6-26); Blood Urea Nitrogen 14 mg/dL (8-26); Calcium 9.7 mg/dL (8.6-10.8); Carbon Dioxide 29 mEq/L (19-29); Chloride 103 mEq/L (98-109); Glucose 102 mg/dL (70-99); Osmolality,Calculated 297 (280-300); Potassium 3.6 mEq/L (3.5-4.5); Sodium 143 mEq/L (136-145); eGFR For African Americans > 60 (> 60); eGFR For Non-African Americans > 60 (> 60)
--- NOTE | 2017-07-13 10:45 | Internal Med History&Physical ---
Date of Encounter: 07/13/17 Time of Encounter: 10:42 Assessment and Plan (1) Intertrochanteric fracture of right femur Current visit: Yes Status: Acute Patient has a right-sided intertrochanteric fracture of the femur. Patient was evaluated by orthopedics and recommended no surgical intervention. Orthopedics recommended patient to follow-up in the outpatient clinic in 3 weeks ' time. Orthopedics did recommend that patient should get transfer from bed to wheelchair and wheelchair to bed as he was getting previously. Orthopedics also recommended patient can go back to the nursing facility today. Qualifiers: Encounter type: initial encounter Fracture type: closed Fracture alignment: displaced Qualified Code(s): S72.141A - Displaced intertrochanteric fracture of right femur, initial encounter for closed fracture (2) Back pain Current visit: No Status: Chronic Patient is a chronic back pain. We will resume all his medications Qualifiers: Back pain location: low back pain Chronicity: chronic Back pain laterality: bilateral Sciatica presence: without sciatica Qualified Code(s) : M54.5 - Low back pain; G89.29 - Other chronic pain (3) Status post tracheostomy Current visit: No Status: Chronic Status post tracheostomy. Tracheostomy functioning well. (4) Chronic indwelling Farrell catheter Current visit: No Status: Chronic Patient is a chronic indwelling Farrell catheter which is secondary to his chronic quadriplegia. (5) Bipolar disorder Current visit: No Status: Chronic Stable Qualifiers: Active/Remission status: remission status unspecified Qualified Code(s): F31.9 - Bipolar disorder, unspecified (6) Seizure disorder Current visit: No Status: Chronic No new seizures noted. (7) DVT prophylaxis Current visit: No Status: Acute No need of DVT prophylaxis as patient is going back to residential today Internal Medicine - H&P: HPI Chief complaint: fall Admitted From: Emergency Dept Plans for Post Hospital Care: Transfer [facility] Facility History of present illness: Mr. Mathew is a 47 year old male who is a quadriplegic gentleman with maximum assist. Patient is a resident of a nursing [facility] and were he was getting transferred from bed to wheelchair and at that point he was slipped and had a minimal fall. Patient was sent to the emergency room for further evaluation. Patient was complaining of right sided hip pain and this pain was neither better or worse as compared to the pain that he had in the past. Patient was evaluated in the emergency room by emergency room physician and x-ray was done. X-ray was suggestive of a minimally displaced right hip fracture. Patient was admitted to the hospital for further management. Of note: I have seen this patient in the emergency room and recommended emergency room resident physician to talk to his attending whether the patient really needs admission or not in view of the chronic nature of quadriplegia. Past Med Surg Social Fam HX - Past Medical History Medical history: CHF, hepatitis, hypertension, seizures, other Psychiatric history: anxiety, bipolar, depression - Past Surgical History Surgical History: tracheostomy, other - Social History Smoking Status: Current every day smoker Smokeless Tobacco Status: No Alcohol use: none, unknown Drug use: none - Family History Mother Living Status: Hx Family Cardiac Disorders: Yes Hx Family Respiratory Disorders: Yes Hx Family Cancer: Yes Internal Medicine - H&P: Meds Folic Acid 1 mg PO QAM 07/04/15 [History] Ipratropium/Albuterol Neb [Duoneb] 3 ml IH QID PRN 07/04/15 [History] LevETIRAcetam [Keppra] 250 mg PO BID 07/04/15 [History] Topiramate [Topamax] 150 mg PO QAM 11/05/15 [History] Acetaminophen [Tylenol] 650 mg PO Q6HR PRN 12/11/15 [History] Docusate Sodium [Dok] 100 mg PO BID 12/11/15 [History] Fluticasone/Salmeterol [Advair 250-50 Diskus] 1 puff IH BID 12/11/15 [History] Guaifenesin [Diabetic Tussin Ex] 200 mg PO Q4H PRN 12/11/15 [History] Polyvinyl Alcohol [Artificial Tears] 1 drop BOTH EYES BID 03/18/16 [History] Aspirin/Calcium Carbonate/Mag [Aspirin Buffered 325 mg Tab] 325 mg PO DAILY [History] Ketoconazole Shampoo [Nizoral Shampoo] 1 appl TP QWEEK 08/11/16 [History] Na Phos,M-B/Na Phos,Di-Ba [Fleet Enema Extra] 230 ml RC Q48H 08/11/16 [History] Furosemide [Lasix] 40 mg PO DAILY 03/24/17 [History] Melatonin 10 mg PO HS 06/27/17 [History] Potassium Chloride Elixir [Potassium Chloride] 40 meq PO DAILY 06/27/17 [History ] Scopolamine Patch [Transderm-Scop] 1.5 mg TD Q72H 06/27/17 [History] Baclofen [Lioresal] 10 mg PO BID #10 tablet 06/30/17 [Rx] Benztropine Mesylate 1 mg PO HS #30 tablet 06/30/17 [Rx] CarBAMazepine [Carbamazepine ER] 300 mg PO BID #30 tab.er.12h 06/30/17 [Rx] Ipratropium/Albuterol Neb [Duoneb] 3 ml IH QID PRN #30 inhsol 06/30/17 [Rx] Nicotine Patch [Nicoderm] 14 mg TD DAILY #30 patch.td24 06/30/17 [Rx] OLANZapine [Zyprexa] 10 mg PO BID #30 tablet 06/30/17 [Rx] OxyCODONE Immed Rel [Roxicodone 5 MG] 20 mg PO Q6H PRN #3 tablet 06/30/17 [Rx] Sertraline [Zoloft] 75 mg PO DAILY #30 tablet 06/30/17 [Rx] Trazodone HCl 100 mg PO HS #30 tablet 06/30/17 [Rx] clonazePAM [Klonopin] 2 mg PO QPM #7 tablet 06/30/17 [Rx] levoFLOXacin [Levaquin] 750 mg PO Q24H 7 Days #7 tablet 06/30/17 [Rx] 3 Allergy/AdvReac Type Severity Reaction Status Date / Time Penicillins Allergy See Verified 06/27/17 07:29 Comments All Systems PM: A 10-system review of systems was performed and is negative for pertinent findings except as documented above in the HPI. Review of systems: Patient is quadriplegic and does not move below his neck - Constitutional Constitutional: no chills, no fever(s), no night sweats - EENT Eyes: no change in vision, no discharge, no pain, no photophobia Ears: no ear discharge, no ear pain, no tinnitus Nose, mouth and throat: no dysphagia, no nasal discharge, no neck pain, no sore throat - Cardiovascular Cardiovascular ROS IM: no chest pain, no diaphoresis, no dyspnea, no lightheadedness, no palpitations, no syncope - Respiratory Respiratory: no cough, no dyspnea, no wheezing, no excessive phlegm production - Gastrointestinal Gastrointestinal: no abdominal pain, no diarrhea, no hematemesis, no hematochezia, no melena, no nausea, no vomiting - Musculoskeletal Musculoskeletal ROS IM: no numbness, no tingling - Integumentary Integumentary IM: no rash, no unusual bruising - Neurological Neurological ROS: no confusion, no convulsions, no focal weakness, no numbness, no tingling, no tremor(s) - Hematologic/Lymphatic Hematologic/Lymphatic: no easy bruising - Constitutional Vitals: Temp Pulse Resp BP Pulse Ox 98.7 F 115 18 129/87 92 07/13/17 08:35 07/13/17 08:35 07/13/17 08:35 07/13/17 08:35 07/13/17 08:35 General appearance: Present: A&O X 3, pleasant, no acute distress, answers questions appropriately Exam: Patient is quadriplegic and he does not move all his 4 extremity. - Head Head exam: Present: atraumatic, normocephalic - Eye Eye exam: Present: PERRL, conjuntiva pink, sclera anicteric Pupils: Present: PERRL - Neck Neck exam general surgery: Present: supple, trachea midline. Absent: lymphadenopathy - Respiratory Respiratory exam: Present: CTAB. Absent: accessory muscle use, rales, rhonchi, wheezes - Cardiovascular Cardiovascular exam: Present: RRR, +S1, +S2. Absent: diastolic murmur, gallop, rubs, systolic murmur - GI/Abdominal GI/Abdominal exam: Present: normal bowel sounds, soft, no peritoneal signs. Absent: distended, tenderness - Extremities Exam Extremities exam: Present: warm, radial pulses palpable and symmetrical. Absent : calf tenderness, cyanotic, pedal edema - Neurological Exam Neurological exam: Present: CN II-XII intact, oriented X3, no focal deficits. Absent: pronater drift, facial droop, speech deficit - Skin Skin exam: Present: dry, intact Internal Med - H&P Results - Labs CBC & Chem 7: 07/13/17 07:19 07/13/17 10:09 Labs: BMP 11/23/17 10:09 Sodium 143 Potassium 3.6 Chloride 103 Carbon Dioxide 29 BUN 14 Creatinine 0.57 L Glucose 102 H Calcium 9.7
[2017-07-13] MEDS ORDERED: *HR* Morphine 2 MG/ML SYRINGE IVP PRN (10:57)
[2017-07-13] MEDS ORDERED: Naloxone 0.4 MG/ML INJ IVP PRN (10:57)
[2017-07-13] MEDS ORDERED: Acetaminophen 325 MG TABLET PO PRN (10:58)
[2017-07-13] MEDS ORDERED: GuaiFENesin Liq 200 MG/10 ML UDC PO PRN (11:07)
[2017-07-13] MEDS ORDERED: *HR* OxyCODONE Immed Rel 5 MG TABLET PO PRN (11:07)
[2017-07-13] MEDS ORDERED: Ipratropium/Albuterol Neb 3 ML IH PRN ×2 (11:07)
[2017-07-13] MEDS ORDERED: Scopolamine Patch 1.5 MG PATCH.TD72 TD SCH (11:15)
[2017-07-13] MEDS ORDERED: NON-FORMULARY MEDICATION 1 EACH EACH (Na Phos,M-B/Na Phos,Di-Ba [Fleet Enema Extra] 230 ML RC SCH (11:15)
[2017-07-13] MEDS ORDERED: levoFLOXacin 750 MG TABLET PO SCH (11:15)
[2017-07-13] MEDS ORDERED: Ketoconazole Shampoo 120 ML BOTTLE TP SCH (11:15)
--- NOTE | 2017-07-13 11:21 | Discharge Summary ---
Date of Encounter: 07/13/17 Time of Encounter: 11:13 - Discharge Diagnosis (1) Intertrochanteric fracture of right femur Priority: Primary Status: Acute Qualifiers: Encounter type: initial encounter Fracture type: closed Fracture alignment: displaced Qualified Code(s): S72.141A - Displaced intertrochanteric fracture of right femur, initial encounter for closed fracture (2) Back pain Priority: Secondary Status: Chronic Qualifiers: Back pain location: low back pain Chronicity: chronic Back pain laterality: bilateral Sciatica presence: without sciatica Qualified Code(s) : M54.5 - Low back pain; G89.29 - Other chronic pain; G89.29 - Other chronic pain (3) Status post tracheostomy Priority: Secondary Status: Chronic (4) Chronic indwelling Farrell catheter Priority: Secondary Status: Chronic (5) Bipolar disorder Priority: Secondary Status: Chronic Qualifiers: Active/Remission status: remission status unspecified Qualified Code(s): F31.9 - Bipolar disorder, unspecified (6) Seizure disorder Priority: Secondary Status: Chronic (7) DVT prophylaxis Priority: Secondary Status: Acute - Discharge Medications Home Medications: Folic Acid 1 mg PO QAM 07/04/15 [History] Ipratropium/Albuterol Neb [Duoneb] 3 ml IH QID PRN 07/04/15 [History] LevETIRAcetam [Keppra] 250 mg PO BID 07/04/15 [History] Topiramate [Topamax] 150 mg PO QAM 11/05/15 [History] Acetaminophen [Tylenol] 650 mg PO Q6HR PRN 12/11/15 [History] Docusate Sodium [Dok] 100 mg PO BID 12/11/15 [History] Fluticasone/Salmeterol [Advair 250-50 Diskus] 1 puff IH BID 12/11/15 [History] Guaifenesin [Diabetic Tussin Ex] 200 mg PO Q4H PRN 12/11/15 [History] Polyvinyl Alcohol [Artificial Tears] 1 drop BOTH EYES BID 03/18/16 [History] Aspirin/Calcium Carbonate/Mag [Aspirin Buffered 325 mg Tab] 325 mg PO DAILY [History] Ketoconazole Shampoo [Nizoral Shampoo] 1 appl TP QWEEK 08/11/16 [History] Na Phos,M-B/Na Phos,Di-Ba [Fleet Enema Extra] 230 ml RC Q48H 08/11/16 [History] Furosemide [Lasix] 40 mg PO DAILY 03/24/17 [History] Melatonin 10 mg PO HS 06/27/17 [History] Potassium Chloride Elixir [Potassium Chloride] 40 meq PO DAILY 06/27/17 [History ] Scopolamine Patch [Transderm-Scop] 1.5 mg TD Q72H 06/27/17 [History] Baclofen [Lioresal] 10 mg PO BID #10 tablet 06/30/17 [Rx] Benztropine Mesylate 1 mg PO HS #30 tablet 06/30/17 [Rx] CarBAMazepine [Carbamazepine ER] 300 mg PO BID #30 tab.er.12h 06/30/17 [Rx] Ipratropium/Albuterol Neb [Duoneb] 3 ml IH QID PRN #30 inhsol 06/30/17 [Rx] Nicotine Patch [Nicoderm] 14 mg TD DAILY #30 patch.td24 06/30/17 [Rx] OLANZapine [Zyprexa] 10 mg PO BID #30 tablet 06/30/17 [Rx] OxyCODONE Immed Rel [Roxicodone 5 MG] 20 mg PO Q6H PRN #3 tablet 06/30/17 [Rx] Sertraline [Zoloft] 75 mg PO DAILY #30 tablet 06/30/17 [Rx] Trazodone HCl 100 mg PO HS #30 tablet 06/30/17 [Rx] clonazePAM [Klonopin] 2 mg PO QPM #7 tablet 06/30/17 [Rx] levoFLOXacin [Levaquin] 750 mg PO Q24H 7 Days #7 tablet 06/30/17 [Rx] Morphine Sulfate [Arymo ER] 15 mg PO Q12H 07/13/17 [History] Morphine Sulfate [Arymo ER] 30 mg PO Q12H 07/13/17 [History] Allergies/Adverse Reactions: 3 Allergy/AdvReac Type Severity Reaction Status Date / Time Penicillins Allergy See Verified 07/13/17 10:54 Comments Date of admission: 07/13/17 07:26 Primary care physician: Kevin Caro MD Discharging clinician: Malik Delvalle - Patient Status Disposition: Transfer Inpatient Rehab Fac Condition: Good Functional capacity at discharge: bed bound Overall status at discharge: patient is back to baseline - Discharge Instructions Follow Up With: Kevin Caro MD [Primary Care Provider] - - Diet and Activity Activity: as per physical therapy Diet: low fat, low cholesterol Interval History: Mr. Mathew is a 47 year old male who is a quadriplegic gentleman with maximum assist. Patient is a resident of a nursing [facility] and were he was getting transferred from bed to wheelchair and at that point he was slipped and had a minimal fall. Patient was sent to the emergency room for further evaluation. Patient was complaining of right sided hip pain and this pain was neither better or worse as compared to the pain that he had in the past. Patient was evaluated in the emergency room by emergency room physician and x-ray was done. X-ray was suggestive of a minimally displaced right hip fracture. Patient was admitted to the hospital for further management. Hospital course: Patient was evaluated by orthopedics. Orthopedic surgery does not feel that this patient is a candidate for surgery. Although patient is having a pain at her right hip joint with radiologically fracture is located but there was a pain before the fracture happened and the intensity of the pain has not changed. According to orthopedics patient can go back to custodial and follow up with them in 3 weeks. Patient is aware of the plan. Plan: Patient will go back to [facility]. Follow-up with orthopedics in 3 weeks. All questions answered by orthopedic team. - Time Spent with Patient Total time spent providing and/or coordinating discharge services: - Constitutional Vitals: Temp Pulse Resp BP Pulse Ox 98.7 F 115 18 129/87 92 07/13/17 08:35 07/13/17 08:35 07/13/17 08:35 07/13/17 08:35 07/13/17 08:35 General appearance: Present: A&O X 3, pleasant, no acute distress, answers questions appropriately Exam: This patient has a quadriplegia and he does not move 4 extremities. - Head Head exam: Present: atraumatic, normocephalic - Eye Eye exam: Present: PERRL, conjuntiva pink, sclera anicteric Pupils: Present: PERRL - Neck Neck exam general surgery: Present: supple, trachea midline. Absent: lymphadenopathy - Respiratory Respiratory exam: Present: CTAB. Absent: accessory muscle use, rales, rhonchi, wheezes - Cardiovascular Cardiovascular exam: Present: RRR, +S1, +S2. Absent: diastolic murmur, gallop, rubs, systolic murmur - GI/Abdominal GI/Abdominal exam: Present: normal bowel sounds, soft, no peritoneal signs. Absent: distended, tenderness - Extremities Exam Extremities exam: Present: warm, radial pulses palpable and symmetrical. Absent : calf tenderness, cyanotic, pedal edema - Neurological Exam Neurological exam: Present: CN II-XII intact, oriented X3, no focal deficits. Absent: pronater drift, facial droop, speech deficit - Skin Skin exam: Present: dry, intact
[2017-07-13] MEDS ORDERED: traZODone 50 MG TABLET PO SCH (21:00)
[2017-07-13] MEDS ORDERED: OLANZapine 10 MG TAB.RAPDIS PO SCH (21:00)
[2017-07-13] MEDS ORDERED: Melatonin 3 MG TABLET PO SCH (21:00)
[2017-07-13] MEDS ORDERED: CarBAMazepine XR (12 hr) 100 MG TAB PO SCH (21:00)
[2017-07-13] MEDS ORDERED: Baclofen 10 MG TABLET PO SCH (21:00)
[2017-07-13] MEDS ORDERED: Budesonide/Formoterol 80/4.5 MDI IH SCH (22:00)
[2017-07-14] MEDS ORDERED: Aspirin Enteric Coated 325 MG Tablet PO SCH (09:00)
[2017-07-14] MEDS ORDERED: Furosemide 40 MG TABLET PO SCH (09:00)
[2017-07-14] MEDS ORDERED: Potassium Chloride Elixir 20 MEQ/15 ML UDC PO SCH (09:00)
--- NOTE | 2017-07-17 09:14 | Electrocardiograph Report ---
[place] [id number] Test Date: 2017-07-13 Pat Name: Fidel Mathew Department: 104 Room: [facility] Gender: M [employer] Solderer: : 1970 Requested By: Fidel Xiao Order Number: [id number] Reading MD: David Wilburn DO Measurements Intervals [place] Rate: 109 P: 62 PA: 155 QRS: 69 QRSD: 89 T: 42 QT: 327 QTc: 391 Interpretive Statements SINUS TACHYCARDIA Electronically Signed On 07-17-2017 9:12:22 EST by David Wilburn DO
== END 2017-07-13 13:55 ==
LOC: EMEROO 05:44 → 3NENU 05:44
PROVIDERS: ADMIT Hospitalist; ATTEND Hospitalist

== ENCOUNTER 2017-07-16 02:06 | Inpatient (IN) ==
--- NOTE | 2017-07-16 02:14 | Emergency Department Note ---
Disposition Clinical Impression: Hypoxia Pneumonia Qualifiers: Pneumonia type: due to unspecified organism Laterality: left Lung location: lower lobe of lung Qualified Code(s): J18.1 - Lobar pneumonia, unspecified organism Urinary tract infection Qualifiers: Urinary tract infection type: catheter-associated UTI Indwelling urinary catheter type: indwelling urethral catheter Encounter type: initial encounter Qualified Code(s): T83.511A - Infection and inflammatory reaction due to indwelling urethral catheter, initial encounter Disposition: Admitted As Inpatient Condition: Fair Time of Disposition: 06:31 General Adult HPI - General Chief complaint: ED General Medical Stated complaint: LOW 02 SAT Time Seen by Provider: 07/16/17 02:09 Source: EMS Limitations: altered mental status Nursing Notes Reviewed: Yes Vital Signs Reviewed: Yes - History of Present Illness HPI Narrative: , 47-year-old male, presents from [facility] via EMS for reported hypopnea and hypoxia. Patient is quadriplegic, was discharged from this facility 07/13 for non-displaced closed right hip fracture with nonoperative management, is full code and reportedly on hospice. Patient was given his evening pain medications of 20 mg oxycodone. Shortly thereafter, the staff noted he was breathing of a decreased respiratory rate and hypoxic; unknown O2 saturation. Per EMS, patient was saturating at a minimum of 90-91% however, when roused, will saturate in the high 90s. PMH: Quadriplegia with full assist. Closed intertrochanteric fracture of right femur with nonoperative management, status post tracheostomy, chronic indwelling catheter, bipolar disorder, seizure disorder Pain Scale: 0 - Related Data Home Medications Medication Instructions Recorded Confirmed Folic Acid 1 mg PO QAM 07/04/15 07/13/17 Ipratropium/Albuterol Neb [Duoneb] 3 ml IH QID PRN 07/04/15 07/13/17 Topiramate [Topamax] 150 mg PO QAM 11/05/15 07/13/17 Acetaminophen [Tylenol] 650 mg PO Q6HR PRN 12/11/15 07/13/17 Docusate Sodium [Dok] 100 mg PO BID 12/11/15 07/13/17 Guaifenesin [Diabetic Tussin Ex] 10 ml PO Q4H PRN 12/11/15 07/13/17 Polyvinyl Alcohol [Artificial 1 drop BOTH EYES BID 03/18/16 07/13/17 Tears] Aspirin/Calcium Carbonate/Mag 325 mg PO DAILY 08/11/16 07/13/17 [Aspirin Buffered 325 mg Tab] Ketoconazole Shampoo [Nizoral 1 appl TP QWEEK 08/11/16 07/13/17 Shampoo] Na Phos,M-B/Na Phos,Di-Ba [Fleet 230 ml RC Q48H 08/11/16 07/13/17 Enema Extra] Furosemide [Lasix] 40 mg PO DAILY 03/24/17 07/13/17 Melatonin 10 mg PO HS 06/27/17 07/13/17 Potassium Chloride Elixir 40 meq PO DAILY 06/27/17 07/13/17 [Potassium Chloride] Scopolamine Patch [Transderm-Scop] 1 patch TD Q72H 06/27/17 07/13/17 Morphine Sulfate [Arymo ER] 15 mg PO Q12H 07/13/17 07/13/17 Morphine Sulfate [Arymo ER] 30 mg PO Q12H 07/13/17 07/13/17 Oxycodone HCl 10 mg PO Q6H 07/13/17 07/13/17 Oxycodone HCl 20 mg PO Q6H 07/13/17 07/13/17 Polyethylene Glycol 3350 [MiraLAX] 17 gm PO DAILY PRN 07/13/17 07/13/17 predniSONE [PredniSONE] 10 mg PO DAILY 07/13/17 07/13/17 Previous Rx's Medication Instructions Recorded Baclofen [Lioresal] 10 mg PO BID #10 tablet 06/30/17 Benztropine Mesylate 1 mg PO HS #30 tablet 06/30/17 CarBAMazepine [Carbamazepine ER] 300 mg PO BID #30 tab.er.12h 06/30/17 Nicotine Patch [Nicoderm] 14 mg TD DAILY #30 patch.td24 06/30/17 OLANZapine [Zyprexa] 10 mg PO BID #30 tablet 06/30/17 Sertraline [Zoloft] 75 mg PO DAILY #30 tablet 06/30/17 Trazodone HCl 100 mg PO HS #30 tablet 06/30/17 clonazePAM [Klonopin] 2 mg PO QPM #7 tablet 06/30/17 Allergies Allergy/AdvReac Type Severity Reaction Status Date / Time Penicillins Allergy See Verified 07/16/17 02:08 Comments All systems ED: reviewed and negative except as stated. Review of Systems: As Per HPI Past Medical History - Past Medical History Medical history: Reports: CHF, hepatitis, hypertension, seizures, other Surgical history: Reports: tracheostomy, other Psychiatric history: Reports: anxiety, bipolar, depression - Social History Smoking Status: Current every day smoker Smokeless Tobacco Status: No Alcohol use: Reports: none, unknown Drug use: Reports: none Physical Exam Vital Signs Reviewed General: Patient is not alert, oriented to name, and in no acute distress. HEENT: No facial asymmetry. Head is normocephalic and atraumatic. Pupils 2 mm and equally reactive to light. Oral mucosa moist. Trachea midline. Trach properly secured and clean. Cardiovascular: Heart regular rate and rhythm without clicks, rubs, gallops, or murmurs. No JVD. PMI nondisplaced. Respiratory: Symmetric chest rise with poor respiratory effort. Bilateral breath sounds have scattered wheeze without crackles or rhonchi. Abdomen: Bowel sounds present normoactive x-4 quadrants. Abdomen is soft, nondistended, and nontender. Psych: Patient's affect is appropriate for situation. - General Limitations: altered mental status General appearance: in no apparent distress Course Course Narrative: Patient presents similar to those of opioid overdose. His vitals are stable and not concerning. He is saturating well and spontaneously breathing, maintaining his oral secretions, and protecting his airway. Thank he does open his eyes when roused and his respiratory rate increases when doing so. We will draw labs, urinalysis, chest x-ray, replace his catheter, and monitor. Patient is currently on Levaquin as a solitary antibiotic. Chest x-ray concerning for pneumonia versus atelectasis. Although he is afebrile, he is saturating in the high 80s with a nonrebreather mask overlying his tracheotomy. Lung sounds are coarse. Patient comes from halfway and has been on Levaquin for an unknown duration. One must consider healthcare associated pneumonia failed outpatient therapy and this setting. Urinalysis concerning for urinary tract infection. Patient has chronic indwelling suprapubic catheter. His history of multiple urinary tract infections most likely from colonization. Microbiology from previous urine cultures shows multiple drug resistances. Will await culture. I discussed the patient with the admitting hospitalist, Dr. Whalen, who agrees to accept the patient for continued evaluation and management. Chest X-Ray 07/16/17 02:10 IMPRESSION: Atelectatic changes likely in the left lung base, early infiltrate not excluded. D/ / Kush Liu MD / Kush iLu MD Interpreting Provider: Kush Liu MD Vital Signs Temperature 99.5 F 07/16/17 02:08 Pulse Rate 80 07/16/17 02:08 Respiratory Rate 12 07/16/17 02:08 Blood Pressure 115/83 07/16/17 02:08 O2 Sat by Pulse Oximetry 95 07/16/17 02:08 Temperature 99.5 F 07/16/17 02:08 Pulse Rate 85 07/16/17 05:35 Respiratory Rate 10 07/16/17 05:35 Blood Pressure 120/82 07/16/17 05:35 O2 Sat by Pulse Oximetry 88 07/16/17 05:35 Oxygen Delivery Oxygen Delivery Non Rebreather Mask Medical Decision Making - Lab Data Result diagrams: 07/16/17 03:32 07/16/17 02:54 Lab Results 07/16/17 07/16/17 07/16/17 Range/Units 02:54 02:54 03:08 WBC (4.3-11.1) K/mcL RBC (4.19-5.50) M/mcL Hgb (12.9-16.9) g/dL Hct (37.5-50.1) % MCV (83.0-100.0) fL MCH (28.0-33.3) pg MCHC (31.6-35.5) g/dL RDW (11.5-14.5) % Plt Count (140-400) K/mcL MPV (9.4-12.4) fL Immature Gran % (0-4) % Seg Neutrophils % % Lymphocytes % % Monocytes % % Eosinophils % % Basophils % % Neutrophils # (1.6-8.9) K/mcL Lymphocytes # (0.6-4.6) K/mcL Monocytes # (0.0-1.3) K/mcL Eosinophils # (0.0-0.6) K/mcL Basophils # (0.0-0.2) K/mcL Sodium 142 (136-145) mEq/L Potassium 4.6 H D (3.5-4.5) mEq/L Chloride 109 (98-109) mEq/L Carbon Dioxide 20 (19-29) mEq/L BUN 18 (8-26) mg/dL Creatinine 0.67 L (0.72-1.25) mg/dL Est GFR ( Amer) > 60 (> 60) Est GFR (Non-Af Amer) > 60 (> 60) BUN/Creatinine Ratio 27 H (6-26) Glucose 122 H (70-99) mg/dL Calculated Osmolality 297 (280-300) Lactic Acid (0.5-2.2) mmol/L Calcium 8.8 (8.6-10.8) mg/dL Urine Color Red A (Yellow) Urine Clarity Turbid A (Clear) Urine pH 6.5 (5.0-8.0) pH Units Ur Specific [place] 1.028 H (1.010-1.025) Urine Protein 100 H (Neg-Trace) mg/dL Urine Glucose (UA) Normal (Normal) mg/dL Urine Clinitest (Negative) Urine Ketones Trace H (Negative) mg/dL Urine Blood Large H (Negative) Urine Nitrite Positive A (Negative) Urine Bilirubin Small H (Negative) Urine Urobilinogen Normal (Normal) mg/dL Ur Leukocyte Esterase Large H (Negative) Urine Microscopic RBC TNTC H (0-3) per hpf Urine Microscopic WBC TNTC H (0-3) per hpf Ur Squamous Epith Cells Moderate H (None-Few) per lpf Urine Bacteria Many H (None-Few) per hpf Hyaline Casts Few (None-Few) per lpf Ur Culture Indicated? YES A (NO) Specimen Rejected Clotted 07/16/17 07/16/17 Range/Units 03:32 06:25 WBC 11.7 H (4.3-11.1) K/mcL RBC 4.24 (4.19-5.50) M/mcL Hgb 12.9 D (12.9-16.9) g/dL Hct 41.2 (37.5-50.1) % MCV 97.2 (83.0-100.0) fL MCH 30.4 (28.0-33.3) pg MCHC 31.3 L (31.6-35.5) g/dL RDW 13.4 (11.5-14.5) % Plt Count 149 (140-400) K/mcL MPV 11.6 (9.4-12.4) fL Immature Gran % 0.4 (0-4) % Seg Neutrophils % 77.2 % Lymphocytes % 9.9 % Monocytes % 10.0 % Eosinophils % 2.2 % Basophils % 0.3 % Neutrophils # 9.0 H (1.6-8.9) K/mcL Lymphocytes # 1.2 (0.6-4.6) K/mcL Monocytes # 1.2 (0.0-1.3) K/mcL Eosinophils # 0.3 (0.0-0.6) K/mcL Basophils # 0.0 (0.0-0.2) K/mcL Sodium (136-145) mEq/L Potassium (3.5-4.5) mEq/L Chloride (98-109) mEq/L Carbon Dioxide (19-29) mEq/L BUN (8-26) mg/dL Creatinine (0.72-1.25) mg/dL Est GFR ( Amer) (> 60) Est GFR (Non-Af Amer) (> 60) BUN/Creatinine Ratio (6-26) Glucose (70-99) mg/dL Calculated Osmolality (280-300) Lactic Acid 0.6 (0.5-2.2) mmol/L Calcium (8.6-10.8) mg/dL Urine Color (Yellow) Urine Clarity (Clear) Urine pH (5.0-8.0) pH Units Ur Specific [place] (1.010-1.025) Urine Protein (Neg-Trace) mg/dL Urine Glucose (UA) (Normal) mg/dL Urine Clinitest (Negative) Urine Ketones (Negative) mg/dL Urine Blood (Negative) Urine Nitrite (Negative) Urine Bilirubin (Negative) Urine Urobilinogen (Normal) mg/dL Ur Leukocyte Esterase (Negative) Urine Microscopic RBC (0-3) per hpf Urine Microscopic WBC (0-3) per hpf Ur Squamous Epith Cells (None-Few) per lpf Urine Bacteria (None-Few) per hpf Hyaline Casts (None-Few) per lpf Ur Culture Indicated? (NO) Specimen Rejected Attestation Statement - Attestation Attestation: I, Jayson Quinonez MD, personally evaluated this patient and discussed their management with the resident physician. I reviewed the resident's note and agree with the documented findings, medical decision making, and plan of care. 47-year-old male who is a quadriplegic transferred to the emergency department from a local halfway for evaluation of his responsiveness and low oxygen saturations. Patient is well-known and seen here frequently. He was just recently in the hospital after he fell out of a wheelchair and fractured his hip. On arrival patient is very somnolent and responds minimally to physical stimuli. Vitals are normal. He usually is overmedicated and he presents this way. On examination the patient is a male quadriplegic in no distress. Breath sounds reveal diffuse coarse upper airway congestion bilaterally. Heart regular rate and rhythm. Abdomen soft with present bowel sounds. Labs reviewed. Chest x-ray showed left basilar atelectasis versus pneumonia. Significant UTI. Patient does have a chronic suprapubic catheter. The hospitalist, Dr. Whalen, was consulted and accepted admission of the patient.
[2017-07-16 03:14] LABS: BUN/Creatinine Ratio 27 (6-26); Blood Urea Nitrogen 18 mg/dL (8-26); Calcium 8.8 mg/dL (8.6-10.8); Carbon Dioxide 20 mEq/L (19-29); Chloride 109 mEq/L (98-109); Glucose 122 mg/dL (70-99); Osmolality,Calculated 297 (280-300); Potassium 4.6 mEq/L (3.5-4.5); Sodium 142 mEq/L (136-145); eGFR For African Americans > 60 (> 60); eGFR For Non-African Americans > 60 (> 60)
[2017-07-16 03:16] LABS: Bilirubin,Urine Small (Negative); Blood,Urine Large (Negative); Clarity,Urine Turbid (Clear); Color,Urine Red (Yellow); Glucose,Urine (UA) Normal (Normal); Ketones,Urine Trace mg/dL (Negative); Leukocyte Esterase,Urine Large (Negative); Nitrite,Urine Positive (Negative); PH,Urine 6.5 pH Units (5.0-8.0); Protein,Urine 100 mg/dL (Neg-Trace); Specific Gravity,Urine 1.028 (1.010-1.025); Urobilinogen,Urine Normal (Normal)
[2017-07-16 03:18] LABS: Bacteria,Urine Many per hpf (None-Few); Hyaline Casts,Urine Few per lpf (None-Few); Squamous Epithelial Cell,Urine Moderate per lpf (None-Few); WBC,Urine TNTC per hpf (0-3)
[2017-07-16 03:22] LABS: RBC,Urine TNTC per hpf (0-3)
[2017-07-16 03:40] LABS: Basophils % 0.3 %; Eosinophils # 0.3 K/mcL (0.0-0.6); Eosinophils % 2.2 %; Hematocrit 41.2 % (37.5-50.1); Hemoglobin 12.9 g/dL (12.9-16.9); Immature Granulocytes % 0.4 % (0-4); Lymphocytes # 1.2 K/mcL (0.6-4.6); Lymphocytes % 9.9 %; Mean Corpuscular HGB Conc 31.3 g/dL (31.6-35.5); Mean Corpuscular Hemoglobin 30.4 pg (28.0-33.3); Mean Corpuscular Volume 97.2 fL (83.0-100.0); Mean Platelet Volume 11.6 fL (9.4-12.4); Monocytes # 1.2 K/mcL (0.0-1.3); Platelet Count 149 K/mcL (140-400); Red Blood Count 4.24 M/mcL (4.19-5.50); Red Cell Distribution Width 13.4 % (11.5-14.5); Segmented Neutrophils % 77.2 %
[2017-07-16] MEDS ORDERED: Vancomycin 2,000 MG in D5% in Water 500 ML IVPB ONE (06:00)
--- NOTE | 2017-07-16 09:19 | Internal Med History&Physical ---
Date of Encounter: 07/16/17 Time of Encounter: 09:17 Assessment and Plan (1) Pneumonia Current visit: No Status: Acute 47/male Quadriplegic patient from long-term care facility. Recently hospitalized for right-sided hip fracture. In view of the quadriplegia and nonweightbearing status: Per orthopedic no active management. Came to emergency department for somnolence and persistent cough with yellowish expectoration via tracheostomy Plan: Admit as inpatient. In view of recent hospitalization: Vancomycin/meropenem (patient allergic to penicillin) Resume a medication. Pulmonary toilet. Antibiotic management as per culture reports. I have examined this patient in the room 2A 37 Briefly discuss plan with the patient and he verbalized understanding I received a phone call from bed management that this patient likely will transferred to stepdown unit/ICU Qualifiers: Pneumonia type: due to unspecified organism Laterality: bilateral Lung location: lower lobe of lung Qualified Code(s): J18.9 - Pneumonia, unspecified organism (2) Urinary tract infection Current visit: No Status: Acute Noted that patient has a possibility of a urinary tract infection. Patient is on meropenem. We will continue meropenem at this point. Qualifiers: Urinary tract infection type: acute cystitis Hematuria presence: with hematuria Qualified Code(s): N30.01 - Acute cystitis with hematuria (3) Sepsis Current visit: No Status: Acute Likely source lung/urinary tract. Presently on antibiotics. We will follow closely regarding infection status. Qualifiers: Sepsis type: methicillin resistant Staphylococcus aureus Qualified Code(s) : A41.02 - Sepsis due to Methicillin resistant Staphylococcus aureus (4) Bipolar disorder Current visit: No Status: Chronic Patient is known to have a bipolar disorder. Presently on the medication. We will resume his home medication. Qualifiers: Active/Remission status: remission status unspecified Qualified Code(s): F31.9 - Bipolar disorder, unspecified (5) Quadriplegia and quadriparesis Current visit: No Status: Chronic Patient is known to have a quadriplegia/quadriparesis. He is absolutely bedbound. (6) Seizure disorder Current visit: No Status: Chronic Patient is known to have a seizure disorder. We will resume his home medication. There is no active seizure noticed since admission. (7) DVT prophylaxis Current visit: No Status: Acute Heparin Medical decision making: This patient has a moderate to severe risk of worsening in spite of being on appropriate medication due to the underlying chronic comorbid condition/acuity of condition. Internal Medicine - H&P: HPI Chief complaint: Worsening shortness of breath Admitted From: Emergency Dept Plans for Post Hospital Care: Transfer [facility] Care History of present illness: PCP: Dr.Dirk Caro Brief PMH: History of quadriplegia: Long-standing, tracheostomy, history of recent right-sided fracture of hip, hypertension, seizure disorder, anxiety, bipolar disorder. History of present medical illness: Patient is a resident of longterm facility who takes care of of him since he cannot walk. The facility noted that patient is more and more somnolent and also coughing yellowish green expectoration from his tracheostomy suction as well as cough. Patient's respiratory breathing efforts were worsened in last 2 days. Patient also had a persistent cough which was not there a week ago. Patient denies chest pain, abdominal pain, nausea, vomiting, dizziness and diarrhea. The long-term care facility was concerned about mental status as well as the color of expectoration from the tracheostomy tube. That is the reason he was sent to the emergency department for further evaluation. Workup in the emergency room: Patient was evaluated in the emergency room. Basic labs were drawn. Chest x-ray was done. Chest x-ray suggestive of a left lower lobe pneumonia. This finding is consistent with the elevated WBC, radiological evidence for pneumonia and increased work of breathing along with change of the color of the sputum. Reason for admission: Possible hospital acquired pneumonia. Family history: Noncontributory Past Med Surg Social Fam HX - Past Medical History Medical history: CHF, hepatitis, hypertension, seizures, other Psychiatric history: anxiety, bipolar, depression - Past Surgical History Surgical History: tracheostomy, other - Social History Smoking Status: Current every day smoker Smokeless Tobacco Status: No Alcohol use: none, unknown Drug use: none - Family History Mother Living Status: Hx Family Cardiac Disorders: Yes Hx Family Respiratory Disorders: Yes Hx Family Cancer: Yes Internal Medicine - H&P: Meds Folic Acid 1 mg PO QAM 07/04/15 [History] Ipratropium/Albuterol Neb [Duoneb] 3 ml IH QID PRN 07/04/15 [History] Topiramate [Topamax] 150 mg PO QAM 11/05/15 [History] Acetaminophen [Tylenol] 650 mg PO Q6HR PRN 12/11/15 [History] Docusate Sodium [Dok] 100 mg PO BID 12/11/15 [History] Guaifenesin [Diabetic Tussin Ex] 10 ml PO Q4H PRN 12/11/15 [History] Polyvinyl Alcohol [Artificial Tears] 1 drop BOTH EYES BID 03/18/16 [History] Aspirin/Calcium Carbonate/Mag [Aspirin Buffered 325 mg Tab] 325 mg PO DAILY [History] Ketoconazole Shampoo [Nizoral Shampoo] 1 appl TP QWEEK 08/11/16 [History] Na Phos,M-B/Na Phos,Di-Ba [Fleet Enema Extra] 230 ml RC Q48H 08/11/16 [History] Furosemide [Lasix] 40 mg PO DAILY 03/24/17 [History] Melatonin 10 mg PO HS 06/27/17 [History] Potassium Chloride Elixir [Potassium Chloride] 40 meq PO DAILY 06/27/17 [History ] Scopolamine Patch [Transderm-Scop] 1 patch TD Q72H 06/27/17 [History] Baclofen [Lioresal] 10 mg PO BID #10 tablet 06/30/17 [Rx] Benztropine Mesylate 1 mg PO HS #30 tablet 06/30/17 [Rx] CarBAMazepine [Carbamazepine ER] 300 mg PO BID #30 tab.er.12h 06/30/17 [Rx] Nicotine Patch [Nicoderm] 14 mg TD DAILY #30 patch.td24 06/30/17 [Rx] OLANZapine [Zyprexa] 10 mg PO BID #30 tablet 06/30/17 [Rx] Sertraline [Zoloft] 75 mg PO DAILY #30 tablet 06/30/17 [Rx] Trazodone HCl 100 mg PO HS #30 tablet 06/30/17 [Rx] clonazePAM [Klonopin] 2 mg PO QPM #7 tablet 06/30/17 [Rx] Morphine Sulfate [Arymo ER] 45 mg PO Q12H 07/13/17 [History] Oxycodone HCl 30 mg PO Q6H 07/13/17 [History] Polyethylene Glycol 3350 [MiraLAX] 17 gm PO DAILY PRN 07/13/17 [History] predniSONE [PredniSONE] 10 mg PO DAILY 07/13/17 [History] 3 Allergy/AdvReac Type Severity Reaction Status Date / Time Penicillins Allergy See Verified 07/16/17 02:08 Comments ROS unobtainable: other All Systems PM: A 10-system review of systems was performed and is negative for pertinent findings except as documented above in the HPI. Patient has a tracheostomy tube and it was very difficult to cap His tracheostomy tube to get the review of system - Constitutional Vitals: Temp Pulse Resp BP Pulse Ox 99.5 F 80 18 106/74 90 07/16/17 02:08 07/16/17 07:55 07/16/17 07:55 07/16/17 07:55 07/16/17 07:55 General appearance: Present: A&O X 3, pleasant, no acute distress, answers questions appropriately Exam: I have examined this patient in unit 2A. Patient can speak when his truck urostomy is capped. Examination of head, nose, ear, eyes, tongue and cervical area did not reveal any deficiency. Patient is a quadriplegic and cannot move his both upper limbs as well as his lower limbs. - Head Head exam: Present: atraumatic, normocephalic - Eye Eye exam: Present: PERRL, conjuntiva pink, sclera anicteric Pupils: Present: PERRL - Neck Neck exam general surgery: Present: supple, trachea midline. Absent: lymphadenopathy - Respiratory Respiratory exam: Present: CTAB. Absent: accessory muscle use, rales, rhonchi, wheezes - Cardiovascular Cardiovascular exam: Present: RRR, +S1, +S2. Absent: diastolic murmur, gallop, rubs, systolic murmur - GI/Abdominal GI/Abdominal exam: Present: normal bowel sounds, soft, no peritoneal signs. Absent: distended, tenderness - Extremities Exam Extremities exam: Present: warm, radial pulses palpable and symmetrical. Absent : calf tenderness, cyanotic, pedal edema - Neurological Exam Neurological exam: Present: CN II-XII intact, oriented X3, no focal deficits. Absent: pronater drift, facial droop, speech deficit - Skin Skin exam: Present: dry, intact Internal Med - H&P Results - Labs CBC & Chem 7: 07/16/17 03:32 07/16/17 02:54
[2017-07-16] MEDS ORDERED: Naloxone 0.4 MG/ML INJ IVP PRN (09:51)
[2017-07-16] MEDS ORDERED: Ipratropium/Albuterol Neb 3 ML IH PRN (10:12)
[2017-07-16] MEDS ORDERED: GuaiFENesin Liq 200 MG/10 ML UDC PO PRN (10:12)
[2017-07-16] MEDS ORDERED: MORPHINE SULFATE 45 MG PO SCH (10:15)
[2017-07-16] MEDS ORDERED: NON-FORMULARY MEDICATION 1 EACH EACH (Na Phos,M-B/Na Phos,Di-Ba [Fleet Enema Extra] 230 ML RC SCH (10:15)
--- NOTE | 2017-07-16 11:55 | Event Note ---
Date of Encounter: 07/16/17 Time of Encounter: 09:00 Patient seen and examined. Patient has large amount of secretion, thick yellow sputum. Patient complaining of bilateral hip pain and bilateral feet pain, patient had a recent fall, patient had bilateral hip tenderness, bilateral feet tenderness, patient has history of paraplegia. Will check chest x-ray, add aerosol treatment every 4 hours, add Mucinex, and to scheduled Tylenol to help with his pain, discussed with staff hourly armida, Danica transferred to if his oxygen saturation dropped
[2017-07-16] MEDS: Meropenem 1,000 MG in Water for inj. (sterile) 10 ML IVPB SCH ×2 (12:04→21:44)
[2017-07-16] MEDS: 0.9 % Sodium Chloride 1,000 ML IVC SCH (12:04)
[2017-07-16] MEDS: *HR* OxyCODONE Immed Rel 15 MG TABLET PO SCH ×3 (12:05→20:21)
[2017-07-16] MEDS: Scopolamine Patch 1.5 MG PATCH.TD72 TD SCH (12:06)
[2017-07-16 14:03] LABS: Phosphorous 5.1 mg/dL (2.3-4.7)
[2017-07-16] MEDS ORDERED: *HR* Acetylcysteine 20% 600 MG/3 ML ORAL SYRINGE PO SCH (15:15)
[2017-07-16] MEDS: Ipratropium/Albuterol Neb 3 ML IH SCH ×3 (15:38→20:56)
[2017-07-16] MEDS: clonazePAM 1 MG TABLET PO SCH (17:04)
[2017-07-16] MEDS: *HR* Morphine Sulfate SR (12 HR) 15 MG TABLET.ER PO SCH (17:04)
[2017-07-16] MEDS: *HR* Heparin 5,000 UNIT/ML VIAL SQ SCH (17:04)
[2017-07-16] MEDS ORDERED: Vancomycin 1,500 MG in D5% in Water 250 ML IVPB SCH (18:00)
[2017-07-16] MEDS: Vancomycin 1,500 MG in D5% in Water 250 ML IVPB SCH (19:31)
[2017-07-16] MEDS: Acetylcysteine 10% 2 ML INHSOL IH SCH ×2 (20:56→22:02)
[2017-07-16] MEDS: CarBAMazepine XR (12 hr) 100 MG TAB PO SCH (21:45)
[2017-07-16] MEDS: Melatonin 3 MG TABLET PO SCH (21:45)
[2017-07-16] MEDS: traZODone 50 MG TABLET PO SCH (21:45)
[2017-07-16] MEDS: OLANZapine 10 MG TAB.RAPDIS PO SCH (21:46)
[2017-07-16] MEDS: Baclofen 10 MG TABLET PO SCH (21:46)
[2017-07-16] MEDS: Artificial Tears SOLN 15 ML BOTTLE BOTH EYES SCH (21:47)
[2017-07-16] MEDS: Ketoconazole Shampoo 120 ML BOTTLE TP SCH (21:47)
[2017-07-17] MEDS: Acetylcysteine 10% 2 ML INHSOL IH SCH ×6 (00:21→20:57)
[2017-07-17] MEDS: Ipratropium/Albuterol Neb 3 ML IH SCH ×6 (00:21→20:57)
[2017-07-17] MEDS: *HR* Heparin 5,000 UNIT/ML VIAL SQ SCH ×3 (01:22→16:18)
[2017-07-17 03:24] LABS: Basophils % 0.3 %; Eosinophils # 0.6 K/mcL (0.0-0.6); Eosinophils % 8.1 %; Hematocrit 36.5 % (37.5-50.1); Immature Granulocytes % 0.5 % (0-4); Lymphocytes # 1.3 K/mcL (0.6-4.6); Lymphocytes % 16.6 %; Mean Corpuscular HGB Conc 30.7 g/dL (31.6-35.5); Mean Corpuscular Hemoglobin 29.7 pg (28.0-33.3); Mean Corpuscular Volume 96.8 fL (83.0-100.0); Mean Platelet Volume 11.9 fL (9.4-12.4); Monocytes # 0.7 K/mcL (0.0-1.3); Monocytes % 9.3 %; Neutrophils # 5.2 K/mcL (1.6-8.9); Platelet Count 139 K/mcL (140-400); Red Blood Count 3.77 M/mcL (4.19-5.50); Red Cell Distribution Width 13.2 % (11.5-14.5); Segmented Neutrophils % 65.2 %
[2017-07-17 03:28] LABS: Hemoglobin 11.2 g/dL (12.9-16.9)
[2017-07-17 03:31] LABS: INR 1.1; Prothrombin Time 11.4 Seconds (9.4-12.1)
[2017-07-17 03:33] LABS: Activated Partial Thrombo Time 25.6 Seconds (26.0-36.0)
[2017-07-17 03:48] LABS: Alanine Aminotransferase 28 Units/L (0-55); Albumin 2.7 g/dL (3.5-5.0); Albumin/Globulin Ratio 0.7 (1.1-2.2); Alkaline Phosphatase 83 Units/L (38-126); Aspartate Amino Transferase 26 Units/L (5-34); BUN/Creatinine Ratio 25 (6-26); Bilirubin,Total 0.8 mg/dL (0.2-1.2); Blood Urea Nitrogen 13 mg/dL (8-26); Calcium 8.8 mg/dL (8.6-10.8); Carbon Dioxide 26 mEq/L (19-29); Chloride 104 mEq/L (98-109); Globulin 3.7 g/dL (2.4-3.5); Glucose 74 mg/dL (70-99); Magnesium 1.8 mg/dL (1.6-2.6); Osmolality,Calculated 287 (280-300); Phosphorous 3.5 mg/dL (2.3-4.7); Sodium 139 mEq/L (136-145); Total Protein 6.4 g/dL (6.0-8.3); eGFR For African Americans > 60 (> 60); eGFR For Non-African Americans > 60 (> 60)
[2017-07-17 04:21] LABS: Potassium 2.9 mEq/L (3.5-4.5)
[2017-07-17] MEDS: Meropenem 1,000 MG in Water for inj. (sterile) 10 ML IVPB SCH ×3 (04:37→20:40)
[2017-07-17] MEDS: *HR* OxyCODONE Immed Rel 15 MG TABLET PO SCH ×2 (04:38→11:41)
[2017-07-17] MEDS: 0.9 % Sodium Chloride 1,000 ML IVC SCH (04:38)
[2017-07-17] MEDS: Vancomycin 1,500 MG in D5% in Water 250 ML IVPB SCH ×2 (06:44→18:26)
[2017-07-17] MEDS: *HR* Morphine Sulfate SR (12 HR) 15 MG TABLET.ER PO SCH ×2 (07:08→18:29)
[2017-07-17] MEDS: Topiramate 100 MG TABLET PO SCH (10:00)
[2017-07-17] MEDS: Aspirin 325 MG TABLET PO SCH (10:00)
[2017-07-17] MEDS: Nicotine 14 MG PATCH.TD24 TD SCH (10:00)
[2017-07-17] MEDS: CarBAMazepine XR (12 hr) 100 MG TAB PO SCH ×2 (10:00→20:47)
[2017-07-17] MEDS: Folic Acid 1 MG TABLET PO SCH (10:01)
[2017-07-17] MEDS: Artificial Tears SOLN 15 ML BOTTLE BOTH EYES SCH (10:01)
[2017-07-17] MEDS: predniSONE 10 MG TABLET PO SCH (10:01)
[2017-07-17] MEDS: Baclofen 10 MG TABLET PO SCH ×2 (10:01→20:49)
[2017-07-17] MEDS: OLANZapine 10 MG TAB.RAPDIS PO SCH ×2 (10:01→20:46)
--- NOTE | 2017-07-17 15:54 | Internal Med Progress Note ---
Date of Encounter: 07/17/17 Time of Encounter: 15:51 - Assessment and plan (1) Pneumonia Current Visit: No Status: Acute Assessment and plan: Day 2 hospitalization day 2 meropenum/Vanco Blood culture negative urine culture : GNR plan will continue abx awaiting for culture and sensitivity Qualifiers: Pneumonia type: due to unspecified organism Laterality: bilateral Lung location: lower lobe of lung Qualified Code(s): J18.9 - Pneumonia, unspecified organism (2) Urinary tract infection Current Visit: No Status: Acute Assessment and plan: see above Qualifiers: Urinary tract infection type: acute cystitis Hematuria presence: with hematuria Qualified Code(s): N30.01 - Acute cystitis with hematuria (3) Sepsis Current Visit: No Status: Acute Assessment and plan: likely source PNA/Urine on broad spectrum abx Qualifiers: Sepsis type: methicillin resistant Staphylococcus aureus Qualified Code(s) : A41.02 - Sepsis due to Methicillin resistant Staphylococcus aureus (4) Bipolar disorder Current Visit: No Status: Chronic Assessment and plan: stable Qualifiers: Active/Remission status: remission status unspecified Qualified Code(s): F31.9 - Bipolar disorder, unspecified (5) Quadriplegia and quadriparesis Current Visit: No Status: Chronic Assessment and plan: stable (6) Seizure disorder Current Visit: No Status: Chronic Assessment and plan: no new szd (7) DVT prophylaxis Current Visit: No Status: Acute Assessment and plan: continue same - Subjective Interval history: patient seen and examined chart reviewed patient has minimal secretions upon suction still yellowish green in color. - Constitutional Vitals: Temp Pulse Resp BP Pulse Ox 98.2 F 87 16 106/70 94 07/17/17 10:55 07/17/17 10:55 07/17/17 11:11 07/17/17 10:55 07/17/17 11:11 General appearance: Present: A&O X 3, pleasant, no acute distress, answers questions appropriately Exam: patient is quadruplegic and has no movements of arms and legs but he does have sensations. - Head Head exam: Present: atraumatic, normocephalic - Eye Eye exam: Present: PERRL, conjuntiva pink, sclera anicteric Pupils: Present: PERRL - Neck Neck exam general surgery: Present: supple, trachea midline. Absent: lymphadenopathy - Respiratory Respiratory exam: Present: CTAB. Absent: accessory muscle use, rales, rhonchi, wheezes - Cardiovascular Cardiovascular exam: Present: RRR, +S1, +S2. Absent: diastolic murmur, gallop, rubs, systolic murmur - GI/Abdominal GI/Abdominal exam: Present: normal bowel sounds, soft, no peritoneal signs. Absent: distended, tenderness - Extremities Exam Extremities exam: Present: warm, radial pulses palpable and symmetrical. Absent : calf tenderness, cyanotic, pedal edema - Neurological Exam Neurological exam: Present: CN II-XII intact, oriented X3, no focal deficits. Absent: pronater drift, facial droop, speech deficit - Skin Skin exam: Present: dry, intact Internal Medicine: Result - Labs CBC & Chem 7: 07/17/17 02:46 07/17/17 02:46 Labs: Short CBC 07/17/17 Range/Units 02:46 WBC 7.9 (4.3-11.1) K/mcL Hgb 11.2 L D (12.9-16.9) g/dL Hct 36.5 L (37.5-50.1) % Plt Count 139 L (140-400) K/mcL Neutrophils # 5.2 (1.6-8.9) K/mcL BMP 07/17/17 02:46 Sodium 139 Potassium 2.9 L D Chloride 104 Carbon Dioxide 26 BUN 13 Creatinine 0.51 L Glucose 74 Calcium 8.8 Liver Function 07/17/17 Range/Units 02:46 Total Bilirubin 0.8 (0.2-1.2) mg/dL AST 26 (5-34) Units/L ALT 28 (0-55) Units/L Alkaline Phosphatase 83 (38-126) Units/L Albumin 2.7 L (3.5-5.0) g/dL - ABG Interpretation ABG results: PT/INR, D-dimer PT 11.4 Seconds (9.4-12.1) 07/17/17 02:46 Consult Discharge Plan - Plan Referrals: Kevin Caro MD [Primary Care Provider] -
[2017-07-17] MEDS: clonazePAM 1 MG TABLET PO SCH (18:29)
[2017-07-17] MEDS: *HR* OxyCODONE Immed Rel 15 MG TABLET PO PRN (20:45)
[2017-07-17] MEDS: Melatonin 3 MG TABLET PO SCH (20:48)
[2017-07-17] MEDS: traZODone 50 MG TABLET PO SCH (20:49)
[2017-07-18] MEDS: Acetylcysteine 10% 2 ML INHSOL IH SCH ×6 (01:11→21:28)
[2017-07-18] MEDS: Ipratropium/Albuterol Neb 3 ML IH SCH ×7 (01:12→21:29)
[2017-07-18] MEDS: Artificial Tears SOLN 15 ML BOTTLE BOTH EYES SCH ×3 (01:24→21:44)
[2017-07-18] MEDS: *HR* Heparin 5,000 UNIT/ML VIAL SQ SCH ×4 (01:26→23:54)
[2017-07-18] MEDS: Meropenem 1,000 MG in Water for inj. (sterile) 10 ML IVPB SCH ×3 (05:50→20:03)
[2017-07-18] MEDS: Vancomycin 1,500 MG in D5% in Water 250 ML IVPB SCH (05:52)
[2017-07-18] MEDS: *HR* Morphine Sulfate SR (12 HR) 15 MG TABLET.ER PO SCH ×2 (05:52→17:38)
[2017-07-18] MEDS: Topiramate 100 MG TABLET PO SCH (09:07)
[2017-07-18] MEDS: CarBAMazepine XR (12 hr) 100 MG TAB PO SCH ×2 (09:07→20:02)
[2017-07-18] MEDS: Aspirin 325 MG TABLET PO SCH (09:07)
[2017-07-18] MEDS: Baclofen 10 MG TABLET PO SCH ×2 (09:08→20:02)
[2017-07-18] MEDS: predniSONE 10 MG TABLET PO SCH (09:08)
[2017-07-18] MEDS: OLANZapine 10 MG TAB.RAPDIS PO SCH ×2 (09:08→20:02)
[2017-07-18] MEDS: Folic Acid 1 MG TABLET PO SCH (09:08)
[2017-07-18] MEDS: Nicotine 14 MG PATCH.TD24 TD SCH (09:09)
[2017-07-18] MEDS: *HR* OxyCODONE Immed Rel 15 MG TABLET PO PRN (11:14)
--- NOTE | 2017-07-18 15:23 | Internal Med Progress Note ---
<Mark Russo - Last Filed: 07/18/17 16:17> Date of Encounter: 07/18/17 - Constitutional Vitals: Temp Pulse Resp BP Pulse Ox 98.5 F 72 16 105/71 96 07/18/17 16:06 07/18/17 16:06 07/18/17 16:06 07/18/17 16:06 07/18/17 16:06 Internal Medicine: Result - Labs CBC & Chem 7: 07/17/17 02:46 07/17/17 02:46 - ABG Interpretation ABG results: PT/INR, D-dimer PT 11.4 Seconds (9.4-12.1) 07/17/17 02:46 Consult Discharge Plan - Plan Referrals: Kevin Caro MD [Primary Care Provider] - - Attending Attestation I independently saw and examined this patient on 07/18/17, plan of care is as detailed in the resident physician's documentation 47 M s/p trach, admitted for Sepsis secondary to Proteus UTI and Pneumonia he also complains of pain on the hip and has abdominal gaseous distention, he is not having adequate BM, he has purulent discharge from his trach His chest is ronchorous Labs and Imaging reviewed: Hypokalemia, K 2.9, vanco trough noted, U culture with proteus, sensitive to meropenem Plan is to replace K, send trach aspirate for culture, continue current antibiotics He will need 14 days minimum, IV antibiotics Add senna-plus Rest as in resident physician's documentation <Eugene Campbell - Last Filed: 07/18/17 16:42> Date of Encounter: 07/18/17 Time of Encounter: 13:30 - Assessment and plan (1) Pneumonia Current Visit: No Status: Acute Assessment and plan: CXR performed on 07/16/17: Concerning for pneumonia versus atelectasis. Patient has crackles throughout his lungs. Blood CX on 07/16/17 was negative. Plan: -Vancomycin 1500 mg IV Q12. Started 07/16/17; day 3 of antibiotics. -Acetylcysteine 10% 2 mL Q4. -Robitussin 200 mg PO Q4. -Prednisone 10 mg PO daily. -DuoNeb 3ml IH Q4 PRN. -Trach CX Qualifiers: Pneumonia type: due to unspecified organism Laterality: bilateral Lung location: lower lobe of lung Qualified Code(s): J18.9 - Pneumonia, unspecified organism (2) Complicated UTI (urinary tract infection) Current Visit: No Status: Acute Assessment and plan: Initial UA was concerning for possible UTI. Patient has chronic indwelling suprapubic catheter. History of multiple UTIs. Urine culture performed on 07/16/17: Proteus mirabilis; sensitive to meropenem, ertapenem, tobramycin Plan: -Patient was started on meropenem 1000 mg IV Q8 on 07/16/17; day 3. (3) DVT prophylaxis Current Visit: No Status: Acute Assessment and plan: Heparin 5000 SQ Q8 (4) Abdominal distension Current Visit: Yes Status: Acute Assessment and plan: Patient's abdomen is firm, distended, nontender. Patient will be given stool softener for constipation. (5) Bipolar disorder Current Visit: No Status: Chronic Assessment and plan: Patient's condition is stable. Qualifiers: Active/Remission status: remission status unspecified Qualified Code(s): F31.9 - Bipolar disorder, unspecified (6) Hip pain Current Visit: Yes Status: Acute Assessment and plan: Patient complained of hip pain this afternoon. He stated that he had not been receiving his pain medications. Plan: -Roxicodone 30 mg PO Q6 PRN; Patient instructed to ask for his pain meds when he is experiencing pain. -Morphine sulfate SR 45 mg PO Q12 Qualifiers: Qualified Code(s): M25.559 - Pain in unspecified hip - Subjective Interval history: Patient is a 47-year-old male who presented from [facility] for low respiratory rate and hypoxia. Patient is a quadriplegic. He was discharged from the facility on 07/13/17 for a nondisplaced closed right hip fracture that was managed nonoperatively. He was given his evening medication of 20 mg oxycodone. After this, he had a decreased respiratory rate and became hypoxic. His O2 saturation was unknown at the time. Per EMS, O2 sat 90-91%. When he was aroused, increased to high 90s. Patient's vital signs were stable on admission. CXR on 07/16/17 concerning for pneumonia versus atelectasis. He had coarse lung sounds. Patient being treated for suspected HCAP. Vancomycin 1500 IV Q12 was started on 07/16/17 (day 3). UA was concerning for a possible UTI. He has a chronic indwelling suprapubic catheter. Patient has a history of multiple UTIs in the past. Urine cx was performed on 07/16/17: Proteus mirabilis sensitive to meropenem, tobramycin, and ertapenem. Was started on meropenem 1000 mg IV Q8 on 07/16/17 (day 3) White count on 07/16/17 was 11.7; has since decreased to 7.9. Patient was seen and examined at bedside this afternoon. Patient reports that he is not having any difficulty breathing. He does however report that his pain in his hip has not resolved. He reports that he has not been getting any of his pain medications. Patient does not complain of any GI distress or abdominal pain. He does not complain of pain anywhere besides his hip. Abdomen is visibly distended. He has no other complaints at this time. - Constitutional Vitals: Temp Pulse Resp BP Pulse Ox 98.8 F 94 20 108/76 96 07/18/17 11:00 07/18/17 11:00 07/18/17 11:29 07/18/17 11:00 07/18/17 11:29 General appearance: Present: A&O X 3, pleasant, no acute distress, answers questions appropriately Exam: Patient has difficulty speaking due to tracheostomy. - Head Head exam: Present: atraumatic, normocephalic - Eye Eye exam: Present: PERRL, conjuntiva pink, sclera anicteric Pupils: Present: PERRL - Neck Neck exam general surgery: Present: supple, trachea midline. Absent: lymphadenopathy Additional comments: Trach visualized; purulent drainage present. - Respiratory Respiratory exam: Present: rales. Absent: accessory muscle use, rhonchi, wheezes Additional comments: Patient has crackles present in all lung ibanez. - Cardiovascular Cardiovascular exam: Present: RRR, +S1, +S2. Absent: diastolic murmur, gallop, rubs, systolic murmur - GI/Abdominal GI/Abdominal exam: Present: distended, firm, normal bowel sounds. Absent: tenderness Additional comments: Patient's abdomen appears distended. He has no pain in his abdomen. Normoactive bowel sounds. - Neurological Exam Neurological exam: Present: no focal deficits - Skin Skin exam: Present: dry, intact Internal Medicine: Result - Labs CBC & Chem 7: 07/17/17 02:46 07/17/17 02:46 - ABG Interpretation ABG results: PT/INR, D-dimer PT 11.4 Seconds (9.4-12.1) 07/17/17 02:46
[2017-07-18] MEDS: clonazePAM 1 MG TABLET PO SCH (17:38)
[2017-07-18] MEDS: Vancomycin 1,000 MG in D5% in Water 250 ML IVPB SCH (17:39)
[2017-07-18] MEDS: Melatonin 3 MG TABLET PO SCH (20:01)
[2017-07-18] MEDS: traZODone 50 MG TABLET PO SCH (20:03)
[2017-07-19] MEDS: Acetylcysteine 10% 2 ML INHSOL IH SCH ×7 (00:20→23:31)
[2017-07-19] MEDS: Ipratropium/Albuterol Neb 3 ML IH SCH ×6 (03:42→23:31)
[2017-07-19] MEDS: Meropenem 1,000 MG in Water for inj. (sterile) 10 ML IVPB SCH ×3 (04:13→21:22)
[2017-07-19] MEDS: *HR* Morphine Sulfate SR (12 HR) 15 MG TABLET.ER PO SCH ×2 (04:16→17:58)
[2017-07-19] MEDS: Vancomycin 1,000 MG in D5% in Water 250 ML IVPB SCH ×2 (06:03→17:56)
[2017-07-19 06:30] LABS: BUN/Creatinine Ratio 19 (6-26); Blood Urea Nitrogen 9 mg/dL (8-26); Carbon Dioxide 26 mEq/L (19-29); Chloride 103 mEq/L (98-109); Glucose 93 mg/dL (70-99); Osmolality,Calculated 284 (280-300); Potassium 3.6 mEq/L (3.5-4.5); Sodium 138 mEq/L (136-145); eGFR For African Americans > 60 (> 60); eGFR For Non-African Americans > 60 (> 60)
[2017-07-19 06:33] LABS: Basophils % 0.3 %; Eosinophils # 0.4 K/mcL (0.0-0.6); Eosinophils % 6.2 %; Hematocrit 37.2 % (37.5-50.1); Hemoglobin 11.7 g/dL (12.9-16.9); Immature Granulocytes % 0.6 % (0-4); Lymphocytes # 1.1 K/mcL (0.6-4.6); Lymphocytes % 16.8 %; Mean Corpuscular HGB Conc 31.5 g/dL (31.6-35.5); Mean Corpuscular Hemoglobin 29.9 pg (28.0-33.3); Mean Corpuscular Volume 95.1 fL (83.0-100.0); Mean Platelet Volume 12.1 fL (9.4-12.4); Monocytes # 0.7 K/mcL (0.0-1.3); Monocytes % 10.5 %; Neutrophils # 4.1 K/mcL (1.6-8.9); Platelet Count 149 K/mcL (140-400); Red Blood Count 3.91 M/mcL (4.19-5.50); Red Cell Distribution Width 13.2 % (11.5-14.5); Segmented Neutrophils % 65.6 %
[2017-07-19] MEDS: Baclofen 10 MG TABLET PO SCH ×2 (09:00→21:38)
[2017-07-19] MEDS: Aspirin 325 MG TABLET PO SCH (09:01)
[2017-07-19] MEDS: Sennosides/Docusate Sodium TABLET PO SCH ×2 (09:01→21:38)
[2017-07-19] MEDS: OLANZapine 10 MG TAB.RAPDIS PO SCH ×2 (09:01→21:37)
[2017-07-19] MEDS: Topiramate 100 MG TABLET PO SCH (09:01)
[2017-07-19] MEDS: CarBAMazepine XR (12 hr) 100 MG TAB PO SCH ×2 (09:01→21:38)
[2017-07-19] MEDS: predniSONE 10 MG TABLET PO SCH (09:02)
[2017-07-19] MEDS: Folic Acid 1 MG TABLET PO SCH (09:02)
[2017-07-19] MEDS: Nicotine 14 MG PATCH.TD24 TD SCH (09:02)
[2017-07-19] MEDS: Artificial Tears SOLN 15 ML BOTTLE BOTH EYES SCH ×2 (09:04→21:22)
[2017-07-19] MEDS: *HR* Heparin 5,000 UNIT/ML VIAL SQ SCH ×2 (09:07→16:01)
[2017-07-19] MEDS: Scopolamine Patch 1.5 MG PATCH.TD72 TD SCH (10:40)
[2017-07-19] MEDS: *HR* OxyCODONE Immed Rel 15 MG TABLET PO PRN (11:29)
--- NOTE | 2017-07-19 14:53 | Internal Med Progress Note ---
<Mark Russo - Last Filed: 07/19/17 16:00> Date of Encounter: 07/19/17 - Constitutional Vitals: Temp Pulse Resp BP Pulse Ox 98.1 F 73 18 105/78 94 07/19/17 11:39 07/19/17 11:39 07/19/17 11:51 07/19/17 11:39 07/19/17 11:51 Internal Medicine: Result - Labs CBC & Chem 7: 07/19/17 05:58 07/19/17 05:58 Labs: Short CBC 07/19/17 Range/Units 05:58 WBC 6.3 (4.3-11.1) K/mcL Hgb 11.7 L (12.9-16.9) g/dL Hct 37.2 L (37.5-50.1) % Plt Count 149 (140-400) K/mcL Neutrophils # 4.1 (1.6-8.9) K/mcL BMP 07/18/17 07/19/17 18:03 05:58 Sodium 138 Potassium 4.0 D 3.6 Chloride 103 Carbon Dioxide 26 BUN 9 Creatinine 0.48 L Glucose 93 Calcium 9.0 - ABG Interpretation ABG results: PT/INR, D-dimer PT 11.4 Seconds (9.4-12.1) 07/17/17 02:46 Consult Discharge Plan - Plan Referrals: Kevin Caro MD [Primary Care Provider] - - Attending Attestation I independently saw and examined this patient on 07/19/17, plan of care is as detailed in the resident physician's documentation 47 M s/p trach, admitted for Sepsis secondary to Proteus UTI and Pneumonia He denies new complains, his R hip pain has improved, he continues to have purulent/serous discharge from his trach. Chest exam with diffuse rhonchi anteriorly Labs and Imaging reviewed: CBC and Chem unremarkable, Trach aspirate culture is pending Place EPIV, continue current antibiotics, high risk due to use of Vancomycin with high risk of toxicity and need for monitoring. Follow final sputum/trach culture, will de-escalate with cultures Rest as in resident physician's documentation <Eugene Campbell - Last Filed: 07/19/17 16:17> Date of Encounter: 07/19/17 Time of Encounter: 09:30 - Assessment and plan (1) Pneumonia Current Visit: No Status: Acute Assessment and plan: CXR performed on 07/16/17: Concerning for pneumonia versus atelectasis. Blood CX on 07/16/17 was negative. Awaiting trach culture. Lungs were clear on physical examination this morning. Plan: -Vancomycin 1500 mg IV Q12. Started 07/16/17; day 4 of antibiotics. -Acetylcysteine 10% 2 mL Q4. -Robitussin 200 mg PO Q4. -Prednisone 10 mg PO daily. -DuoNeb 3ml IH Q4 PRN. -Trach CX pending. Qualifiers: Pneumonia type: due to unspecified organism Laterality: bilateral Lung location: lower lobe of lung Qualified Code(s): J18.9 - Pneumonia, unspecified organism (2) Complicated UTI (urinary tract infection) Current Visit: No Status: Acute Assessment and plan: Initial UA was concerning for possible UTI. Patient has chronic indwelling suprapubic catheter. History of multiple UTIs. Urine culture performed on 07/16/17: Proteus mirabilis; sensitive to meropenem, ertapenem, tobramycin Plan: -Patient was started on meropenem 1000 mg IV Q8 on 07/16/17; day 4. (3) DVT prophylaxis Current Visit: No Status: Acute Assessment and plan: Heparin 5000 SQ Q8 (4) Abdominal distension Current Visit: Yes Status: Acute Assessment and plan: Patient's abdomen is firm, distended, nontender. -Hypoactive bowel sounds. -Senna plus has been ordered. (5) Bipolar disorder Current Visit: No Status: Chronic Assessment and plan: Patient's condition is stable. Qualifiers: Active/Remission status: remission status unspecified Qualified Code(s): F31.9 - Bipolar disorder, unspecified (6) Hip pain Current Visit: Yes Status: Acute Assessment and plan: Patient has pain in his hip secondary to a fall. Plan: -Roxicodone 30 mg PO Q6 PRN; Patient instructed to ask for his pain meds when he is experiencing pain. -Morphine sulfate SR 45 mg PO Q12 Qualifiers: Qualified Code(s): M25.559 - Pain in unspecified hip - Subjective Interval history: Patient was seen and examined at bedside this afternoon. Patient reports that he is not having any difficulty breathing. He reports that his hip pain has improved from yesterday. Patient has been instructed to request pain medication as needed when he experiences pain in his hip. Patient's abdomen is still visibly distended. Has been given senna plus. Denies shortness of breath , fever, chills, or GI distress. He has no complaints at this time. - Constitutional Vitals: Temp Pulse Resp BP Pulse Ox 98.1 F 73 18 105/78 94 07/19/17 11:39 07/19/17 11:39 07/19/17 11:51 07/19/17 11:39 07/19/17 11:51 General appearance: Present: A&O X 3, pleasant, no acute distress, answers questions appropriately - Head Head exam: Present: atraumatic, normocephalic - Eye Eye exam: Present: PERRL, conjuntiva pink, sclera anicteric Pupils: Present: PERRL - Neck Neck exam general surgery: Present: supple, trachea midline. Absent: lymphadenopathy Additional comments: Trach observed - Respiratory Respiratory exam: Absent: accessory muscle use, rales, rhonchi, wheezes - Cardiovascular Cardiovascular exam: Present: RRR, +S1, +S2. Absent: diastolic murmur, gallop, rubs, systolic murmur - GI/Abdominal GI/Abdominal exam: Present: distended, firm, hypoactive bowel sounds. Absent: tenderness - Skin Skin exam: Present: dry, intact Internal Medicine: Result - Labs CBC & Chem 7: 07/19/17 05:58 07/19/17 05:58 Labs: Short CBC 07/19/17 Range/Units 05:58 WBC 6.3 (4.3-11.1) K/mcL Hgb 11.7 L (12.9-16.9) g/dL Hct 37.2 L (37.5-50.1) % Plt Count 149 (140-400) K/mcL Neutrophils # 4.1 (1.6-8.9) K/mcL BMP 07/18/17 07/19/17 18:03 05:58 Sodium 138 Potassium 4.0 D 3.6 Chloride 103 Carbon Dioxide 26 BUN 9 Creatinine 0.48 L Glucose 93 Calcium 9.0 - ABG Interpretation ABG results: PT/INR, D-dimer PT 11.4 Seconds (9.4-12.1) 07/17/17 02:46
[2017-07-19] MEDS: clonazePAM 1 MG TABLET PO SCH (17:58)
[2017-07-19] MEDS: Melatonin 3 MG TABLET PO SCH (21:00)
[2017-07-19] MEDS: traZODone 50 MG TABLET PO SCH (21:38)
[2017-07-20] MEDS: *HR* Heparin 5,000 UNIT/ML VIAL SQ SCH ×3 (01:15→17:28)
[2017-07-20] MEDS: Ipratropium/Albuterol Neb 3 ML IH SCH ×6 (03:41→23:48)
[2017-07-20] MEDS: Acetylcysteine 10% 2 ML INHSOL IH SCH ×6 (03:42→23:48)
[2017-07-20 04:03] LABS: Basophils % 0.3 %; Eosinophils # 0.4 K/mcL (0.0-0.6); Eosinophils % 5.9 %; Hematocrit 36.2 % (37.5-50.1); Hemoglobin 11.3 g/dL (12.9-16.9); Immature Granulocytes % 0.5 % (0-4); Lymphocytes # 1.2 K/mcL (0.6-4.6); Mean Corpuscular HGB Conc 31.2 g/dL (31.6-35.5); Mean Platelet Volume 12.2 fL (9.4-12.4); Monocytes # 0.7 K/mcL (0.0-1.3); Monocytes % 11.1 %; Neutrophils # 4.3 K/mcL (1.6-8.9); Platelet Count 164 K/mcL (140-400); Red Blood Count 3.77 M/mcL (4.19-5.50); Red Cell Distribution Width 13.2 % (11.5-14.5); Segmented Neutrophils % 64.2 %
[2017-07-20 04:32] LABS: BUN/Creatinine Ratio 21 (6-26); Blood Urea Nitrogen 9 mg/dL (8-26); Calcium 9.1 mg/dL (8.6-10.8); Carbon Dioxide 27 mEq/L (19-29); Chloride 104 mEq/L (98-109); Glucose 99 mg/dL (70-99); Osmolality,Calculated 285 (280-300); Potassium 3.8 mEq/L (3.5-4.5); Sodium 138 mEq/L (136-145); eGFR For African Americans > 60 (> 60); eGFR For Non-African Americans > 60 (> 60)
[2017-07-20] MEDS: Meropenem 1,000 MG in Water for inj. (sterile) 10 ML IVPB SCH ×3 (04:48→20:00)
[2017-07-20] MEDS: Vancomycin 1,000 MG in D5% in Water 250 ML IVPB SCH ×2 (06:07→17:26)
[2017-07-20] MEDS ORDERED: 0.9 % Sodium Chloride 1,000 ML IVC ONE (08:03)
--- NOTE | 2017-07-20 09:18 | Internal Med Progress Note ---
<Mark Russo - Last Filed: 07/20/17 13:53> Date of Encounter: 07/20/17 - Constitutional Vitals: Temp Pulse Resp BP Pulse Ox 97.4 F L 90 18 111/94 93 07/20/17 11:21 07/20/17 11:21 07/20/17 11:25 07/20/17 11:21 07/20/17 11:25 Internal Medicine: Result - Labs CBC & Chem 7: 07/20/17 03:29 07/20/17 03:29 Labs: Short CBC 07/20/17 Range/Units 03:29 WBC 6.7 (4.3-11.1) K/mcL Hgb 11.3 L (12.9-16.9) g/dL Hct 36.2 L (37.5-50.1) % Plt Count 164 (140-400) K/mcL Neutrophils # 4.3 (1.6-8.9) K/mcL BMP 07/20/17 03:29 Sodium 138 Potassium 3.8 Chloride 104 Carbon Dioxide 27 BUN 9 Creatinine 0.43 L Glucose 99 Calcium 9.1 - ABG Interpretation ABG results: PT/INR, D-dimer PT 11.4 Seconds (9.4-12.1) 07/17/17 02:46 Consult Discharge Plan - Plan Referrals: Kevin Caro MD [Primary Care Provider] - (patient will follow up with [facility] ) Prescriptions: Meropenem [Merrem] 1,000 mg IVPB Q8HR #27 vial - Attending Attestation I independently saw and examined this patient on 07/20/17, plan of care is as detailed in the resident physician's documentation 47 M s/p trach, admitted for Sepsis secondary to Proteus UTI and Pneumonia He denies new complains, his R hip pain has improved, trach secretions have improved Chest exam shows improved aeration, few rhonci Chronic venous stasis changes on the LE Labs and Imaging reviewed: CBC and Chem unremarkable, Trach aspirate culture is pending Continue current antibiotics, high risk due to use of Vancomycin with high risk of toxicity and need for monitoring. Follow final sputum/trach culture, will de- escalate with cultures Add lactulose for constipation Rest as in resident physician's documentation <Eugene Campbell - Last Filed: 07/20/17 15:37> Date of Encounter: 07/20/17 Time of Encounter: 08:45 - Assessment and plan (1) Pneumonia Current Visit: No Status: Acute Assessment and plan: CXR performed on 07/16/17: Concerning for pneumonia versus atelectasis. Blood CX on 07/16/17 was negative. Sputum culture: Gram-positive diplococci Plan: -Vancomycin 1500 mg IV Q12. Started 07/16/17; day 5 of antibiotics. -Acetylcysteine 10% 2 mL Q4. -Robitussin 200 mg PO Q4. -Prednisone 10 mg PO daily. -DuoNeb 3ml IH Q4 PRN. Qualifiers: Pneumonia type: due to unspecified organism Laterality: bilateral Lung location: lower lobe of lung Qualified Code(s): J18.9 - Pneumonia, unspecified organism (2) Complicated UTI (urinary tract infection) Current Visit: No Status: Acute Assessment and plan: Initial UA was concerning for possible UTI. Patient has chronic indwelling suprapubic catheter. History of multiple UTIs. Urine culture performed on 07/16/17: Proteus mirabilis; sensitive to meropenem, ertapenem, tobramycin Plan: -Patient was started on meropenem 1000 mg IV Q8 on 07/16/17; day 5. (3) DVT prophylaxis Current Visit: No Status: Acute Assessment and plan: Heparin 5000 SQ Q8 (4) Abdominal distension Current Visit: Yes Status: Acute Assessment and plan: Patient's abdomen is firm, distended, nontender. (5) Bipolar disorder Current Visit: No Status: Chronic Assessment and plan: Patient's condition is stable. Qualifiers: Active/Remission status: remission status unspecified Qualified Code(s): F31.9 - Bipolar disorder, unspecified (6) Hip pain Current Visit: Yes Status: Acute Assessment and plan: Patient's pain is currently well controlled. Plan: -Roxicodone 30 mg PO Q6 PRN -Morphine sulfate SR 45 mg PO Q12 Qualifiers: Qualified Code(s): M25.559 - Pain in unspecified hip - Subjective Interval history: Patient was seen and examined at bedside this morning. Patient states that he is not having any respiratory distress or pain. He says the pain in his hip is well controlled. Denies having any abdominal or GI issues. Patient has not had a bowel movement this morning. Denies fever, chills, cough, shortness of breath. He has no complaints at this time. - Constitutional Vitals: Temp Pulse Resp BP Pulse Ox 97.4 F L 59 16 81/62 100 07/20/17 07:16 07/20/17 07:16 07/20/17 07:16 07/20/17 07:16 07/20/17 07:16 General appearance: Present: A&O X 3, pleasant, no acute distress, answers questions appropriately - Head Head exam: Present: atraumatic, normocephalic - Eye Eye exam: Present: PERRL, conjuntiva pink, sclera anicteric Pupils: Present: PERRL - Neck Neck exam general surgery: Present: supple, trachea midline. Absent: lymphadenopathy Additional comments: Trach observed - Respiratory Respiratory exam: Present: rales. Absent: rhonchi, wheezes - Cardiovascular Cardiovascular exam: Present: RRR, +S1, +S2. Absent: diastolic murmur, gallop, rubs, systolic murmur - GI/Abdominal GI/Abdominal exam: Present: distended, firm - Skin Skin exam: Present: dry, intact Internal Medicine: Result - Labs CBC & Chem 7: 07/20/17 03:29 07/20/17 03:29 Labs: Short CBC 07/20/17 Range/Units 03:29 WBC 6.7 (4.3-11.1) K/mcL Hgb 11.3 L (12.9-16.9) g/dL Hct 36.2 L (37.5-50.1) % Plt Count 164 (140-400) K/mcL Neutrophils # 4.3 (1.6-8.9) K/mcL BMP 07/20/17 03:29 Sodium 138 Potassium 3.8 Chloride 104 Carbon Dioxide 27 BUN 9 Creatinine 0.43 L Glucose 99 Calcium 9.1 - ABG Interpretation ABG results: PT/INR, D-dimer PT 11.4 Seconds (9.4-12.1) 07/17/17 02:46
[2017-07-20] MEDS: Sennosides/Docusate Sodium TABLET PO SCH ×2 (09:22→20:00)
[2017-07-20] MEDS: Nicotine 14 MG PATCH.TD24 TD SCH (09:22)
[2017-07-20] MEDS: OLANZapine 10 MG TAB.RAPDIS PO SCH ×2 (09:22→20:00)
[2017-07-20] MEDS: Folic Acid 1 MG TABLET PO SCH (09:22)
[2017-07-20] MEDS: predniSONE 10 MG TABLET PO SCH (09:23)
[2017-07-20] MEDS: Topiramate 100 MG TABLET PO SCH (09:23)
[2017-07-20] MEDS: Aspirin 325 MG TABLET PO SCH (09:23)
[2017-07-20] MEDS: CarBAMazepine XR (12 hr) 100 MG TAB PO SCH ×2 (09:33→19:59)
[2017-07-20] MEDS: Artificial Tears SOLN 15 ML BOTTLE BOTH EYES SCH ×2 (09:34→20:04)
[2017-07-20] MEDS ORDERED: Lactulose Oral Soln 20 GM/30 ML UDC PO ONE (11:10)
[2017-07-20] MEDS: Baclofen 10 MG TABLET PO SCH ×2 (13:11→20:06)
[2017-07-20] MEDS: *HR* OxyCODONE Immed Rel 15 MG TABLET PO PRN (13:13)
[2017-07-20] MEDS: clonazePAM 1 MG TABLET PO SCH (17:31)
[2017-07-20] MEDS: *HR* Morphine Sulfate SR (12 HR) 15 MG TABLET.ER PO SCH ×2 (17:52→19:59)
[2017-07-20] MEDS: Melatonin 3 MG TABLET PO SCH (19:59)
[2017-07-20] MEDS: traZODone 50 MG TABLET PO SCH (20:00)
[2017-07-21] MEDS: *HR* OxyCODONE Immed Rel 15 MG TABLET PO PRN (03:07)
[2017-07-21] MEDS: *HR* Heparin 5,000 UNIT/ML VIAL SQ SCH ×3 (03:08→16:05)
[2017-07-21] MEDS: Meropenem 1,000 MG in Water for inj. (sterile) 10 ML IVPB SCH ×3 (03:09→21:07)
[2017-07-21] MEDS: Acetylcysteine 10% 2 ML INHSOL IH SCH ×5 (03:51→20:50)
[2017-07-21] MEDS: Ipratropium/Albuterol Neb 3 ML IH SCH ×5 (03:51→20:50)
[2017-07-21] MEDS: Vancomycin 1,000 MG in D5% in Water 250 ML IVPB SCH (06:00)
[2017-07-21] MEDS ORDERED: Tigecycline 50 MG in 0.9 % Sodium Chloride Mini Bag 100 ML IVPB SCH (08:00)
[2017-07-21] MEDS ORDERED: Aminoglycoside Consult 1 EACH MC ONE (09:10)
[2017-07-21] MEDS: Topiramate 100 MG TABLET PO SCH (09:11)
[2017-07-21] MEDS: CarBAMazepine XR (12 hr) 100 MG TAB PO SCH ×2 (09:11→21:09)
[2017-07-21] MEDS: Aspirin 325 MG TABLET PO SCH (09:12)
[2017-07-21] MEDS: Sennosides/Docusate Sodium TABLET PO SCH ×2 (09:12→21:09)
[2017-07-21] MEDS: predniSONE 10 MG TABLET PO SCH (09:12)
[2017-07-21] MEDS: *HR* Morphine Sulfate SR (12 HR) 15 MG TABLET.ER PO SCH ×2 (09:12→21:08)
[2017-07-21] MEDS: Folic Acid 1 MG TABLET PO SCH (09:12)
[2017-07-21] MEDS: Nicotine 14 MG PATCH.TD24 TD SCH (09:12)
[2017-07-21] MEDS: Baclofen 10 MG TABLET PO SCH ×2 (09:12→21:08)
[2017-07-21] MEDS: OLANZapine 10 MG TAB.RAPDIS PO SCH ×2 (09:13→21:09)
[2017-07-21] MEDS: Artificial Tears SOLN 15 ML BOTTLE BOTH EYES SCH ×2 (09:14→21:08)
--- NOTE | 2017-07-21 10:15 | Internal Med Progress Note ---
<Mark Russo - Last Filed: 07/21/17 14:46> Date of Encounter: 07/21/17 - Constitutional Vitals: Temp Pulse Resp BP Pulse Ox 97.7 F 77 17 108/69 97 07/21/17 11:17 07/21/17 11:17 07/21/17 11:17 07/21/17 11:17 07/21/17 11:17 Internal Medicine: Result - Labs CBC & Chem 7: 07/20/17 03:29 07/20/17 03:29 - ABG Interpretation ABG results: PT/INR, D-dimer PT 11.4 Seconds (9.4-12.1) 07/17/17 02:46 Consult Discharge Plan - Plan Referrals: Kevin Caro MD [Primary Care Provider] - (patient will follow up with f pcp ) Prescriptions: Meropenem [Merrem] 1,000 mg IVPB Q8HR #27 vial Tigecycline [Tygacil] 50 mg IVPB Q12HR #20 vial - Attending Attestation I independently saw and examined this patient on 07/21/17, plan of care is as detailed in the resident physician's documentation 47 M s/p trach, admitted for Sepsis secondary to Proteus UTI and MDR Acinetobacter Pneumonia He denies new complains, his R hip pain has improved, trach secretions have improved He is concerned about returning to the snf Chest exam shows improved aeration, few rhonchi Chronic venous stasis changes on the LE Labs and Imaging reviewed: CBC and Chem unremarkable, Trach aspirate culture with Acinetobacter Discontinue vancomycin. Continue meropenem for Proteus UTI. Consult to infectious disease for Acinetobacter pneumonia-possibly start Colistin. Rest as in resident physician's documentation Addendum: Patient underwent to patient said to have been unresponsive and difficult to keep awake around 2:09 PM today. On evaluation at bedside, patient is drowsy, arouses to noxious stimuli, pupils constricted and reactive, chest is clear to auscultation bilaterally, his vital signs are stable, his oxygen requirement is the same at 10 L by trach collar, his abdomen is soft and non-tender, no pedal edema. Patient is on high doses of MS Contin and when necessary doses of oxycodone for chronic pain. We administered 1 dose of Narcan , and patient became more arousable and able to communicate, speaks sentences. Plan is to decrease the dose of his MS Contin to 30 mg from 45 mg, and hold this when necessary for now. <Eugene Campbell - Last Filed: 07/21/17 16:19> Date of Encounter: 07/21/17 Time of Encounter: 08:45 - Assessment and plan (1) Pneumonia Current Visit: No Status: Acute Assessment and plan: CXR performed on 07/16/17: Concerning for pneumonia versus atelectasis. Blood CX on 07/16/17 was negative. Sputum culture: Gram-positive diplococci Sputum culture from tracheostomy obtained on 07/18/17 resulted today: -Grew acinetobacter baumannii, MDRO -Sensitivity was as follows: Intermediate sensitivity to ampicillin/sulfabactam , tobramycin, tigecycline. Plan: -ID has been consulted -Colistin 200mg IV Q12. -Vancomycin was discontinued today. -Acetylcysteine 10% 2 mL Q4. -Robitussin 200 mg PO Q4. -Prednisone 10 mg PO daily. -DuoNeb 3ml IH Q4 PRN. Qualifiers: Pneumonia type: due to unspecified organism Laterality: bilateral Lung location: lower lobe of lung Qualified Code(s): J18.9 - Pneumonia, unspecified organism (2) Complicated UTI (urinary tract infection) Current Visit: No Status: Acute Assessment and plan: Initial UA was concerning for possible UTI. Patient has chronic indwelling suprapubic catheter. History of multiple UTIs. Urine culture performed on 07/16/17: Proteus mirabilis; sensitive to meropenem, ertapenem, tobramycin Plan: -Meropenem 1000 mg IV Q8 started on 07/16/17; day 6. (3) DVT prophylaxis Current Visit: No Status: Acute Assessment and plan: Heparin 5000 SQ Q8 (4) Abdominal distension Current Visit: Yes Status: Acute Assessment and plan: Patient's abdomen is firm, distended, nontender. (5) Bipolar disorder Current Visit: No Status: Chronic Assessment and plan: Patient's condition is stable. Qualifiers: Active/Remission status: remission status unspecified Qualified Code(s): F31.9 - Bipolar disorder, unspecified (6) Hip pain Current Visit: Yes Status: Acute Assessment and plan: Patient noted having some pain this morning. Plan: -Roxicodone 30 mg PO Q6 PRN -Morphine sulfate SR 45 mg PO Q12 Qualifiers: Qualified Code(s): M25.559 - Pain in unspecified hip - Subjective Interval history: Patient was seen and examined at bedside this morning. Patient complains of right-sided hip and leg pain this morning. He denies having any constipation or abdominal pain. He admits to soiling the bed this morning. Patient received lactulose yesterday for constipation. Abdominal distention appears to have improved. He denies having any difficulty breathing. No further complaints this time. - Constitutional Vitals: Temp Pulse Resp BP Pulse Ox 98.8 F 73 18 108/70 95 07/21/17 07:26 07/21/17 07:26 07/21/17 07:57 07/21/17 07:26 07/21/17 09:54 General appearance: Present: A&O X 3, pleasant, no acute distress, answers questions appropriately - Head Head exam: Present: atraumatic, normocephalic - Eye Eye exam: Present: PERRL, conjuntiva pink, sclera anicteric Pupils: Present: PERRL - Neck Additional comments: Trach observed; some discharge noted. - Respiratory Respiratory exam: Present: CTAB. Absent: accessory muscle use, rales, rhonchi, wheezes - Cardiovascular Cardiovascular exam: Present: RRR, +S1, +S2. Absent: diastolic murmur, gallop, rubs, systolic murmur - GI/Abdominal GI/Abdominal exam: Present: distended, firm Additional comments: Patient's abdomen is still distended, but improved from yesterday. - Skin Skin exam: Present: dry, intact Internal Medicine: Result - Labs CBC & Chem 7: 07/20/17 03:29 07/20/17 03:29 - ABG Interpretation ABG results: PT/INR, D-dimer PT 11.4 Seconds (9.4-12.1) 07/17/17 02:46
[2017-07-21] MEDS ORDERED: Famotidine 20 MG/2 ML VIAL IVP ONE (14:23)
--- NOTE | 2017-07-21 14:28 | Infectious Disease Consult ---
Date of Encounter: 07/21/17 Time of Encounter: 14:22 Assessment and Plan (1) Healthcare-associated pneumonia Status: Acute Assessment and plan: HCAP vs. tracheobronchitis. CXR completed in the ED showed atelectatic changes vs. PNA. Apparently, the patient had purulent drainage from around his trach. Sputum culture grew hernandez-resistant Acinetobacter baumannii. Not sure if this is a true infection vs. colonization, but since the patient has never grown this bacteria before, we will go ahead and treat. Discontinue Tigecycline. Start Colistin 2.5mg/kg IV Q12H. Recommend aggressive pulmonary toileting and trach care. Duration of treatment depends on the clinical picture, but likely 14 days. Monitor renal function closely. Colistin use has a very high risk of nephrotoxicity, but because of the sensitivity pattern, we do not have much choice. Dose-adjust antibiotics based on creatinine clearance. (2) UTI (urinary tract infection) Status: Acute Assessment and plan: True infection vs. colonization of the bladder vs. contamination of the urine specimen. Not sure if the patient was having any urinary-associated symptoms since he is quadriplegic and has no sensation in his bladder. Additionally, the patient is unable to provide me with any information given his mental status. This could be colonization as the patient had a urine culture positive for P. mirabilis back in April as well. Not sure how the specimen was collected, but if it was collected from the bag, it is possible that the specimen is contaminated. Urine culture grew Protues mirabilis, sensitive only to carbapenems and tobramycin. Consult urology to switch out SPT. Discontinue Meropenem. Start Colistin as above. Duration of treatment depends on the clinical picture, but likely 14 days. Monitor renal function very closely. Qualifiers: Urinary tract infection type: acute cystitis Hematuria presence: without hematuria Qualified Code(s): N30.00 - Acute cystitis without hematuria (3) Altered mental status Status: Acute Assessment and plan: Etiology unclear: infection vs. medication vs. other. Clinically, the patient does not meet any SIRS criteria. His WBC was very minimally elevated on admission, but he has had no fevers or tachycardia. I am more apt to think this is medication-related. Consider CT of the head to rule out intra-cranial abnormality. No meningismus concerning for METAL FILER infection. Continue to monitor closely. Qualifiers: Altered mental status type: unspecified Qualified Code(s): R41.82 - Altered mental status, unspecified (4) Suprapubic catheter Status: Chronic Assessment and plan: Secondary to neurogenic bladder. Consider consulting nephrology to switch out SPT. (5) Intertrochanteric fracture of right femur Status: Chronic Assessment and plan: Diagnosed at his last hospitalization after he fell out of his wheelchair. No operative intervention at this time as it will likely not improve the quality of his life since he bed/wheelchair bound. Pain management per the primary team. Qualifiers: Encounter type: initial encounter Fracture type: closed Fracture alignment: displaced Qualified Code(s): S72.141A - Displaced intertrochanteric fracture of right femur, initial encounter for closed fracture Infectious Disease HPI - Data of Consult Patient: known to practice within the last 3 years Consult date: 07/21/17 Requesting Physician: Mark Russo MD Primary Care Provider: Kevin Caro MD - Consult Narrative Reason for consult: MDRO PNA History of present illness: Mr. Mathew is a 47 year old male has medical history of quadriplegia, neurogenic bladder with chronic suprapubic catheter, seizures, CHF, hepatitis, hypertension, chronic respiratory failure with tracheostomy, anxiety, and depression. The patient was noted to the hospital July 16 for pneumonia, hypoxia, and UTI. We are consulted July 21 for antibiotic recommendations regarding [id number] pneumonia and UTI. Briefly, the patient's a 47-year-old male with past medical history as stated above. The patient is well-known to the infectious disease service as we have been consulted and his case several times in the past. Most recently, the patient was treated by our clinic for bacteremia secondary to a PICC line and he had had prior to admission. Apparently since seeing him last, the patient was admitted to the hospital for a nonoperable right hip fracture after falling out of his wheelchair. His mental status precludes his ability to provide me with any information, therefore, all of the information is obtained from the medical record. Apparently, the patient was noted to be hypoxic with decreased respiratory status at the residential and was transported here for evaluation. Upon arrival, the patient was afebrile and hemodynamically stable. He did have a mild leukocytosis. The patient was noted to have very foul-smelling turbid urine. Urinalysis was positive for pyuria and specimen was sent for culture. He had a chest x-ray that showed early atelectatic changes or possible pneumonia. Blood cultures were obtained 2 sets. He was started on IV vancomycin and IV meropenem. He was admitted to the hospital for further evaluation. Admission, the patient has remained afebrile and hemodynamically stable. His leukocytosis has resolved. She'll culture came back positive for Proteus mirabilis, sensitive only to carbapenems and tobramycin. Shortly, the patient's sputum culture came back positive for Acinetobacter baumannii that is hernandez- resistant. The patient was started on IV Tigecycline by the primary team. We've been asked to evaluate and make further recommendations. During my exam today, the patient is noted to be very drowsy and awakens only for a few second to loud verbal or painful stimuli. He does not talk or follow commands. According to the medical record, the patient had purulent drainage from his trach and crackles throughout all lung ibanez on admission. No other ROS information is obtainable at this time. The patient is known to live in an [facility]. He has had multiple UTIs secondary to his suprapubic catheter. CC: Mark Russo MD Past Med Surg Social Fam HX - Past Medical History Source: old records reviewed, nursing notes reviewed Medical history: CHF, hepatitis, hypertension, seizures, other Psychiatric history: anxiety, bipolar, depression - Past Surgical History Surgical History: tracheostomy, other - Social History Smoking Status: Current every day smoker Smokeless Tobacco Status: No Alcohol use: none, unknown Drug use: none Occupational status: disabled Current living situation: [facility] Activity Level: Wheelchair bound Recent Out of Country Travel Within the Last 8 Weeks: No Exposure or Possible Exposure to Illness During Travel: No - Family History Mother Living Status: Hx Family Cardiac Disorders: Yes Hx Family Respiratory Disorders: Yes Hx Family Cancer: Yes Infectious Disease-CN:Meds Folic Acid 1 mg PO QAM 07/04/15 [History] Ipratropium/Albuterol Neb [Duoneb] 3 ml IH QID PRN 07/04/15 [History] Topiramate [Topamax] 150 mg PO QAM 11/05/15 [History] Acetaminophen [Tylenol] 650 mg PO Q6HR PRN 12/11/15 [History] Docusate Sodium [Dok] 100 mg PO BID 12/11/15 [History] Guaifenesin [Diabetic Tussin Ex] 10 ml PO Q4H PRN 12/11/15 [History] Polyvinyl Alcohol [Artificial Tears] 1 drop BOTH EYES BID 03/18/16 [History] Aspirin/Calcium Carbonate/Mag [Aspirin Buffered 325 mg Tab] 325 mg PO DAILY [History] Ketoconazole Shampoo [Nizoral Shampoo] 1 appl TP QWEEK 08/11/16 [History] Na Phos,M-B/Na Phos,Di-Ba [Fleet Enema Extra] 230 ml RC Q48H 08/11/16 [History] Furosemide [Lasix] 40 mg PO DAILY 03/24/17 [History] Melatonin 10 mg PO HS 06/27/17 [History] Potassium Chloride Elixir [Potassium Chloride] 40 meq PO DAILY 06/27/17 [History ] Scopolamine Patch [Transderm-Scop] 1 patch TD Q72H 06/27/17 [History] Baclofen [Lioresal] 10 mg PO BID #10 tablet 06/30/17 [Rx] Benztropine Mesylate 1 mg PO HS #30 tablet 06/30/17 [Rx] CarBAMazepine [Carbamazepine ER] 300 mg PO BID #30 tab.er.12h 06/30/17 [Rx] Nicotine Patch [Nicoderm] 14 mg TD DAILY #30 patch.td24 06/30/17 [Rx] OLANZapine [Zyprexa] 10 mg PO BID #30 tablet 06/30/17 [Rx] Sertraline [Zoloft] 75 mg PO DAILY #30 tablet 06/30/17 [Rx] Trazodone HCl 100 mg PO HS #30 tablet 06/30/17 [Rx] clonazePAM [Klonopin] 2 mg PO QPM #7 tablet 06/30/17 [Rx] Morphine Sulfate [Arymo ER] 45 mg PO Q12H 07/13/17 [History] Oxycodone HCl 30 mg PO Q6H 07/13/17 [History] Polyethylene Glycol 3350 [MiraLAX] 17 gm PO DAILY PRN 07/13/17 [History] predniSONE [PredniSONE] 10 mg PO DAILY 07/13/17 [History] Colistin (Colistimethate Na) [Coly-Mycin M Parenteral] 200 mg IV BID 11 Days # 22 vial 07/24/17 [Rx] 3 Allergy/AdvReac Type Severity Reaction Status Date / Time Penicillins Allergy See Verified 07/16/17 02:08 Comments ROS unobtainable: due to mental status Exam - Constitutional Vitals: Temp Pulse Resp BP Pulse Ox 97.7 F 77 17 108/69 97 07/21/17 11:17 07/21/17 11:17 07/21/17 11:17 07/21/17 11:17 07/21/17 11:17 General appearance: average body habitus, no acute distress, no febrile - Head Head exam: Present: atraumatic, normal inspection, normocephalic - Eye Eye exam: Present: EOMI, normal appearance, PERRL Pupils: Present: normal accommodation - ENT ENT exam: Present: mucous membranes dry - Neck Additional comments: Tracheostomy midline. No drainage noted at this time. - Respiratory Respiratory exam: Present: CTAB. Absent: rales, respiratory distress, rhonchi, wheezes - Cardiovascular Cardiovascular exam: Present: RRR, +S1, +S2 - GI/Abdominal GI/Abdominal exam: Present: normal bowel sounds, soft. Absent: distended, tenderness Additional comments: SPT draining dark yellow, clear urine. - Extremities Exam Extremities exam: Present: pedal edema (1_ BLE). Absent: joint swelling, tenderness Additional comments: RLE shortened and externally rotated. - Neurological Exam Neurological exam: Present: altered (Patient is very drowsy. Opens eyes for a few seconds to loud verbal or painful stimuli only. ), no focal deficits ( Paralysis noted to the BUE and BLE.). Absent: facial droop - Skin Skin exam: Present: dry, intact, normal color, warm Infectious Disease CN: Results - Labs CBC & Chem 7: 07/24/17 05:10 07/24/17 05:10 Cultures: Cultures 07/18/17 11:30 Sputum Culture - Final Sputum Acinetobacter baumannii MDRO Consult Discharge Plan - Plan Referrals: Kevin Caro MD [Primary Care Provider] - (patient will follow up with [facility] pcp ) Prescriptions: Colistin (Colistimethate Na) [Coly-Mycin M Parenteral] 200 mg IV BID 11 Days # 22 vial
[2017-07-21] MEDS ORDERED: COLISTIN IVPB ONE (15:00)
[2017-07-21] MEDS ORDERED: SODIUM CHLORIDE 0.9% IVPB ONE (15:00)
[2017-07-21] MEDS: Melatonin 3 MG TABLET PO SCH (21:08)
[2017-07-21] MEDS: clonazePAM 1 MG TABLET PO SCH (21:08)
[2017-07-21] MEDS: traZODone 50 MG TABLET PO SCH (21:09)
[2017-07-22] MEDS: Ipratropium/Albuterol Neb 3 ML IH SCH ×7 (00:15→23:30)
[2017-07-22] MEDS: Acetylcysteine 10% 2 ML INHSOL IH SCH ×7 (00:18→23:30)
[2017-07-22] MEDS: traZODone 50 MG TABLET PO SCH ×2 (00:42→20:59)
[2017-07-22] MEDS: *HR* Morphine Sulfate SR (12 HR) 15 MG TABLET.ER PO SCH ×3 (00:43→20:57)
[2017-07-22] MEDS: *HR* Heparin 5,000 UNIT/ML VIAL SQ SCH ×3 (01:36→15:48)
[2017-07-22] MEDS: Meropenem 1,000 MG in Water for inj. (sterile) 10 ML IVPB SCH (03:44)
[2017-07-22] MEDS: SODIUM CHLORIDE 0.9% IVPB SCH ×2 (03:46→15:46)
[2017-07-22] MEDS: COLISTIN IVPB SCH ×2 (03:46→15:46)
[2017-07-22] MEDS: Artificial Tears SOLN 15 ML BOTTLE BOTH EYES SCH ×2 (08:40→20:58)
[2017-07-22] MEDS: CarBAMazepine XR (12 hr) 100 MG TAB PO SCH ×2 (08:41→20:57)
[2017-07-22] MEDS: Folic Acid 1 MG TABLET PO SCH (08:41)
[2017-07-22] MEDS: Aspirin 325 MG TABLET PO SCH (08:41)
[2017-07-22] MEDS: Baclofen 10 MG TABLET PO SCH ×2 (08:42→20:57)
[2017-07-22] MEDS: Topiramate 100 MG TABLET PO SCH (08:42)
[2017-07-22] MEDS: Sennosides/Docusate Sodium TABLET PO SCH ×2 (08:42→20:56)
[2017-07-22] MEDS: predniSONE 10 MG TABLET PO SCH (08:42)
[2017-07-22] MEDS: Nicotine 14 MG PATCH.TD24 TD SCH (08:42)
[2017-07-22] MEDS: OLANZapine 10 MG TAB.RAPDIS PO SCH ×2 (08:43→20:58)
[2017-07-22] MEDS: Scopolamine Patch 1.5 MG PATCH.TD72 TD SCH (08:43)
--- NOTE | 2017-07-22 10:12 | Internal Med Progress Note ---
<Eugene Campbell - Last Filed: 07/22/17 13:04> Date of Encounter: 07/22/17 Time of Encounter: 08:45 - Assessment and plan (1) Pneumonia Current Visit: No Status: Acute Assessment and plan: CXR performed on 07/16/17: Concerning for pneumonia versus atelectasis. Blood CX on 07/16/17 was negative. Sputum culture: Gram-positive diplococci Sputum culture from tracheostomy obtained on 07/18/17 resulted today: -Grew acinetobacter baumannii, MDRO -Sensitivity was as follows: Intermediate sensitivity to ampicillin/sulfabactam , tobramycin, tigecycline. Plan: -ID has been consulted. Per infectious disease, patient started on Colistin 200mg IV Q12 on 07/21/17. Closely monitor renal function. Infectious disease also recommended a 14 day course of antibiotic treatment. -Acetylcysteine 10% 2 mL Q4. -Robitussin 200 mg PO Q4. -Prednisone 10 mg PO daily. -DuoNeb 3ml IH Q4 PRN. Qualifiers: Pneumonia type: due to unspecified organism Laterality: bilateral Lung location: lower lobe of lung Qualified Code(s): J18.9 - Pneumonia, unspecified organism (2) Altered mental status Current Visit: Yes Status: Acute Assessment and plan: On 06/21/17, patient became unresponsive and was difficult to keep awake approximately 14:09. Upon evaluation at bedside, patient was drowsy, aroused to noxious stimuli, his pupils were constricted and reactive, his chest was clear to auscultation bilaterally, his vital signs were stable, his O2 requirement is the same at 10 L by trach collar. Patient on high doses of MS Contin and doses of oxycodone for chronic pain. He was administered 1 dose of Narcan, the patient became more arousable and able to communicate, he was able to speak full sentences afterwards. Decrease dose of MS Contin to 30 mg from 45 mg. This morning, patient did not have any altered mental status; was able to speak in full sentences. Qualifiers: Qualified Code(s): R41.82 - Altered mental status, unspecified (3) Complicated UTI (urinary tract infection) Current Visit: No Status: Acute Assessment and plan: Initial UA was concerning for possible UTI. Patient has chronic indwelling suprapubic catheter. History of multiple UTIs. Urine culture performed on 07/16/17: Proteus mirabilis; sensitive to meropenem, ertapenem, tobramycin Plan: -Meropenem 1000 mg IV Q8 started on 07/16/17; day 7; will be discontinued per the recommendation of infectious disease. -Colistin 200 mg IV Q12 started on 07/21/17 (4) DVT prophylaxis Current Visit: No Status: Acute Assessment and plan: Heparin 5000 SQ Q8 (5) Abdominal distension Current Visit: Yes Status: Acute Assessment and plan: Patient's abdomen is firm, distended, nontender. -Abdominal distention appears to be improving. (6) Bipolar disorder Current Visit: No Status: Chronic Assessment and plan: Patient's condition is stable. Qualifiers: Active/Remission status: remission status unspecified Qualified Code(s): F31.9 - Bipolar disorder, unspecified (7) Hip pain Current Visit: Yes Status: Acute Assessment and plan: Patient reported that he is not having any hip pain this morning. Plan: -Roxicodone 30 mg PO Q6 PRN -Morphine sulfate SR 45 mg PO Q12 Qualifiers: Qualified Code(s): M25.559 - Pain in unspecified hip (8) Dysphagia Current Visit: Yes Status: Acute Assessment and plan: Patient has difficulty swallowing. Despite the recommendations from Speech therapy, patient wants to continue eating his regular food, and does not want alternate source of nutrition, such as PEG tube. Patient wants to sign waver. -Patient must be assisted with feeds. Qualifiers: Qualified Code(s): R13.10 - Dysphagia, unspecified (9) Hyperkalemia Current Visit: Yes Status: Acute Assessment and plan: Patient had a potassium of 4.9 this morning. Kayexalate 15 g has been ordered. - Subjective Interval history: Patient was seen and examined at bedside this morning. Patient states that he is not having have maintained today. He denies having any difficulty breathing. Patient's abdominal status distention appears to be improving. Still somewhat distended and firm. Normal active bowel sounds. He has no complaints at this time. - Constitutional Vitals: Temp Pulse Resp BP Pulse Ox 99.1 F 81 16 114/76 100 07/22/17 07:40 07/22/17 07:40 07/22/17 09:12 07/22/17 09:12 07/22/17 09:12 General appearance: Present: A&O X 3, pleasant, no acute distress, answers questions appropriately - Head Head exam: Present: atraumatic, normocephalic - Eye Eye exam: Present: PERRL, conjuntiva pink, sclera anicteric Pupils: Present: PERRL - Neck Neck exam general surgery: Present: supple, trachea midline. Absent: lymphadenopathy Additional comments: Trach observed - Respiratory Respiratory exam: Present: rales. Absent: accessory muscle use, rhonchi, wheezes - Cardiovascular Cardiovascular exam: Present: RRR, +S1, +S2. Absent: diastolic murmur, gallop, rubs, systolic murmur - GI/Abdominal GI/Abdominal exam: Present: distended, firm, normal bowel sounds Additional comments: Abdominal distention appears to be improving. - Skin Skin exam: Present: dry, intact Internal Medicine: Result - Labs CBC & Chem 7: 07/20/17 03:29 07/20/17 03:29 - ABG Interpretation ABG results: PT/INR, D-dimer PT 11.4 Seconds (9.4-12.1) 07/17/17 02:46 - Impressions Impressions Head CT 07/21/17 17:29 IMPRESSION: No acute intracranial abnormality. If there is ongoing concern for stroke, MRI is more sensitive. Unchanged left frontal and frontotemporal encephalomalacia. D/ / Fran Zavala / Fran Zavala Interpreting Provider: Fran Zavala Consult Discharge Plan - Plan Referrals: Kevin Caro MD [Primary Care Provider] - (patient will follow up with f pcp ) <Mark Russo T - Last Filed: 07/22/17 13:32> Date of Encounter: 07/22/17 - Constitutional Vitals: Temp Pulse Resp BP Pulse Ox 98.5 F 80 16 97/63 93 07/22/17 11:55 07/22/17 11:55 07/22/17 11:55 07/22/17 11:55 07/22/17 11:55 Internal Medicine: Result - Labs CBC & Chem 7: 07/20/17 03:29 07/20/17 03:29 - ABG Interpretation ABG results: PT/INR, D-dimer PT 11.4 Seconds (9.4-12.1) 07/17/17 02:46 - Impressions Impressions Head CT 07/21/17 17:29 IMPRESSION: No acute intracranial abnormality. If there is ongoing concern for stroke, MRI is more sensitive. Unchanged left frontal and frontotemporal encephalomalacia. D/ / Fran Zavala / Fran Zavala Interpreting Provider: Fran Zavala - Attending Attestation I independently saw and examined this patient on 07/22/17, plan of care is as detailed in the resident physician's documentation 47 M s/p trach, admitted for Sepsis secondary to Proteus UTI and MDR Acinetobacter Pneumonia He denies new complains, his R hip pain has improved, trach secretions have improved Continues to have microaspirations, refusing further speech eval, states he wants his sister to help his sign a waiver He vehemently declined PEG tube or any artificial means of feeding, he is AAOX3 Neuro: AAOX3, quadriplegic, speech is cohenrent, pupils are reactive Abdomen is soft and non tender HS S1, S2 only Chest exam shows improved aeration, few rhonchi Chronic venous stasis changes on the LE Labs and Imaging reviewed: CBC and Chem unremarkable, Trach aspirate culture with Acinetobacter . Head CT unremarkable for acute infarct Continue colistin per ID, monitor Chem Feed Resume pain meds at lower doses Rest as in resident physician's documentation
[2017-07-22] MEDS: *HR* OxyCODONE Immed Rel 5 MG TABLET PO PRN (14:09)
[2017-07-22] MEDS: clonazePAM 1 MG TABLET PO SCH (17:00)
[2017-07-22] MEDS: Melatonin 3 MG TABLET PO SCH (20:57)
[2017-07-23] MEDS: *HR* Heparin 5,000 UNIT/ML VIAL SQ SCH ×3 (00:05→17:31)
[2017-07-23] MEDS: SODIUM CHLORIDE 0.9% IVPB SCH ×2 (02:11→14:21)
[2017-07-23] MEDS: COLISTIN IVPB SCH ×2 (02:11→14:21)
[2017-07-23] MEDS: *HR* OxyCODONE Immed Rel 5 MG TABLET PO PRN ×2 (02:11→17:35)
[2017-07-23] MEDS: Ipratropium/Albuterol Neb 3 ML IH SCH ×6 (03:51→23:26)
[2017-07-23] MEDS: Acetylcysteine 10% 2 ML INHSOL IH SCH ×6 (03:51→23:26)
[2017-07-23] MEDS: Artificial Tears SOLN 15 ML BOTTLE BOTH EYES SCH ×2 (08:23→20:30)
[2017-07-23] MEDS: CarBAMazepine XR (12 hr) 100 MG TAB PO SCH ×2 (08:35→20:29)
[2017-07-23] MEDS: *HR* Morphine Sulfate SR (12 HR) 15 MG TABLET.ER PO SCH ×2 (08:35→20:29)
[2017-07-23] MEDS: Sennosides/Docusate Sodium TABLET PO SCH ×2 (08:36→20:29)
[2017-07-23] MEDS: Aspirin 325 MG TABLET PO SCH (08:36)
[2017-07-23] MEDS: Topiramate 100 MG TABLET PO SCH (08:36)
[2017-07-23] MEDS: predniSONE 10 MG TABLET PO SCH (08:36)
[2017-07-23] MEDS: Baclofen 10 MG TABLET PO SCH ×2 (08:36→20:30)
[2017-07-23] MEDS: OLANZapine 10 MG TAB.RAPDIS PO SCH ×2 (08:36→20:29)
[2017-07-23] MEDS: Folic Acid 1 MG TABLET PO SCH (08:36)
[2017-07-23] MEDS: Nicotine 14 MG PATCH.TD24 TD SCH (08:37)
[2017-07-23 09:40] LABS: Basophils % 0.3 %; Eosinophils # 0.5 K/mcL (0.0-0.6); Eosinophils % 7.6 %; Hematocrit 36.9 % (37.5-50.1); Hemoglobin 11.8 g/dL (12.9-16.9); Immature Granulocytes % 0.6 % (0-4); Lymphocytes # 1.4 K/mcL (0.6-4.6); Lymphocytes % 22.7 %; Mean Corpuscular Hemoglobin 29.9 pg (28.0-33.3); Mean Corpuscular Volume 93.4 fL (83.0-100.0); Mean Platelet Volume 11.1 fL (9.4-12.4); Monocytes # 0.8 K/mcL (0.0-1.3); Monocytes % 12.1 %; Neutrophils # 3.5 K/mcL (1.6-8.9); Platelet Count 226 K/mcL (140-400); Red Blood Count 3.95 M/mcL (4.19-5.50); Red Cell Distribution Width 13.2 % (11.5-14.5); Segmented Neutrophils % 56.7 %
[2017-07-23 09:51] LABS: BUN/Creatinine Ratio 20 (6-26); Blood Urea Nitrogen 9 mg/dL (8-26); Calcium 8.9 mg/dL (8.6-10.8); Carbon Dioxide 27 mEq/L (19-29); Chloride 102 mEq/L (98-109); Glucose 101 mg/dL (70-99); Osmolality,Calculated 287 (280-300); Potassium 3.4 mEq/L (3.5-4.5); Sodium 139 mEq/L (136-145); eGFR For African Americans > 60 (> 60); eGFR For Non-African Americans > 60 (> 60)
--- NOTE | 2017-07-23 10:06 | Internal Med Progress Note ---
<Mark Russo T - Last Filed: 07/23/17 13:05> Date of Encounter: 07/23/17 - Constitutional Vitals: Temp Pulse Resp BP Pulse Ox 98.7 F 75 14 94/66 94 07/23/17 11:43 07/23/17 11:43 07/23/17 11:43 07/23/17 11:43 07/23/17 11:43 Internal Medicine: Result - Labs CBC & Chem 7: 07/23/17 09:33 07/23/17 09:33 Labs: Short CBC 07/23/17 Range/Units 09:33 WBC 6.2 (4.3-11.1) K/mcL Hgb 11.8 L (12.9-16.9) g/dL Hct 36.9 L (37.5-50.1) % Plt Count 226 (140-400) K/mcL Neutrophils # 3.5 (1.6-8.9) K/mcL BMP 07/23/17 09:33 Sodium 139 Potassium 3.4 L Chloride 102 Carbon Dioxide 27 BUN 9 Creatinine 0.45 L Glucose 101 H Calcium 8.9 - ABG Interpretation ABG results: PT/INR, D-dimer PT 11.4 Seconds (9.4-12.1) 07/17/17 02:46 Consult Discharge Plan - Plan Referrals: Kevin Caro MD [Primary Care Provider] - (patient will follow up with [facility] p[facility] ) - Attending Attestation I independently saw and examined this patient on 07/23/17, plan of care is as detailed in the resident physician's documentation 47 M s/p trach, admitted for Sepsis secondary to Proteus UTI and MDR Acinetobacter Pneumonia He denies new complains, his R hip pain has improved, trach secretions have improved Continues to have microaspirations, refusing further speech eval, states he wants his sister to help his sign a waiver He vehemently declined PEG tube or any artificial means of feeding, he is AAOX3 Neuro: AAOX3, quadriplegic, speech is cohenrent, pupils are reactive Abdomen is soft and non tender HS S1, S2 only Chest exam shows improved aeration, few rhonchi Chronic venous stasis changes on the LE Labs and Imaging reviewed: CBC and Chem unremarkable, Trach aspirate culture with Acinetobacter . Head CT unremarkable for acute infarct Continue colistin per ID, monitor Chem Feed Replace K Resume pain meds at lower doses Rest as in resident physician's documentation <Eugene Campbell - Last Filed: 07/23/17 13:45> Date of Encounter: 07/23/17 Time of Encounter: 08:45 - Assessment and plan (1) Pneumonia Current Visit: No Status: Acute Assessment and plan: CXR performed on 07/16/17: Concerning for pneumonia versus atelectasis. Blood CX on 07/16/17 was negative. Sputum culture: Gram-positive diplococci Sputum culture from tracheostomy obtained on 07/18/17: -Grew acinetobacter baumannii, MDRO -Sensitivity was as follows: Intermediate sensitivity to ampicillin/sulfabactam , tobramycin, tigecycline. Plan: -Per the recommendation of ID: patient was started on Colistin 200mg IV Q12 on 07/21/17. Closely monitor renal function. ID also recommended a 14 day course of ABX. -Acetylcysteine 10% 2 mL Q4. -Robitussin 200 mg PO Q4. -Prednisone 10 mg PO daily. -DuoNeb 3ml IH Q4 PRN. Qualifiers: Pneumonia type: due to unspecified organism Laterality: bilateral Lung location: lower lobe of lung Qualified Code(s): J18.9 - Pneumonia, unspecified organism (2) Altered mental status Current Visit: Yes Status: Acute Assessment and plan: On 06/21/17, patient became unresponsive and was difficult to keep awake approximately 14:09. Upon evaluation at bedside, patient was drowsy, aroused to noxious stimuli, his pupils were constricted and reactive, his chest was clear to auscultation bilaterally, his vital signs were stable, his O2 requirement is the same at 10 L by trach collar. Patient on high doses of MS Contin and doses of oxycodone for chronic pain. He was administered 1 dose of Narcan, the patient became more arousable and able to communicate, he was able to speak full sentences afterwards. Decrease dose of MS Contin to 30 mg from 45 mg. No AMS this morning; was able to speak in full sentences. Qualifiers: Qualified Code(s): R41.82 - Altered mental status, unspecified (3) Complicated UTI (urinary tract infection) Current Visit: No Status: Acute Assessment and plan: Initial UA was concerning for possible UTI. Patient has chronic indwelling suprapubic catheter. History of multiple UTIs. Urine culture performed on 07/16/17: Proteus mirabilis; sensitive to meropenem, ertapenem, tobramycin Plan: -Meropenem was discontinued yesterday. -Colistin 200 mg IV Q12 started on 07/21/17. Day 8 of abx total (4) DVT prophylaxis Current Visit: No Status: Acute Assessment and plan: Heparin 5000 SQ Q8 (5) Abdominal distension Current Visit: Yes Status: Acute Assessment and plan: Patient's abdomen is firm, distended, nontender. -Abdominal distention appears to be improving. (6) Bipolar disorder Current Visit: No Status: Chronic Assessment and plan: Patient's condition is stable. Qualifiers: Active/Remission status: remission status unspecified Qualified Code(s): F31.9 - Bipolar disorder, unspecified (7) Hip pain Current Visit: Yes Status: Acute Assessment and plan: Patient reported that he is not having any hip pain this morning. Plan: -Roxicodone 30 mg PO Q6 PRN -Morphine sulfate SR 45 mg PO Q12 Qualifiers: Qualified Code(s): M25.559 - Pain in unspecified hip (8) Dysphagia Current Visit: Yes Status: Acute Assessment and plan: Patient has difficulty swallowing. Despite the recommendations from Speech therapy, patient wants to continue eating his regular food, and does not want alternate source of nutrition, such as PEG tube. Patient wants to sign waver. -Patient must be assisted with feeds. -Patient ate breakfast this morning without difficulty. Qualifiers: Qualified Code(s): R13.10 - Dysphagia, unspecified (9) Hypokalemia Current Visit: Yes Status: Acute Assessment and plan: Potassium was low this morning at 3.4; ordered Potassium 40mg PO. - Subjective Interval history: Patient was seen and examined at bedside this morning. He denies having any hip pain. Patient was able to eat some of his breakfast this morning without difficulty. He denies any difficulty breathing. - Constitutional Vitals: Temp Pulse Resp BP Pulse Ox 98.4 F 92 18 134/90 97 07/23/17 03:47 07/23/17 03:47 07/23/17 07:52 07/23/17 03:47 07/23/17 07:52 General appearance: Present: A&O X 3, pleasant, no acute distress, answers questions appropriately - Head Head exam: Present: atraumatic, normocephalic - Eye Eye exam: Present: PERRL, conjuntiva pink, sclera anicteric Pupils: Present: PERRL - Neck Neck exam general surgery: Present: supple, trachea midline. Absent: lymphadenopathy Additional comments: Trach observed - Respiratory Respiratory exam: Present: CTAB. Absent: accessory muscle use, rales, rhonchi, wheezes - Cardiovascular Cardiovascular exam: Present: RRR, +S1, +S2. Absent: diastolic murmur, gallop, rubs, systolic murmur - GI/Abdominal GI/Abdominal exam: Present: distended, firm, normal bowel sounds - Skin Skin exam: Present: dry, intact Internal Medicine: Result - Labs CBC & Chem 7: 07/23/17 09:33 07/23/17 09:33 Labs: Short CBC 07/23/17 Range/Units 09:33 WBC 6.2 (4.3-11.1) K/mcL Hgb 11.8 L (12.9-16.9) g/dL Hct 36.9 L (37.5-50.1) % Plt Count 226 (140-400) K/mcL Neutrophils # 3.5 (1.6-8.9) K/mcL - ABG Interpretation ABG results: PT/INR, D-dimer PT 11.4 Seconds (9.4-12.1) 07/17/17 02:46
[2017-07-23] MEDS: Ketoconazole Shampoo 120 ML BOTTLE TP SCH (17:31)
[2017-07-23] MEDS: clonazePAM 1 MG TABLET PO SCH (17:55)
[2017-07-23] MEDS: Melatonin 3 MG TABLET PO SCH (20:29)
[2017-07-23] MEDS: traZODone 50 MG TABLET PO SCH (20:29)
[2017-07-24] MEDS: *HR* Heparin 5,000 UNIT/ML VIAL SQ SCH ×2 (00:10→07:29)
[2017-07-24] MEDS: *HR* OxyCODONE Immed Rel 5 MG TABLET PO PRN ×2 (00:10→17:51)
[2017-07-24] MEDS: COLISTIN IVPB SCH ×2 (03:37→15:53)
[2017-07-24] MEDS: SODIUM CHLORIDE 0.9% IVPB SCH ×2 (03:37→15:53)
[2017-07-24] MEDS: Acetylcysteine 10% 2 ML INHSOL IH SCH ×4 (04:15→15:55)
[2017-07-24] MEDS: Ipratropium/Albuterol Neb 3 ML IH SCH ×4 (04:15→15:55)
[2017-07-24 05:39] LABS: Hemoglobin 12.1 g/dL (12.9-16.9); Mean Corpuscular HGB Conc 31.8 g/dL (31.6-35.5); Mean Corpuscular Hemoglobin 29.7 pg (28.0-33.3); Mean Corpuscular Volume 93.4 fL (83.0-100.0); Mean Platelet Volume 11.2 fL (9.4-12.4); Platelet Count 246 K/mcL (140-400); Red Blood Count 4.07 M/mcL (4.19-5.50)
[2017-07-24 05:50] LABS: BUN/Creatinine Ratio 17 (6-26); Blood Urea Nitrogen 9 mg/dL (8-26); Calcium 9.1 mg/dL (8.6-10.8); Carbon Dioxide 26 mEq/L (19-29); Chloride 102 mEq/L (98-109); Glucose 90 mg/dL (70-99); Osmolality,Calculated 286 (280-300); Potassium 3.6 mEq/L (3.5-4.5); Sodium 139 mEq/L (136-145); eGFR For African Americans > 60 (> 60); eGFR For Non-African Americans > 60 (> 60)
[2017-07-24] MEDS: CarBAMazepine XR (12 hr) 100 MG TAB PO SCH (07:26)
[2017-07-24] MEDS: *HR* Morphine Sulfate SR (12 HR) 15 MG TABLET.ER PO SCH (07:27)
[2017-07-24] MEDS: Baclofen 10 MG TABLET PO SCH (07:27)
[2017-07-24] MEDS: predniSONE 10 MG TABLET PO SCH (07:27)
[2017-07-24] MEDS: Aspirin 325 MG TABLET PO SCH (07:27)
[2017-07-24] MEDS: OLANZapine 10 MG TAB.RAPDIS PO SCH (07:27)
[2017-07-24] MEDS: Folic Acid 1 MG TABLET PO SCH (07:28)
[2017-07-24] MEDS: Nicotine 14 MG PATCH.TD24 TD SCH (07:28)
[2017-07-24] MEDS: Sennosides/Docusate Sodium TABLET PO SCH (07:28)
[2017-07-24] MEDS: Topiramate 100 MG TABLET PO SCH (07:28)
[2017-07-24] MEDS: Artificial Tears SOLN 15 ML BOTTLE BOTH EYES SCH (07:29)
--- NOTE | 2017-07-24 10:32 | Discharge Summary ---
<Eugene Campbell - Last Filed: 07/24/17 13:14> Date of Encounter: 07/24/17 Time of Encounter: 08:45 - Discharge Diagnosis (1) Pneumonia Priority: Primary Status: Acute Comments: Patient will be discharged on Colistin 200 mg IV BID for 11 more days. Qualifiers: Pneumonia type: due to unspecified organism Laterality: bilateral Lung location: lower lobe of lung Qualified Code(s): J18.9 - Pneumonia, unspecified organism (2) Altered mental status Priority: Secondary Status: Acute Qualifiers: Qualified Code(s): R41.82 - Altered mental status, unspecified (3) Complicated UTI (urinary tract infection) Priority: Secondary Status: Acute (4) DVT prophylaxis Priority: Secondary Status: Acute (5) Abdominal distension Priority: Secondary Status: Acute (6) Bipolar disorder Priority: Secondary Status: Chronic Qualifiers: Active/Remission status: remission status unspecified Qualified Code(s): F31.9 - Bipolar disorder, unspecified (7) Hip pain Priority: Secondary Status: Acute Qualifiers: Qualified Code(s): M25.559 - Pain in unspecified hip (8) Dysphagia Priority: Secondary Status: Acute Qualifiers: Qualified Code(s): R13.10 - Dysphagia, unspecified (9) Hypokalemia Priority: Secondary Status: Acute - Discharge Medications Prescriptions: Colistin (Colistimethate Na) [Coly-Mycin M Parenteral] 200 mg IV BID 11 Days # 22 vial Home Medications: Folic Acid 1 mg PO QAM 07/04/15 [History] Ipratropium/Albuterol Neb [Duoneb] 3 ml IH QID PRN 07/04/15 [History] Topiramate [Topamax] 150 mg PO QAM 11/05/15 [History] Acetaminophen [Tylenol] 650 mg PO Q6HR PRN 12/11/15 [History] Docusate Sodium [Dok] 100 mg PO BID 12/11/15 [History] Guaifenesin [Diabetic Tussin Ex] 10 ml PO Q4H PRN 12/11/15 [History] Polyvinyl Alcohol [Artificial Tears] 1 drop BOTH EYES BID 03/18/16 [History] Aspirin/Calcium Carbonate/Mag [Aspirin Buffered 325 mg Tab] 325 mg PO DAILY [History] Ketoconazole Shampoo [Nizoral Shampoo] 1 appl TP QWEEK 08/11/16 [History] Na Phos,M-B/Na Phos,Di-Ba [Fleet Enema Extra] 230 ml RC Q48H 08/11/16 [History] Furosemide [Lasix] 40 mg PO DAILY 03/24/17 [History] Melatonin 10 mg PO HS 06/27/17 [History] Potassium Chloride Elixir [Potassium Chloride] 40 meq PO DAILY 06/27/17 [History ] Scopolamine Patch [Transderm-Scop] 1 patch TD Q72H 06/27/17 [History] Baclofen [Lioresal] 10 mg PO BID #10 tablet 06/30/17 [Rx] Benztropine Mesylate 1 mg PO HS #30 tablet 06/30/17 [Rx] CarBAMazepine [Carbamazepine ER] 300 mg PO BID #30 tab.er.12h 06/30/17 [Rx] Nicotine Patch [Nicoderm] 14 mg TD DAILY #30 patch.td24 06/30/17 [Rx] OLANZapine [Zyprexa] 10 mg PO BID #30 tablet 06/30/17 [Rx] Sertraline [Zoloft] 75 mg PO DAILY #30 tablet 06/30/17 [Rx] Trazodone HCl 100 mg PO HS #30 tablet 06/30/17 [Rx] clonazePAM [Klonopin] 2 mg PO QPM #7 tablet 06/30/17 [Rx] Morphine Sulfate [Arymo ER] 45 mg PO Q12H 07/13/17 [History] Oxycodone HCl 30 mg PO Q6H 07/13/17 [History] Polyethylene Glycol 3350 [MiraLAX] 17 gm PO DAILY PRN 07/13/17 [History] predniSONE [PredniSONE] 10 mg PO DAILY 07/13/17 [History] Colistin (Colistimethate Na) [Coly-Mycin M Parenteral] 200 mg IV BID 11 Days # 22 vial 07/24/17 [Rx] Allergies/Adverse Reactions: 3 Allergy/AdvReac Type Severity Reaction Status Date / Time Penicillins Allergy See Verified 07/16/17 02:08 Comments Procedures/tests Complete & Pending: Procedures Performed prior 72 hours Category Date Time Status CT head/brain wo con [CT] Stat Cat Scan 07/21/17 17:29 Completed Date of admission: 07/16/17 09:51 Primary care physician: Kevin Caro MD Consults: 07/16/17 12:42 Consult to Property Manager [CONS] Routine Reason for SW Consult: Patient from [facility]. Assess for d/c needs. 07/21/17 07:50 Consult to Infectious Diseases [CONS] Routine Consulting Provider: Infectious Disease [place] Reason for Consult: MDRO Pnemonia, Proteus UTI. Kindly evalaute, thank you. Call Completed: No 07/21/17 12:30 Consult to Speech Therapy [CONS] Routine Comment: Evaluate, develop and implement POC Reason for Consult: pt is choking on honey thick liquids and mechanical soft diet. Call Completed: No Discharging clinician: Eugene Campbell Anticipated date of discharge: 07/24/17 - Patient Status Disposition: Hospice - Medical Facility Condition: Fair Overall status at discharge: patient is progressing back to baseline - Discharge Instructions Follow Up With: Kevin Caro MD [Primary Care Provider] - (patient will follow up with f pcp ) - Diet and Activity Activity: increase activity as tolerated Diet: advance to your usual diet Hospital course: Patient is a 47-year-old male who presented to the hospital from [place] for low respiratory rate and hypoxia. Patient is a quadriplegic. He was discharged from the facility on 07/13/17 for a nondisplaced closed right hip fracture that was managed nonoperatively. He was given his evening medication of 20 mg oxycodone. After this, he had a decreased respiratory rate and became hypoxic. His O2 saturation was unknown at the time. Per EMS, O2 sat 90-91%. When he was aroused, increased to high 90s. Patient's vital signs were stable on admission. CXR on 07/16/17 concerning for pneumonia versus atelectasis. He had coarse lung sounds. Patient being treated for suspected HCAP. Vancomycin 1500 IV Q12 was started on 07/16/17. UA was concerning for a possible UTI. He has a chronic indwelling suprapubic catheter. Patient has a history of multiple UTIs in the past. Urine cx was performed on 07/16/17: Proteus mirabilis sensitive to meropenem, tobramycin, and ertapenem. Was started on meropenem 1000 mg IV Q8 on 07/16/17. Patient was noted to have purulent drainage from his tracheostomy site. Sputum culture was obtained on 07/18/17. This culture grew acinetobacter baumannii, MDRO. The specter is antibiotic sensitivity was as follows: Intermediate sensitivity to ampicillin/sulfabactam, tobramycin, tigecycline. Patient was initially started on tigecycline. Infectious diseases consulted to determine the best method of treatment. Per the recommendation of infectious disease, patient was started on colistin 200 mg IV every 12 on 07/21/17. Infectious disease recommended a 14 day course of colistin. Tigecycline and meropenem were discontinued. After he was started on this antibiotic, his renal function was closely monitored. Patient does not develop acute kidney injury in the hospital during his treatment with colistin. Patient's creatinine on date of discharge is 0.52. On 07/21/17, patient became unresponsive and was difficult to keep awake approximately 14:09. Upon evaluation at bedside, patient was drowsy, aroused to noxious stimuli, his pupils were constricted and reactive, his chest was clear to auscultation bilaterally, his vital signs were stable, his O2 requirement is the same at 10 L by trach collar. Patient was on high doses of MS Contin and doses of oxycodone for chronic pain. He was administered 1 dose of Narcan, the patient became more arousable and able to communicate, he was able to speak full sentences afterwards. MS Contin dose was decreased to 30 mg from 45 mg. After this episode, patient did not have any episodes of AMS. During stay, patient had several episodes of dysphagia/aspiration. Despite the recommendations from Speech therapy, patient wanted to continue eating his regular food, and did not want alternate source of nutrition, such as PEG tube. Patient signed waiver. He ate his food without difficulty the remainder of his stay. Patient was seen and examined at bedside this morning. On date of discharge, he is feeling well, and his hip pain is well-controlled. He denies any shortness of breath. Patient was able to eat this morning without difficulty. His abdominal distention has improved. His abdomen still feels somewhat firm. Patient will be discharged to [facility] and will be continued on colistin 200 mg IV twice a day for 10 more days. - Time Spent with Patient Total time spent providing and/or coordinating discharge services: Greater than 30 minutes (42 minutes) - Constitutional Vitals: Temp Pulse Resp BP Pulse Ox 98.3 F 78 18 113/73 95 07/24/17 07:22 07/24/17 07:22 07/24/17 07:22 07/24/17 07:22 07/24/17 07:22 General appearance: Present: A&O X 3, pleasant, no acute distress, answers questions appropriately - Head Head exam: Present: atraumatic, normocephalic - Eye Eye exam: Present: PERRL, conjuntiva pink, sclera anicteric Pupils: Present: PERRL - Neck Neck exam general surgery: Present: supple, trachea midline. Absent: lymphadenopathy Additional comments: Trach observed; no purulent discharge noted. - Respiratory Respiratory exam: Present: CTAB. Absent: accessory muscle use, rales, rhonchi, wheezes - Cardiovascular Cardiovascular exam: Present: RRR, +S1, +S2. Absent: diastolic murmur, gallop, rubs, systolic murmur - GI/Abdominal GI/Abdominal exam: Present: firm, normal bowel sounds - Extremities Exam Extremities exam: Present: warm, radial pulses palpable and symmetrical. Absent : calf tenderness, cyanotic, pedal edema - Skin Skin exam: Present: dry, intact <Mark Russo T - Last Filed: 07/24/17 13:51> Date of Encounter: 07/24/17 Procedures/tests Complete & Pending: Procedures Performed prior 72 hours Category Date Time Status CT head/brain wo con [CT] Stat Cat Scan 07/21/17 17:29 Completed Date of admission: 07/16/17 09:51 Primary care physician: Kevin Caro MD Consults: 07/16/17 12:42 Consult to Property Manager [CONS] Routine Reason for SW Consult: Patient from [facility]. Assess for d/c needs. 07/21/17 07:50 Consult to Infectious Diseases [CONS] Routine Consulting Provider: Infectious Disease [place] Reason for Consult: MDRO Pnemonia, Proteus UTI. Kindly evalaute, thank you. Call Completed: No 07/21/17 12:30 Consult to Speech Therapy [CONS] Routine Comment: Evaluate, develop and implement POC Reason for Consult: pt is choking on honey thick liquids and mechanical soft diet. Call Completed: No Hospital course: Mr. Mathew is a 47 year old male - Time Spent with Patient Total time spent providing and/or coordinating discharge services: - Constitutional Vitals: Temp Pulse Resp BP Pulse Ox 98.1 F 74 18 111/73 94 07/24/17 11:14 07/24/17 11:14 07/24/17 12:03 07/24/17 11:14 07/24/17 12:03 - Attending Attestation I independently saw and examined this patient on 07/24/17, plan of care is as detailed in the resident physician's documentation 47 M s/p trach, admitted for Sepsis secondary to Proteus UTI and MDR Acinetobacter Pneumonia He denies new complains, his R hip pain has improved, trach secretions have improved He vehemently declined PEG tube or any artificial means of feeding, he is AAOX3 Neuro: AAOX3, quadriplegic, speech is cohenrent, pupils are reactive Abdomen is soft and non tender HS S1, S2 only Chest exam shows improved aeration, few rhonchi Chronic venous stasis changes on the LE Clinically stable to be discharged to SNF on Colistin IV q12h, follow up with Infectious disease Rest as in resident physician's documentation
[2017-07-24 11:15] VITALS: BP 111/73
--- NOTE | 2017-07-24 13:17 | Physician Discharge Referral ---
ExtendedCare Referral Info Transfer To: [facility] Provider in Charge after Transfer: Emblem Cutter Institutional Level of Care: Skilled - Diagnosis (1) Pneumonia Priority: Primary Status: Acute (2) Altered mental status Priority: Secondary Status: Acute (3) Complicated UTI (urinary tract infection) Priority: Secondary Status: Acute (4) DVT prophylaxis Priority: Secondary Status: Acute (5) Abdominal distension Priority: Secondary Status: Acute (6) Bipolar disorder Priority: Secondary Status: Chronic (7) Hip pain Priority: Secondary Status: Acute (8) Dysphagia Priority: Secondary Status: Acute (9) Hypokalemia Priority: Secondary Status: Acute Prognosis: Fair - Transfer Medications Prescriptions: Colistin (Colistimethate Na) [Coly-Mycin M Parenteral] 200 mg IV BID 11 Days # 22 vial Home Medications: Folic Acid 1 mg PO QAM 07/04/15 [History] Ipratropium/Albuterol Neb [Duoneb] 3 ml IH QID PRN 07/04/15 [History] Topiramate [Topamax] 150 mg PO QAM 11/05/15 [History] Acetaminophen [Tylenol] 650 mg PO Q6HR PRN 12/11/15 [History] Docusate Sodium [Dok] 100 mg PO BID 12/11/15 [History] Guaifenesin [Diabetic Tussin Ex] 10 ml PO Q4H PRN 12/11/15 [History] Polyvinyl Alcohol [Artificial Tears] 1 drop BOTH EYES BID 03/18/16 [History] Aspirin/Calcium Carbonate/Mag [Aspirin Buffered 325 mg Tab] 325 mg PO DAILY [History] Ketoconazole Shampoo [Nizoral Shampoo] 1 appl TP QWEEK 08/11/16 [History] Na Phos,M-B/Na Phos,Di-Ba [Fleet Enema Extra] 230 ml RC Q48H 08/11/16 [History] Furosemide [Lasix] 40 mg PO DAILY 03/24/17 [History] Melatonin 10 mg PO HS 06/27/17 [History] Potassium Chloride Elixir [Potassium Chloride] 40 meq PO DAILY 06/27/17 [History ] Scopolamine Patch [Transderm-Scop] 1 patch TD Q72H 06/27/17 [History] Baclofen [Lioresal] 10 mg PO BID #10 tablet 06/30/17 [Rx] Benztropine Mesylate 1 mg PO HS #30 tablet 06/30/17 [Rx] CarBAMazepine [Carbamazepine ER] 300 mg PO BID #30 tab.er.12h 06/30/17 [Rx] Nicotine Patch [Nicoderm] 14 mg TD DAILY #30 patch.td24 06/30/17 [Rx] OLANZapine [Zyprexa] 10 mg PO BID #30 tablet 06/30/17 [Rx] Sertraline [Zoloft] 75 mg PO DAILY #30 tablet 06/30/17 [Rx] Trazodone HCl 100 mg PO HS #30 tablet 06/30/17 [Rx] clonazePAM [Klonopin] 2 mg PO QPM #7 tablet 06/30/17 [Rx] Morphine Sulfate [Arymo ER] 45 mg PO Q12H 07/13/17 [History] Oxycodone HCl 30 mg PO Q6H 07/13/17 [History] Polyethylene Glycol 3350 [MiraLAX] 17 gm PO DAILY PRN 07/13/17 [History] predniSONE [PredniSONE] 10 mg PO DAILY 07/13/17 [History] Colistin (Colistimethate Na) [Coly-Mycin M Parenteral] 200 mg IV BID 11 Days # 22 vial 07/24/17 [Rx] Allergies/Adverse Reactions: 3 Allergy/AdvReac Type Severity Reaction Status Date / Time Penicillins Allergy See Verified 07/16/17 02:08 Comments - Respiratory Orders Smoking Cessation: Smoking cessation has been advised. For more information, call the [place] Tobacco Quit Line at 8-374-IRTC-NOW. CERTIFICATION: I certify that the transfer of the above named patient to an Extended Care Facility is necessary for the continuing treatment of the diagnosis listed. The above information is true and accurate reflection of patient's current condition. Confidential - Redisclosure prohibited without a patient's written consent.
[2017-07-24] MEDS: clonazePAM 1 MG TABLET PO SCH (17:51)
== END 2017-07-24 18:10 | disposition hospice, inpatient (51) | DRG 466 ==
LOC: EMEROO 02:06 → 2ANU 02:06 → SUATTDRO 09:51
PROVIDERS: ADMIT Internal Medicine; ATTEND Internal Medicine

== ENCOUNTER 2017-12-01 10:19 | Inpatient (IN) ==
[2017-12-01] MEDS ORDERED: Cefepime HCl 2,000 MG in Water for inj. (sterile) 20 ML IVP ONE (10:28)
--- NOTE | 2017-12-01 10:30 | Emergency Department Note ---
Disposition Clinical Impression: Pneumonia Qualifiers: Pneumonia type: due to unspecified organism Laterality: bilateral Lung location : upper lobe of lung Qualified Code(s): J18.1 - Lobar pneumonia, unspecified organism Sepsis Qualifiers: Sepsis type: sepsis due to unspecified organism Qualified Code(s): A41.9 - Sepsis, unspecified organism UTI (urinary tract infection) Qualifiers: Urinary tract infection type: site unspecified Hematuria presence: without hematuria Qualified Code(s): N39.0 - Urinary tract infection, site not specified Altered mental state Qualifiers: Altered mental status type: unspecified Qualified Code(s): R41.82 - Altered mental status, unspecified Acute and chronic respiratory failure Qualifiers: Respiratory failure complication: hypercapnia Qualified Code(s): J96.22 - Acute and chronic respiratory failure with hypercapnia Disposition: Admitted As Inpatient Condition: Fair Referrals: NONE,PCP [Primary Care Provider] - Forms: ED Satisfaction Letter General Adult HPI - General Chief complaint: ED Altered Mental Status Stated complaint: Unresponsive/fever Time Seen by Provider: 12/01/17 10:27 - Related Data Home Medications Medication Instructions Recorded Confirmed Folic Acid 1 mg PO QAM 07/04/15 12/01/17 Ipratropium/Albuterol Neb [Duoneb] 3 ml IH QID PRN 07/04/15 12/01/17 Topiramate [Topamax] 150 mg PO QAM 11/05/15 12/01/17 Acetaminophen [Tylenol] 650 mg PO Q6HR PRN 12/11/15 12/01/17 Docusate Sodium [Dok] 100 mg PO BID 12/11/15 12/01/17 Polyvinyl Alcohol [Artificial 1 drop BOTH EYES BID 03/18/16 12/01/17 Tears] Aspirin/Calcium Carbonate/Mag 325 mg PO DAILY 08/11/16 12/01/17 [Aspirin Buffered 325 mg Tab] Ketoconazole Shampoo [Nizoral 1 appl TP QWEEK 08/11/16 12/01/17 Shampoo] Furosemide [Lasix] 40 mg PO DAILY 03/24/17 12/01/17 Melatonin 10 mg PO HS 06/27/17 12/01/17 Potassium Chloride Elixir 40 meq PO DAILY 06/27/17 12/01/17 [Potassium Chloride] Scopolamine Patch [Transderm-Scop] 1 patch TD Q72H 06/27/17 12/01/17 OxyCODONE Immed Rel [Roxicodone 20 30 mg PO Q6H 07/13/17 12/01/17 MG] Polyethylene Glycol 3350 [MiraLAX] 17 gm PO DAILY PRN 07/13/17 12/01/17 predniSONE [PredniSONE] 10 mg PO DAILY 07/13/17 12/01/17 Morphine Sulfate SR (12 HR) [MS 45 mg PO Q12HR 12/01/17 12/01/17 Contin] Previous Rx's Medication Instructions Recorded Baclofen [Lioresal] 10 mg PO BID #10 tablet 06/30/17 Benztropine Mesylate 1 mg PO HS #30 tablet 06/30/17 CarBAMazepine [Carbamazepine ER] 300 mg PO BID #30 tab.er.12h 06/30/17 OLANZapine [Zyprexa] 10 mg PO BID #30 tablet 06/30/17 Sertraline [Zoloft] 75 mg PO DAILY #30 tablet 06/30/17 Trazodone HCl 100 mg PO HS #30 tablet 06/30/17 clonazePAM [Klonopin] 2 mg PO QPM #7 tablet 06/30/17 Allergies Allergy/AdvReac Type Severity Reaction Status Date / Time Penicillins Allergy See Verified 07/16/17 02:08 Comments Past Medical History - Past Medical History Medical history: Reports: CHF, hepatitis, hypertension, seizures, other Surgical history: Reports: tracheostomy, other Psychiatric history: Reports: anxiety, bipolar, depression - Social History Smoking Status: Current every day smoker Smokeless Tobacco Status: No Alcohol use: Reports: none, unknown Drug use: Reports: none Course Vital Signs O2 Sat by Pulse Oximetry 96 12/01/17 10:20 Temperature 100 F H 12/01/17 10:49 Pulse Rate 87 12/01/17 17:56 Respiratory Rate 16 12/01/17 17:56 Blood Pressure 120/69 12/01/17 17:56 O2 Sat by Pulse Oximetry 97 12/01/17 17:56 Oxygen Delivery Oxygen Delivery Trach Mask Medical Decision Making - Lab Data Result diagrams: 12/01/17 11:17 12/01/17 11:17 Lab Results 12/01/17 12/01/17 12/01/17 Range/Units 11:17 11:17 11:17 WBC 20.3 H (4.3-11.1) K/mcL RBC 5.02 (4.19-5.50) M/mcL Hgb 15.1 (12.9-16.9) g/dL Hct 47.6 (37.5-50.1) % MCV 94.8 (83.0-100.0) fL MCH 30.1 (28.0-33.3) pg MCHC 31.7 (31.6-35.5) g/dL RDW 14.5 (11.5-14.5) % Plt Count 107 L (140-400) K/mcL MPV 11.5 (9.4-12.4) fL Immature Gran % 2.0 (0-4) % Seg Neutrophils % 84.1 % Lymphocytes % 5.9 % Monocytes % 7.8 % Eosinophils % 0.0 % Basophils % 0.2 % Neutrophils # 17.1 H (1.6-8.9) K/mcL Lymphocytes # 1.2 (0.6-4.6) K/mcL Monocytes # 1.6 H (0.0-1.3) K/mcL Eosinophils # 0.0 (0.0-0.6) K/mcL Basophils # 0.0 (0.0-0.2) K/mcL PT 13.5 H (9.4-12.1) Seconds INR 1.2 APTT 26.3 (26.0-36.0) Seconds ABG pH (7.32-7.45) pH Units ABG pCO2 (35-45) mmHg ABG pO2 (85-104) mmHg ABG HCO3 (21-27) mEq/L ABG Total CO2 (20-26) mEq/L ABG O2 Saturation (95-98) % ABG Base Excess (-2 to 3) mEq/L VBG pH (7.32-7.42) pH Units VBG pCO2 (41-51) mmHg VBG pO2 (25-50) mmHg VBG HCO3 (21-27) mEq/L O2 Delivery Device Inspired O2 (1-15=lpm [id number]=%) Sodium 133 L (136-145) mEq/L Potassium 3.3 L (3.5-5.1) mEq/L Chloride 99 (98-107) mEq/L Carbon Dioxide 24 (23-29) mEq/L BUN 22 H (6-20) mg/dL Creatinine 0.86 (0.70-1.30) mg/dL Est GFR ( Amer) > 60 (> 60) Est GFR (Non-Af Amer) > 60 (> 60) BUN/Creatinine Ratio 26 (6-26) Glucose 149 H (70-105) mg/dL Calculated Osmolality 282 (280-300) Lactic Acid (0.5-2.2) mmol/L Calcium 9.1 (8.6-10.3) mg/dL Phosphorus 3.9 (2.7-4.5) mg/dL Magnesium 1.9 (1.6-2.6) mg/dL Total Bilirubin 1.1 H (0.3-1.0) mg/dL Direct Bilirubin 0.6 H (0.0-0.2) mg/dL Indirect Bilirubin 0.5 (0.0-1.2) mg/dL AST 31 (13-39) Units/L ALT 37 (7-52) Units/L Alkaline Phosphatase 138 H (34-104) Units/L Troponin I 0.03 (< 0.04) ng/mL B-Natriuretic Peptide (Less than 100) pg/mL Serum Total Protein 7.1 (6.4-8.9) g/dL Albumin 3.9 (3.5-5.7) g/dL Globulin 3.2 (2.4-3.5) g/dL Albumin/Globulin Ratio 1.2 (1.1-2.2) Urine Color (Yellow) Urine Clarity (Clear) Urine pH (5.0-8.0) pH Units Ur Specific [place] (1.010-1.025) Urine Protein (Neg-Trace) mg/dL Urine Glucose (UA) (Normal) mg/dL Urine Ketones (Negative) mg/dL Urine Blood (Negative) Urine Nitrite (Negative) Urine Bilirubin (Negative) Urine Urobilinogen (Normal) mg/dL Ur Leukocyte Esterase (Negative) Urine Microscopic RBC (0-3) per hpf Urine Microscopic WBC (0-3) per hpf Ur Squamous Epith Cells (None-Few) per lpf Amorphous Sediment (Few) Urine Bacteria (None-Few) per hpf Hyaline Casts (None-Few) per lpf Ur Culture Indicated? (NO) 12/01/17 12/01/17 12/01/17 Range/Units 11:17 11:17 13:30 WBC (4.3-11.1) K/mcL RBC (4.19-5.50) M/mcL Hgb (12.9-16.9) g/dL Hct (37.5-50.1) % MCV (83.0-100.0) fL MCH (28.0-33.3) pg MCHC (31.6-35.5) g/dL RDW (11.5-14.5) % Plt Count (140-400) K/mcL MPV (9.4-12.4) fL Immature Gran % (0-4) % Seg Neutrophils % % Lymphocytes % % Monocytes % % Eosinophils % % Basophils % % Neutrophils # (1.6-8.9) K/mcL Lymphocytes # (0.6-4.6) K/mcL Monocytes # (0.0-1.3) K/mcL Eosinophils # (0.0-0.6) K/mcL Basophils # (0.0-0.2) K/mcL PT (9.4-12.1) Seconds INR APTT (26.0-36.0) Seconds ABG pH (7.32-7.45) pH Units ABG pCO2 (35-45) mmHg ABG pO2 (85-104) mmHg ABG HCO3 (21-27) mEq/L ABG Total CO2 (20-26) mEq/L ABG O2 Saturation (95-98) % ABG Base Excess (-2 to 3) mEq/L VBG pH (7.32-7.42) pH Units VBG pCO2 (41-51) mmHg VBG pO2 (25-50) mmHg VBG HCO3 (21-27) mEq/L O2 Delivery Device Inspired O2 (1-15=lpm [id number]=%) Sodium (136-145) mEq/L Potassium (3.5-5.1) mEq/L Chloride (98-107) mEq/L Carbon Dioxide (23-29) mEq/L BUN (6-20) mg/dL Creatinine (0.70-1.30) mg/dL Est GFR ( Amer) (> 60) Est GFR (Non-Af Amer) (> 60) BUN/Creatinine Ratio (6-26) Glucose (70-105) mg/dL Calculated Osmolality (280-300) Lactic Acid 0.8 (0.5-2.2) mmol/L Calcium (8.6-10.3) mg/dL Phosphorus (2.7-4.5) mg/dL Magnesium (1.6-2.6) mg/dL Total Bilirubin (0.3-1.0) mg/dL Direct Bilirubin (0.0-0.2) mg/dL Indirect Bilirubin (0.0-1.2) mg/dL AST (13-39) Units/L ALT (7-52) Units/L Alkaline Phosphatase (34-104) Units/L Troponin I (< 0.04) ng/mL B-Natriuretic Peptide 215 H (Less than 100) pg/mL Serum Total Protein (6.4-8.9) g/dL Albumin (3.5-5.7) g/dL Globulin (2.4-3.5) g/dL Albumin/Globulin Ratio (1.1-2.2) Urine Color Dark Yellow (Yellow) Urine Clarity Turbid A (Clear) Urine pH 7.5 (5.0-8.0) pH Units Ur Specific [place] 1.018 (1.010-1.025) Urine Protein 100 H (Neg-Trace) mg/dL Urine Glucose (UA) Normal (Normal) mg/dL Urine Ketones Negative (Negative) mg/dL Urine Blood Large H (Negative) Urine Nitrite Positive A (Negative) Urine Bilirubin Small H (Negative) Urine Urobilinogen Normal (Normal) mg/dL Ur Leukocyte Esterase Large H (Negative) Urine Microscopic RBC 30-50 H (0-3) per hpf Urine Microscopic WBC 30-50 H (0-3) per hpf Ur Squamous Epith Cells Few (None-Few) per lpf Amorphous Sediment Moderate H (Few) Urine Bacteria Many H (None-Few) per hpf Hyaline Casts None Seen (None-Few) per lpf Ur Culture Indicated? YES A (NO) 12/01/17 12/01/17 Range/Units 15:20 16:52 WBC (4.3-11.1) K/mcL RBC (4.19-5.50) M/mcL Hgb (12.9-16.9) g/dL Hct (37.5-50.1) % MCV (83.0-100.0) fL MCH (28.0-33.3) pg MCHC (31.6-35.5) g/dL RDW (11.5-14.5) % Plt Count (140-400) K/mcL MPV (9.4-12.4) fL Immature Gran % (0-4) % Seg Neutrophils % % Lymphocytes % % Monocytes % % Eosinophils % % Basophils % % Neutrophils # (1.6-8.9) K/mcL Lymphocytes # (0.6-4.6) K/mcL Monocytes # (0.0-1.3) K/mcL Eosinophils # (0.0-0.6) K/mcL Basophils # (0.0-0.2) K/mcL PT (9.4-12.1) Seconds INR APTT (26.0-36.0) Seconds ABG pH 7.27 L (7.32-7.45) pH Units ABG pCO2 58 H (35-45) mmHg ABG pO2 82 L (85-104) mmHg ABG HCO3 27 (21-27) mEq/L ABG Total CO2 29 H (20-26) mEq/L ABG O2 Saturation 94 L (95-98) % ABG Base Excess -1 (-2 to 3) mEq/L VBG pH 7.26 L (7.32-7.42) pH Units VBG pCO2 59 H (41-51) mmHg VBG pO2 73 H (25-50) mmHg VBG HCO3 26 (21-27) mEq/L O2 Delivery Device T Collar Inspired O2 7.0 (1-15=lpm [id number]=%) Sodium (136-145) mEq/L Potassium (3.5-5.1) mEq/L Chloride (98-107) mEq/L Carbon Dioxide (23-29) mEq/L BUN (6-20) mg/dL Creatinine (0.70-1.30) mg/dL Est GFR ( Amer) (> 60) Est GFR (Non-Af Amer) (> 60) BUN/Creatinine Ratio (6-26) Glucose (70-105) mg/dL Calculated Osmolality (280-300) Lactic Acid (0.5-2.2) mmol/L Calcium (8.6-10.3) mg/dL Phosphorus (2.7-4.5) mg/dL Magnesium (1.6-2.6) mg/dL Total Bilirubin (0.3-1.0) mg/dL Direct Bilirubin (0.0-0.2) mg/dL Indirect Bilirubin (0.0-1.2) mg/dL AST (13-39) Units/L ALT (7-52) Units/L Alkaline Phosphatase (34-104) Units/L Troponin I (< 0.04) ng/mL B-Natriuretic Peptide (Less than 100) pg/mL Serum Total Protein (6.4-8.9) g/dL Albumin (3.5-5.7) g/dL Globulin (2.4-3.5) g/dL Albumin/Globulin Ratio (1.1-2.2) Urine Color (Yellow) Urine Clarity (Clear) Urine pH (5.0-8.0) pH Units Ur Specific [place] (1.010-1.025) Urine Protein (Neg-Trace) mg/dL Urine Glucose (UA) (Normal) mg/dL Urine Ketones (Negative) mg/dL Urine Blood (Negative) Urine Nitrite (Negative) Urine Bilirubin (Negative) Urine Urobilinogen (Normal) mg/dL Ur Leukocyte Esterase (Negative) Urine Microscopic RBC (0-3) per hpf Urine Microscopic WBC (0-3) per hpf Ur Squamous Epith Cells (None-Few) per lpf Amorphous Sediment (Few) Urine Bacteria (None-Few) per hpf Hyaline Casts (None-Few) per lpf Ur Culture Indicated? (NO) Critical Care Time Critical Care Time: Yes Attestation: 30 minutes of critical care time were spent with this patient who is a trach patient with altered consciousness with both pneumonia and urinary tract infection and sepsis and hypotension and hypoxemia. Initiation of fluids, IV antibiotics and multiple reassessments. Attestation Statement - Attestation Attestation: I examined this patient and my medical decision-making was reviewed with the [employer]/PA/Advanced Practice Nurse/Resident Physician. I agree with the documented findings, disposition and treatment plan as described except to the extent set forth below. I did see the patient immediately upon arrival and also spoke with the paramedics and the patient does have a trach and is normally responsive and interactive and now is unresponsive with a temperature of 103 degrees. Does have some rhonchorous respirations and we will initiate treatment for sepsis with IV fluids and antibiotics and the patient will be admitted to the hospital. 1029 I did review the EKG showing normal sinus rhythm with a rate of [address] changes and some PVCs. This is a sinus rhythm. I do not see concerning ischemic changes. 1032
--- NOTE | 2017-12-01 10:42 | Emergency Department Note ---
Disposition Clinical Impression: Pneumonia Qualifiers: Pneumonia type: due to unspecified organism Laterality: bilateral Lung location : upper lobe of lung Qualified Code(s): J18.1 - Lobar pneumonia, unspecified organism Sepsis Qualifiers: Sepsis type: sepsis due to unspecified organism Qualified Code(s): A41.9 - Sepsis, unspecified organism UTI (urinary tract infection) Qualifiers: Urinary tract infection type: site unspecified Hematuria presence: without hematuria Qualified Code(s): N39.0 - Urinary tract infection, site not specified Altered mental state Qualifiers: Altered mental status type: unspecified Qualified Code(s): R41.82 - Altered mental status, unspecified Acute and chronic respiratory failure Qualifiers: Respiratory failure complication: hypercapnia Qualified Code(s): J96.22 - Acute and chronic respiratory failure with hypercapnia Disposition: Admitted As Inpatient Condition: Fair Referrals: NONE,PCP [Primary Care Provider] - Forms: ED Satisfaction Letter Time of Disposition: 17:01 Altered Mental Status HPI - General Chief Complaint: ED Altered Mental Status Stated Complaint: Unresponsive/fever Time Seen by Provider: 12/01/17 10:27 Nursing Notes Reviewed: Yes Vital Signs Reviewed: Yes - History of Present Illness HPI Narrative: Patient is a 47-year-old male who presents to [facility] ED with concern for decreased responsiveness. Patient has a trach in place and is on trach mask. Patient was found to have a fever of 103. Exam and review of systems limited by patient's not being responsive currently. He is breathing spontaneously and is maintaining his oxygen saturations in the 90s. MD complaint: altered mental status, decreased responsiveness Context: recent fever - Related Data Home Medications Medication Instructions Recorded Confirmed Folic Acid 1 mg PO QAM 07/04/15 12/01/17 Ipratropium/Albuterol Neb [Duoneb] 3 ml IH QID PRN 07/04/15 12/01/17 Topiramate [Topamax] 150 mg PO QAM 11/05/15 12/01/17 Acetaminophen [Tylenol] 650 mg PO Q6HR PRN 12/11/15 12/01/17 Docusate Sodium [Dok] 100 mg PO BID 12/11/15 12/01/17 Polyvinyl Alcohol [Artificial 1 drop BOTH EYES BID 03/18/16 12/01/17 Tears] Aspirin/Calcium Carbonate/Mag 325 mg PO DAILY 08/11/16 12/01/17 [Aspirin Buffered 325 mg Tab] Ketoconazole Shampoo [Nizoral 1 appl TP QWEEK 08/11/16 12/01/17 Shampoo] Furosemide [Lasix] 40 mg PO DAILY 03/24/17 12/01/17 Melatonin 10 mg PO HS 06/27/17 12/01/17 Potassium Chloride Elixir 40 meq PO DAILY 06/27/17 12/01/17 [Potassium Chloride] Scopolamine Patch [Transderm-Scop] 1 patch TD Q72H 06/27/17 12/01/17 OxyCODONE Immed Rel [Roxicodone 20 30 mg PO Q6H 07/13/17 12/01/17 MG] Polyethylene Glycol 3350 [MiraLAX] 17 gm PO DAILY PRN 07/13/17 12/01/17 predniSONE [PredniSONE] 10 mg PO DAILY 07/13/17 12/01/17 Morphine Sulfate SR (12 HR) [MS 45 mg PO Q12HR 12/01/17 12/01/17 Contin] Previous Rx's Medication Instructions Recorded Baclofen [Lioresal] 10 mg PO BID #10 tablet 06/30/17 Benztropine Mesylate 1 mg PO HS #30 tablet 06/30/17 CarBAMazepine [Carbamazepine ER] 300 mg PO BID #30 tab.er.12h 06/30/17 OLANZapine [Zyprexa] 10 mg PO BID #30 tablet 06/30/17 Sertraline [Zoloft] 75 mg PO DAILY #30 tablet 06/30/17 Trazodone HCl 100 mg PO HS #30 tablet 06/30/17 clonazePAM [Klonopin] 2 mg PO QPM #7 tablet 06/30/17 Allergies Allergy/AdvReac Type Severity Reaction Status Date / Time Penicillins Allergy See Verified 07/16/17 02:08 Comments Limitations: ROS unobtainable due to patients medical condition Past Medical History - Past Medical History Attestation: Yes The following information was validated with the patient. Source: patient Medical history: Reports: CHF, hepatitis, hypertension, seizures, other Surgical history: Reports: tracheostomy, other Psychiatric history: Reports: anxiety, bipolar, depression - Social History Smoking Status: Current every day smoker Smokeless Tobacco Status: No Alcohol use: Reports: none, unknown Drug use: Reports: none Physical Exam - General Limitations: altered mental status General appearance: obtunded - Head Head exam: atraumatic, normocephalic, normal inspection - Eye Eye exam: Present: normal appearance, PERRL, EOMI - ENT ENT exam: normal exam, normal oropharynx, mucous membranes moist - Neck Neck exam: Present: normal inspection, full ROM, trachea midline - Chest Chest inspection: Present: normal inspection, symmetric chest wall rise - Respiratory Respiratory exam: Present: other (Bilateral diffuse rhonchi) - Cardiovascular Cardiovascular exam: Present: regular rate, normal rhythm, normal heart sounds - Abdominal Exam Abdominal exam: Present: soft, Non-Tender. Absent: tenderness, distention, guarding, rebound, rigidity - Extremities Exam Extremities exam: Present: pedal edema (1+ LLE) - Psychiatric Psychiatric exam: Present: normal affect, normal mood - Skin Skin exam: Present: warm, dry, intact, normal color Course Course Narrative: Patient seen and examined. Altered mental status and unresponsive upon my examination. He has breathing spontaneously and maintaining his oxygen saturations with a trach mask. Critical care workup initiated. Chest x-ray, urine analysis. We will treat a sepsis and give a 30 mL/kg fluid bolus, blood cultures, vancomycin and cefepime. - Reevaluation(s) Reevaluation #1: Chest x-ray shows bilateral upper lobe infiltrates. Labwork shows a leukocytosis of 20,000. Urinalysis also shows UTI. Due to patient's trach mask being in place as well as patient's pannus covering his inguinal region, decision was made to hold off on central line and call PICC team to place a PICC line. This was placed and patient started on his fluids. He has now had 2 L of fluids and blood pressure is 107/75. Hospitalist Dr. Shrestha states she would like to see due to normal blood pressures before accepting the patient. We will let the third liter of IV fluids be given and have his blood pressures rechecked. Time: 15:04 Reevaluation #2: Blood pressures improved to 100s/70s. We also decided to give patient a dose of 0.4 mg Narcan. He did wake up more after this as well. Mental status is significantly improved. A repeat VBG till did show some signs of respiratory acidosis. However due to his improved mental status, I suspect this will get better. I did discuss this with the cigar roller Dr. Ibarra who states he does not feel that this patient needs ICU care. They will consult on the patient. I discussed this with the hospitalist who has accepted patient for admission. Time: 17:01 Vital Signs O2 Sat by Pulse Oximetry 96 12/01/17 10:20 Temperature 100 F H 12/01/17 10:49 Pulse Rate 87 12/01/17 17:56 Respiratory Rate 16 12/01/17 17:56 Blood Pressure 120/69 12/01/17 17:56 O2 Sat by Pulse Oximetry 97 12/01/17 17:56 Oxygen Delivery Oxygen Delivery Trach Mask Altered Mental Status - Medical Records Medical records reviewed: Yes I reviewed the patient's medical records. - Lab Data Lab results reviewed: Yes I reviewed the patient's lab results. Result diagrams: 12/01/17 11:17 12/01/17 11:17 Lab Results 12/01/17 12/01/17 12/01/17 Range/Units 11:17 11:17 11:17 WBC 20.3 H (4.3-11.1) K/mcL RBC 5.02 (4.19-5.50) M/mcL Hgb 15.1 (12.9-16.9) g/dL Hct 47.6 (37.5-50.1) % MCV 94.8 (83.0-100.0) fL MCH 30.1 (28.0-33.3) pg MCHC 31.7 (31.6-35.5) g/dL RDW 14.5 (11.5-14.5) % Plt Count 107 L (140-400) K/mcL MPV 11.5 (9.4-12.4) fL Immature Gran % 2.0 (0-4) % Seg Neutrophils % 84.1 % Lymphocytes % 5.9 % Monocytes % 7.8 % Eosinophils % 0.0 % Basophils % 0.2 % Neutrophils # 17.1 H (1.6-8.9) K/mcL Lymphocytes # 1.2 (0.6-4.6) K/mcL Monocytes # 1.6 H (0.0-1.3) K/mcL Eosinophils # 0.0 (0.0-0.6) K/mcL Basophils # 0.0 (0.0-0.2) K/mcL PT 13.5 H (9.4-12.1) Seconds INR 1.2 APTT 26.3 (26.0-36.0) Seconds ABG pH (7.32-7.45) pH Units ABG pCO2 (35-45) mmHg ABG pO2 (85-104) mmHg ABG HCO3 (21-27) mEq/L ABG Total CO2 (20-26) mEq/L ABG O2 Saturation (95-98) % ABG Base Excess (-2 to 3) mEq/L VBG pH (7.32-7.42) pH Units VBG pCO2 (41-51) mmHg VBG pO2 (25-50) mmHg VBG HCO3 (21-27) mEq/L O2 Delivery Device Inspired O2 (1-15=lpm [id number]=%) Sodium 133 L (136-145) mEq/L Potassium 3.3 L (3.5-5.1) mEq/L Chloride 99 (98-107) mEq/L Carbon Dioxide 24 (23-29) mEq/L BUN 22 H (6-20) mg/dL Creatinine 0.86 (0.70-1.30) mg/dL Est GFR ( Amer) > 60 (> 60) Est GFR (Non-Af Amer) > 60 (> 60) BUN/Creatinine Ratio 26 (6-26) Glucose 149 H (70-105) mg/dL Calculated Osmolality 282 (280-300) Lactic Acid (0.5-2.2) mmol/L Calcium 9.1 (8.6-10.3) mg/dL Phosphorus 3.9 (2.7-4.5) mg/dL Magnesium 1.9 (1.6-2.6) mg/dL Total Bilirubin 1.1 H (0.3-1.0) mg/dL Direct Bilirubin 0.6 H (0.0-0.2) mg/dL Indirect Bilirubin 0.5 (0.0-1.2) mg/dL AST 31 (13-39) Units/L ALT 37 (7-52) Units/L Alkaline Phosphatase 138 H (34-104) Units/L Troponin I 0.03 (< 0.04) ng/mL B-Natriuretic Peptide (Less than 100) pg/mL Serum Total Protein 7.1 (6.4-8.9) g/dL Albumin 3.9 (3.5-5.7) g/dL Globulin 3.2 (2.4-3.5) g/dL Albumin/Globulin Ratio 1.2 (1.1-2.2) Urine Color (Yellow) Urine Clarity (Clear) Urine pH (5.0-8.0) pH Units Ur Specific [place] (1.010-1.025) Urine Protein (Neg-Trace) mg/dL Urine Glucose (UA) (Normal) mg/dL Urine Ketones (Negative) mg/dL Urine Blood (Negative) Urine Nitrite (Negative) Urine Bilirubin (Negative) Urine Urobilinogen (Normal) mg/dL Ur Leukocyte Esterase (Negative) Urine Microscopic RBC (0-3) per hpf Urine Microscopic WBC (0-3) per hpf Ur Squamous Epith Cells (None-Few) per lpf Amorphous Sediment (Few) Urine Bacteria (None-Few) per hpf Hyaline Casts (None-Few) per lpf Ur Culture Indicated? (NO) 12/01/17 12/01/17 12/01/17 Range/Units 11:17 11:17 13:30 WBC (4.3-11.1) K/mcL RBC (4.19-5.50) M/mcL Hgb (12.9-16.9) g/dL Hct (37.5-50.1) % MCV (83.0-100.0) fL MCH (28.0-33.3) pg MCHC (31.6-35.5) g/dL RDW (11.5-14.5) % Plt Count (140-400) K/mcL MPV (9.4-12.4) fL Immature Gran % (0-4) % Seg Neutrophils % % Lymphocytes % % Monocytes % % Eosinophils % % Basophils % % Neutrophils # (1.6-8.9) K/mcL Lymphocytes # (0.6-4.6) K/mcL Monocytes # (0.0-1.3) K/mcL Eosinophils # (0.0-0.6) K/mcL Basophils # (0.0-0.2) K/mcL PT (9.4-12.1) Seconds INR APTT (26.0-36.0) Seconds ABG pH (7.32-7.45) pH Units ABG pCO2 (35-45) mmHg ABG pO2 (85-104) mmHg ABG HCO3 (21-27) mEq/L ABG Total CO2 (20-26) mEq/L ABG O2 Saturation (95-98) % ABG Base Excess (-2 to 3) mEq/L VBG pH (7.32-7.42) pH Units VBG pCO2 (41-51) mmHg VBG pO2 (25-50) mmHg VBG HCO3 (21-27) mEq/L O2 Delivery Device Inspired O2 (1-15=lpm [id number]=%) Sodium (136-145) mEq/L Potassium (3.5-5.1) mEq/L Chloride (98-107) mEq/L Carbon Dioxide (23-29) mEq/L BUN (6-20) mg/dL Creatinine (0.70-1.30) mg/dL Est GFR ( Amer) (> 60) Est GFR (Non-Af Amer) (> 60) BUN/Creatinine Ratio (6-26) Glucose (70-105) mg/dL Calculated Osmolality (280-300) Lactic Acid 0.8 (0.5-2.2) mmol/L Calcium (8.6-10.3) mg/dL Phosphorus (2.7-4.5) mg/dL Magnesium (1.6-2.6) mg/dL Total Bilirubin (0.3-1.0) mg/dL Direct Bilirubin (0.0-0.2) mg/dL Indirect Bilirubin (0.0-1.2) mg/dL AST (13-39) Units/L ALT (7-52) Units/L Alkaline Phosphatase (34-104) Units/L Troponin I (< 0.04) ng/mL B-Natriuretic Peptide 215 H (Less than 100) pg/mL Serum Total Protein (6.4-8.9) g/dL Albumin (3.5-5.7) g/dL Globulin (2.4-3.5) g/dL Albumin/Globulin Ratio (1.1-2.2) Urine Color Dark Yellow (Yellow) Urine Clarity Turbid A (Clear) Urine pH 7.5 (5.0-8.0) pH Units Ur Specific [place] 1.018 (1.010-1.025) Urine Protein 100 H (Neg-Trace) mg/dL Urine Glucose (UA) Normal (Normal) mg/dL Urine Ketones Negative (Negative) mg/dL Urine Blood Large H (Negative) Urine Nitrite Positive A (Negative) Urine Bilirubin Small H (Negative) Urine Urobilinogen Normal (Normal) mg/dL Ur Leukocyte Esterase Large H (Negative) Urine Microscopic RBC 30-50 H (0-3) per hpf Urine Microscopic WBC 30-50 H (0-3) per hpf Ur Squamous Epith Cells Few (None-Few) per lpf Amorphous Sediment Moderate H (Few) Urine Bacteria Many H (None-Few) per hpf Hyaline Casts None Seen (None-Few) per lpf Ur Culture Indicated? YES A (NO) 12/01/17 12/01/17 Range/Units 15:20 16:52 WBC (4.3-11.1) K/mcL RBC (4.19-5.50) M/mcL Hgb (12.9-16.9) g/dL Hct (37.5-50.1) % MCV (83.0-100.0) fL MCH (28.0-33.3) pg MCHC (31.6-35.5) g/dL RDW (11.5-14.5) % Plt Count (140-400) K/mcL MPV (9.4-12.4) fL Immature Gran % (0-4) % Seg Neutrophils % % Lymphocytes % % Monocytes % % Eosinophils % % Basophils % % Neutrophils # (1.6-8.9) K/mcL Lymphocytes # (0.6-4.6) K/mcL Monocytes # (0.0-1.3) K/mcL Eosinophils # (0.0-0.6) K/mcL Basophils # (0.0-0.2) K/mcL PT (9.4-12.1) Seconds INR APTT (26.0-36.0) Seconds ABG pH 7.27 L (7.32-7.45) pH Units ABG pCO2 58 H (35-45) mmHg ABG pO2 82 L (85-104) mmHg ABG HCO3 27 (21-27) mEq/L ABG Total CO2 29 H (20-26) mEq/L ABG O2 Saturation 94 L (95-98) % ABG Base Excess -1 (-2 to 3) mEq/L VBG pH 7.26 L (7.32-7.42) pH Units VBG pCO2 59 H (41-51) mmHg VBG pO2 73 H (25-50) mmHg VBG HCO3 26 (21-27) mEq/L O2 Delivery Device T Collar Inspired O2 7.0 (1-15=lpm [id number]=%) Sodium (136-145) mEq/L Potassium (3.5-5.1) mEq/L Chloride (98-107) mEq/L Carbon Dioxide (23-29) mEq/L BUN (6-20) mg/dL Creatinine (0.70-1.30) mg/dL Est GFR ( Amer) (> 60) Est GFR (Non-Af Amer) (> 60) BUN/Creatinine Ratio (6-26) Glucose (70-105) mg/dL Calculated Osmolality (280-300) Lactic Acid (0.5-2.2) mmol/L Calcium (8.6-10.3) mg/dL Phosphorus (2.7-4.5) mg/dL Magnesium (1.6-2.6) mg/dL Total Bilirubin (0.3-1.0) mg/dL Direct Bilirubin (0.0-0.2) mg/dL Indirect Bilirubin (0.0-1.2) mg/dL AST (13-39) Units/L ALT (7-52) Units/L Alkaline Phosphatase (34-104) Units/L Troponin I (< 0.04) ng/mL B-Natriuretic Peptide (Less than 100) pg/mL Serum Total Protein (6.4-8.9) g/dL Albumin (3.5-5.7) g/dL Globulin (2.4-3.5) g/dL Albumin/Globulin Ratio (1.1-2.2) Urine Color (Yellow) Urine Clarity (Clear) Urine pH (5.0-8.0) pH Units Ur Specific [place] (1.010-1.025) Urine Protein (Neg-Trace) mg/dL Urine Glucose (UA) (Normal) mg/dL Urine Ketones (Negative) mg/dL Urine Blood (Negative) Urine Nitrite (Negative) Urine Bilirubin (Negative) Urine Urobilinogen (Normal) mg/dL Ur Leukocyte Esterase (Negative) Urine Microscopic RBC (0-3) per hpf Urine Microscopic WBC (0-3) per hpf Ur Squamous Epith Cells (None-Few) per lpf Amorphous Sediment (Few) Urine Bacteria (None-Few) per hpf Hyaline Casts (None-Few) per lpf Ur Culture Indicated? (NO) - Radiology Data Radiology results reviewed: Yes I reviewed the patient's radiology results. Chest X-Ray 12/01/17 10:29 IMPRESSION: Increased prominence of the interstitial markings within both upper lobes. These changes may represent interstitial edema versus atypical infectious process Tracheostomy D/ / Ron Whalen MD / Ron Whalen MD Interpreting Provider: Ron Whalen MD - EKG Data EKG attestation: Yes I reviewed and interpreted this EKG. EKG results narrative: EKG done at 1021 shows normal sinus rhythm with a rate of [address] elevation or depression. Normal axis. Frequent PVCs. TPA Checklist - LKW: 3-4.5 hrs Add. Warnings/Precautions Patient/family understanding: The patient/family members have been counseled and understood the risk, benefit , and alternatives of treatment.
[2017-12-01 11:44] LABS: Basophils % 0.2 %; Hematocrit 47.6 % (37.5-50.1); Hemoglobin 15.1 g/dL (12.9-16.9); Lymphocytes # 1.2 K/mcL (0.6-4.6); Lymphocytes % 5.9 %; Mean Corpuscular HGB Conc 31.7 g/dL (31.6-35.5); Mean Corpuscular Hemoglobin 30.1 pg (28.0-33.3); Mean Corpuscular Volume 94.8 fL (83.0-100.0); Mean Platelet Volume 11.5 fL (9.4-12.4); Monocytes # 1.6 K/mcL (0.0-1.3); Monocytes % 7.8 %; Neutrophils # 17.1 K/mcL (1.6-8.9); Platelet Count 107 K/mcL (140-400); Red Blood Count 5.02 M/mcL (4.19-5.50); Red Cell Distribution Width 14.5 % (11.5-14.5); Segmented Neutrophils % 84.1 %
[2017-12-01 11:51] LABS: INR 1.2; Prothrombin Time 13.5 Seconds (9.4-12.1)
[2017-12-01 11:53] LABS: Activated Partial Thrombo Time 26.3 Seconds (26.0-36.0)
[2017-12-01 11:56] LABS: Troponin I 0.03 ng/mL (< 0.04)
[2017-12-01 12:02] LABS: Alanine Aminotransferase 37 Units/L (7-52); Albumin 3.9 g/dL (3.5-5.7); Albumin/Globulin Ratio 1.2 (1.1-2.2); Alkaline Phosphatase 138 Units/L (34-104); Aspartate Amino Transferase 31 Units/L (13-39); BUN/Creatinine Ratio 26 (6-26); Bilirubin,Direct 0.6 mg/dL (0.0-0.2); Bilirubin,Indirect 0.5 mg/dL (0.0-1.2); Bilirubin,Total 1.1 mg/dL (0.3-1.0); Blood Urea Nitrogen 22 mg/dL (6-20); Calcium 9.1 mg/dL (8.6-10.3); Carbon Dioxide 24 mEq/L (23-29); Chloride 99 mEq/L (98-107); Globulin 3.2 g/dL (2.4-3.5); Glucose 149 mg/dL (70-105); Magnesium 1.9 mg/dL (1.6-2.6); Osmolality,Calculated 282 (280-300); Phosphorous 3.9 mg/dL (2.7-4.5); Potassium 3.3 mEq/L (3.5-5.1); Sodium 133 mEq/L (136-145); Total Protein 7.1 g/dL (6.4-8.9); eGFR For African Americans > 60 (> 60); eGFR For Non-African Americans > 60 (> 60)
[2017-12-01] MEDS: 0.9 % Sodium Chloride 1,000 ML IVC SCH ×3 (12:08→14:55)
[2017-12-01] MEDS ORDERED: Lidocaine -MPF 1% 5 ML AMPUL INFILT ONE (12:26)
[2017-12-01] MEDS ORDERED: 0.9 % Sodium Chloride 2,000 ML ONE (13:48)
[2017-12-01 13:53] LABS: Bilirubin,Urine Small (Negative); Blood,Urine Large (Negative); Clarity,Urine Turbid (Clear); Color,Urine Dark Yellow (Yellow); Glucose,Urine (UA) Normal (Normal); Ketones,Urine Negative (Negative); Leukocyte Esterase,Urine Large (Negative); Nitrite,Urine Positive (Negative); PH,Urine 7.5 pH Units (5.0-8.0); Protein,Urine 100 mg/dL (Neg-Trace); Specific Gravity,Urine 1.018 (1.010-1.025); Urobilinogen,Urine Normal (Normal)
[2017-12-01 13:59] LABS: Bacteria,Urine Many per hpf (None-Few); Hyaline Casts,Urine None Seen per lpf (None-Few); Squamous Epithelial Cell,Urine Few per lpf (None-Few); WBC,Urine 30-50 per hpf (0-3)
[2017-12-01 14:11] LABS: Amorphous Sediment,Urine Moderate (Few); RBC,Urine 30-50 per hpf (0-3)
[2017-12-01] MEDS ORDERED: Naloxone 0.4 MG/ML INJ IVP ONE ×2 (15:13→16:50)
[2017-12-01 15:26] LABS: ABG Base Excess -1 mEq/L (-2 to 3); ABG HCO3 27 mEq/L (21-27); ABG Oxygen Saturation 94 % (95-98); ABG PCO2 58 mmHg (35-45); ABG PH 7.27 pH Units (7.32-7.45); ABG PO2 82 mmHg (85-104); ABG TCO2 29 mEq/L (20-26)
[2017-12-01 16:54] LABS: VBG HCO3 26 mEq/L (21-27); VBG PCO2 59 mmHg (41-51); VBG PH 7.26 pH Units (7.32-7.42); VBG PO2 73 mmHg (25-50)
--- NOTE | 2017-12-01 17:08 | Pulmonology Consult Note ---
Date of Encounter: 12/01/17 Time of Encounter: 16:30 Assessment and Plan (1) Pneumonia Current Visit: No Status: Acute Patient with chronic tracheostomy and suspect healthcare associated pneumonia. Recommend patient to be on broad-spectrum antibiotic and also pulmonary toilet. Discussed with the ER physician at the bedside and patient is being managed adequately and no need for ICU admission and we will be happy to follow up with his condition deteriorated then he will need to be admitted to ICU. Patient with normal lactic acid and is getting fluid resuscitation. Qualifiers: Pneumonia type: due to unspecified organism Laterality: bilateral Lung location: lower lobe of lung Qualified Code(s): J18.1 - Lobar pneumonia, unspecified organism (2) Urinary tract infection Current Visit: No Status: Acute Qualifiers: Urinary tract infection type: acute cystitis Hematuria presence: with hematuria Qualified Code(s): N30.01 - Acute cystitis with hematuria (3) Chronic respiratory failure with hypercapnia Current Visit: Yes Status: Chronic Patient with chronic trach and expected to have some degree of elevation of PCO2. Since patient is mentating better now then to treat his sepsis and pneumonia I expect it will improve. If his mental status deteriorated then his trach can be changed and he can be placed on the ventilator. Discussed with the family at the bedside and thank you very much for consultation. History of Present Illness Consult date: 12/01/17 Requesting physician: Gunjan Newman Reason for consult: pneumonia History of present illness: This history is taken from the family at the bedside since patient has tracheostomy with mental status change. This is a 47-year-old male was brought to the emergency room concern of decrease in mentation and responsiveness. Patient has chronic trach and his being on trach mask. Patient was found to have fever and increased secretion. Otherwise history is very limited and not able to obtain any more. Pulmonary critical care consult was requested to evaluate patient for ICU admission. He has normal lactic acid. Past Med Surg Social Fam HX - Past Medical History Medical history: CHF, hepatitis, hypertension, seizures, other Psychiatric history: anxiety, bipolar, depression - Past Surgical History Surgical History: tracheostomy, other - Social History Smoking Status: Current every day smoker Smokeless Tobacco Status: No Alcohol use: none, unknown Drug use: none - Family History Mother Living Status: Hx Family Cardiac Disorders: Yes Hx Family Respiratory Disorders: Yes Hx Family Cancer: Yes Medications and Allergies Folic Acid 1 mg PO QAM 07/04/15 [History] Ipratropium/Albuterol Neb [Duoneb] 3 ml IH QID PRN 07/04/15 [History] Topiramate [Topamax] 150 mg PO QAM 11/05/15 [History] Acetaminophen [Tylenol] 650 mg PO Q6HR PRN 12/11/15 [History] Docusate Sodium [Dok] 100 mg PO BID 12/11/15 [History] Polyvinyl Alcohol [Artificial Tears] 1 drop BOTH EYES BID 03/18/16 [History] Aspirin/Calcium Carbonate/Mag [Aspirin Buffered 325 mg Tab] 325 mg PO DAILY [History] Ketoconazole Shampoo [Nizoral Shampoo] 1 appl TP QWEEK 08/11/16 [History] Furosemide [Lasix] 40 mg PO DAILY 03/24/17 [History] Melatonin 10 mg PO HS 06/27/17 [History] Potassium Chloride Elixir [Potassium Chloride] 40 meq PO DAILY 06/27/17 [History ] Scopolamine Patch [Transderm-Scop] 1 patch TD Q72H 06/27/17 [History] Baclofen [Lioresal] 10 mg PO BID #10 tablet 06/30/17 [Rx] Benztropine Mesylate 1 mg PO HS #30 tablet 06/30/17 [Rx] CarBAMazepine [Carbamazepine ER] 300 mg PO BID #30 tab.er.12h 06/30/17 [Rx] OLANZapine [Zyprexa] 10 mg PO BID #30 tablet 06/30/17 [Rx] Sertraline [Zoloft] 75 mg PO DAILY #30 tablet 06/30/17 [Rx] Trazodone HCl 100 mg PO HS #30 tablet 06/30/17 [Rx] clonazePAM [Klonopin] 2 mg PO QPM #7 tablet 06/30/17 [Rx] OxyCODONE Immed Rel [Roxicodone 20 MG] 30 mg PO Q6H 07/13/17 [History] Polyethylene Glycol 3350 [MiraLAX] 17 gm PO DAILY PRN 07/13/17 [History] predniSONE [PredniSONE] 10 mg PO DAILY 07/13/17 [History] Morphine Sulfate SR (12 HR) [MS Contin] 45 mg PO Q12HR 12/01/17 [History] 3 Allergy/AdvReac Type Severity Reaction Status Date / Time Penicillins Allergy See Verified 07/16/17 02:08 Comments ROS unobtainable: due to mental status All Systems: The remainder of the systems were reviewed and are negative Physical Examination Vital Signs: Vital Signs, Last 4 Hours Pulse Resp BP Pulse Ox 12/01/17 14:54 93 16 105/77 96 12/01/17 14:20 84 89/63 97 12/01/17 13:20 81 86/56 98 General appearance: no acute distress Eyes: nonicteric ENT: oropharynx dry Neck: other (Tracheostomy with yellow secretion) Effort: normal Auscultation: bilateral: rhonchi Percussion: bilateral: not dull Cardiovascular: regular rate and rhythm Gastrointestinal: normoactive bowel sounds, non-distended Extremities: no cyanosis, edema (Left lower extremity) unable to assess due to mental status Results - Laboratory Findings CBC and BMP: 12/01/17 11:17 12/01/17 11:17 ABG ABG pH 7.27 pH Units (7.32-7.45) L 12/01/17 15:20 ABG pCO2 58 mmHg (35-45) H 12/01/17 15:20 ABG pO2 82 mmHg (85-104) L 12/01/17 15:20 ABG O2 Saturation 94 % (95-98) L 12/01/17 15:20 PT/INR, D-dimer PT 13.5 Seconds (9.4-12.1) H 12/01/17 11:17 Abnormal lab findings: Abnormal lab results WBC 20.3 K/mcL (4.3-11.1) H 12/01/17 11:17 Plt Count 107 K/mcL (140-400) L 12/01/17 11:17 Neutrophils # 17.1 K/mcL (1.6-8.9) H 12/01/17 11:17 Monocytes # 1.6 K/mcL (0.0-1.3) H 12/01/17 11:17 PT 13.5 Seconds (9.4-12.1) H 12/01/17 11:17 ABG pH 7.27 pH Units (7.32-7.45) L 12/01/17 15:20 ABG pCO2 58 mmHg (35-45) H 12/01/17 15:20 ABG pO2 82 mmHg (85-104) L 12/01/17 15:20 ABG Total CO2 29 mEq/L (20-26) H 12/01/17 15:20 ABG O2 Saturation 94 % (95-98) L 12/01/17 15:20 VBG pH 7.26 pH Units (7.32-7.42) L 12/01/17 16:52 VBG pCO2 59 mmHg (41-51) H 12/01/17 16:52 VBG pO2 73 mmHg (25-50) H 12/01/17 16:52 Sodium 133 mEq/L (136-145) L 12/01/17 11:17 Potassium 3.3 mEq/L (3.5-5.1) L 12/01/17 11:17 BUN 22 mg/dL (6-20) H 12/01/17 11:17 Glucose 149 mg/dL (70-105) H 12/01/17 11:17 Total Bilirubin 1.1 mg/dL (0.3-1.0) H 12/01/17 11:17 Direct Bilirubin 0.6 mg/dL (0.0-0.2) H 12/01/17 11:17 Alkaline Phosphatase 138 Units/L (34-104) H 12/01/17 11:17 B-Natriuretic Peptide 215 pg/mL (Less than 100) H 12/01/17 11:17 Urine Clarity Turbid (Clear) A 12/01/17 13:30 Urine Protein 100 mg/dL (Neg-Trace) H 12/01/17 13:30 Urine Blood Large (Negative) H 12/01/17 13:30 Urine Nitrite Positive (Negative) A 12/01/17 13:30 Urine Bilirubin Small (Negative) H 12/01/17 13:30 Ur Leukocyte Esterase Large (Negative) H 12/01/17 13:30 Urine Microscopic RBC 30-50 per hpf (0-3) H 12/01/17 13:30 Urine Microscopic WBC 30-50 per hpf (0-3) H 12/01/17 13:30 Amorphous Sediment Moderate (Few) H 12/01/17 13:30 Urine Bacteria Many per hpf (None-Few) H 12/01/17 13:30 Ur Culture Indicated? YES (NO) A 12/01/17 13:30 - Diagnostic Findings Chest x-ray: report reviewed, image reviewed - Clinical Findings Intake & Output: Intake & Output 12/01/17 12/01/17 12/01/17 07:59 15:59 23:59 Intake Total 1999 1000 / 1000 Balance 1999 1000 / 1000 Weight 97.522 kg Consult Discharge Plan - Plan Referrals: NONE,PCP [Primary Care Provider] -
[2017-12-01] MEDS ORDERED: Cefepime HCl 2,000 MG in Water for inj. (sterile) 20 ML 20 ML IVP ONE (18:00)
[2017-12-01] MEDS ORDERED: 0.9 % Sodium Chloride 1,000 ML IVC ONE (18:26)
[2017-12-01] MEDS ORDERED: Acetaminophen 325 MG TABLET PO PRN (20:49)
[2017-12-01] MEDS ORDERED: Naloxone 0.4 MG/ML INJ IVP PRN (20:49)
[2017-12-01] MEDS ORDERED: Albuterol 2.5 MG/3 ML NEBULIZER IH PRN (20:59)
[2017-12-01] MEDS ORDERED: Ketoconazole Shampoo 120 ML BOTTLE TP SCH (21:00)
[2017-12-01] MEDS ORDERED: Vancomycin (wt based) 1,000 MG VIAL IVPB SCH (21:00)
[2017-12-01] MEDS ORDERED: *HR* LORazepam 2 MG/ML VIAL IVP PRN (21:31)
--- NOTE | 2017-12-01 21:40 | Internal Med History&Physical ---
Date of Encounter: 12/01/17 Time of Encounter: 19:55 Internal Medicine - H&P: HPI Chief complaint: unresponsive Admitted From: Emergency Dept Plans for Post Hospital Care: Transfer Residential Facility History of present illness: Mr. Mathew is a 47 year old male who presented to ER from [facility] with complaints of unresponsiveness. He is a local [facility] resident and suffers from tracheostomy and debilitated state from quadriplegia. He was noted to be minimally responsive to unresponsive today with fever to 103. He was therefore brought to ER by squad and was noted to have pneumonia and UTI on workup. He appeared to be septic and was fluid resuscitated in the ER. He was initially hypotensive but after fluid resuscitation, blood pressure and hemodynamics stabilized. Dr. Ibarra saw patient in consultation and did not feel patient needed ICU admission at that time. He was therefore admitted to hospitalist service. Upon my assessment of the patient in the ER, he was being prepared for transportation to the floor when I noticed the patient was apneic. I stopped the transport team for moving patient until I assessed him thoroughly in the ER. I tried to awaken patient and stimulated him by sternal rub, forehead rub, and he remained unresponsive. He had very shallow and infrequent respirations to the point where I summoned respiratory therapy emergently to initiate bag mask ventilation given his apnea. His pupils were roughly 3 mm and sluggishly reactive. They were not pinpoint. He did receive Narcan earlier today to which he responded. Given his chronic narcotic use, I am reluctant to keep giving Narcan. I therefore requested we ventilate patient after tracheostomy exchange by respiratory therapy. We will use ventilator as necessary to stabilize his respirations and oxygenation. His tracheostomy was exchanged in the ER by respiratory therapy and he received bag mask ventilation with stabilization prior to transport to [facility]. Presently, he now has spontaneous respirations and is maintaining his oxygenation on trach mask oxygenation. He remains somnolent and minimally responsive. We will monitor him closely and, if necessary, place him on ventilator. I discussed this at length with respiratory therapy and his nurse, and they both are in agreement and understanding. I cannot obtain any history patient whatsoever. All the history was obtained from ER notes, ECF notes, and old records. Past Med Surg Social Fam HX - Past Medical History Source: unable to obtain, old records reviewed, nursing notes reviewed, other ( ER/ECF records) Medical history: CHF, hepatitis, hypertension, seizures, other (quadriplegia) Psychiatric history: anxiety, bipolar, depression - Past Surgical History Surgical History: tracheostomy - Social History Smoking Status: Current every day smoker Smokeless Tobacco Status: No Alcohol use: none, unknown Drug use: none Current living situation: ECF - Family History Mother Living Status: Hx Family Cardiac Disorders: Yes Hx Family Respiratory Disorders: Yes Hx Family Cancer: Yes Internal Medicine - H&P: Meds Folic Acid 1 mg PO QAM 07/04/15 [History] Ipratropium/Albuterol Neb [Duoneb] 3 ml IH QID PRN 07/04/15 [History] Topiramate [Topamax] 150 mg PO QAM 11/05/15 [History] Acetaminophen [Tylenol] 650 mg PO Q6HR PRN 12/11/15 [History] Docusate Sodium [Dok] 100 mg PO BID 12/11/15 [History] Polyvinyl Alcohol [Artificial Tears] 1 drop BOTH EYES BID 03/18/16 [History] Aspirin/Calcium Carbonate/Mag [Aspirin Buffered 325 mg Tab] 325 mg PO DAILY [History] Ketoconazole Shampoo [Nizoral Shampoo] 1 appl TP QWEEK 08/11/16 [History] Furosemide [Lasix] 40 mg PO DAILY 03/24/17 [History] Melatonin 10 mg PO HS 06/27/17 [History] Potassium Chloride Elixir [Potassium Chloride] 40 meq PO DAILY 06/27/17 [History ] Scopolamine Patch [Transderm-Scop] 1 patch TD Q72H 06/27/17 [History] Baclofen [Lioresal] 10 mg PO BID #10 tablet 06/30/17 [Rx] Benztropine Mesylate 1 mg PO HS #30 tablet 06/30/17 [Rx] CarBAMazepine [Carbamazepine ER] 300 mg PO BID #30 tab.er.12h 06/30/17 [Rx] OLANZapine [Zyprexa] 10 mg PO BID #30 tablet 06/30/17 [Rx] Sertraline [Zoloft] 75 mg PO DAILY #30 tablet 06/30/17 [Rx] Trazodone HCl 100 mg PO HS #30 tablet 06/30/17 [Rx] clonazePAM [Klonopin] 2 mg PO QPM #7 tablet 06/30/17 [Rx] OxyCODONE Immed Rel [Roxicodone 20 MG] 30 mg PO Q6H 07/13/17 [History] Polyethylene Glycol 3350 [MiraLAX] 17 gm PO DAILY PRN 07/13/17 [History] predniSONE [PredniSONE] 10 mg PO DAILY 07/13/17 [History] Morphine Sulfate SR (12 HR) [MS Contin] 45 mg PO Q12HR 12/01/17 [History] 3 Allergy/AdvReac Type Severity Reaction Status Date / Time Penicillins Allergy See Verified 07/16/17 02:08 Comments ROS unobtainable: due to mental status - Constitutional Vitals: Temp Pulse Resp BP Pulse Ox 98.7 F 94 15 114/78 95 12/01/17 20:22 12/01/17 20:22 12/01/17 20:22 12/01/17 20:22 12/01/17 20:30 General appearance: Present: A&O X 0. Absent: answers questions appropriately Exam: unresponsive with periods of apnea - Head Head exam: Present: normal inspection - Eye Eye exam: Absent: scleral icterus Additional comments: pupils 3 mm and sluggishly reactive - ENT ENT exam: Present: mucous membranes dry Additional comments: tracheostomy with purulent secretions - Neck Neck exam general surgery: Present: full ROM, supple. Absent: lymphadenopathy, tenderness, nuchal rigidity, thyromegaly Additional comments: tracheostomy as above - Respiratory Respiratory exam: Present: decreased breath sounds. Absent: chest wall tenderness Additional comments: minimal/shallow respirations with periods of apnea - Cardiovascular Cardiovascular exam: Present: distant heart sounds, RRR, +S1, +S2. Absent: diastolic murmur, systolic murmur - GI/Abdominal GI/Abdominal exam: Present: soft. Absent: guarding, hepatomegaly, mass, rebound , splenomegaly, tenderness - Extremities Exam Extremities exam: Present: warm. Absent: calf tenderness, joint swelling, tenderness Additional comments: pulses weak and thready roughly 1+; cap refill ~ 3 seconds - Neurological Exam Neurological exam: Absent: alert Additional comments: unresponsive; after trach exchange, patient awakened slightly and opened his eyes only to fall back to sleep shortly thereafter - Psychiatric Additional comments: unable to assess - Skin Skin exam: Present: dry, warm. Absent: rash Internal Med - H&P Results - Labs CBC & Chem 7: 12/01/17 11:17 12/01/17 11:17 - EKG Data -: EKG Interpreted by Myself - EKG Data EKG comments: 12/01/17 22:13 NSR; PVC's; no acute ST changes - Diagnostic Studies Chest x-ray Status: image reviewed by me (suspect bilateral upperlobe pneumonia) - Assessment and plan (1) Acute and chronic respiratory failure Current Visit: Yes Status: Acute Assessment and plan: 1. Patient had several periods of apnea upon my initial assessment in ER, most of which were < 20 seconds. 2. Trach exchanged by respiratory therapy, BMV per respiratory per my request, currently on trach mask with humidified oxygen. 3. Will use mechanical ventilation as necessary if he becomes apneic again. 4. Repeat ABG this evening and follow clinically. 5. Hold Opiates tonight and use Narcan only if necessary as he may suffer withdrawal seizure with recurrent bouts of Narcan. 6. Will order scheduled and PRN aerosols and Mucomyst aerosols as needed. Qualifiers: Respiratory failure complication: hypoxia and hypercapnia Qualified Code(s) : J96.21 - Acute and chronic respiratory failure with hypoxia; J96.22 - Acute and chronic respiratory failure with hypercapnia; J96.22 - Acute and chronic respiratory failure with hypercapnia; J96.22 - Acute and chronic respiratory failure with hypercapnia (2) Pneumonia Current Visit: Yes Status: Acute Assessment and plan: 1. Past sputum cultures suggest Acinetobacter. 2. Reculture sputum, place in precautions, and treat with IV Vancomycin, Cefepime, and Levaquin. 3. Follow cultures and adjust antibiotics accordingly. 4. Supportive measures as above. Qualifiers: Pneumonia type: due to unspecified organism Laterality: bilateral Lung location: upper lobe of lung Qualified Code(s): J18.1 - Lobar pneumonia, unspecified organism (3) Sepsis Current Visit: Yes Status: Acute Assessment and plan: 1. S/P fluid resuscitation. 2. Monitor hemodynamics and continue MIV. 3. Will place on IV Solumedrol as he is on chronic Prednisone and may develop adrenal insufficiency. 4. Antibiotics as above and trend lactate levels. Qualifiers: Sepsis type: sepsis due to unspecified organism Qualified Code(s): A41.9 - Sepsis, unspecified organism (4) UTI (urinary tract infection) Current Visit: Yes Status: Acute Assessment and plan: 1. Culture urine and continue antibiotics as above. 2. I reviewed past microbiology results and noted multi-drug resistant Proteus species. 3. Patient to be in contact and respiratory isolation. Qualifiers: Urinary tract infection type: site unspecified Hematuria presence: without hematuria Qualified Code(s): N39.0 - Urinary tract infection, site not specified (5) DVT prophylaxis Current Visit: Yes Status: Acute Assessment and plan: 1. Heparin SQ.
[2017-12-01] MEDS: Ipratropium/Albuterol Neb 3 ML IH SCH ×2 (21:50→22:12)
[2017-12-01 22:10] LABS: ABG Base Excess 0 mEq/L (-2 to 3); ABG HCO3 27 mEq/L (21-27); ABG Oxygen Saturation 94 % (95-98); ABG PCO2 53 mmHg (35-45); ABG PH 7.32 pH Units (7.32-7.45); ABG PO2 77 mmHg (85-104); ABG TCO2 29 mEq/L (20-26)
[2017-12-01] MEDS: Acetylcysteine 10% 2 ML INHSOL IH SCH (22:12)
[2017-12-01] MEDS: CarBAMazepine XR (12 hr) 100 MG TAB PO SCH (22:34)
[2017-12-01] MEDS: Levofloxacin 750 MG/150 ML 750 MG/150 ML BAG IVPB SCH (22:42)
[2017-12-01] MEDS: 0.9 % Sodium Chloride w KCl 20 MEQ/1,000 ML MLS IVC SCH (22:43)
[2017-12-02] MEDS ORDERED: 0.9 % Sodium Chloride 1,000 ML IVC ONE (00:10)
[2017-12-02] MEDS: Cefepime HCl 2,000 MG in Water for inj. (sterile) 20 ML 20 ML IVP SCH ×4 (00:28→22:58)
[2017-12-02] MEDS: methylPREDNISolone 125 MG/2 ML VIAL IVP SCH ×4 (00:28→22:59)
[2017-12-02 00:49] LABS: Basophils % 0.1 %; Eosinophils % 0.1 %; Mean Platelet Volume 11.6 fL (9.4-12.4); Monocytes % 5.5 %
[2017-12-02 00:51] LABS: Hematocrit 39.2 % (37.5-50.1); Hemoglobin 12.4 g/dL (12.9-16.9); Immature Granulocytes % 0.9 % (0-4); Immature Platelets 7.2 % (1.1-6.1); Lymphocytes # 0.7 K/mcL (0.6-4.6); Lymphocytes % 4.4 %; Mean Corpuscular HGB Conc 31.6 g/dL (31.6-35.5); Mean Corpuscular Hemoglobin 30.3 pg (28.0-33.3); Mean Corpuscular Volume 95.8 fL (83.0-100.0); Monocytes # 0.8 K/mcL (0.0-1.3); Red Blood Count 4.09 M/mcL (4.19-5.50); Red Cell Distribution Width 14.5 % (11.5-14.5)
[2017-12-02 00:55] LABS: INR 1.2; Prothrombin Time 13.4 Seconds (9.4-12.1)
[2017-12-02 00:57] LABS: Activated Partial Thrombo Time 30.2 Seconds (26.0-36.0); Neutrophils # 13.4 K/mcL (1.6-8.9); Platelet Count 82 K/mcL (140-400)
[2017-12-02 01:14] LABS: Alanine Aminotransferase 32 Units/L (7-52); Albumin 3.2 g/dL (3.5-5.7); Albumin/Globulin Ratio 1.1 (1.1-2.2); Alkaline Phosphatase 104 Units/L (34-104); Aspartate Amino Transferase 22 Units/L (13-39); BUN/Creatinine Ratio 40 (6-26); Bilirubin,Total 0.9 mg/dL (0.3-1.0); Blood Urea Nitrogen 19 mg/dL (6-20); Carbon Dioxide 25 mEq/L (23-29); Chloride 107 mEq/L (98-107); Globulin 2.8 g/dL (2.4-3.5); Glucose 138 mg/dL (70-105); Magnesium 1.6 mg/dL (1.6-2.6); Osmolality,Calculated 292 (280-300); Potassium 2.6 mEq/L (3.5-5.1); Sodium 139 mEq/L (136-145); eGFR For African Americans > 60 (> 60); eGFR For Non-African Americans > 60 (> 60)
[2017-12-02] MEDS ORDERED: Potassium Chloride 40 MEQ, Lidocaine 1% 2 ML in D5% in Water 500 ML IVPB ONE (01:57)
[2017-12-02] MEDS: Ipratropium/Albuterol Neb 3 ML IH SCH ×6 (03:41→23:29)
[2017-12-02 04:45] LABS: ABG Base Excess -2 mEq/L (-2 to 3); ABG HCO3 23 mEq/L (21-27); ABG Oxygen Saturation 91 % (95-98); ABG PCO2 42 mmHg (35-45); ABG PH 7.35 pH Units (7.32-7.45); ABG PO2 65 mmHg (85-104); ABG TCO2 25 mEq/L (20-26)
--- NOTE | 2017-12-02 05:04 | Event Note ---
Date of Encounter: 12/02/17 Time of Encounter: 01:15 I decided to transfer patient to ICU due to steadily dropping BP and need for a 4th bolus of saline. If BP doesn't stabilize, then he will need CVC placement and pressors (likely Levophed) for hemodynamic support in the setting of sepsis.
[2017-12-02] MEDS: *HR* Heparin 5,000 UNIT/ML VIAL SQ SCH ×2 (06:07→16:52)
--- NOTE | 2017-12-02 06:57 | Pulmonology Progress Note ---
<Marsha Ibarra M - Last Filed: 12/02/17 09:33> Date of Encounter: 12/02/17 Assessment and Plan (1) Pneumonia Current Visit: No Status: Acute Qualifiers: Pneumonia type: due to unspecified organism Laterality: bilateral Lung location: lower lobe of lung Qualified Code(s): J18.1 - Lobar pneumonia, unspecified organism (2) Urinary tract infection Current Visit: No Status: Acute Qualifiers: Urinary tract infection type: acute cystitis Hematuria presence: with hematuria Qualified Code(s): N30.01 - Acute cystitis with hematuria (3) Chronic respiratory failure with hypercapnia Current Visit: Yes Status: Chronic Objective PUL Vital signs: Last Vital Signs Temp 97.6 F 12/02/17 07:58 Pulse 66 12/02/17 09:00 Resp 16 12/02/17 09:00 BP 117/80 12/02/17 09:00 Pulse Ox 97 12/02/17 09:00 Results - Laboratory Findings CBC and BMP: 12/02/17 00:37 12/02/17 00:37 ABG ABG pH 7.35 pH Units (7.32-7.45) 12/02/17 04:42 ABG pCO2 42 mmHg (35-45) 12/02/17 04:42 ABG pO2 65 mmHg (85-104) L 12/02/17 04:42 ABG O2 Saturation 91 % (95-98) L 12/02/17 04:42 PT/INR, D-dimer PT 13.4 Seconds (9.4-12.1) H 12/02/17 00:37 Abnormal lab findings: Abnormal lab results WBC 15.1 K/mcL (4.3-11.1) H 12/02/17 00:37 RBC 4.09 M/mcL (4.19-5.50) L 12/02/17 00:37 Hgb 12.4 g/dL (12.9-16.9) L D 12/02/17 00:37 Plt Count 82 K/mcL (140-400) L 12/02/17 00:37 Neutrophils # 13.4 K/mcL (1.6-8.9) H 12/02/17 00:37 Immature Plt Fraction 7.2 % (1.1-6.1) H 12/02/17 00:37 PT 13.4 Seconds (9.4-12.1) H 12/02/17 00:37 ABG pO2 65 mmHg (85-104) L 12/02/17 04:42 ABG O2 Saturation 91 % (95-98) L 12/02/17 04:42 VBG pH 7.26 pH Units (7.32-7.42) L 12/01/17 16:52 VBG pCO2 59 mmHg (41-51) H 12/01/17 16:52 VBG pO2 73 mmHg (25-50) H 12/01/17 16:52 Potassium 2.6 mEq/L (3.5-5.1) L 12/02/17 00:37 Creatinine 0.48 mg/dL (0.70-1.30) L 12/02/17 00:37 BUN/Creatinine Ratio 40 (6-26) H 12/02/17 00:37 Glucose 138 mg/dL (70-105) H 12/02/17 00:37 POC Glucose 189 mg/dL (70-99) H 12/02/17 07:12 Calcium 8.0 mg/dL (8.6-10.3) L 12/02/17 00:37 Direct Bilirubin 0.6 mg/dL (0.0-0.2) H 12/01/17 11:17 B-Natriuretic Peptide 215 pg/mL (Less than 100) H 12/01/17 11:17 Serum Total Protein 6.0 g/dL (6.4-8.9) L 12/02/17 00:37 Albumin 3.2 g/dL (3.5-5.7) L 12/02/17 00:37 Urine Clarity Turbid (Clear) A 12/01/17 13:30 Urine Protein 100 mg/dL (Neg-Trace) H 12/01/17 13:30 Urine Blood Large (Negative) H 12/01/17 13:30 Urine Nitrite Positive (Negative) A 12/01/17 13:30 Urine Bilirubin Small (Negative) H 12/01/17 13:30 Ur Leukocyte Esterase Large (Negative) H 12/01/17 13:30 Urine Microscopic RBC 30-50 per hpf (0-3) H 12/01/17 13:30 Urine Microscopic WBC 30-50 per hpf (0-3) H 12/01/17 13:30 Amorphous Sediment Moderate (Few) H 12/01/17 13:30 Urine Bacteria Many per hpf (None-Few) H 12/01/17 13:30 Ur Culture Indicated? YES (NO) A 12/01/17 13:30 - Clinical Findings Intake & Output: Intake & Output 12/01/17 12/02/17 12/02/17 23:59 07:59 15:59 Intake Total 1022 / 1192 1020 / 1020 Output Total 650 / 650 800 / 800 Balance 372 / 542 220 / 220 Weight 90.5 kg Consult Discharge Plan - Plan Referrals: NONE,PCP [Primary Care Provider] - - Attending Attestation I examined this patient and my medical decision-making was reviewed with the Resident Physician. I agree with the documented findings, disposition and treatment plan as described except to the extent set forth below. Patient seen and examined. Labs, radiology, chart personally reviewed. Agree with resident's history and physical, assessment, plan with following comments: RIVER RAT: Patient follows commands, Pulmonary: Acceptable oxygenation and ventilation and patient is not requiring vent support at this time. Continue pulmonary toilet. Continue broad-spectrum antibiotics. Cardiovascular: stable after receiving fluid. GI: Nutrition per dietary and GI prophylaxis per routine Heme: DVT prophylaxis per routine ID: Continue antibiotics and plan to de-escalation Renal; urine out put and renal funtion reviewed and replace electrolytes Endorcine: blood glucose is monitored Lines: all lines checked and no evidence of infections Skin: skin care to prevent pressure ulcers per nursing routine care Can be transferred out of ICU if bed is needed since he remained hemodynamically stable and will need for vasopressors <Rudolph Chery - Last Filed: 12/02/17 10:30> Date of Encounter: 12/02/17 Time of Encounter: 09:53 Assessment and Plan (1) Healthcare-associated pneumonia Current Visit: No Status: Suspected Presentation with increased secretions, fevers, leukocytosis of 20 as well as chest x-ray with concern for interstitial prominence. Continue broad-spectrum antibiotics with vancomycin and cefepime and Levaquin. Preliminary sputum culture with many WBC, few gram-positive cocci, few yeast. Previous sputum culture 07/21/17 demonstrates acinetobacter which was relatively hernandez resistant. Blood cultures pending. Await sensitivities and adjust antibiotic direction. (2) Sepsis Current Visit: No Status: Acute Initial presentation of 2 SIRS criteria (heart rate and leukocytosis) Source secondary to urinary tract infection from chronic indwelling Farrell as well as superimposed pneumonia. Patient had decompensation overnight with hypotension requiring IV fluid resuscitation. He remains on broad-spectrum antibiotic coverage with a prior history of multi drug resistant organisms. No pressor requirement. Normal lactic acid. Leukocytosis improving. Blood cultures pending. Qualifiers: Sepsis type: methicillin resistant Staphylococcus aureus Qualified Code(s) : A41.02 - Sepsis due to Methicillin resistant Staphylococcus aureus (3) UTI (urinary tract infection) due to urinary indwelling catheter Current Visit: No Status: Acute Urinalysis demonstrates bacteria, large leukocyte esterase and positive nitrite. History of recurring UTIs secondary to chronic indwelling catheter. Urine culture demonstrates gram negative rods greater than 100,000 CFU Remains on broad-spectrum antibiotic coverage for suspected pneumonia. Prior cultures demonstrate MDRO Proteus Continue to follow sensitivities. Qualifiers: Indwelling urinary catheter type: cystostomy catheter Encounter type: subsequent encounter Qualified Code(s): T83.510D - Infection and inflammatory reaction due to cystostomy catheter, subsequent encounter; N39.0 - Urinary tract infection, site not specified (4) Hypokalemia Current Visit: No Status: Acute Potassium of 2.6. Correct as per electrolyte protocol orders (5) Traumatic brain injury Current Visit: No Status: Chronic Qualifiers: Encounter type: subsequent encounter Loss of consciousness presence/ duration: with LOC of unspecified duration Qualified Code(s): S06.9X9D - Unspecified intracranial injury with loss of consciousness of unspecified duration, subsequent encounter (6) Chronic indwelling Farrell catheter Current Visit: No Status: Chronic (7) Quadriplegia and quadriparesis Current Visit: No Status: Chronic (8) DVT prophylaxis Current Visit: No Status: Acute Heparin 5000 units every 12 hours Subjective Principal diagnosis: Respiratory failure, pneumonia, sepsis Interval history: Patient transferred to the intensive care unit from the floor due to hypotension. Required 4 boluses of IV fluids with improvement of his hypotension. Of note he was also apneic in the emergency department yesterday requiring ventilation on the floor. Hypotension resolved this morning. Hemodynamically stable. Voices no complaints. Objective PUL Vital signs: Last Vital Signs Temp 97.7 F 12/02/17 03:00 Pulse 83 12/02/17 06:00 Resp 12 12/02/17 06:00 BP 94/60 12/02/17 06:00 Pulse Ox 92 12/02/17 06:00 General appearance: no acute distress, other (On trach collar) Eyes: nonicteric Effort: normal, other (On trach collar) Auscultation: bilateral: rhonchi Cardiovascular: regular rate and rhythm Gastrointestinal: soft, non-tender, non-distended Integumentary: normal Extremities: no cyanosis, no edema Musculoskeletal: no deformities normal mental status Results - Laboratory Findings CBC and BMP: 12/02/17 00:37 12/02/17 00:37 ABG ABG pH 7.35 pH Units (7.32-7.45) 12/02/17 04:42 ABG pCO2 42 mmHg (35-45) 12/02/17 04:42 ABG pO2 65 mmHg (85-104) L 12/02/17 04:42 ABG O2 Saturation 91 % (95-98) L 12/02/17 04:42 PT/INR, D-dimer PT 13.4 Seconds (9.4-12.1) H 12/02/17 00:37 Abnormal lab findings: Abnormal lab results WBC 15.1 K/mcL (4.3-11.1) H 12/02/17 00:37 RBC 4.09 M/mcL (4.19-5.50) L 12/02/17 00:37 Hgb 12.4 g/dL (12.9-16.9) L D 04 00:37 Plt Count 82 K/mcL (140-400) L 12/02/17 00:37 Neutrophils # 13.4 K/mcL (1.6-8.9) H 12/02/17 00:37 Immature Plt Fraction 7.2 % (1.1-6.1) H 12/02/17 00:37 PT 13.4 Seconds (9.4-12.1) H 12/02/17 00:37 ABG pO2 65 mmHg (85-104) L 12/02/17 04:42 ABG O2 Saturation 91 % (95-98) L 12/02/17 04:42 VBG pH 7.26 pH Units (7.32-7.42) L 12/01/17 16:52 VBG pCO2 59 mmHg (41-51) H 12/01/17 16:52 VBG pO2 73 mmHg (25-50) H 12/01/17 16:52 Potassium 2.6 mEq/L (3.5-5.1) L 12/02/17 00:37 Creatinine 0.48 mg/dL (0.70-1.30) L 12/02/17 00:37 BUN/Creatinine Ratio 40 (6-26) H 12/02/17 00:37 Glucose 138 mg/dL (70-105) H 12/02/17 00:37 POC Glucose 111 mg/dL (70-99) H 12/01/17 23:32 Calcium 8.0 mg/dL (8.6-10.3) L 12/02/17 00:37 Direct Bilirubin 0.6 mg/dL (0.0-0.2) H 12/01/17 11:17 B-Natriuretic Peptide 215 pg/mL (Less than 100) H 12/01/17 11:17 Serum Total Protein 6.0 g/dL (6.4-8.9) L 12/02/17 00:37 Albumin 3.2 g/dL (3.5-5.7) L 12/02/17 00:37 Urine Clarity Turbid (Clear) A 12/01/17 13:30 Urine Protein 100 mg/dL (Neg-Trace) H 12/01/17 13:30 Urine Blood Large (Negative) H 12/01/17 13:30 Urine Nitrite Positive (Negative) A 12/01/17 13:30 Urine Bilirubin Small (Negative) H 12/01/17 13:30 Ur Leukocyte Esterase Large (Negative) H 12/01/17 13:30 Urine Microscopic RBC 30-50 per hpf (0-3) H 12/01/17 13:30 Urine Microscopic WBC 30-50 per hpf (0-3) H 12/01/17 13:30 Amorphous Sediment Moderate (Few) H 12/01/17 13:30 Urine Bacteria Many per hpf (None-Few) H 12/01/17 13:30 Ur Culture Indicated? YES (NO) A 12/01/17 13:30 - Diagnostic Findings Chest x-ray: report reviewed, image reviewed - Clinical Findings Intake & Output: Intake & Output 12/01/17 12/01/17 12/02/17 15:59 23:59 07:59 Intake Total 500 / 670 Output Total 650 / 650 Balance -150 / 20 Weight 90.5 kg
--- NOTE | 2017-12-02 07:14 | Electrocardiograph Report ---
[place] [facility] Test Date: 2017-12-01 Pat Name: Fidel Mathew Department: 103 Room: 02 Gender: M Dag Sprayer: [facility] : 1970 Requested By: Gunjan Newman Order Number: [id number] Reading MD: Venkat Andrade Measurements Intervals Raymond Rate: 97 P: 57 NM: 159 QRS: 60 QRSD: 94 T: 57 QT: 324 QTc: 378 Interpretive Statements SINUS RHYTHM WITH FREQUENT SUPRAVENTRICULAR PREMATURE COMPLEXES ABNORMAL RHYTHM ECG Electronically Signed On 12-02-2017 7:13:01 EDT by Venkat Andrade
[2017-12-02] MEDS: Acetylcysteine 10% 2 ML INHSOL IH SCH ×3 (08:13→23:29)
[2017-12-02] MEDS: Topiramate 100 MG TABLET PO SCH (08:49)
[2017-12-02] MEDS: Aspirin Enteric Coated 325 MG Tablet PO SCH (08:49)
[2017-12-02] MEDS: Folic Acid 1 MG TABLET PO SCH (08:49)
[2017-12-02] MEDS: CarBAMazepine XR (12 hr) 100 MG TAB PO SCH ×2 (08:49→20:11)
[2017-12-02] MEDS: Levofloxacin 750 MG/150 ML 750 MG/150 ML BAG IVPB SCH (08:50)
[2017-12-02] MEDS: 0.9 % Sodium Chloride w KCl 20 MEQ/1,000 ML MLS IVC SCH ×2 (08:51→19:10)
[2017-12-02 11:15] LABS: Magnesium 1.8 mg/dL (1.6-2.6); Potassium 3.1 mEq/L (3.5-5.1)
[2017-12-02] MEDS: WATER IVPB SCH (16:29)
[2017-12-02] MEDS: AMIKACIN IVPB SCH (16:29)
[2017-12-02] MEDS: D5 IVPB SCH (16:29)
[2017-12-02] MEDS: *HR* OxyCODONE Immed Rel 15 MG TABLET PO PRN ×2 (16:48→22:58)
[2017-12-02] MEDS: clonazePAM 1 MG TABLET PO SCH (22:30)
[2017-12-02 22:49] LABS: Potassium 3.2 mEq/L (3.5-5.1)
[2017-12-03] MEDS: Ipratropium/Albuterol Neb 3 ML IH SCH ×6 (03:50→23:25)
[2017-12-03] MEDS: *HR* Heparin 5,000 UNIT/ML VIAL SQ SCH ×2 (05:42→17:15)
--- NOTE | 2017-12-03 07:04 | Pulmonology Progress Note ---
<Rudolph Chery - Last Filed: 12/03/17 09:12> Date of Encounter: 12/03/17 Time of Encounter: 09:13 Assessment and Plan (1) Healthcare-associated pneumonia Current Visit: No Status: Suspected Presentation with increased secretions, fevers, leukocytosis of 20 as well as chest x-ray with concern for interstitial prominence. Continue broad-spectrum antibiotics with vancomycin and cefepime and amikacin. Preliminary sputum culture with many WBC, few gram-positive cocci, few yeast, presumptive for MRSA. Previous sputum culture 07/21/17 demonstrates acinetobacter which was relatively hernandez resistant. Blood cultures pending. Await sensitivities and adjust antibiotic direction. (2) Sepsis Current Visit: No Status: Acute Initial presentation of 2 SIRS criteria (heart rate and leukocytosis) Source secondary to urinary tract infection from chronic indwelling Farrell as well as superimposed pneumonia. Patient had decompensation overnight with hypotension requiring IV fluid resuscitation. He remains on broad-spectrum antibiotic coverage with a prior history of multi drug resistant organisms. No pressor requirement. Normal lactic acid. Leukocytosis improving. Blood cultures pending. Qualifiers: Sepsis type: methicillin resistant Staphylococcus aureus Qualified Code(s) : A41.02 - Sepsis due to Methicillin resistant Staphylococcus aureus (3) UTI (urinary tract infection) due to urinary indwelling catheter Current Visit: No Status: Acute Urinalysis demonstrates bacteria, large leukocyte esterase and positive nitrite. History of recurring UTIs secondary to chronic indwelling catheter. Urine culture demonstrates gram negative rods greater than 100,000 CFU Proteus stuartii sensitive to cefepime. Remains on broad-spectrum antibiotic coverage for suspected pneumonia. Prior cultures demonstrate MDRO Proteus Qualifiers: Indwelling urinary catheter type: cystostomy catheter Encounter type: subsequent encounter Qualified Code(s): T83.510D - Infection and inflammatory reaction due to cystostomy catheter, subsequent encounter; N39.0 - Urinary tract infection, site not specified (4) Hypokalemia Current Visit: No Status: Acute Potassium of 2.6. Correct as per electrolyte protocol orders Unable to tolerate liquid potassium. Changed to 40 mEq tablet daily. (5) Traumatic brain injury Current Visit: No Status: Chronic Qualifiers: Encounter type: subsequent encounter Loss of consciousness presence/ duration: with LOC of unspecified duration Qualified Code(s): S06.9X9D - Unspecified intracranial injury with loss of consciousness of unspecified duration, subsequent encounter (6) Chronic indwelling Farrell catheter Current Visit: No Status: Chronic (7) Quadriplegia and quadriparesis Current Visit: No Status: Chronic (8) DVT prophylaxis Current Visit: No Status: Acute Heparin 5000 units every 12 hours Subjective Principal diagnosis: Respiratory failure, pneumonia, sepsis Interval history: Remained hemodynamically stable overnight. Had some issue with tolerating liquids this morning. Converting to pills. Sputum culture with presumptive MRSA. Objective PUL Vital signs: Last Vital Signs Temp 97.4 F L 12/03/17 02:56 Pulse 57 12/03/17 06:00 Resp 18 12/03/17 06:00 BP 89/64 12/03/17 06:00 Pulse Ox 93 12/03/17 06:00 General appearance: no acute distress Eyes: nonicteric Effort: mildly labored, other (On trach collar) Auscultation: bilateral: rhonchi Cardiovascular: regular rate and rhythm Gastrointestinal: normoactive bowel sounds, soft, non-tender Integumentary: normal Extremities: no cyanosis, edema (1+ bilateral lower extremities) normal mental status mood appropriate Results - Laboratory Findings CBC and BMP: 12/02/17 00:37 12/02/17 22:17 ABG ABG pH 7.35 pH Units (7.32-7.45) 12/02/17 04:42 ABG pCO2 42 mmHg (35-45) 12/02/17 04:42 ABG pO2 65 mmHg (85-104) L 12/02/17 04:42 ABG O2 Saturation 91 % (95-98) L 12/02/17 04:42 PT/INR, D-dimer PT 13.4 Seconds (9.4-12.1) H 12/02/17 00:37 Abnormal lab findings: Abnormal lab results WBC 15.1 K/mcL (4.3-11.1) H 12/02/17 00:37 RBC 4.09 M/mcL (4.19-5.50) L 12/02/17 00:37 Hgb 12.4 g/dL (12.9-16.9) L D 12/02/17 00:37 Plt Count 82 K/mcL (140-400) L 12/02/17 00:37 Neutrophils # 13.4 K/mcL (1.6-8.9) H 12/02/17 00:37 Immature Plt Fraction 7.2 % (1.1-6.1) H 12/02/17 00:37 PT 13.4 Seconds (9.4-12.1) H 12/02/17 00:37 ABG pO2 65 mmHg (85-104) L 12/02/17 04:42 ABG O2 Saturation 91 % (95-98) L 12/02/17 04:42 VBG pH 7.26 pH Units (7.32-7.42) L 12/01/17 16:52 VBG pCO2 59 mmHg (41-51) H 12/01/17 16:52 VBG pO2 73 mmHg (25-50) H 12/01/17 16:52 Potassium 3.2 mEq/L (3.5-5.1) L 12/02/17 22:17 Creatinine 0.48 mg/dL (0.70-1.30) L 12/02/17 00:37 BUN/Creatinine Ratio 40 (6-26) H 12/02/17 00:37 Glucose 138 mg/dL (70-105) H 12/02/17 00:37 POC Glucose 142 mg/dL (70-99) H 12/02/17 16:26 Calcium 8.0 mg/dL (8.6-10.3) L 12/02/17 00:37 Direct Bilirubin 0.6 mg/dL (0.0-0.2) H 12/01/17 11:17 B-Natriuretic Peptide 215 pg/mL (Less than 100) H 12/01/17 11:17 Serum Total Protein 6.0 g/dL (6.4-8.9) L 12/02/17 00:37 Albumin 3.2 g/dL (3.5-5.7) L 12/02/17 00:37 Urine Clarity Turbid (Clear) A 12/01/17 13:30 Urine Protein 100 mg/dL (Neg-Trace) H 12/01/17 13:30 Urine Blood Large (Negative) H 12/01/17 13:30 Urine Nitrite Positive (Negative) A 12/01/17 13:30 Urine Bilirubin Small (Negative) H 12/01/17 13:30 Ur Leukocyte Esterase Large (Negative) H 12/01/17 13:30 Urine Microscopic RBC 30-50 per hpf (0-3) H 12/01/17 13:30 Urine Microscopic WBC 30-50 per hpf (0-3) H 12/01/17 13:30 Amorphous Sediment Moderate (Few) H 12/01/17 13:30 Urine Bacteria Many per hpf (None-Few) H 12/01/17 13:30 Ur Culture Indicated? YES (NO) A 12/01/17 13:30 Vancomycin Trough 25 mcg/mL (5-10) H 12/03/17 00:55 - Clinical Findings Intake & Output: Intake & Output 12/02/17 12/02/17 12/03/17 15:59 23:59 07:59 Intake Total 1420 / 1420 2324.8 / 2324.8 1000 / 1000 Output Total 1300 / 1300 950 / 950 250 / 250 Balance 120 / 120 1374.8 / 1374.8 750 / 750 Weight 90.1 kg Consult Discharge Plan - Plan Referrals: NONE,PCP [Primary Care Provider] - <Marsha Ibarra - Last Filed: 12/03/17 11:13> Date of Encounter: 12/03/17 Assessment and Plan (1) Pneumonia Current Visit: No Status: Acute Qualifiers: Pneumonia type: due to unspecified organism Laterality: bilateral Lung location: lower lobe of lung Qualified Code(s): J18.1 - Lobar pneumonia, unspecified organism (2) Urinary tract infection Current Visit: No Status: Acute Qualifiers: Urinary tract infection type: acute cystitis Hematuria presence: with hematuria Qualified Code(s): N30.01 - Acute cystitis with hematuria (3) Chronic respiratory failure with hypercapnia Current Visit: Yes Status: Chronic Objective PUL Vital signs: Last Vital Signs Temp 96.5 F L 12/03/17 07:42 Pulse 89 12/03/17 10:15 Resp 210 12/03/17 10:15 BP 119/90 12/03/17 10:15 Pulse Ox 96 12/03/17 10:15 Results - Laboratory Findings CBC and BMP: 12/03/17 08:00 12/02/17 22:17 ABG ABG pH 7.35 pH Units (7.32-7.45) 12/02/17 04:42 ABG pCO2 42 mmHg (35-45) 12/02/17 04:42 ABG pO2 65 mmHg (85-104) L 12/02/17 04:42 ABG O2 Saturation 91 % (95-98) L 12/02/17 04:42 PT/INR, D-dimer PT 13.4 Seconds (9.4-12.1) H 12/02/17 00:37 Abnormal lab findings: Abnormal lab results WBC 13.4 K/mcL (4.3-11.1) H 12/03/17 08:00 Plt Count 94 K/mcL (140-400) L 12/03/17 08:00 MPV 12.6 fL (9.4-12.4) H 12/03/17 08:00 Neutrophils # 12.2 K/mcL (1.6-8.9) H 12/03/17 08:00 Platelet Estimate Decreased (Normal) L 12/03/17 08:00 Immature Plt Fraction 7.2 % (1.1-6.1) H 12/02/17 00:37 PT 13.4 Seconds (9.4-12.1) H 12/02/17 00:37 ABG pO2 65 mmHg (85-104) L 12/02/17 04:42 ABG O2 Saturation 91 % (95-98) L 12/02/17 04:42 VBG pH 7.26 pH Units (7.32-7.42) L 12/01/17 16:52 VBG pCO2 59 mmHg (41-51) H 12/01/17 16:52 VBG pO2 73 mmHg (25-50) H 12/01/17 16:52 Potassium 3.2 mEq/L (3.5-5.1) L 12/02/17 22:17 Creatinine 0.48 mg/dL (0.70-1.30) L 12/02/17 00:37 BUN/Creatinine Ratio 40 (6-26) H 12/02/17 00:37 Glucose 138 mg/dL (70-105) H 12/02/17 00:37 POC Glucose 142 mg/dL (70-99) H 12/02/17 16:26 Calcium 8.0 mg/dL (8.6-10.3) L 12/02/17 00:37 Direct Bilirubin 0.6 mg/dL (0.0-0.2) H 12/01/17 11:17 B-Natriuretic Peptide 215 pg/mL (Less than 100) H 12/01/17 11:17 Serum Total Protein 6.0 g/dL (6.4-8.9) L 12/02/17 00:37 Albumin 3.2 g/dL (3.5-5.7) L 12/02/17 00:37 Urine Clarity Turbid (Clear) A 12/01/17 13:30 Urine Protein 100 mg/dL (Neg-Trace) H 12/01/17 13:30 Urine Blood Large (Negative) H 12/01/17 13:30 Urine Nitrite Positive (Negative) A 12/01/17 13:30 Urine Bilirubin Small (Negative) H 12/01/17 13:30 Ur Leukocyte Esterase Large (Negative) H 12/01/17 13:30 Urine Microscopic RBC 30-50 per hpf (0-3) H 12/01/17 13:30 Urine Microscopic WBC 30-50 per hpf (0-3) H 12/01/17 13:30 Amorphous Sediment Moderate (Few) H 12/01/17 13:30 Urine Bacteria Many per hpf (None-Few) H 12/01/17 13:30 Ur Culture Indicated? YES (NO) A 12/01/17 13:30 Vancomycin Trough 25 mcg/mL (5-10) H 12/03/17 00:55 - Clinical Findings Intake & Output: Intake & Output 12/02/17 12/03/17 12/03/17 23:59 07:59 15:59 Intake Total 2324.8 / 2324.8 1000 / 1000 80 / 80 Output Total 950 / 950 700 / 700 Balance 1374.8 / 1374.8 300 / 300 80 / 80 Weight 90.1 kg - Attending Attestation I examined this patient and my medical decision-making was reviewed with the Resident Physician. I agree with the documented findings, disposition and treatment plan as described except to the extent set forth below. Patient seen and examined. Labs, radiology, chart personally reviewed. Agree with resident's history and physical, assessment, plan with following comments: [employer]: Patient follows commands, Pulmonary: Acceptable oxygenation and ventilation and patient is not requiring mechanical ventilator support. Continue pulmonary toilet. Patient is feeling better and to continue current treatment and follow up with cultures and sensitivities. Cardiovascular: stable GI: Nutrition per dietary and GI prophylaxis per routine Heme: DVT prophylaxis per routine ID: Continue antibiotics and plan to de-escalation Renal; urine out put and renal funtion reviewed Endorcine: blood glucose is monitored Lines: all lines checked and no evidence of infections Skin: skin care to prevent pressure ulcers per nursing routine care Possible transfer in next 24 hours.
[2017-12-03] MEDS: Acetylcysteine 10% 2 ML INHSOL IH SCH ×3 (07:34→23:26)
[2017-12-03] MEDS: Folic Acid 1 MG TABLET PO SCH (08:57)
[2017-12-03] MEDS: CarBAMazepine XR (12 hr) 100 MG TAB PO SCH ×2 (08:57→21:04)
[2017-12-03] MEDS: Topiramate 100 MG TABLET PO SCH (08:57)
[2017-12-03] MEDS: Aspirin Enteric Coated 325 MG Tablet PO SCH (08:58)
[2017-12-03] MEDS: methylPREDNISolone 125 MG/2 ML VIAL IVP SCH ×2 (08:58→17:06)
[2017-12-03] MEDS: Cefepime HCl 2,000 MG in Water for inj. (sterile) 20 ML 20 ML IVP SCH ×2 (08:58→17:07)
[2017-12-03] MEDS ORDERED: Potassium Chloride Elixir 20 MEQ/15 ML UDC PO SCH (09:00)
[2017-12-03] MEDS: *HR* OxyCODONE Immed Rel 15 MG TABLET PO PRN ×2 (09:03→14:19)
[2017-12-03 10:16] LABS: Basophils % 0.1 %; Hematocrit 41.9 % (37.5-50.1); Hemoglobin 13.7 g/dL (12.9-16.9); Immature Granulocytes % 0.8 % (0-4); Lymphocytes # 0.8 K/mcL (0.6-4.6); Lymphocytes % 5.8 %; Mean Corpuscular HGB Conc 32.7 g/dL (31.6-35.5); Mean Corpuscular Hemoglobin 31.1 pg (28.0-33.3); Mean Corpuscular Volume 95.2 fL (83.0-100.0); Mean Platelet Volume 12.6 fL (9.4-12.4); Monocytes # 0.4 K/mcL (0.0-1.3); Monocytes % 2.6 %; Neutrophils # 12.2 K/mcL (1.6-8.9); Segmented Neutrophils % 90.7 %
[2017-12-03 10:18] LABS: Platelet Count 94 K/mcL (140-400)
[2017-12-03 10:59] LABS: Platelet Estimate Decreased (Normal)
[2017-12-03 12:02] LABS: BUN/Creatinine Ratio 36 (6-26); Blood Urea Nitrogen 16 mg/dL (6-20); Calcium 8.7 mg/dL (8.6-10.3); Carbon Dioxide 24 mEq/L (23-29); Chloride 110 mEq/L (98-107); Glucose 167 mg/dL (70-105); Osmolality,Calculated 293 (280-300); Potassium 3.6 mEq/L (3.5-5.1); Sodium 139 mEq/L (136-145); eGFR For African Americans > 60 (> 60); eGFR For Non-African Americans > 60 (> 60)
[2017-12-03] MEDS: 0.9 % Sodium Chloride w KCl 20 MEQ/1,000 ML MLS IVC SCH (13:45)
[2017-12-03] MEDS: Baclofen 10 MG TABLET PO SCH ×2 (14:19→21:04)
[2017-12-03] MEDS: D5 IVPB SCH (17:14)
[2017-12-03] MEDS: WATER IVPB SCH (17:14)
[2017-12-03] MEDS: AMIKACIN IVPB SCH (17:14)
[2017-12-03] MEDS: clonazePAM 1 MG TABLET PO SCH (17:16)
[2017-12-03] MEDS ORDERED: clonazePAM 1 MG TABLET PO SCH (18:00)
[2017-12-03] MEDS ORDERED: traZODone 50 MG TABLET PO SCH (21:00)
[2017-12-03] MEDS ORDERED: Melatonin 3 MG TABLET PO SCH (21:00)
[2017-12-03] MEDS: OLANZapine 10 MG TAB.RAPDIS PO SCH (21:04)
[2017-12-03] MEDS: Ketorolac 15 MG/ML VIAL IVP PRN (22:17)
[2017-12-04] MEDS: Cefepime HCl 2,000 MG in Water for inj. (sterile) 20 ML 20 ML IVP SCH ×4 (00:05→23:02)
[2017-12-04] MEDS: methylPREDNISolone 125 MG/2 ML VIAL IVP SCH ×4 (00:05→23:02)
[2017-12-04] MEDS: Ipratropium/Albuterol Neb 3 ML IH SCH ×6 (03:51→23:42)
[2017-12-04 03:52] LABS: Hematocrit 39.7 % (37.5-50.1); Hemoglobin 12.9 g/dL (12.9-16.9); Immature Granulocytes % 0.7 % (0-4); Lymphocytes # 0.6 K/mcL (0.6-4.6); Lymphocytes % 6.5 %; Mean Corpuscular HGB Conc 32.5 g/dL (31.6-35.5); Mean Corpuscular Hemoglobin 30.9 pg (28.0-33.3); Mean Platelet Volume 12.6 fL (9.4-12.4); Monocytes # 0.3 K/mcL (0.0-1.3); Monocytes % 3.3 %; Neutrophils # 7.5 K/mcL (1.6-8.9); Red Blood Count 4.18 M/mcL (4.19-5.50); Red Cell Distribution Width 14.1 % (11.5-14.5); Segmented Neutrophils % 89.5 %
[2017-12-04 03:54] LABS: Platelet Count 87 K/mcL (140-400)
[2017-12-04 04:11] LABS: BUN/Creatinine Ratio 41 (6-26); Blood Urea Nitrogen 15 mg/dL (6-20); Calcium 8.2 mg/dL (8.6-10.3); Carbon Dioxide 25 mEq/L (23-29); Chloride 115 mEq/L (98-107); Glucose 162 mg/dL (70-105); Osmolality,Calculated 296 (280-300); Potassium 3.8 mEq/L (3.5-5.1); Sodium 141 mEq/L (136-145); eGFR For African Americans > 60 (> 60); eGFR For Non-African Americans > 60 (> 60)
[2017-12-04] MEDS: 0.9 % Sodium Chloride w KCl 20 MEQ/1,000 ML MLS IVC SCH (04:30)
[2017-12-04] MEDS: *HR* Heparin 5,000 UNIT/ML VIAL SQ SCH ×2 (05:38→16:46)
[2017-12-04] MEDS: Ketorolac 15 MG/ML VIAL IVP PRN (06:21)
[2017-12-04] MEDS: Acetylcysteine 10% 2 ML INHSOL IH SCH ×3 (07:27→23:42)
--- NOTE | 2017-12-04 08:17 | Pulmonology Progress Note ---
<DonovanJamie W - Last Filed: 12/04/17 10:04> Date of Encounter: 12/04/17 Objective PUL Vital signs: Last Vital Signs Temp 97.6 F 12/04/17 07:10 Pulse 67 12/04/17 09:00 Resp 17 12/04/17 09:00 BP 122/77 12/04/17 09:00 Pulse Ox 96 12/04/17 09:00 Results - Laboratory Findings CBC and BMP: 12/04/17 03:40 12/04/17 03:40 ABG ABG pH 7.35 pH Units (7.32-7.45) 12/02/17 04:42 ABG pCO2 42 mmHg (35-45) 12/02/17 04:42 ABG pO2 65 mmHg (85-104) L 12/02/17 04:42 ABG O2 Saturation 91 % (95-98) L 12/02/17 04:42 PT/INR, D-dimer PT 13.4 Seconds (9.4-12.1) H 12/02/17 00:37 Abnormal lab findings: Abnormal lab results RBC 4.18 M/mcL (4.19-5.50) L 12/04/17 03:40 Plt Count 87 K/mcL (140-400) L 12/04/17 03:40 MPV 12.6 fL (9.4-12.4) H 12/04/17 03:40 Platelet Estimate Decreased (Normal) L 12/03/17 08:00 Immature Plt Fraction 7.2 % (1.1-6.1) H 12/02/17 00:37 PT 13.4 Seconds (9.4-12.1) H 12/02/17 00:37 ABG pO2 65 mmHg (85-104) L 12/02/17 04:42 ABG O2 Saturation 91 % (95-98) L 12/02/17 04:42 VBG pH 7.26 pH Units (7.32-7.42) L 12/01/17 16:52 VBG pCO2 59 mmHg (41-51) H 12/01/17 16:52 VBG pO2 73 mmHg (25-50) H 12/01/17 16:52 Chloride 115 mEq/L (98-107) H 12/04/17 03:40 Creatinine 0.37 mg/dL (0.70-1.30) L 12/04/17 03:40 BUN/Creatinine Ratio 41 (6-26) H 12/04/17 03:40 Glucose 162 mg/dL (70-105) H 12/04/17 03:40 POC Glucose 142 mg/dL (70-99) H 12/02/17 16:26 Calcium 8.2 mg/dL (8.6-10.3) L 12/04/17 03:40 Direct Bilirubin 0.6 mg/dL (0.0-0.2) H 12/01/17 11:17 B-Natriuretic Peptide 215 pg/mL (Less than 100) H 12/01/17 11:17 Serum Total Protein 6.0 g/dL (6.4-8.9) L 12/02/17 00:37 Albumin 3.2 g/dL (3.5-5.7) L 12/02/17 00:37 Urine Clarity Turbid (Clear) A 12/01/17 13:30 Urine Protein 100 mg/dL (Neg-Trace) H 12/01/17 13:30 Urine Blood Large (Negative) H 12/01/17 13:30 Urine Nitrite Positive (Negative) A 12/01/17 13:30 Urine Bilirubin Small (Negative) H 12/01/17 13:30 Ur Leukocyte Esterase Large (Negative) H 12/01/17 13:30 Urine Microscopic RBC 30-50 per hpf (0-3) H 12/01/17 13:30 Urine Microscopic WBC 30-50 per hpf (0-3) H 12/01/17 13:30 Amorphous Sediment Moderate (Few) H 12/01/17 13:30 Urine Bacteria Many per hpf (None-Few) H 12/01/17 13:30 Ur Culture Indicated? YES (NO) A 12/01/17 13:30 Vancomycin Trough 14 mcg/mL (5-10) H 12/03/17 14:04 - Clinical Findings Intake & Output: Intake & Output 12/03/17 12/04/17 12/04/17 23:59 07:59 15:59 Intake Total 374.8 / 374.8 1220 / 1220 Output Total 550 / 550 925 / 925 Balance -175.2 / -175.2 295 / 295 Weight 96.7 kg Consult Discharge Plan - Plan Referrals: NONE,PCP [Primary Care Provider] - - Attending Attestation I examined this patient and my medical decision-making was reviewed with the Resident Physician. I agree with the documented findings, disposition and treatment plan as described except to the extent set forth below. We independently had [id number] contact with the patient Patient seen and examined at bedside Labs, radiology, chart personally reviewed. Management was reviewed during multidisciplinary critical care rounds. 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 Restart Scopolamine patch for secretions. Cards:Hemodynamically stable FEN-GI: ADAT Renal: UOP monitored ID: Cont Treatment for UTI and MRSA PNA with plan to deescalat. Stop amikacin today for Hx of Acinetobacter Heme/Onc: Cont DVT prophylaxis. Chronic Thrombycytopenia Endo: Glucose Monitored Integ/MSK: Skin Care per routine ICU Nursing Protocol to prevent ulcers. Lines: All lines examined without evidence of infection : Dispo: Stable for Transfer to Step Down. CODE: Full Code. <Kush Naylor - Last Filed: 12/04/17 11:56> Date of Encounter: 12/04/17 Time of Encounter: 08:56 Assessment and Plan (1) Healthcare-associated pneumonia Current Visit: Yes Status: Acute Healthcare associated pneumonia on admission Sputum culture positive for MRSA with many white blood cells Blood cultures have remained negative Broad-spectrum antibiotics have been in place Continue cefepime day 4, vancomycin day 4 Discontinue amikacin Restart scopolamine patch to lessen secretion Transfer patient to telemetry/stepdown (2) UTI (urinary tract infection) Current Visit: Yes Status: Acute Presented with urinary tract infection and sepsis, secondary to chronic indwelling catheter Culture positive for Providencia Broad spectrum antibiotics cefepime day 4 of vancomycin day 4 Continue to monitor urine output Qualifiers: Urinary tract infection type: acute cystitis Hematuria presence: without hematuria Qualified Code(s): N30.00 - Acute cystitis without hematuria (3) Sepsis Current Visit: Yes Status: Resolved Sepsis on presentation, largely resolved Source MRSA pneumonia versus Povidencia UTI White count has improved, patient has remained afebrile and vitals remain stable Continue broad-spectrum antibiotics with cefepime and vancomycin Qualifiers: Sepsis type: methicillin resistant Staphylococcus aureus Qualified Code(s) : A41.02 - Sepsis due to Methicillin resistant Staphylococcus aureus (4) Heart failure with preserved ejection fraction Current Visit: Yes Status: Chronic Mild diastolic CHF with fluid overload following sepsis treatment Patient takes 40mg Lasix PO BID at home We will start at 20IV Lasix and monitor status (5) Thrombocytopenia Current Visit: Yes Status: Acute Thrombocytopenia on CBC The patient is on heparin, however at this time no evidence that this is HIT We will continue to monitor this and adjust as needed No evidence of acute bleeding (6) Chronic indwelling Farrell catheter Current Visit: Yes Status: Chronic (7) Quadriplegia and quadriparesis Current Visit: No Status: Chronic (8) DVT prophylaxis Current Visit: No Status: Acute Subcutaneous heparin Subjective Principal diagnosis: Respiratory failure, pneumonia, sepsis Interval history: The patient continues to have significant cough with copious secretions, however on questioning he says that he is feeling much better than he was previously. He says each day he is coughing significantly less, and producing sputum to his knowledge. He is complaining of significant need to have a bowel movement, and this morning he did have at least one loose bowel movement in his bed. He is having some abdominal tenderness as a result of this. Objective PUL Vital signs: Last Vital Signs Temp 97.6 F 12/04/17 07:10 Pulse 68 12/04/17 07:00 Resp 18 12/04/17 07:27 BP 143/90 12/04/17 07:00 Pulse Ox 97 12/04/17 07:27 Gen: Vitals noted. No acute distress. AAOx3 HEENT: PERRL/EOMI, oropharynx clear, Normocephalic, atraumatic Neck: Supple. No adenopathy. Tracheostomy in place, surrounding tissue appears normal Cardiac: RRR, no murmur, +S1/S2 Pulmonary: Diffusely rhonchorous without obvious wheezing. There are copious secretions per trach, and bark-like cough which is frequent Abdomen: Mildly distended with minimal tenderness. No masses felt Back: Nontender throughout. MSK: ROM intact, no joint swelling noted Extremities: 1+ BLE with evidence of chronic poor vasculature. No obvious cyanosis at this time Neuro: moves all extremities, no focal deficits Psych: Appropriate mood and behavior Results - Laboratory Findings CBC and BMP: 12/04/17 03:40 12/04/17 03:40 ABG ABG pH 7.35 pH Units (7.32-7.45) 12/02/17 04:42 ABG pCO2 42 mmHg (35-45) 12/02/17 04:42 ABG pO2 65 mmHg (85-104) L 12/02/17 04:42 ABG O2 Saturation 91 % (95-98) L 12/02/17 04:42 PT/INR, D-dimer PT 13.4 Seconds (9.4-12.1) H 12/02/17 00:37 Abnormal lab findings: Abnormal lab results RBC 4.18 M/mcL (4.19-5.50) L 12/04/17 03:40 Plt Count 87 K/mcL (140-400) L 12/04/17 03:40 MPV 12.6 fL (9.4-12.4) H 12/04/17 03:40 Platelet Estimate Decreased (Normal) L 12/03/17 08:00 Immature Plt Fraction 7.2 % (1.1-6.1) H 12/02/17 00:37 PT 13.4 Seconds (9.4-12.1) H 12/02/17 00:37 ABG pO2 65 mmHg (85-104) L 12/02/17 04:42 ABG O2 Saturation 91 % (95-98) L 12/02/17 04:42 VBG pH 7.26 pH Units (7.32-7.42) L 12/01/17 16:52 VBG pCO2 59 mmHg (41-51) H 12/01/17 16:52 VBG pO2 73 mmHg (25-50) H 12/01/17 16:52 Chloride 115 mEq/L (98-107) H 12/04/17 03:40 Creatinine 0.37 mg/dL (0.70-1.30) L 12/04/17 03:40 BUN/Creatinine Ratio 41 (6-26) H 12/04/17 03:40 Glucose 162 mg/dL (70-105) H 12/04/17 03:40 POC Glucose 142 mg/dL (70-99) H 12/02/17 16:26 Calcium 8.2 mg/dL (8.6-10.3) L 12/04/17 03:40 Direct Bilirubin 0.6 mg/dL (0.0-0.2) H 12/01/17 11:17 B-Natriuretic Peptide 215 pg/mL (Less than 100) H 12/01/17 11:17 Serum Total Protein 6.0 g/dL (6.4-8.9) L 12/02/17 00:37 Albumin 3.2 g/dL (3.5-5.7) L 12/02/17 00:37 Urine Clarity Turbid (Clear) A 12/01/17 13:30 Urine Protein 100 mg/dL (Neg-Trace) H 12/01/17 13:30 Urine Blood Large (Negative) H 12/01/17 13:30 Urine Nitrite Positive (Negative) A 12/01/17 13:30 Urine Bilirubin Small (Negative) H 12/01/17 13:30 Ur Leukocyte Esterase Large (Negative) H 12/01/17 13:30 Urine Microscopic RBC 30-50 per hpf (0-3) H 12/01/17 13:30 Urine Microscopic WBC 30-50 per hpf (0-3) H 12/01/17 13:30 Amorphous Sediment Moderate (Few) H 12/01/17 13:30 Urine Bacteria Many per hpf (None-Few) H 12/01/17 13:30 Ur Culture Indicated? YES (NO) A 12/01/17 13:30 Vancomycin Trough 14 mcg/mL (5-10) H 12/03/17 14:04 - Clinical Findings Intake & Output: Intake & Output 12/03/17 12/04/17 12/04/17 23:59 07:59 15:59 Intake Total 374.8 / 374.8 1100 / 1100 Output Total 550 / 550 925 / 925 Balance -175.2 / -175.2 175 / 175 Weight 96.7 kg
[2017-12-04] MEDS: *HR* OxyCODONE Immed Rel 15 MG TABLET PO PRN ×2 (08:58→16:47)
[2017-12-04] MEDS: Folic Acid 1 MG TABLET PO SCH (08:58)
[2017-12-04] MEDS: Topiramate 100 MG TABLET PO SCH (08:58)
[2017-12-04] MEDS: CarBAMazepine XR (12 hr) 100 MG TAB PO SCH ×2 (08:58→20:04)
[2017-12-04] MEDS: Baclofen 10 MG TABLET PO SCH ×2 (08:59→20:05)
[2017-12-04] MEDS: Aspirin Enteric Coated 325 MG Tablet PO SCH (08:59)
[2017-12-04] MEDS: OLANZapine 10 MG TAB.RAPDIS PO SCH ×2 (08:59→20:05)
[2017-12-04] MEDS ORDERED: Furosemide 20 MG/2 ML VIAL IVP ONE (10:48)
[2017-12-04] MEDS ORDERED: Scopolamine Patch 1.5 MG PATCH.TD72 TD SCH (11:00)
[2017-12-04] MEDS ORDERED: Ketoconazole Shampoo 120 ML BOTTLE TP SCH (13:35)
[2017-12-04] MEDS ORDERED: Naloxone 0.4 MG/ML INJ IVP PRN (13:35)
[2017-12-04] MEDS ORDERED: Albuterol 2.5 MG/3 ML NEBULIZER IH PRN (13:35)
[2017-12-04] MEDS ORDERED: *HR* LORazepam 2 MG/ML VIAL IVP PRN (13:35)
[2017-12-04] MEDS ORDERED: Acetaminophen 325 MG TABLET PO PRN (13:35)
[2017-12-04] MEDS ORDERED: Ketorolac 15 MG/ML VIAL IVP PRN (13:35)
[2017-12-04] MEDS: clonazePAM 1 MG TABLET PO SCH (16:46)
--- NOTE | 2017-12-04 17:02 | Event Note ---
Date of Encounter: 12/04/17 Time of Encounter: 10:45 Following rounds, it was determined that the patient was stable for transfer to stepdown unit. I spoke with Dr. Shrestha, admitting hospitalist for the day, and he agreed to take this patient on 2N as a hospitalist patient.
[2017-12-04] MEDS: traZODone 50 MG TABLET PO SCH (20:05)
[2017-12-04] MEDS: Melatonin 3 MG TABLET PO SCH (20:06)
[2017-12-05] MEDS: Ipratropium/Albuterol Neb 3 ML IH SCH ×6 (04:31→23:33)
[2017-12-05 05:12] LABS: Basophils % 0.1 %; Mean Corpuscular Volume 95.3 fL (83.0-100.0)
[2017-12-05 05:14] LABS: Hematocrit 46.3 % (37.5-50.1); Hemoglobin 14.8 g/dL (12.9-16.9); Immature Granulocytes % 0.6 % (0-4); Immature Platelets 9.6 % (1.1-6.1); Lymphocytes % 11.1 %; Mean Corpuscular Hemoglobin 30.5 pg (28.0-33.3); Monocytes # 0.4 K/mcL (0.0-1.3); Monocytes % 4.8 %; Neutrophils # 7.6 K/mcL (1.6-8.9); Red Blood Count 4.86 M/mcL (4.19-5.50); Segmented Neutrophils % 83.4 %
[2017-12-05 05:22] LABS: Platelet Count 98 K/mcL (140-400)
[2017-12-05 05:30] LABS: BUN/Creatinine Ratio 41 (6-26); Blood Urea Nitrogen 17 mg/dL (6-20); Calcium 8.7 mg/dL (8.6-10.3); Carbon Dioxide 25 mEq/L (23-29); Chloride 110 mEq/L (98-107); Glucose 168 mg/dL (70-105); Osmolality,Calculated 295 (280-300); Potassium 3.7 mEq/L (3.5-5.1); Sodium 140 mEq/L (136-145); Vancomycin,Trough 19 mcg/mL (5-10); eGFR For African Americans > 60 (> 60); eGFR For Non-African Americans > 60 (> 60)
[2017-12-05] MEDS: *HR* Heparin 5,000 UNIT/ML VIAL SQ SCH ×2 (05:37→17:35)
[2017-12-05] MEDS: *HR* OxyCODONE Immed Rel 15 MG TABLET PO PRN ×4 (05:40→23:14)
[2017-12-05] MEDS: Acetylcysteine 10% 2 ML INHSOL IH SCH ×3 (07:57→23:33)
[2017-12-05] MEDS: methylPREDNISolone 125 MG/2 ML VIAL IVP SCH (08:59)
[2017-12-05] MEDS: Cefepime HCl 2,000 MG in Water for inj. (sterile) 20 ML 20 ML IVP SCH (08:59)
[2017-12-05] MEDS: Baclofen 10 MG TABLET PO SCH ×2 (09:00→20:07)
[2017-12-05] MEDS: Aspirin Enteric Coated 325 MG Tablet PO SCH (09:01)
[2017-12-05] MEDS: Topiramate 100 MG TABLET PO SCH (09:01)
[2017-12-05] MEDS: Folic Acid 1 MG TABLET PO SCH (09:01)
[2017-12-05] MEDS: CarBAMazepine XR (12 hr) 100 MG TAB PO SCH ×2 (09:01→20:05)
[2017-12-05] MEDS: OLANZapine 10 MG TAB.RAPDIS PO SCH ×2 (09:01→20:06)
[2017-12-05] MEDS: MethylPREDNISolone 40 MG/ML VIAL IVP SCH ×2 (15:53→23:10)
[2017-12-05] MEDS: cefTRIAXone 1,000 MG in Water for inj. (sterile) 20 ML 10 ML IVP SCH (15:53)
--- NOTE | 2017-12-05 17:19 | Internal Med Progress Note ---
Date of Encounter: 12/05/17 Time of Encounter: 08:35 - Assessment and plan (1) UTI (urinary tract infection) Current Visit: Yes Status: Acute Assessment and plan: Catheter associated UTI due to chronic indwelling Farrell catheter. Urine culture grows enterococcus and providencia. Change cefepime to IV Rocephin and continue IV vancomycin. Qualifiers: Urinary tract infection type: site unspecified Hematuria presence: without hematuria Qualified Code(s): N39.0 - Urinary tract infection, site not specified (2) Pneumonia Current Visit: Yes Status: Acute Assessment and plan: Sputum culture grows MRSA. Continue IV vancomycin. Blood cultures remained negative. Oxygen requirements at baseline. Resolved leukocytosis. Continue supportive care and trach collar. Qualifiers: Pneumonia type: due to unspecified organism Laterality: bilateral Lung location: upper lobe of lung Qualified Code(s): J18.1 - Lobar pneumonia, unspecified organism (3) Sepsis Current Visit: Yes Status: Acute Assessment and plan: Presented with leukocytosis, tachycardia, respiratory failure due to pneumonia and UTI. Currently resolved. Qualifiers: Sepsis type: methicillin resistant Staphylococcus aureus Qualified Code(s) : A41.02 - Sepsis due to Methicillin resistant Staphylococcus aureus (4) Acute and chronic respiratory failure Current Visit: Yes Status: Resolved Qualifiers: Respiratory failure complication: hypoxia and hypercapnia Qualified Code(s) : J96.21 - Acute and chronic respiratory failure with hypoxia; J96.22 - Acute and chronic respiratory failure with hypercapnia; J96.22 - Acute and chronic respiratory failure with hypercapnia; J96.22 - Acute and chronic respiratory failure with hypercapnia (5) DVT prophylaxis Current Visit: Yes Status: Acute (6) Thrombocytopenia Current Visit: Yes Status: Chronic - Time Spent With Patient Total time spent is greater than 50% in coordination of care (as documented) at patient's floor/unit and/or counseling patient: - Subjective Interval history: Reports feeling better. Improved cough and shortness of breath. On trach collar. Tolerates oral diet. - Constitutional Vitals: Temp Pulse Resp BP Pulse Ox 98.7 F 70 16 127/85 99 12/05/17 15:43 12/05/17 16:00 12/05/17 16:02 12/05/17 14:00 12/05/17 16:02 General appearance: Present: A&O X 3, answers questions appropriately - Respiratory Respiratory exam: Present: CTAB (Coarse breath sounds bilaterally). Absent: accessory muscle use, rales, rhonchi, wheezes - Cardiovascular Cardiovascular exam: Present: RRR, +S1, +S2. Absent: diastolic murmur, gallop, rubs, systolic murmur - GI/Abdominal GI/Abdominal exam: Present: normal bowel sounds, soft, no peritoneal signs. Absent: distended, tenderness - Extremities Exam Extremities exam: Present: pedal edema, warm, radial pulses palpable and symmetrical. Absent: calf tenderness, cyanotic - Neurological Exam Neurological exam: Present: CN II-XII intact, oriented X3, no focal deficits ( Bilateral lower extremity weakness). Absent: pronater drift, facial droop, speech deficit Internal Medicine: Result - Labs CBC & Chem 7: 12/05/17 04:53 12/05/17 04:53 Labs: Short CBC 12/05/17 Range/Units 04:53 WBC 9.1 (4.3-11.1) K/mcL Hgb 14.8 D (12.9-16.9) g/dL Hct 46.3 (37.5-50.1) % Plt Count 98 L (140-400) K/mcL Neutrophils # 7.6 (1.6-8.9) K/mcL BMP 12/05/17 04:53 Sodium 140 Potassium 3.7 Chloride 110 H Carbon Dioxide 25 BUN 17 Creatinine 0.41 L Glucose 168 H Calcium 8.7 - ABG Interpretation ABG results: ABG ABG pH 7.35 pH Units (7.32-7.45) 12/02/17 04:42 ABG pCO2 42 mmHg (35-45) 12/02/17 04:42 ABG pO2 65 mmHg (85-104) L 12/02/17 04:42 ABG O2 Saturation 91 % (95-98) L 12/02/17 04:42 PT/INR, D-dimer PT 13.4 Seconds (9.4-12.1) H 12/02/17 00:37 Consult Discharge Plan - Plan Referrals: NONE,PCP [Primary Care Provider] -
[2017-12-05] MEDS: clonazePAM 1 MG TABLET PO SCH (17:36)
[2017-12-05] MEDS ORDERED: Aminoglycoside Consult 1 EACH MC ONE (17:51)
[2017-12-05] MEDS: Melatonin 3 MG TABLET PO SCH (19:47)
[2017-12-05] MEDS: traZODone 50 MG TABLET PO SCH (20:06)
[2017-12-06] MEDS: Ipratropium/Albuterol Neb 3 ML IH SCH ×4 (03:14→16:19)
[2017-12-06] MEDS: *HR* Heparin 5,000 UNIT/ML VIAL SQ SCH ×2 (05:49→16:56)
[2017-12-06] MEDS: Acetylcysteine 10% 2 ML INHSOL IH SCH ×2 (07:21→16:19)
[2017-12-06] MEDS: MethylPREDNISolone 40 MG/ML VIAL IVP SCH ×2 (08:27→14:48)
[2017-12-06] MEDS: CarBAMazepine XR (12 hr) 100 MG TAB PO SCH (08:29)
[2017-12-06] MEDS: Topiramate 100 MG TABLET PO SCH (08:30)
[2017-12-06] MEDS: Aspirin Enteric Coated 325 MG Tablet PO SCH (08:30)
[2017-12-06] MEDS: OLANZapine 10 MG TAB.RAPDIS PO SCH (08:30)
[2017-12-06] MEDS: Baclofen 10 MG TABLET PO SCH (08:31)
[2017-12-06] MEDS: Folic Acid 1 MG TABLET PO SCH (08:31)
--- NOTE | 2017-12-06 08:58 | Discharge Summary ---
- NOTES TO OUTPATIENT PROVIDER Notes to Outpatient Provider: Treated for PNA, catheter-associated UTI Date of Encounter: 12/06/17 Time of Encounter: 08:30 - Discharge Diagnosis (1) UTI (urinary tract infection) Priority: Primary Status: Acute Qualifiers: Urinary tract infection type: site unspecified Hematuria presence: without hematuria Qualified Code(s): N39.0 - Urinary tract infection, site not specified (2) Pneumonia Priority: Primary Status: Acute Qualifiers: Pneumonia type: due to unspecified organism Laterality: bilateral Lung location: upper lobe of lung Qualified Code(s): J18.1 - Lobar pneumonia, unspecified organism (3) Sepsis Priority: Primary Status: Acute Qualifiers: Sepsis type: methicillin resistant Staphylococcus aureus Qualified Code(s) : A41.02 - Sepsis due to Methicillin resistant Staphylococcus aureus (4) Acute and chronic respiratory failure Priority: Primary Status: Resolved Qualifiers: Respiratory failure complication: hypoxia and hypercapnia Qualified Code(s) : J96.21 - Acute and chronic respiratory failure with hypoxia; J96.22 - Acute and chronic respiratory failure with hypercapnia; J96.22 - Acute and chronic respiratory failure with hypercapnia; J96.22 - Acute and chronic respiratory failure with hypercapnia (5) Thrombocytopenia Priority: Secondary Status: Chronic Hospital course: Mr. Mathew is a 47 year old male with chronic respiratory failure, on tracheostomy, [facility] due to being unresponsive along with fever. Patient was being admitted for sepsis secondary to possible pneumonia and UTI, when he was noted to be apneic in the emergency room, was given bag mask ventilation, tracheostomy was exchanged, after which he had spontaneous breathing and tolerated trach mask oxygenation. He was started on broad-spectrum IV antibiotics. 2 sets of peripheral blood cultures remained negative, sputum culture grew MRSA. He is noted to have indwelling Farrell catheter due to paraplegia, urine culture grew Providencia stuartii and enterococcus. He was eventually switched to IV Vancomycin and Rocephin. His clinical condition significantly improved, oxygen requirements are currently at baseline, leukocytosis and fever resolved. Patient is currently medically stable for transfer back to prison on oral antibiotics. He is also noted to be on long-acting morphine along with when necessary short-acting opiates per prison med list. However, OARRS report run by pharmacy did not reveal any such prescriptions. Long-acting agents are being held at this time to avoid hypersomnolence and respiratory failure. Discharge discussed with: patient Time spent discussing smoking cessation with patient: 3 to 10 minutes - Time Spent with Patient Total time spent providing and/or coordinating discharge services: Greater than 30 minutes (45 min) - Discharge Medications Prescriptions: Cefdinir [Omnicef] 300 mg PO BID #20 capsule clonazePAM [Klonopin] 2 mg PO QPM 5 Days #5 tablet Linezolid [Zyvox] 600 mg PO BID #20 tablet OxyCODONE Immed Rel [Roxicodone 20 MG] 30 mg PO Q6H 7 Days #30 tablet PredniSONE [Deltasone] 40 mg PO DAILY #10 tablet Home Medications: Folic Acid 1 mg PO QAM 07/04/15 [History] Ipratropium/Albuterol Neb [Duoneb] 3 ml IH QID PRN 07/04/15 [History] Topiramate [Topamax] 150 mg PO QAM 11/05/15 [History] Acetaminophen [Tylenol] 650 mg PO Q6HR PRN 12/11/15 [History] Docusate Sodium [Dok] 100 mg PO BID 12/11/15 [History] Polyvinyl Alcohol [Artificial Tears] 1 drop BOTH EYES BID 03/18/16 [History] Aspirin/Calcium Carbonate/Mag [Aspirin Buffered 325 mg Tab] 325 mg PO DAILY [History] Ketoconazole Shampoo [Nizoral Shampoo] 1 appl TP QWEEK 08/11/16 [History] Furosemide [Lasix] 40 mg PO DAILY 03/24/17 [History] Melatonin 10 mg PO HS 06/27/17 [History] Potassium Chloride Elixir [Potassium Chloride] 40 meq PO DAILY 06/27/17 [History ] Scopolamine Patch [Transderm-Scop] 1 patch TD Q72H 06/27/17 [History] Baclofen [Lioresal] 10 mg PO BID #10 tablet 06/30/17 [Rx] Benztropine Mesylate 1 mg PO HS #30 tablet 06/30/17 [Rx] CarBAMazepine [Carbamazepine ER] 300 mg PO BID #30 tab.er.12h 06/30/17 [Rx] OLANZapine [Zyprexa] 10 mg PO BID #30 tablet 06/30/17 [Rx] Polyethylene Glycol 3350 [MiraLAX] 17 gm PO DAILY PRN 07/13/17 [History] Albuterol Neb [Proventil Neb] 2.5 mg IH Q2H PRN inhsol 12/06/17 [Rx] Cefdinir [Omnicef] 300 mg PO BID #20 capsule 12/06/17 [Rx] Ipratropium/Albuterol Neb [Duoneb] 3 ml IH [id number] inhsol 12/06/17 [Rx] Linezolid [Zyvox] 600 mg PO BID #20 tablet 12/06/17 [Rx] OxyCODONE Immed Rel [Roxicodone 20 MG] 30 mg PO Q6H 7 Days #30 tablet 12/06/17 [ Rx] PredniSONE [Deltasone] 40 mg PO DAILY #10 tablet 12/06/17 [Rx] clonazePAM [Klonopin] 2 mg PO QPM 5 Days #5 tablet 12/06/17 [Rx] predniSONE [PredniSONE] 10 mg PO DAILY #0 12/12/17 [Rx] Sertraline [Zoloft] 75 mg PO DAILY #30 tablet 12/16/17 [Rx] Trazodone HCl 100 mg PO HS #30 tablet 12/16/17 [Rx] Allergies/Adverse Reactions: 3 Allergy/AdvReac Type Severity Reaction Status Date / Time Penicillins Allergy See Verified 07/16/17 02:08 Comments Date of admission: 12/02/17 01:36 Primary care physician: PCP NONE Discharging clinician: Sydni Borjas Anticipated date of discharge: 12/06/17 - Constitutional Vitals: Temp Pulse Resp BP Pulse Ox 97.6 F 59 18 90/62 96 12/06/17 08:00 12/06/17 05:20 12/06/17 07:21 12/06/17 05:20 12/06/17 07:21 General appearance: Present: A&O X 3 (on trach collar, on O2; able to speak), answers questions appropriately - Cardiovascular Cardiovascular exam: Present: RRR, +S1, +S2. Absent: diastolic murmur, gallop, rubs, systolic murmur - Patient Status Disposition: Transfer SNF Condition: Fair Functional capacity at discharge: wheelchair bound Overall status at discharge: patient is progressing back to baseline - Discharge Instructions Instructions: Urinary Tract Infection in Men (DC), Sepsis (DC) Follow Up With: NONE,PCP [Primary Care Provider] - Additional Instructions: F/up with PCP in 1-2 weeks - Diet and Activity Activity: as per physical therapy, wear oxygen at all times (via trach collar), other (on chronic indwelling Farrell) Diet: advance to your usual diet (mechanical soft)
--- NOTE | 2017-12-06 09:24 | Physician Discharge Referral ---
ExtendedCare Referral Info Transfer To: [facility] Provider in Charge: Sydni Borjas Provider in Charge after Transfer: PCP Institutional Level of Care: Skilled - Diagnosis (1) UTI (urinary tract infection) Priority: Primary Status: Acute (2) Pneumonia Priority: Primary Status: Acute (3) Sepsis Priority: Primary Status: Acute (4) Acute and chronic respiratory failure Priority: Primary Status: Resolved (5) Thrombocytopenia Priority: Secondary Status: Chronic Expected Duration of Placement: emt intermediate Prognosis: Fair Aware of Diagnosis: Patient Aware of Prognosis: Patient - Transfer Medications Prescriptions: Cefdinir [Omnicef] 300 mg PO BID #20 capsule clonazePAM [Klonopin] 2 mg PO QPM 5 Days #5 tablet Linezolid [Zyvox] 600 mg PO BID #20 tablet OxyCODONE Immed Rel [Roxicodone 20 MG] 30 mg PO Q6H 7 Days #30 tablet PredniSONE [Deltasone] 40 mg PO DAILY #10 tablet Home Medications: Folic Acid 1 mg PO QAM 07/04/15 [History] Ipratropium/Albuterol Neb [Duoneb] 3 ml IH QID PRN 07/04/15 [History] Topiramate [Topamax] 150 mg PO QAM 11/05/15 [History] Acetaminophen [Tylenol] 650 mg PO Q6HR PRN 12/11/15 [History] Docusate Sodium [Dok] 100 mg PO BID 12/11/15 [History] Polyvinyl Alcohol [Artificial Tears] 1 drop BOTH EYES BID 03/18/16 [History] Aspirin/Calcium Carbonate/Mag [Aspirin Buffered 325 mg Tab] 325 mg PO DAILY [History] Ketoconazole Shampoo [Nizoral Shampoo] 1 appl TP QWEEK 08/11/16 [History] Furosemide [Lasix] 40 mg PO DAILY 03/24/17 [History] Melatonin 10 mg PO HS 06/27/17 [History] Potassium Chloride Elixir [Potassium Chloride] 40 meq PO DAILY 06/27/17 [History ] Scopolamine Patch [Transderm-Scop] 1 patch TD Q72H 06/27/17 [History] Baclofen [Lioresal] 10 mg PO BID #10 tablet 06/30/17 [Rx] Benztropine Mesylate 1 mg PO HS #30 tablet 06/30/17 [Rx] CarBAMazepine [Carbamazepine ER] 300 mg PO BID #30 tab.er.12h 06/30/17 [Rx] OLANZapine [Zyprexa] 10 mg PO BID #30 tablet 06/30/17 [Rx] Polyethylene Glycol 3350 [MiraLAX] 17 gm PO DAILY PRN 07/13/17 [History] Albuterol Neb [Proventil Neb] 2.5 mg IH Q2H PRN inhsol 12/06/17 [Rx] Cefdinir [Omnicef] 300 mg PO BID #20 capsule 12/06/17 [Rx] Ipratropium/Albuterol Neb [Duoneb] 3 ml IH [id number] inhsol 12/06/17 [Rx] Linezolid [Zyvox] 600 mg PO BID #20 tablet 12/06/17 [Rx] OxyCODONE Immed Rel [Roxicodone 20 MG] 30 mg PO Q6H 7 Days #30 tablet 12/06/17 [ Rx] PredniSONE [Deltasone] 40 mg PO DAILY #10 tablet 12/06/17 [Rx] clonazePAM [Klonopin] 2 mg PO QPM 5 Days #5 tablet 12/06/17 [Rx] predniSONE [PredniSONE] 10 mg PO DAILY #0 12/12/17 [Rx] Sertraline [Zoloft] 75 mg PO DAILY #30 tablet 12/16/17 [Rx] Trazodone HCl 100 mg PO HS #30 tablet 12/16/17 [Rx] Allergies/Adverse Reactions: 3 Allergy/AdvReac Type Severity Reaction Status Date / Time Penicillins Allergy See Verified 07/16/17 02:08 Comments - Respiratory Orders Oxygen / L per min (5L/min via TC) Smoking Cessation: Smoking cessation has been advised. For more information, call the [place] Tobacco Quit Line at 4-500-UWBT-NOW. - Advance Directives Code Status: Full Code - Mobility Orders Chair - Rehabiliation Orders Rehab Potential: Poor Rehab Orders: ROM Exercises, Evaluation for Physical Therapy, Evaluation for Occupational Therapy - Diet Orders Mechanical Soft CERTIFICATION: I certify that the transfer of the above named patient to an Extended Care Facility is necessary for the continuing treatment of the diagnosis listed. The above information is true and accurate reflection of patient's current condition. Confidential - Redisclosure prohibited without a patient's written consent.
[2017-12-06] MEDS: *HR* OxyCODONE Immed Rel 15 MG TABLET PO PRN (11:30)
[2017-12-06] MEDS: cefTRIAXone 1,000 MG in Water for inj. (sterile) 20 ML 10 ML IVP SCH (14:48)
[2017-12-06 15:15] VITALS: BP 99/72
[2017-12-06] MEDS: clonazePAM 1 MG TABLET PO SCH (16:55)
[2017-12-07] MEDS ORDERED: Scopolamine Patch 1.5 MG PATCH.TD72 TD SCH (11:00)
== END 2017-12-06 17:52 | DRG 466 ==
LOC: 2NNU 10:19 → EMEROO 10:19 → 2NNU 20:26 → ICNU 12-02 01:35 → SUATTDRO 12-02 01:36
PROVIDERS: ADMIT Internal Medicine; ATTEND Internal Medicine

== ENCOUNTER 2018-08-18 18:37 | Inpatient (IN) ==
[2018-08-18] MEDS ORDERED: Ipratropium/Albuterol Neb 3 ML IH ONE (18:48)
--- NOTE | 2018-08-18 18:58 | Emergency Department Note ---
Disposition Clinical Impression: Hypoxia Aspiration of food Qualifiers: Encounter type: initial encounter Qualified Code(s): T17.920A - Food in respiratory tract, part unspecified causing asphyxiation, initial encounter Dyspnea Qualifiers: Dyspnea type: unspecified Qualified Code(s): R06.00 - Dyspnea, unspecified Disposition: Admitted As Inpatient Condition: Fair Forms: ED Satisfaction Letter Time of Disposition: 21:18 General Adult HPI - General Chief complaint: ED Shortness of Breath/Dyspnea Stated complaint: SOB Time Seen by Provider: 08/18/18 18:38 Source: patient, EMS Limitations: no limitations Nursing Notes Reviewed: Yes Vital Signs Reviewed: Yes - History of Present Illness HPI Narrative: 48-year-old male presents from [facility] for evaluation of cough with admitting cyanotic episodes. Patient has indwelling tracheostomy and debilitated state from quadriplegia. He was previously on thickened liquids s econdary to aspiration risk. Yesterday, hospice modified his diet to regular. He ate some eggs and choked. Since then, he has been coughing with intermittent episodes of cyanosis. He has requested transferred to the ER. Per [facility] paperwork, patient is full code on hospice. In discussing with the patient, he requests that I removed his tracheostomy tube and everything else associated with it. He understands that he is breathing through this tracheostomy tube. When I told him that, if the tube was removed, he will stop breathing. Patient's response was an emphatic, "So what?" ROS: Positive: As above Negative: Fever, chills, nausea, vomiting, chest pains, palpitations, dyspnea, diaphoresis Pain Scale: 0 - Related Data Home Medications Medication Instructions Recorded Confirmed Folic Acid 1 mg PO QAM 07/04/15 12/01/17 Ipratropium/Albuterol Neb [Duoneb] 3 ml IH QID PRN 07/04/15 12/01/17 Topiramate [Topamax] 150 mg PO QAM 11/05/15 12/01/17 Acetaminophen [Tylenol] 650 mg PO Q6HR PRN 12/11/15 12/01/17 Docusate Sodium [Dok] 100 mg PO BID 12/11/15 12/01/17 Polyvinyl Alcohol [Artificial 1 drop BOTH EYES BID 03/18/16 12/01/17 Tears] Aspirin/Calcium Carbonate/Mag 325 mg PO DAILY 08/11/16 12/01/17 [Aspirin Buffered 325 mg Tab] Ketoconazole Shampoo [Nizoral 1 appl TP QWEEK 08/11/16 12/01/17 Shampoo] Furosemide [Lasix] 40 mg PO DAILY 03/24/17 12/01/17 Melatonin 10 mg PO HS 06/27/17 12/01/17 Potassium Chloride Elixir 40 meq PO DAILY 06/27/17 12/01/17 [Potassium Chloride] Scopolamine Patch [Transderm-Scop] 1 patch TD Q72H 06/27/17 12/01/17 Polyethylene Glycol 3350 [MiraLAX] 17 gm PO DAILY PRN 07/13/17 12/01/17 Previous Rx's Medication Instructions Recorded Baclofen [Lioresal] 10 mg PO BID #10 tablet 06/30/17 Benztropine Mesylate 1 mg PO HS #30 tablet 06/30/17 OLANZapine [Zyprexa] 10 mg PO BID #30 tablet 06/30/17 carBAMazepine [Carbamazepine ER] 300 mg PO BID #30 tab.er.12h 06/30/17 Albuterol Neb [Proventil Neb] 2.5 mg IH Q2H PRN inhsol 12/06/17 Cefdinir [Omnicef] 300 mg PO BID #20 capsule 12/06/17 Ipratropium/Albuterol Neb [Duoneb] 3 ml IH [id number] inhsol 12/06/17 Linezolid [Zyvox] 600 mg PO BID #20 tablet 12/06/17 OxyCODONE Immed Rel [Roxicodone 20 30 mg PO Q6H 7 Days #30 tablet 12/06/17 MG] PredniSONE [Deltasone] 40 mg PO DAILY #10 tablet 12/06/17 clonazePAM [Klonopin] 2 mg PO QPM 5 Days #5 tablet 12/06/17 predniSONE [PredniSONE] 10 mg PO DAILY #0 12/12/17 Sertraline [Zoloft] 75 mg PO DAILY #30 tablet 12/16/17 Trazodone HCl 100 mg PO HS #30 tablet 12/16/17 Cefdinir [Omnicef] 300 mg PO BID 7 Days #14 capsule 03/02/18 Allergies Allergy/AdvReac Type Severity Reaction Status Date / Time Penicillins Allergy See Verified 07/16/17 02:08 Comments All systems ED: reviewed and negative except as stated. Review of Systems: As Per HPI Past Medical History - Past Medical History Medical history: Reports: CHF, hepatitis, hypertension, seizures, other Surgical history: Reports: tracheostomy Psychiatric history: Reports: anxiety, bipolar, depression - Social History Smoking Status: Current every day smoker Smokeless Tobacco Status: No Alcohol use: Reports: none, unknown Drug use: Reports: none Physical Exam Vital Signs Reviewed General: Patient is alert, oriented, and in no acute distress. He is having occasional heavy coughs with thick gan sputum from his tracheostomy tube. Head: atraumatic, normocephalic Eye: normal appearance, PERRL, EOMI, no scleral icterus, no conjunctival injection ENT: mucous membranes moist, normal external ear exam Neck: normal inspection, trachea midline, full ROM Chest: normal inspection, symmetric chest rise Respiratory: Poor respiratory effort. Bilateral breath sounds are equal, coarse wheeze, scattered crackles. No rhonchi. Cardiovascular: Regular rate and rhythm. No clicks, rubs, gallops, or murmors. Normal heart sounds. Abdomen: Bowel sounds present normoactive. Abdomen is soft, nondistended, and nontender. No guarding or rebound. Skin: warm, dry, intact. Neuro: GCS 15. Alert and oriented 4 Psych: Patient's affect is appropriate for situation. - General Limitations: no limitations General appearance: alert, in no apparent distress Course Course Narrative: Chest x-ray, deep suction, basic lab work. Patient will need to be admitted for bronchoscopy tomorrow. Also recommend psychiatric consultation to ensure that he is of sound mind as well as consultation with hospice. EKG dated 08/18/2018 at 19:16 interpreted as sinus tachycardia with a rate of 104. FL 152, QRS 77, QTC 433. Normal axis. Nonspecific ST-T changes. Compared to previous EKG dated 03/02/2010 showing no acute ischemic changes or comparison. Serum hematology is unremarkable. Serum chemistries unremarkable. Chest x-ray is unremarkable. Suspect this is because patient's aspiration was earlier today and his lungs have not yet formed a reaction. I discussed the above with the admitting hospitalists. Recommended admission for bronchoscopy secondary to strong suspicion for aspiration. Also recommended psychiatric evaluation to ensure the patient is not depressed or suicidal. If psychiatrically cleared, recommend evaluation by hospice as the patient may, in sound mind, reevaluate his CODE STATUS. I checked in with the patient. Nursing notified me that respiratory, after repeated deep suctioning, was able to suction, "a lot of food...looked like eggs" out of his trachea. Chest X-Ray 08/18/18 18:48 IMPRESSION: No acute abnormality. D/ / Brennan Vasquez MD / Brennan Vasquez MD Interpreting Provider: Brennan Vasquez MD Vital Signs Temperature 98.8 F 08/18/18 18:43 Pulse Rate 103 08/18/18 18:43 Respiratory Rate 18 08/18/18 18:43 Blood Pressure 102/81 08/18/18 18:43 O2 Sat by Pulse Oximetry 95 08/18/18 18:43 Temperature 98.8 F 08/18/18 18:43 Pulse Rate 107 08/18/18 19:56 Respiratory Rate 20 08/18/18 19:56 Blood Pressure 102/81 08/18/18 18:43 O2 Sat by Pulse Oximetry 91 08/18/18 19:56 Oxygen Delivery Oxygen Delivery Room Air Medical Decision Making - Lab Data Result diagrams: 08/18/18 19:52 08/18/18 19:52 Lab Results 08/18/18 08/18/18 08/18/18 Range/Units 19:52 19:52 19:52 WBC 10.1 (4.3-11.1) K/mcL RBC 5.36 (4.19-5.50) M/mcL Hgb 16.1 (12.9-16.9) g/dL Hct 49.6 (37.5-50.1) % MCV 92.5 (83.0-100.0) fL MCH 30.0 (28.0-33.3) pg MCHC 32.5 (31.6-35.5) g/dL RDW 14.0 (11.5-14.5) % Plt Count 147 (140-400) K/mcL MPV 12.1 (9.4-12.4) fL Immature Gran % 0.5 (0-4) % Seg Neutrophils % 78.8 % Lymphocytes % 14.0 % Monocytes % 6.4 % Eosinophils % 0.1 % Basophils % 0.2 % Neutrophils # 7.9 (1.6-8.9) K/mcL Lymphocytes # 1.4 (0.6-4.6) K/mcL Monocytes # 0.6 (0.0-1.3) K/mcL Eosinophils # 0.0 (0.0-0.6) K/mcL Basophils # 0.0 (0.0-0.2) K/mcL Sodium 137 (136-145) mEq/L Potassium 3.7 (3.5-5.1) mEq/L Chloride 99 (98-107) mEq/L Carbon Dioxide 27 (23-29) mEq/L BUN 12 (6-20) mg/dL Creatinine 0.47 L (0.70-1.30) mg/dL Est GFR ( Amer) > 60 (> 60) Est GFR (Non-Af Amer) > 60 (> 60) BUN/Creatinine Ratio 26 (6-26) Glucose 389 H (70-105) mg/dL Calculated Osmolality 300 (280-300) Lactic Acid 1.6 (0.5-2.2) mmol/L Calcium 9.0 (8.6-10.3) mg/dL Troponin I < 0.03 (< 0.04) ng/mL B-Natriuretic Peptide (Less than 100) pg/mL 08/18/18 Range/Units 19:52 WBC (4.3-11.1) K/mcL RBC (4.19-5.50) M/mcL Hgb (12.9-16.9) g/dL Hct (37.5-50.1) % MCV (83.0-100.0) fL MCH (28.0-33.3) pg MCHC (31.6-35.5) g/dL RDW (11.5-14.5) % Plt Count (140-400) K/mcL MPV (9.4-12.4) fL Immature Gran % (0-4) % Seg Neutrophils % % Lymphocytes % % Monocytes % % Eosinophils % % Basophils % % Neutrophils # (1.6-8.9) K/mcL Lymphocytes # (0.6-4.6) K/mcL Monocytes # (0.0-1.3) K/mcL Eosinophils # (0.0-0.6) K/mcL Basophils # (0.0-0.2) K/mcL Sodium (136-145) mEq/L Potassium (3.5-5.1) mEq/L Chloride (98-107) mEq/L Carbon Dioxide (23-29) mEq/L BUN (6-20) mg/dL Creatinine (0.70-1.30) mg/dL Est GFR ( Amer) (> 60) Est GFR (Non-Af Amer) (> 60) BUN/Creatinine Ratio (6-26) Glucose (70-105) mg/dL Calculated Osmolality (280-300) Lactic Acid (0.5-2.2) mmol/L Calcium (8.6-10.3) mg/dL Troponin I (< 0.04) ng/mL B-Natriuretic Peptide 43 (Less than 100) pg/mL Attestation Statement - Attestation Attestation: I, Eagle Murray DO, examined this patient [id number] and my medical decis ion-making was reviewed with Dr. Tanvir Gamez, Resident Physician. I agree with the documented findings, disposition and treatment plan as described except to the extent set forth below. Please see my progress notes for details.
--- NOTE | 2018-08-18 19:04 | Emergency Department Note ---
Disposition Clinical Impression: Hypoxia Aspiration of food Qualifiers: Encounter type: initial encounter Qualified Code(s): T17.920A - Food in respiratory tract, part unspecified causing asphyxiation, initial encounter Dyspnea Qualifiers: Dyspnea type: unspecified Qualified Code(s): R06.00 - Dyspnea, unspecified Disposition: Admitted As Inpatient Condition: Fair Time of Disposition: 23:40 General Adult HPI - General Chief complaint: ED Shortness of Breath/Dyspnea Stated complaint: SOB Time Seen by Provider: 08/18/18 18:38 Source: patient, EMS Limitations: no limitations - History of Present Illness Pain Scale: 0 - Related Data Home Medications Medication Instructions Recorded Confirmed RX: Folic Acid 1 mg PO QAM 07/04/15 08/19/18 RX: Ipratropium/Albuterol Neb 3 ml IH QID PRN 07/04/15 08/19/18 [Duoneb] RX: Topiramate [Topamax] 150 mg PO QAM 11/05/15 08/19/18 RX: Acetaminophen [Tylenol] 650 mg PO Q6HR PRN 12/11/15 08/19/18 RX: Docusate Sodium [Dok] 100 mg PO BID 12/11/15 08/19/18 RX: Polyvinyl Alcohol [Artificial 1 drop BOTH EYES BID 03/18/16 08/19/18 Tears] RX: Ketoconazole Shampoo [Nizoral 1 appl TP QWEEK 08/11/16 08/19/18 Shampoo] RX: Furosemide [Lasix] 40 mg PO DAILY 03/24/17 08/19/18 RX: Melatonin 10 mg PO HS 06/27/17 08/19/18 RX: Potassium Chloride Elixir 40 meq PO DAILY 06/27/17 08/19/18 [Potassium Chloride] RX: Polyethylene Glycol 3350 17 gm PO DAILY PRN 07/13/17 08/19/18 [MiraLAX] Ascorbate Calcium [Vitamin C] 500 mg PO DAILY 08/19/18 08/19/18 Aspirin/Calcium Carbonate/Mag 325 mg PO DAILY 08/19/18 08/19/18 [Aspirin Buffered 325 mg Tab] Guaifenesin [Mucus Relief] 400 mg PO QID 08/19/18 08/19/18 Insulin ASPART [NovoLOG] 0 unit SQ TIDWM 08/19/18 08/19/18 Morphine Sulfate SR (12 HR) [MS 1 tab PO Q12HR 08/19/18 08/19/18 Contin] Morphine Sulfate SR (12 HR) [MS 1 tab PO Q12HR 08/19/18 08/19/18 Contin] OxyCODONE Immed Rel [Roxicodone 10 10 mg PO Q4H PRN 08/19/18 08/19/18 MG] OxyCODONE Immed Rel [Roxicodone 20 20 mg PO Q4H 08/19/18 08/19/18 MG] RX: Atropine 1% Opth Drops 2 drop SL Q2H PRN 08/19/18 08/19/18 RX: Hyoscyamine Sulfate [Anaspaz] 0.125 mg PO Q2H PRN 08/19/18 08/19/18 RX: OxyCODONE Immed Rel 30 mg PO Q4HR 08/19/18 08/19/18 [Roxicodone 20 MG] RX: predniSONE [PredniSONE] 40 mg PO DAILY 08/19/18 08/19/18 Trolamine Salicylate/Aloe Vera 10 % TP 3-4XD PRN 08/19/18 08/19/18 [Aspercreme 10%] Zinc Acetate [Galzin] 50 mg PO DAILY 08/19/18 08/19/18 Previous Rx's Medication Instructions Recorded RX: Baclofen [Lioresal] 10 mg PO BID #10 tablet 06/30/17 RX: Benztropine Mesylate 1 mg PO HS #30 tablet 06/30/17 RX: OLANZapine [Zyprexa] 10 mg PO BID #30 tablet 06/30/17 RX: carBAMazepine [Carbamazepine 300 mg PO BID #30 tab.er.12h 06/30/17 ER] RX: clonazePAM [Klonopin] 2 mg PO QPM 5 Days #5 tablet 12/06/17 RX: Trazodone HCl 100 mg PO HS #30 tablet 12/16/17 Allergies Allergy/AdvReac Type Severity Reaction Status Date / Time Penicillins Allergy See Verified 07/16/17 02:08 Comments Past Medical History - Past Medical History Medical history: Reports: CHF, hepatitis, hypertension, seizures, other Surgical history: Reports: tracheostomy Psychiatric history: Reports: anxiety, bipolar, depression - Social History Smoking Status: Current every day smoker Smokeless Tobacco Status: No Alcohol use: Reports: none, unknown Drug use: Reports: none Physical Exam - General Limitations: no limitations General appearance: alert, in no apparent distress Course Vital Signs Temperature 98.8 F 08/18/18 18:43 Pulse Rate 103 08/18/18 18:43 Respiratory Rate 18 08/18/18 18:43 Blood Pressure 102/81 08/18/18 18:43 O2 Sat by Pulse Oximetry 95 08/18/18 18:43 Temperature 98.9 F 08/22/18 16:56 Pulse Rate 68 08/22/18 16:56 Respiratory Rate 12 08/22/18 22:49 Blood Pressure 110/76 08/22/18 16:56 O2 Sat by Pulse Oximetry 97 08/22/18 22:49 Oxygen Delivery Oxygen Delivery Room Air Medical Decision Making - Lab Data Result diagrams: 08/22/18 21:39 08/22/18 21:39 Lab Results 08/18/18 08/18/18 08/18/18 Range/Units 19:52 19:52 19:52 WBC 10.1 (4.3-11.1) K/mcL RBC 5.36 (4.19-5.50) M/mcL Hgb 16.1 (12.9-16.9) g/dL Hct 49.6 (37.5-50.1) % MCV 92.5 (83.0-100.0) fL MCH 30.0 (28.0-33.3) pg MCHC 32.5 (31.6-35.5) g/dL RDW 14.0 (11.5-14.5) % Plt Count 147 (140-400) K/mcL MPV 12.1 (9.4-12.4) fL Immature Gran % 0.5 (0-4) % Seg Neutrophils % 78.8 % Lymphocytes % 14.0 % Monocytes % 6.4 % Eosinophils % 0.1 % Basophils % 0.2 % Neutrophils # 7.9 (1.6-8.9) K/mcL Lymphocytes # 1.4 (0.6-4.6) K/mcL Monocytes # 0.6 (0.0-1.3) K/mcL Eosinophils # 0.0 (0.0-0.6) K/mcL Basophils # 0.0 (0.0-0.2) K/mcL Sodium 137 (136-145) mEq/L Potassium 3.7 (3.5-5.1) mEq/L Chloride 99 (98-107) mEq/L Carbon Dioxide 27 (23-29) mEq/L BUN 12 (6-20) mg/dL Creatinine 0.47 L (0.70-1.30) mg/dL Est GFR ( Amer) > 60 (> 60) Est GFR (Non-Af Amer) > 60 (> 60) BUN/Creatinine Ratio 26 (6-26) Glucose 389 H (70-105) mg/dL POC Glucose (70-99) mg/dL Est Mean Plasma Glucose mg/dl Hemoglobin A1c ( - 5.6) % Calculated Osmolality 300 (280-300) Lactic Acid 1.6 (0.5-2.2) mmol/L Calcium 9.0 (8.6-10.3) mg/dL Magnesium (1.6-2.6) mg/dL Troponin I < 0.03 (< 0.04) ng/mL B-Natriuretic Peptide (Less than 100) pg/mL A. baumannii (PCR) (Not Detect) Vee albicans (PCR) (Not Detect) C. glabrata (PCR) (Not Detect) C. krusei (PCR) (Not Detect) C. parapsilosis (PCR) (Not Detect) C. tropicalis (PCR) (Not Detect) Enterobacteriac sp PCR (Not Detect) E. cloacae complex PCR (Not Detect) Enterococcus sp PCR (Not Detect) E. coli (PCR) (Not Detect) H. influenzae (PCR) (Not Detect) Klebsiella oxytoca PCR (Not Detect) Klebsiella pneumoniae (Not Detect) List. monocytogenes PCR (Not Detect) N. meningitidis (PCR) (Not Detect) Proteus species (PCR) (Not Detect) Serratia marcescens PCR (Not Detect) Staphylococcus sp PCR (Not Detect) Staph aureus (PCR) (Not Detect) mecA-Methicil Res Gene (Not Detect) Streptococcus sp PCR (Not Detect) Group A Strep DNA (Not Detect) Group B Strep (PCR) (Not Detect) Strep pneumoniae (PCR) (Not Detect) P. aeruginosa (PCR) (Not Detect) Manny/B-Vanco Res Genes (Not Detect) KPC (blaKPC) Detect PCR (Not Detect) 08/18/18 08/18/1808/19/18 Range/Units 19:52 21:20 04:57 WBC (4.3-11.1) K/mcL RBC (4.19-5.50) M/mcL Hgb (12.9-16.9) g/dL Hct (37.5-50.1) % MCV (83.0-100.0) fL MCH (28.0-33.3) pg MCHC (31.6-35.5) g/dL RDW (11.5-14.5) % Plt Count (140-400) K/mcL MPV (9.4-12.4) fL Immature Gran % (0-4) % Seg Neutrophils % % Lymphocytes % % Monocytes % % Eosinophils % % Basophils % % Neutrophils # (1.6-8.9) K/mcL Lymphocytes # (0.6-4.6) K/mcL Monocytes # (0.0-1.3) K/mcL Eosinophils # (0.0-0.6) K/mcL Basophils # (0.0-0.2) K/mcL Sodium (136-145) mEq/L Potassium (3.5-5.1) mEq/L Chloride (98-107) mEq/L Carbon Dioxide (23-29) mEq/L BUN (6-20) mg/dL Creatinine (0.70-1.30) mg/dL Est GFR ( Amer) (> 60) Est GFR (Non-Af Amer) (> 60) BUN/Creatinine Ratio (6-26) Glucose (70-105) mg/dL POC Glucose 202 H (70-99) mg/dL Est Mean Plasma Glucose mg/dl Hemoglobin A1c ( - 5.6) % Calculated Osmolality (280-300) Lactic Acid (0.5-2.2) mmol/L Calcium (8.6-10.3) mg/dL Magnesium (1.6-2.6) mg/dL Troponin I (< 0.04) ng/mL B-Natriuretic Peptide 43 (Less than 100) pg/mL A. baumannii (PCR) Not Detected (Not Detect) Vee albicans (PCR) Not Detected (Not Detect) C. glabrata (PCR) Not Detected (Not Detect) C. krusei (PCR) Not Detected (Not Detect) C. parapsilosis (PCR) Not Detected (Not Detect) C. tropicalis (PCR) Not Detected (Not Detect) Enterobacteriac sp PCR Not Detected (Not Detect) E. cloacae complex PCR Not Detected (Not Detect) Enterococcus sp PCR Not Detected (Not Detect) E. coli (PCR) Not Detected (Not Detect) H. influenzae (PCR) Not Detected (Not Detect) Klebsiella oxytoca PCR Not Detected (Not Detect) Klebsiella pneumoniae Not Detected (Not Detect) List. monocytogenes PCR Not Detected (Not Detect) N. meningitidis (PCR) Not Detected (Not Detect) Proteus species (PCR) Not Detected (Not Detect) Serratia marcescens PCR Not Detected (Not Detect) Staphylococcus sp PCR Not Detected (Not Detect) Staph aureus (PCR) Not Detected (Not Detect) mecA-Methicil Res Gene Not Detected (Not Detect) Streptococcus sp PCR Not Detected (Not Detect) Group A Strep DNA Not Detected (Not Detect) Group B Strep (PCR) Not Detected (Not Detect) Strep pneumoniae (PCR) Not Detected (Not Detect) P. aeruginosa (PCR) Not Detected (Not Detect) Manny/B-Vanco Res Genes Not Detected (Not Detect) KPC (blaKPC) Detect PCR Not Detected (Not Detect) 08/19/18 08/19/18 08/19/18 Range/Units 05:50 05:50 05:50 WBC 7.3 (4.3-11.1) K/mcL RBC 5.00 (4.19-5.50) M/mcL Hgb 15.0 (12.9-16.9) g/dL Hct 46.1 (37.5-50.1) % MCV 92.2 (83.0-100.0) fL MCH 30.0 (28.0-33.3) pg MCHC 32.5 (31.6-35.5) g/dL RDW 14.3 (11.5-14.5) % Plt Count 159 (140-400) K/mcL MPV 12.3 (9.4-12.4) fL Immature Gran % (0-4) % Seg Neutrophils % % Lymphocytes % % Monocytes % % Eosinophils % % Basophils % % Neutrophils # (1.6-8.9) K/mcL Lymphocytes # (0.6-4.6) K/mcL Monocytes # (0.0-1.3) K/mcL Eosinophils # (0.0-0.6) K/mcL Basophils # (0.0-0.2) K/mcL Sodium 138 (136-145) mEq/L Potassium 3.0 L (3.5-5.1) mEq/L Chloride 101 (98-107) mEq/L Carbon Dioxide 25 (23-29) mEq/L BUN 11 (6-20) mg/dL Creatinine 0.39 L (0.70-1.30) mg/dL Est GFR ( Amer) > 60 (> 60) Est GFR (Non-Af Amer) > 60 (> 60) BUN/Creatinine Ratio 28 H (6-26) Glucose 253 H (70-105) mg/dL POC Glucose (70-99) mg/dL Est Mean Plasma Glucose 278 mg/dl Hemoglobin A1c 11.3 H ( - 5.6) % Calculated Osmolality 294 (280-300) Lactic Acid (0.5-2.2) mmol/L Calcium 9.1 (8.6-10.3) mg/dL Magnesium 1.7 (1.6-2.6) mg/dL Troponin I (< 0.04) ng/mL B-Natriuretic Peptide (Less than 100) pg/mL A. baumannii (PCR) (Not Detect) Vee albicans (PCR) (Not Detect) C. glabrata (PCR) (Not Detect) C. krusei (PCR) (Not Detect) C. parapsilosis (PCR) (Not Detect) C. tropicalis (PCR) (Not Detect) Enterobacteriac sp PCR (Not Detect) E. cloacae complex PCR (Not Detect) Enterococcus sp PCR (Not Detect) E. coli (PCR) (Not Detect) H. influenzae (PCR) (Not Detect) Klebsiella oxytoca PCR (Not Detect) Klebsiella pneumoniae (Not Detect) List. monocytogenes PCR (Not Detect) N. meningitidis (PCR) (Not Detect) Proteus species (PCR) (Not Detect) Serratia marcescens PCR (Not Detect) Staphylococcus sp PCR (Not Detect) Staph aureus (PCR) (Not Detect) mecA-Methicil Res Gene (Not Detect) Streptococcus sp PCR (Not Detect) Group A Strep DNA (Not Detect) Group B Strep (PCR) (Not Detect) Strep pneumoniae (PCR) (Not Detect) P. aeruginosa (PCR) (Not Detect) Manny/B-Vanco Res Genes (Not Detect) KPC (blaKPC) Detect PCR (Not Detect) Attestation Statement - Attestation Attestation: I, Eagle Murray DO, examined this patient [id number] and my medical decision-making was reviewed with Dr. Tanvir Gamez, Resident Physician. I agree with the documented findings, disposition and treatment plan as described except to the extent set forth below. Please see my progress notes for details. 48-year-old male presents by EMS for evaluation of fever increased work of breathing and mucus secretions. Patient currently resides at [facility] care facility secondary to paraplegia and treatment management. Patient signed a slip for hospice care. He did not want any other aggressive management. He was still described as a full code. Patient requested to have regular meal tray yesterday when he slows to be on thickened liquids secondary to aspiration history. Patient aspirated axis morning and since then his had increased se cretions as well as increased work of breathing and hypoxia. Currently is denying chest pain, chills, nausea, vomiting, diarrhea. Denies any headache or vision change. The cystic mucus secretions. Shortness of breath and intermittent fevers. On presentation here there is mucus draining from his tracheostomy site. Patient has coarse crackles in his lungs. Heart is regular. Abdomen is soft. No other acute signs of distress or issue. Vital signs be collected. Workup will be established with chest x-ray along with antibiotic regimen started for aspiration pneumonia. Labs including CBC chemistry will be resulted as well as EKG here in the department. Patient will require admission for bronchoscopy to rule out any other retained aspirated food particle. When we were discussing recommendations or request from the patient he actually asked the resident physician's just remove the tube and let him . Patient appears to be done trying to deal with the symptoms that he has at this point. Inadvertently he appears to be trying to kill himself. Aspiration or respiratory related issues. Patient will be admitted to the hospital for antibiotic regiment bronchoscopy and psychiatric evaluation to determine if he has appropriate medical decision-making capacity to manage his medical choices at this time. Disposition will be completed. See detailed documentation the physical exam, medical intervention, medical decision-making and disposition the resident physician's note. No critical care provider the patient's treatment course at this time. 2001 Patient has otherwise unremarkable workup. This time. Concern for aspiration is still noted. Patient has had increased work of breathing hypoxia and fever at his group home facility. Psychiatric evaluation will be completed to make sure the patient has appropriate mental capacity to make decisions about his medical care at this time. Patient will be evaluated by the psychiatric team in the inpatient setting and then the goals of care will be determined. Patient has been prophylactically treated for aspiration pneumonia and will be admitted for symptom control. The hospitalist has been contacted. No other recommendations or concerns noted this time. Patient is otherwise clinically stable to time of admission.
[2018-08-18 20:02] LABS: Basophils % 0.2 %; Eosinophils % 0.1 %; Hematocrit 49.6 % (37.5-50.1); Hemoglobin 16.1 g/dL (12.9-16.9); Immature Granulocytes % 0.5 % (0-4); Lymphocytes # 1.4 K/mcL (0.6-4.6); Mean Corpuscular HGB Conc 32.5 g/dL (31.6-35.5); Mean Corpuscular Volume 92.5 fL (83.0-100.0); Mean Platelet Volume 12.1 fL (9.4-12.4); Monocytes # 0.6 K/mcL (0.0-1.3); Monocytes % 6.4 %; Neutrophils # 7.9 K/mcL (1.6-8.9); Platelet Count 147 K/mcL (140-400); Red Blood Count 5.36 M/mcL (4.19-5.50); Segmented Neutrophils % 78.8 %
[2018-08-18 20:24] LABS: BUN/Creatinine Ratio 26 (6-26); Blood Urea Nitrogen 12 mg/dL (6-20); Carbon Dioxide 27 mEq/L (23-29); Chloride 99 mEq/L (98-107); Glucose 389 mg/dL (70-105); Osmolality,Calculated 300 (280-300); Potassium 3.7 mEq/L (3.5-5.1); Sodium 137 mEq/L (136-145); eGFR For Non-African Americans > 60 (> 60)
[2018-08-18 20:25] LABS: Troponin I < 0.03 ng/mL (< 0.04)
[2018-08-18] MEDS ORDERED: Levofloxacin 750 MG/150 ML 750 MG/150 ML BAG IVPB STA (20:57)
[2018-08-18] MEDS ORDERED: Naloxone 0.4 MG/ML INJ IVP PRN (23:32)
[2018-08-19] MEDS ORDERED: OXYCODONE Oral CONC 10 MG/0.5 ML ORAL.SYG SL PRN ×2 (02:01)
[2018-08-19] MEDS ORDERED: Albuterol 2.5 MG/3 ML NEBULIZER IH PRN (02:02)
--- NOTE | 2018-08-19 02:16 | Internal Med History&Physical ---
Date of Encounter: 08/19/18 Time of Encounter: 00:16 Internal Medicine - H&P: HPI Chief complaint: Aspiration pneumonia Admitted From: Emergency Dept History of present illness: Mr. Mathew is a 48 year old male Patient presented to the emergency room from [facility] for aspiration pneumonia. 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 His diet supposed be thickened liquids due to his aspiration risk, however patient at the hospice facility wanted his diet to be changed to regular despite his risk. He tried eating some eggs and he choked. Since then he has been having coughing episodes and intermittent cyanosis. As per hospice paperwork patient is full code. In the emergency room the physicians were requested by the patient to have his tracheostomy tube removed as well as everything else associated with it. This i s currently keeping him alive if the tube was removed he would stop breathing. At that time the patient responded with, "so what?" Emergency department staff were not clear patient was suicidal or not. Patient's initial vital signs were stable, patient's CBC was within normal limits and BMP showed an elevated blood sugar of 389. Chest x-ray showed no acute abnormality, trachea is essentially m idline and tracheostomy is in satisfactory position. EKG showed sinus tachycardia but no ischemic changes compared to previous EKGs. Respiratory therapy was able to do deep suctioning and was able to remove food particles that looked like eggs from his trachea. Patient was given breathing treatments started on levofloxacin due to penicillin allergy (could not do Zosyn) he was sent to the medical floor for further management. Upon my evaluation patient states that he is breathing much better. He denies shortness of breath, chest pain, nausea, vomiting, diarrhea, constipation and abdominal pain. Past Med Surg Social Fam HX - Past Medical History Medical history: CHF, hepatitis, hypertension, seizures, other Additional medical history: quadraplegia Psychiatric history: anxiety, bipolar, depression - Past Surgical History Surgical History: tracheostomy Additional surgical history: SUPRAPUBIC CATHETER. trach - Social History Smoking Status: Current every day smoker Smokeless Tobacco Status: No Alcohol use: none, unknown Drug use: none - Family History Mother Living Status: Hx Family Cardiac Disorders: Yes Hx Family Respiratory Disorders: Yes Hx Family Cancer: Yes Internal Medicine - H&P: Meds Folic Acid 1 mg PO QAM 07/04/15 [History] Ipratropium/Albuterol Neb [Duoneb] 3 ml IH QID PRN 07/04/15 [History] Topiramate [Topamax] 150 mg PO QAM 11/05/15 [History] Acetaminophen [Tylenol] 650 mg PO Q6HR PRN 12/11/15 [History] Docusate Sodium [Dok] 100 mg PO BID 12/11/15 [History] Polyvinyl Alcohol [Artificial Tears] 1 drop BOTH EYES BID 03/18/16 [History] Aspirin/Calcium Carbonate/Mag [Aspirin Buffered 325 mg Tab] 325 mg PO DAILY 08/11/16 [History] Ketoconazole Shampoo [Nizoral Shampoo] 1 appl TP QWEEK 08/11/16 [History] Furosemide [Lasix] 40 mg PO DAILY 03/24/17 [History] Melatonin 10 mg PO HS 06/27/17 [History] Potassium Chloride Elixir [Potassium Chloride] 40 meq PO DAILY 06/27/17 [History] Scopolamine Patch [Transderm-Scop] 1 patch TD Q72H 06/27/17 [History] Baclofen [Lioresal] 10 mg PO BID #10 tablet 06/30/17 [Rx] Benztropine Mesylate 1 mg PO HS #30 tablet 06/30/17 [Rx] OLANZapine [Zyprexa] 10 mg PO BID #30 tablet 06/30/17 [Rx] carBAMazepine [Carbamazepine ER] 300 mg PO BID #30 tab.er.12h 06/30/17 [Rx] Polyethylene Glycol 3350 [MiraLAX] 17 gm PO DAILY PRN 07/13/17 [History] Albuterol Neb [Proventil Neb] 2.5 mg IH Q2H PRN inhsol 12/06/17 [Rx] Cefdinir [Omnicef] 300 mg PO BID #20 capsule 12/06/17 [Rx] Ipratropium/Albuterol Neb [Duoneb] 3 ml IH [id number] inhsol 12/06/17 [Rx] Linezolid [Zyvox] 600 mg PO BID #20 tablet 12/06/17 [Rx] OxyCODONE Immed Rel [Roxicodone 20 MG] 30 mg PO Q6H 7 Days #30 tablet 12/06/17 [Rx] PredniSONE [Deltasone] 40 mg PO DAILY #10 tablet 12/06/17 [Rx] clonazePAM [Klonopin] 2 mg PO QPM 5 Days #5 tablet 12/06/17 [Rx] predniSONE [PredniSONE] 10 mg PO DAILY #0 12/12/17 [Rx] Sertraline [Zoloft] 75 mg PO DAILY #30 tablet 12/16/17 [Rx] Trazodone HCl 100 mg PO HS #30 tablet 12/16/17 [Rx] Cefdinir [Omnicef] 300 mg PO BID 7 Days #14 capsule 03/02/18 [Rx] Allergy/AdvReac Type Severity Reaction Status Date / Time Penicillins Allergy See Verified 07/16/17 02:08 Comments All Systems PM: A 10-system review of systems was performed and is negative for pertinent findings except as documented above in the HPI. - Constitutional Vitals: Temp Pulse Resp BP Pulse Ox 98.1 F 94 14 105/89 92 08/18/18 23:49 08/18/18 23:49 08/18/18 23:49 08/18/18 23:49 08/18/18 23:49 General appearance: Present: cooperative, A&O X 3, pleasant, no acute distress, answers questions appropriately Exam: - - Head Head exam: Present: normal inspection - Eye Eye exam: Present: EOMI, normal appearance - Neck Additional comments: tracheostomy in place - Respiratory Respiratory exam: Present: rales, rhonchi, wheezes. Absent: CTAB, respiratory d istress - Cardiovascular Cardiovascular exam: Present: RRR. Absent: diastolic murmur, systolic murmur - GI/Abdominal GI/Abdominal exam: Present: normal bowel sounds, soft. Absent: tenderness - Extremities Exam Extremities exam: Present: warm, radial pulses palpable and symmetrical Additional comments: Patient unable to move legs, and difficulty with moving upper extremities - Neurological Exam Neurological exam: Present: motor sensory deficit, strengths equal and symetr throughout. Absent: no focal deficits, facial droop, speech deficit Additional comments: Difficulty with speaking due to trach, cant move legs at baseline, and has some movement with upper extremities. - Skin Skin exam: Present: dry, normal color, warm Additional comments: Very dry skin on face, with flaking Internal Med - H&P Results - Labs CBC & Chem 7: 08/18/18 19:52 08/18/18 19:52 Labs: Short CBC 08/18/18 Range/Units 19:52 WBC 10.1 (4.3-11.1) K/mcL Hgb 16.1 (12.9-16.9) g/dL Hct 49.6 (37.5-50.1) % Plt Count 147 (140-400) K/mcL Neutrophils # 7.9 (1.6-8.9) K/mcL BMP 08/18/18 19:52 Sodium 137 Potassium 3.7 Chloride 99 Carbon Dioxide 27 BUN 12 Creatinine 0.47 L Glucose 389 H Calcium 9.0 Cardiac Enzymes 08/18/18 Range/Units 19:52 Troponin I < 0.03 (< 0.04) ng/mL - Impressions ITS Impressions Chest X-Ray 08/18/18 18:48 IMPRESSION: No acute abnormality. D/ / Brennan Vasquez MD / Brennan Vasquez MD Interpreting Provider: Brennan Vasquez MD - Assessment and plan (1) Aspiration of food Current Visit: Yes Status: Acute Assessment and plan: X-ray negative, but early in course at this point. RT was able to suction out food particles. Patient states that he has no dietary restrictions, however he is documenting as thickened liquids. Continue antibiotics Follow up blood cultures Nutrition consult NPO Speech and swallow therapy Qualifiers: Encounter type: initial encounter Qualified Code(s): T17.920A - Food in respiratory tract, part unspecified causing asphyxiation, initial encounter (2) Wheezing Current Visit: Yes Status: Acute Assessment and plan: Likely secondary to trach, as well as aspiration. Continue breathing treatments Will continue prednisone, patient takes it at home. Oxygen as needed. (3) Suicidal thoughts Current Visit: Yes Status: Acute Assessment and plan: Patient stated to the emergency room that he wanted his trach removed, despite this being an end-of-life measure. He is full code from documentation however. Unclear if patient is suicidal Psych evaluation (4) Hyperglycemia Current Visit: Yes Status: Acute Assessment and plan: Elevated blood sugars in ER. No diagnosis of diabetes as I can see. Patient does take steroids at home, which could explain elevated blood sugars. A1c in Am Insulin sliding scale with Q6H glucose checks (5) DVT prophylaxis Current Visit: No Status: Acute Assessment and plan: SCDs - Time Spent With Patient Total time spent is greater than 50% in coordination of care (as documented) at patient's floor/unit and/or counseling patient: Greater than 35 minutes
[2018-08-19] MEDS ORDERED: *HR* Dextrose 50 % in Water (Syg) 50 ML SYRINGE IVP PRN (03:04)
[2018-08-19] MEDS ORDERED: D5% in Water 1,000 ML IVC PRN (03:04)
[2018-08-19] MEDS ORDERED: Dextrose Gel 15 GM/37.5 ML TUBE PO PRN ×2 (03:04)
[2018-08-19] MEDS: Ipratropium/Albuterol Neb 3 ML IH SCH ×4 (03:54→22:56)
[2018-08-19] MEDS ORDERED: Insulin LISPRO 300 UNITS/3 ML VIAL SQ SCH (06:00)
[2018-08-19 06:27] LABS: Hematocrit 46.1 % (37.5-50.1); Mean Corpuscular HGB Conc 32.5 g/dL (31.6-35.5); Mean Corpuscular Volume 92.2 fL (83.0-100.0); Mean Platelet Volume 12.3 fL (9.4-12.4); Platelet Count 159 K/mcL (140-400); Red Cell Distribution Width 14.3 % (11.5-14.5)
[2018-08-19 06:35] LABS: BUN/Creatinine Ratio 28 (6-26); Blood Urea Nitrogen 11 mg/dL (6-20); Calcium 9.1 mg/dL (8.6-10.3); Carbon Dioxide 25 mEq/L (23-29); Chloride 101 mEq/L (98-107); Glucose 253 mg/dL (70-105); Osmolality,Calculated 294 (280-300); Sodium 138 mEq/L (136-145); eGFR For Non-African Americans > 60 (> 60)
[2018-08-19 08:08] LABS: Estimated Average Glucose 278 mg/dl; Hemoglobin A1C 11.3 %
[2018-08-19] MEDS ORDERED: Potassium Chloride 20 MEQ, Lidocaine 1% 2 ML in D5% in Water 250 ML IVPB ONE (08:16)
[2018-08-19 08:36] LABS: Magnesium 1.7 mg/dL (1.6-2.6)
[2018-08-19] MEDS ORDERED: predniSONE 20 MG TABLET PO SCH (09:00)
[2018-08-19] MEDS ORDERED: MethylPREDNISolone 40 MG/ML VIAL IVP SCH (11:15)
--- NOTE | 2018-08-19 12:34 | Consult Note ---
Date of Encounter: 08/19/18 Time of Encounter: 12:25 Assessment & Recommendation (1) Major depression, recurrent, chronic Current visit: Yes Status: Acute Assessment & Recommendation: Client appears depressed but denies he is suicidal. Denies his comments in the ER were an attempt to have doctors end his life. Has taken mental health medications in the past but nothing current. Does not want to start anything for mood at this time but willing to think about it and have this editorial writer check back in with him. Appears to be thinking clearly. Seems to understand his situation. Appears to have capacity to make medical decisions at this time. History of Present Illness Requesting Physician: Keira Delcid Reason for consult: capacity History of present illness: Mr. Mathew is a 48 year old male who was admitted secondary to aspiration pneumonia. 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 Had been on a regular diet until a couple of days ago. Now takes thickened liquids which is likely contributing to his depression. On eval today client admits to depression "off and on." Denies SI, intent, or plan. Admits to fleeting SI in past but states he would never do it. Denies he wants anyone else to take measures to end his life. When asked about his comment in the ER regarding trach removal he just shook his head "no." Denied he was asking the doctors to end his life. States "we all have to go sometime" but denies he wants any active measures taken. Not currently taking anything for depression. Home Med List contains multiple mental health meds. Client reports he has taken many things over the years to help his mood but that nothing is current. States it has been "a long time" since he was prescribed anything for depression. Declined to start something today. Willing to think about it overnight and this editorial writer will check in with him again this week to see if he would like to try something. Thoughts are organized. Thinking clear. Communicates well given his situation. Clearly depressed but does not appear actively suicidal. Seems to understand his situation. Appears to have capacity to make medical decisions. CC: Keira Delcid Past Med Surg Social Fam HX - Past Medical History Medical history: CHF, hepatitis, hypertension, seizures, other - Past Psychiatric History Psychiatric history: Reports: depression Family psychiatric history: Unknown Family History of Suicide: Unknown - Past Surgical History Surgical History: tracheostomy - Social History Smoking Status: Current every day smoker Smokeless Tobacco Status: No Alcohol use: none, unknown Drug use: none - Family History Mother Living Status: Hx Family Cardiac Disorders: Yes Hx Family Respiratory Disorders: Yes Hx Family Cancer: Yes Medications & Allergies Folic Acid 1 mg PO QAM 07/04/15 [History] Ipratropium/Albuterol Neb [Duoneb] 3 ml IH QID PRN 07/04/15 [History] Topiramate [Topamax] 150 mg PO QAM 11/05/15 [History] Acetaminophen [Tylenol] 650 mg PO Q6HR PRN 12/11/15 [History] Docusate Sodium [Dok] 100 mg PO BID 12/11/15 [History] Polyvinyl Alcohol [Artificial Tears] 1 drop BOTH EYES BID 03/18/16 [History] Ketoconazole Shampoo [Nizoral Shampoo] 1 appl TP QWEEK 08/11/16 [History] Furosemide [Lasix] 40 mg PO DAILY 03/24/17 [History] Melatonin 10 mg PO HS 06/27/17 [History] Potassium Chloride Elixir [Potassium Chloride] 40 meq PO DAILY 06/27/17 [History] Baclofen [Lioresal] 10 mg PO BID #10 tablet 06/30/17 [Rx] Benztropine Mesylate 1 mg PO HS #30 tablet 06/30/17 [Rx] OLANZapine [Zyprexa] 10 mg PO BID #30 tablet 06/30/17 [Rx] carBAMazepine [Carbamazepine ER] 300 mg PO BID #30 tab.er.12h 06/30/17 [Rx] Polyethylene Glycol 3350 [MiraLAX] 17 gm PO DAILY PRN 07/13/17 [History] clonazePAM [Klonopin] 2 mg PO QPM 5 Days #5 tablet 12/06/17 [Rx] Trazodone HCl 100 mg PO HS #30 tablet 12/16/17 [Rx] Ascorbate Calcium [Vitamin C] 500 mg PO DAILY 08/19/18 [History] Aspirin/Calcium Carbonate/Mag [Aspirin Buffered 325 mg Tab] 325 mg PO DAILY 08/19/18 [History] Atropine 1% Opth Drops 2 drop SL Q2H PRN 08/19/18 [History] Guaifenesin [Mucus Relief] 400 mg PO QID 08/19/18 [History] Hyoscyamine Sulfate [Anaspaz] 0.125 mg PO Q2H 08/19/18 [History] Insulin ASPART [NovoLOG] 0 unit SQ TIDWM 08/19/18 [History] Morphine Sulfate SR (12 HR) [MS Contin] 1 tab PO Q12HR 08/19/18 [History] Morphine Sulfate SR (12 HR) [MS Contin] 1 tab PO Q12HR 08/19/18 [History] OxyCODONE Immed Rel [Roxicodone 10 MG] 10 mg PO Q4H PRN 08/19/18 [History] OxyCODONE Immed Rel [Roxicodone 20 MG] 20 mg PO Q4H 08/19/18 [History] OxyCODONE Immed Rel [Roxicodone 20 MG] 30 mg PO Q4HR 08/19/18 [History] Trolamine Salicylate/Aloe Vera [Aspercreme 10%] 10 % TP 3-4XD PRN 08/19/18 [History] Zinc Acetate [Galzin] 50 mg PO DAILY 08/19/18 [History] predniSONE [PredniSONE] 40 mg PO DAILY 08/19/18 [History] Allergy/AdvReac Type Severity Reaction Status Date / Time Penicillins Allergy See Verified 07/16/17 02:08 Comments Review of Systems Constitutional: Reports: fever Eyes: Denies: eye pain, vision change Ears, Nose, Throat: Reports: other Cardiovascular: Denies: chest pain, palpitations, dyspnea on exertion Respiratory: Reports: other Gastrointestinal: Denies: abdominal pain, nausea, vomiting, diarrhea, constipation Genitourinary male: Denies: urgency, dysuria, frequency, genital lesions Musculoskeletal: Reports: other Integumentary: Denies: rash, lesions, pruritus Neurological: Reports: other Endocrine: Denies: fatigue, heat or cold intolerance Hematologic/Lymphatic: Denies: easy bruising, lymphadenopathy Allergic/Immunologic: Denies: urticaria, itchy eyes Psychiatry Exam - Constitutional Vitals: Temp Pulse Resp BP Pulse Ox 98.6 F 95 17 101/74 89 08/19/18 11:33 08/19/18 11:33 08/19/18 11:33 08/19/18 11:33 08/19/18 11:33 General appearance: age & developmentally appropriate - Musculoskeletal Gait: other Station: relaxed Strength & Tone: other - Psychiatric Patient Orientation: Yes Person, Yes Time, Yes Place Level of alertness: Alert Behavior: calm, cooperative Psychomotor activity: Normal Eye Contact: Maintains Eye Contact Mood Description: Depressed Affect description: congruent with mood Speech Volume: Normal Speech pattern: normal rate, normal rhythm, normal tone, fluent, spontaneous Language & Vocabulary: consistent with education Thought Process: Linear Thought Content: No Suicidal ideation, No Homicidal ideation, No Overt delusions Perceptual Disturbances: No Auditory hallucinations, No Visual hallucinations Attention Span Ability: Capable of Focused Attention Memory Description: Grossly Intact Patient Reliability: Reliable Historian Fund of knowledge: Yes abstraction ability, Yes aware of current events Intelligence Estimate: Average Judgment: Fair Insight: Partial Results - Labs Labs: Laboratory Last Values WBC 7.3 K/mcL (4.3-11.1) 08/19/18 05:50 RBC 5.00 M/mcL (4.19-5.50) 08/19/18 05:50 Hgb 15.0 g/dL (12.9-16.9) 08/19/18 05:50 Hct 46.1 % (37.5-50.1) 08/19/18 05:50 MCV 92.2 fL (83.0-100.0) 08/19/18 05:50 MCH 30.0 pg (28.0-33.3) 08/19/18 05:50 MCHC 32.5 g/dL (31.6-35.5) 08/19/18 05:50 RDW 14.3 % (11.5-14.5) 08/19/18 05:50 Plt Count 159 K/mcL (140-400) 08/19/18 05:50 MPV 12.3 fL (9.4-12.4) 08/19/18 05:50 Immature Gran % 0.5 % (0-4) 08/18/18 19:52 Seg Neutrophils % 78.8 % 08/18/18 19:52 Lymphocytes % 14.0 % 08/18/18 19:52 Monocytes % 6.4 % 08/18/18 19:52 Eosinophils % 0.1 % 08/18/18 19:52 Basophils % 0.2 % 08/18/18 19:52 Neutrophils # 7.9 K/mcL (1.6-8.9) 08/18/18 19:52 Lymphocytes # 1.4 K/mcL (0.6-4.6) 08/18/18 19:52 Monocytes # 0.6 K/mcL (0.0-1.3) 08/18/18 19:52 Eosinophils # 0.0 K/mcL (0.0-0.6) 08/18/18 19:52 Basophils # 0.0 K/mcL (0.0-0.2) 08/18/18 19:52 Sodium 138 mEq/L (136-145) 08/19/18 05:50 Potassium 3.0 mEq/L (3.5-5.1) L 08/19/18 05:50 Chloride 101 mEq/L (98-107) 08/19/18 05:50 Carbon Dioxide 25 mEq/L (23-29) 08/19/18 05:50 BUN 11 mg/dL (6-20) 08/19/18 05:50 Creatinine 0.39 mg/dL (0.70-1.30) L 08/19/18 05:50 Est GFR ( Amer) > 60 (> 60) 08/19/18 05:50 Est GFR (Non-Af Amer) > 60 (> 60) 08/19/18 05:50 BUN/Creatinine Ratio 28 (6-26) H 08/19/18 05:50 Glucose 253 mg/dL (70-105) H 08/19/18 05:50 Est Mean Plasma Glucose 278 mg/dl 08/19/18 05:50 Hemoglobin A1c 11.3 % (-5.6) H 08/19/18 05:50 Calculated Osmolality 294 (280-300) 08/19/18 05:50 Lactic Acid 1.6 mmol/L (0.5-2.2) 08/18/18 19:52 Calcium 9.1 mg/dL (8.6-10.3) 08/19/18 05:50 Magnesium 1.7 mg/dL (1.6-2.6) 08/19/18 05:50 Troponin I < 0.03 ng/mL (< 0.04) 08/18/18 19:52 B-Natriuretic Peptide 43 pg/mL (Less than 100) 08/18/18 19:52 - Impressions Impressions Chest X-Ray 08/18/18 18:48 IMPRESSION: No acute abnormality. D/ / Brennan Vasquez MD / Brennan Vasquez MD Interpreting Provider: Brennan Vasquez MD Consult Discharge Plan - Plan Referrals: NONE,PCP [Primary Care Provider] -
[2018-08-19] MEDS: Insulin LISPRO 300 UNITS/3 ML VIAL SQ SCH ×2 (13:06→18:23)
[2018-08-19 14:06] LABS: Bilirubin,Urine Small (Negative); Blood,Urine Large (Negative); Clarity,Urine Turbid (Clear); Color,Urine Dark Yellow (Yellow); Glucose,Urine (UA) Normal (Normal); Ketones,Urine Trace mg/dL (Negative); Leukocyte Esterase,Urine Large (Negative); Nitrite,Urine Positive (Negative); PH,Urine 7.5 pH Units (5.0-8.0); Protein,Urine 100 mg/dL (Neg-Trace); Specific Gravity,Urine 1.016 (1.010-1.025)
[2018-08-19 14:10] LABS: Bacteria,Urine Many per hpf (None-Few); Squamous Epithelial Cell,Urine Many per lpf (None-Few); WBC,Urine TNTC per hpf (0-3)
[2018-08-19 14:27] LABS: RBC,Urine Present per hpf (0-3)
[2018-08-19] MEDS ORDERED: Trolamine Salicylate/Aloe Vera 35.4 GM TUBE TP PRN (14:45)
[2018-08-19] MEDS ORDERED: *HR* OxyCODONE Immed Rel 5 MG TABLET PO PRN (14:45)
[2018-08-19] MEDS ORDERED: Atropine 1% Opth Drops 100 DROP/5 ML BOTTLE SL PRN (14:45)
[2018-08-19] MEDS ORDERED: Ipratropium/Albuterol Neb 3 ML IH PRN (14:45)
[2018-08-19] MEDS ORDERED: Hyoscyamine SL 0.125 MG TAB.SUBL PO PRN (14:45)
[2018-08-19] MEDS ORDERED: Acetaminophen 325 MG TABLET PO PRN (14:45)
[2018-08-19] MEDS ORDERED: Ketoconazole Shampoo 120 ML BOTTLE TP SCH (14:45)
--- NOTE | 2018-08-19 14:49 | Event Note ---
Date of Encounter: 08/19/18 Time of Encounter: 14:37 Examined the patient and review of the clinical history. Patient lying comfortably on bed with trach. Speech evaluation was consulted but patient refused any further evaluation even after understanding the risk of aspiration choking with possible . Patient got evaluated by speech therapist in the past and got a recommendation for nothing by mouth. Gutierrez gardnerjasmina reported that patient change to hospice care and signed a waiver for regular solids and liquids and 07/26/2017 due to abnormal barium swallow study recommended for alternative means of nutrition. During this admission a speech therapist talked to patient and recommended nothing by mouth diabetic patient is stated that he would not consume an altered diet or alternative means of nutrition and desired to sign dysphagia waiver.They also tried to contact power of real estate attorney but did not hear back. . Will keep patient nothing by mouth until get dysphagia waiver signed. Reviewed lab with A1c 11.8 continue Accu-Chek and medium sliding scale. Urinalysis with nitrite positive and eventually. Will continue Levaquin. Urine culture ordered. Stable hemoglobin Psych was consulted and reviewed the note with no suicidal or homicidal thoughts or plan at this time.
[2018-08-19] MEDS: GuaiFENesin Liq 200 MG/10 ML UDC PO SCH ×2 (16:34→21:57)
[2018-08-19] MEDS: *HR* OxyCODONE Immed Rel 5 MG TABLET PO SCH ×2 (16:38→21:56)
[2018-08-19] MEDS ORDERED: *HR* Morphine Sulfate SR (12 HR) 15 MG TABLET.ER PO SCH (18:00)
[2018-08-19] MEDS ORDERED: *HR* Morphine Sulfate SR (12 HR) 30 MG TABLET.ER PO SCH (18:00)
[2018-08-19] MEDS: clonazePAM 1 MG TABLET PO SCH (18:21)
[2018-08-19] MEDS: *HR* Morphine Sulfate SR (12 HR) 30 MG TABLET.ER PO SCH (18:21)
[2018-08-19] MEDS: *HR* Morphine Sulfate SR (12 HR) 15 MG TABLET.ER PO SCH (18:21)
[2018-08-19] MEDS: MethylPREDNISolone 40 MG/ML VIAL IVP SCH (18:22)
[2018-08-19] MEDS: Melatonin 3 MG TABLET PO SCH (21:57)
[2018-08-19] MEDS: OLANZapine 10 MG TAB.RAPDIS PO SCH (21:57)
[2018-08-19] MEDS: CarBAMazepine XR (12 hr) 100 MG TAB PO SCH (21:57)
[2018-08-19] MEDS: Artificial Tears SOLN 15 ML BOTTLE BOTH EYES SCH (21:58)
[2018-08-19] MEDS ORDERED: Levofloxacin 750 MG/150 ML 750 MG/150 ML BAG IVPB SCH (23:00)
[2018-08-20] MEDS: traZODone 50 MG TABLET PO SCH ×2 (00:19→20:24)
[2018-08-20] MEDS: *HR* OxyCODONE Immed Rel 5 MG TABLET PO SCH ×7 (00:19→23:38)
[2018-08-20] MEDS: Insulin LISPRO 300 UNITS/3 ML VIAL SQ SCH ×4 (00:20→17:21)
[2018-08-20] MEDS: Ipratropium/Albuterol Neb 3 ML IH SCH ×4 (04:02→23:10)
[2018-08-20] MEDS: *HR* Morphine Sulfate SR (12 HR) 15 MG TABLET.ER PO SCH ×3 (05:44→17:13)
[2018-08-20] MEDS: *HR* Morphine Sulfate SR (12 HR) 30 MG TABLET.ER PO SCH ×3 (05:44→17:13)
[2018-08-20] MEDS: MethylPREDNISolone 40 MG/ML VIAL IVP SCH ×2 (05:49→17:14)
[2018-08-20 08:18] LABS: BUN/Creatinine Ratio 32 (6-26); Blood Urea Nitrogen 12 mg/dL (6-20); Calcium 9.4 mg/dL (8.6-10.3); Carbon Dioxide 26 mEq/L (23-29); Chloride 101 mEq/L (98-107); Glucose 140 mg/dL (70-105); Osmolality,Calculated 286 (280-300); Potassium 3.6 mEq/L (3.5-5.1); Sodium 137 mEq/L (136-145); eGFR For Non-African Americans > 60 (> 60)
[2018-08-20] MEDS ORDERED: Furosemide 40 MG TABLET PO SCH (09:00)
[2018-08-20] MEDS: Topiramate 100 MG TABLET PO SCH (10:00)
[2018-08-20] MEDS: OLANZapine 10 MG TAB.RAPDIS PO SCH ×2 (10:04→20:21)
[2018-08-20] MEDS: Folic Acid 1 MG TABLET PO SCH (10:04)
[2018-08-20] MEDS: Baclofen 10 MG TABLET PO SCH ×2 (10:04→20:22)
[2018-08-20] MEDS: Furosemide 20 MG TABLET PO SCH (10:05)
[2018-08-20] MEDS: CarBAMazepine XR (12 hr) 100 MG TAB PO SCH ×2 (10:05→20:22)
[2018-08-20] MEDS: Potassium Chloride Elixir 20 MEQ/15 ML UDC PO SCH (10:05)
[2018-08-20] MEDS: (Zinc Acetate [Galzin] 50 MG) PO SCH (10:05)
[2018-08-20] MEDS: GuaiFENesin Liq 200 MG/10 ML UDC PO SCH ×4 (10:05→20:23)
[2018-08-20] MEDS: Artificial Tears SOLN 15 ML BOTTLE BOTH EYES SCH ×2 (12:24→20:23)
--- NOTE | 2018-08-20 12:54 | Internal Med Progress Note ---
Hospitalist Progress Note - Encounter Date of Encounter: 08/20/18 Time of Encounter: 12:51 - Subjective Interval History: Feeling better but is still has lot of cough.spiked low grade temp last night. reviewed the labs. Blood culture with no growth yet Denies headache dizziness chest pain abdominal pain diarrhea - Exam Vitals: Temp Pulse Resp BP Pulse Ox 100.4 F H 99 18 107/77 90 08/20/18 11:35 08/20/18 11:35 08/20/18 11:35 08/20/18 11:35 08/20/18 11:35 Exam: General appearance: Have coughing spells otherwise alert awake oriented. Trach in place Eye exam: EOMI, PERRLA ENT exam: Moist oral mucosa Neck nontender, supple Respiratory exam: Bilateral decreased sound Cardiovascular exam: Regular rate and rhythm, no systolic murmur Abdominal exam: Soft, nontender, nondistended, positive bowel sounds Extremities exam: No calf tenderness, no pedal edema Present: Skin-no rash, warm, dry, intact Neurological exam: Cannot move lower extremity is baseline but has some movement with upper extremities. cannot speak due to trach. - - Assessment and Plan (1) Aspiration of food Current Visit: Yes Status: Acute Assessment and Plan: Severe dysphagia.in ER RT was able to suction out food particles. Patient states that he has no dietary restrictions, however he is documenting as thickened liquids. Concern for aspiration pneumonia though initial chest x-ray negative. Levaquin empirically as started. Patient despite low-grade temperature last night therefore will repeat chest x-ray. CBC with differential ordered. Initial blood culture with no growth yet. Continue breathing treatment, home dose of prednisone. (2) Fever Current Visit: No Status: Acute Assessment and Plan: Kojo temperature while on Levaquin. Will repeat chest x-ray. Highly suspicion for developing aspiration pneumonia as mentioned above. Will update the antibiotic if any concern. CBC ordered and awaiting report (3) Chronic respiratory failure Current Visit: No Status: Acute Assessment and Plan: No acute respiratory distress at this time. Chronic trach. Continue management. RT on board and changed the trach (4) Dysphagia Current Visit: No Status: Acute Assessment and Plan: Severe. Patient signed dysphagia whenever after explaining severe risk of aspiration choking that can also lead to . His power of assistant city attorney was contacted and he approved for regular diet. Patient get dysphagia waiver signed in every hospitalization up on reviewing the chart. Speech therapist on board (5) Quadriplegia and quadriparesis Current Visit: No Status: Chronic Assessment and Plan: Status post TBI. Is stable (6) Seizure disorder Current Visit: No Status: Chronic Assessment and Plan: Continue home medicine. No active seizure (7) Status post tracheostomy Current Visit: No Status: Chronic Assessment and Plan: Continue trach care. Replace by RT yesterday. Suction when necessary. (8) Suprapubic catheter Current Visit: No Status: Chronic Assessment and Plan: Continue catheter care. Chronic (9) Traumatic brain injury Current Visit: No Status: Chronic Assessment and Plan: Stable. Quadriparesis quadriplegia and chronic trach (10) Major depression, recurrent, chronic Current Visit: Yes Status: Acute Assessment and Plan: In ER there was concern for suicidal ideation. Therefore inpatient psych was consulted. Psych evaluated the patient and did not find any suicidal concern and found him to have capacity to make medical decision. Patient Does not want to start anything for mood but willing to think about it. Stable (11) DVT prophylaxis Current Visit: No Status: Acute - Time Spent with Patient Total time spent is greater than 50% in coordination of care (as documented) at patient's floor/unit and/or counseling patient: 25 - 35 minutes Plan of Care Discussed with: patient Internal Medicine: Result - Labs CBC & Chem 7: 08/19/18 05:50 08/20/18 07:41 Labs: BMP 08/20/18 07:41 Sodium 137 Potassium 3.6 Chloride 101 Carbon Dioxide 26 BUN 12 Creatinine 0.37 L Glucose 140 H Calcium 9.4 Urine 08/19/18 Range/Units 13:46 Urine Color Dark Yellow (Yellow) Urine Clarity Turbid A (Clear) Urine pH 7.5 (5.0-8.0) pH Units Ur Specific [place] 1.016 (1.010-1.025) Urine Protein 100 H (Neg-Trace) mg/dL Urine Glucose (UA) Normal (Normal) mg/dL Consult Discharge Plan - Plan Referrals: NONE,PCP [Primary Care Provider] - (1) Aspiration of food Qualifiers: Encounter type: initial encounter Qualified Code(s): T17.920A - Food in respiratory tract, part unspecified causing asphyxiation, initial encounter (2) Fever Qualifiers: Fever type: unspecified Qualified Code(s): R50.9 - Fever, unspecified (3) Chronic respiratory failure Qualifiers: Respiratory failure complication: hypoxia Qualified Code(s): J96.11 - Chronic respiratory failure with hypoxia (4) Dysphagia Qualifiers: Qualified Code(s): R13.10 - Dysphagia, unspecified (9) Traumatic brain injury Qualifiers: Encounter type: subsequent encounter Loss of consciousness presence/duration: with LOC of unspecified duration Qualified Code(s): S06.9X9D - Unspecified intracranial injury with loss of consciousness of unspecified duration, subsequent encounter
[2018-08-20 13:36] LABS: Basophils % 0.2 %; Eosinophils % 0.2 %; Hematocrit 46.7 % (37.5-50.1); Hemoglobin 15.3 g/dL (12.9-16.9); Immature Granulocytes % 0.6 % (0-4); Lymphocytes # 1.8 K/mcL (0.6-4.6); Lymphocytes % 22.4 %; Mean Corpuscular HGB Conc 32.8 g/dL (31.6-35.5); Mean Corpuscular Hemoglobin 30.4 pg (28.0-33.3); Mean Corpuscular Volume 92.8 fL (83.0-100.0); Monocytes # 0.4 K/mcL (0.0-1.3); Monocytes % 4.5 %; Neutrophils # 5.9 K/mcL (1.6-8.9); Platelet Count 141 K/mcL (140-400); Red Blood Count 5.03 M/mcL (4.19-5.50); Red Cell Distribution Width 14.3 % (11.5-14.5); Segmented Neutrophils % 72.1 %
[2018-08-20] MEDS: Levofloxacin 750 MG/150 ML 750 MG/150 ML BAG IVPB SCH (14:12)
[2018-08-20 15:51] LABS: Acinetobacter baumannii by PCR Not Detected (Not Detect); Candida albicans by PCR Not Detected (Not Detect); Candida glabrata by PCR Not Detected (Not Detect); Candida krusei by PCR Not Detected (Not Detect); Candida parapsilosis by PCR Not Detected (Not Detect); Candida tropicalis by PCR Not Detected (Not Detect); Enterobacter cloacae Cmplx PCR Not Detected (Not Detect); Enterobacteriaceae by PCR Not Detected (Not Detect); Enterococcus by PCR Not Detected (Not Detect); Escherichia coli by PCR Not Detected (Not Detect); Klebsiella oxytoca by PCR Not Detected (Not Detect); Klebsiella pneumoniae by PCR Not Detected (Not Detect); Proteus by PCR Not Detected (Not Detect); Pseudomonas aeruginosa by PCR Not Detected (Not Detect); Serratia marcescens by PCR Not Detected (Not Detect); Staphylococcus aureus by PCR Not Detected (Not Detect); Staphylococcus by PCR Not Detected (Not Detect); Streptococcus agalactiae(B)PCR Not Detected (Not Detect); Streptococcus by PCR Not Detected (Not Detect); Streptococcus pneumoniae PCR Not Detected (Not Detect); Streptococcus pyogenes (A) PCR Not Detected (Not Detect); blaKPC Carbapenem-Resist Gene Not Detected (Not Detect); mecA Methicillin-Resist Gene Not Detected (Not Detect); vanA/B Vancomycin-Resist Genes Not Detected (Not Detect)
[2018-08-20] MEDS: clonazePAM 1 MG TABLET PO SCH (17:14)
[2018-08-20] MEDS: Melatonin 3 MG TABLET PO SCH (20:22)
[2018-08-21] MEDS: Insulin LISPRO 300 UNITS/3 ML VIAL SQ SCH ×4 (00:44→17:31)
[2018-08-21] MEDS: *HR* OxyCODONE Immed Rel 5 MG TABLET PO SCH ×6 (04:04→23:04)
[2018-08-21] MEDS: Ipratropium/Albuterol Neb 3 ML IH SCH ×4 (04:59→22:16)
[2018-08-21] MEDS: MethylPREDNISolone 40 MG/ML VIAL IVP SCH (06:02)
[2018-08-21] MEDS ORDERED: Aminoglycoside Consult 1 EACH MC ONE (08:35)
[2018-08-21 08:45] LABS: Basophils % 0.3 %; Eosinophils % 0.1 %; Hematocrit 46.3 % (37.5-50.1); Hemoglobin 14.8 g/dL (12.9-16.9); Immature Granulocytes % 0.8 % (0-4); Lymphocytes # 1.3 K/mcL (0.6-4.6); Lymphocytes % 14.1 %; Mean Corpuscular Hemoglobin 29.8 pg (28.0-33.3); Mean Corpuscular Volume 93.3 fL (83.0-100.0); Mean Platelet Volume 11.9 fL (9.4-12.4); Monocytes # 0.4 K/mcL (0.0-1.3); Monocytes % 4.5 %; Neutrophils # 7.2 K/mcL (1.6-8.9); Platelet Count 123 K/mcL (140-400); Red Blood Count 4.96 M/mcL (4.19-5.50); Red Cell Distribution Width 14.2 % (11.5-14.5); Segmented Neutrophils % 80.2 %
[2018-08-21] MEDS: CarBAMazepine XR (12 hr) 100 MG TAB PO SCH ×2 (08:45→20:22)
[2018-08-21] MEDS: Potassium Chloride Elixir 20 MEQ/15 ML UDC PO SCH (08:45)
[2018-08-21] MEDS: *HR* Morphine Sulfate SR (12 HR) 30 MG TABLET.ER PO SCH ×2 (08:46→17:31)
[2018-08-21] MEDS: Baclofen 10 MG TABLET PO SCH ×2 (08:46→20:22)
[2018-08-21] MEDS: Topiramate 100 MG TABLET PO SCH (08:47)
[2018-08-21] MEDS: Furosemide 20 MG TABLET PO SCH (08:47)
[2018-08-21] MEDS: Artificial Tears SOLN 15 ML BOTTLE BOTH EYES SCH ×2 (08:48→20:23)
[2018-08-21] MEDS: (Zinc Acetate [Galzin] 50 MG) PO SCH (08:48)
[2018-08-21] MEDS: *HR* Morphine Sulfate SR (12 HR) 15 MG TABLET.ER PO SCH ×2 (08:48→17:31)
[2018-08-21] MEDS: Folic Acid 1 MG TABLET PO SCH (08:48)
[2018-08-21] MEDS: OLANZapine 10 MG TAB.RAPDIS PO SCH ×2 (08:48→20:23)
[2018-08-21] MEDS: GuaiFENesin Liq 200 MG/10 ML UDC PO SCH ×4 (08:51→20:23)
[2018-08-21 09:03] LABS: BUN/Creatinine Ratio 34 (6-26); Blood Urea Nitrogen 15 mg/dL (6-20); Calcium 9.2 mg/dL (8.6-10.3); Carbon Dioxide 25 mEq/L (23-29); Chloride 101 mEq/L (98-107); Glucose 175 mg/dL (70-105); Osmolality,Calculated 289 (280-300); Potassium 3.6 mEq/L (3.5-5.1); Sodium 137 mEq/L (136-145); eGFR For Non-African Americans > 60 (> 60)
--- NOTE | 2018-08-21 12:42 | Consult Note ---
Date of Encounter: 08/21/18 Time of Encounter: 12:40 Assessment & Recommendation (1) Major depression, recurrent, chronic Current visit: Yes Status: Acute Assessment & Recommendation: On follow-up with the patient today he continues to deny suicidal ideation, intent, or plan. Denies wanting anyone to take active measures to end his life. Continues to say he is not interested in an antidepressant or any other treatment for depression at this time. Will sign off for now. Feel free to reconsult if any further concerns. History of Present Illness Requesting Physician: Keira Delcid Reason for consult: suicidal ideation History of present illness: Mr. Mathew is a 48 year old male who was admitted for aspiration pneumonia. Psychiatry consulted after client made comments in the ER about wanting to remove his trach. On follow-up with the patient today he continues to deny suicidal ideation, intent, or plan. Denies wanting anyone to take active measures to end his life. Continues to say he is not interested in an antidepressant or any other treatment for depression at this time. CC: Keira Delcid Past Med Surg Social Fam HX - Past Medical History Medical history: CHF, hepatitis, hypertension, seizures, other - Past Psychiatric History Psychiatric history: Reports: depression Family psychiatric history: Unknown Family History of Suicide: Unknown - Past Surgical History Surgical History: tracheostomy - Social History Smoking Status: Current every day smoker Smokeless Tobacco Status: No Alcohol use: none, unknown Drug use: none - Family History Mother Living Status: Hx Family Cardiac Disorders: Yes Hx Family Respiratory Disorders: Yes Hx Family Cancer: Yes Medications & Allergies Folic Acid 1 mg PO QAM 07/04/15 [History] Ipratropium/Albuterol Neb [Duoneb] 3 ml IH QID PRN 07/04/15 [History] Topiramate [Topamax] 150 mg PO QAM 11/05/15 [History] Acetaminophen [Tylenol] 650 mg PO Q6HR PRN 12/11/15 [History] Docusate Sodium [Dok] 100 mg PO BID 12/11/15 [History] Polyvinyl Alcohol [Artificial Tears] 1 drop BOTH EYES BID 03/18/16 [History] Ketoconazole Shampoo [Nizoral Shampoo] 1 appl TP QWEEK 08/11/16 [History] Furosemide [Lasix] 40 mg PO DAILY 03/24/17 [History] Melatonin 10 mg PO HS 06/27/17 [History] Potassium Chloride Elixir [Potassium Chloride] 40 meq PO DAILY 06/27/17 [History] Baclofen [Lioresal] 10 mg PO BID #10 tablet 06/30/17 [Rx] Benztropine Mesylate 1 mg PO HS #30 tablet 06/30/17 [Rx] OLANZapine [Zyprexa] 10 mg PO BID #30 tablet 06/30/17 [Rx] carBAMazepine [Carbamazepine ER] 300 mg PO BID #30 tab.er.12h 06/30/17 [Rx] Polyethylene Glycol 3350 [MiraLAX] 17 gm PO DAILY PRN 07/13/17 [History] clonazePAM [Klonopin] 2 mg PO QPM 5 Days #5 tablet 12/06/17 [Rx] Trazodone HCl 100 mg PO HS #30 tablet 12/16/17 [Rx] Ascorbate Calcium [Vitamin C] 500 mg PO DAILY 08/19/18 [History] Aspirin/Calcium Carbonate/Mag [Aspirin Buffered 325 mg Tab] 325 mg PO DAILY 08/19/18 [History] Atropine 1% Opth Drops 2 drop SL Q2H PRN 08/19/18 [History] Guaifenesin [Mucus Relief] 400 mg PO QID 08/19/18 [History] Hyoscyamine Sulfate [Anaspaz] 0.125 mg PO Q2H PRN 08/19/18 [History] Insulin ASPART [NovoLOG] 0 unit SQ TIDWM 08/19/18 [History] Morphine Sulfate SR (12 HR) [MS Contin] 1 tab PO Q12HR 08/19/18 [History] Morphine Sulfate SR (12 HR) [MS Contin] 1 tab PO Q12HR 08/19/18 [History] OxyCODONE Immed Rel [Roxicodone 10 MG] 10 mg PO Q4H PRN 08/19/18 [History] OxyCODONE Immed Rel [Roxicodone 20 MG] 20 mg PO Q4H 08/19/18 [History] OxyCODONE Immed Rel [Roxicodone 20 MG] 30 mg PO Q4HR 08/19/18 [History] Trolamine Salicylate/Aloe Vera [Aspercreme 10%] 10 % TP 3-4XD PRN 08/19/18 [History] Zinc Acetate [Galzin] 50 mg PO DAILY 08/19/18 [History] predniSONE [PredniSONE] 40 mg PO DAILY 08/19/18 [History] Allergy/AdvReac Type Severity Reaction Status Date / Time Penicillins Allergy See Verified 07/16/17 02:08 Comments Review of Systems Constitutional: Reports: fever, other Eyes: Denies: eye pain, vision change Ears, Nose, Throat: Denies: ear pain, throat pain, dental pain, hearing loss, congestion Cardiovascular: Denies: chest pain, palpitations, dyspnea on exertion Respiratory: Reports: sputum production Gastrointestinal: Denies: abdominal pain, nausea, vomiting, diarrhea, constipation Genitourinary male: Denies: urgency, dysuria, frequency, genital lesions Musculoskeletal: Reports: other Integumentary: Reports: other Neurological: Reports: other Endocrine: Denies: fatigue, heat or cold intolerance Hematologic/Lymphatic: Denies: easy bruising, lymphadenopathy Allergic/Immunologic: Denies: urticaria, itchy eyes Psychiatry Exam - Constitutional Vitals: Temp Pulse Resp BP Pulse Ox 100.2 F H 79 18 99/65 92 08/21/18 11:06 08/21/18 11:06 08/21/18 11:06 08/21/18 11:06 08/21/18 11:06 General appearance: disheveled - Musculoskeletal Gait: other Station: other Strength & Tone: other - Psychiatric Patient Orientation: Yes Person, Yes Time, Yes Place Level of alertness: Alert Behavior: calm, cooperative Psychomotor activity: Normal Eye Contact: Maintains Eye Contact Mood Description: Depressed Affect description: congruent with mood Speech Volume: Normal Speech pattern: slowed Language & Vocabulary: consistent with education Thought Process: Linear Thought Content: No Suicidal ideation, No Homicidal ideation, No Overt delusions Perceptual Disturbances: No Auditory hallucinations, No Visual hallucinations Attention Span Ability: Capable of Focused Attention Memory Description: Grossly Intact Patient Reliability: Reliable Historian Fund of knowledge: Yes abstraction ability, Yes aware of current events Intelligence Estimate: Average Judgment: Fair Insight: Partial Results - Labs Labs: Laboratory Last Values WBC 8.9 K/mcL (4.3-11.1) 08/21/18 08:31 RBC 4.96 M/mcL (4.19-5.50) 08/21/18 08:31 Hgb 14.8 g/dL (12.9-16.9) 08/21/18 08:31 Hct 46.3 % (37.5-50.1) 08/21/18 08:31 MCV 93.3 fL (83.0-100.0) 08/21/18 08:31 MCH 29.8 pg (28.0-33.3) 08/21/18 08:31 MCHC 32.0 g/dL (31.6-35.5) 08/21/18 08:31 RDW 14.2 % (11.5-14.5) 08/21/18 08:31 Plt Count 123 K/mcL (140-400) L 08/21/18 08:31 MPV 11.9 fL (9.4-12.4) 08/21/18 08:31 Immature Gran % 0.8 % (0-4) 08/21/18 08:31 Seg Neutrophils % 80.2 % 08/21/18 08:31 Lymphocytes % 14.1 % 08/21/18 08:31 Monocytes % 4.5 % 08/21/18 08:31 Eosinophils % 0.1 % 08/21/18 08:31 Basophils % 0.3 % 08/21/18 08:31 Neutrophils # 7.2 K/mcL (1.6-8.9) 08/21/18 08:31 Lymphocytes # 1.3 K/mcL (0.6-4.6) 08/21/18 08:31 Monocytes # 0.4 K/mcL (0.0-1.3) 08/21/18 08:31 Eosinophils # 0.0 K/mcL (0.0-0.6) 08/21/18 08:31 Basophils # 0.0 K/mcL (0.0-0.2) 08/21/18 08:31 Sodium 137 mEq/L (136-145) 08/21/18 08:31 Potassium 3.6 mEq/L (3.5-5.1) 08/21/18 08:31 Chloride 101 mEq/L (98-107) 08/21/18 08:31 Carbon Dioxide 25 mEq/L (23-29) 08/21/18 08:31 BUN 15 mg/dL (6-20) 08/21/18 08:31 Creatinine 0.44 mg/dL (0.70-1.30) L 08/21/18 08:31 Est GFR ( Amer) > 60 (> 60) 08/21/18 08:31 Est GFR (Non-Af Amer) > 60 (> 60) 08/21/18 08:31 BUN/Creatinine Ratio 34 (6-26) H 08/21/18 08:31 Glucose 175 mg/dL (70-105) H 08/21/18 08:31 POC Glucose 218 mg/dL (70-99) H 08/20/18 16:18 Est Mean Plasma Glucose 278 mg/dl 08/19/18 05:50 Hemoglobin A1c 11.3 % (-5.6) H 08/19/18 05:50 Calculated Osmolality 289 (280-300) 08/21/18 08:31 Lactic Acid 1.6 mmol/L (0.5-2.2) 08/18/18 19:52 Calcium 9.2 mg/dL (8.6-10.3) 08/21/18 08:31 Magnesium 1.7 mg/dL (1.6-2.6) 08/19/18 05:50 Troponin I < 0.03 ng/mL (< 0.04) 08/18/18 19:52 B-Natriuretic Peptide 43 pg/mL (Less than 100) 08/18/18 19:52 Ur Specimen Adequacy See below A 08/19/18 13:46 Urine Color Dark Yellow (Yellow) 08/19/18 13:46 Urine Clarity Turbid (Clear) A 08/19/18 13:46 Urine pH 7.5 pH Units (5.0-8.0) 08/19/18 13:46 Ur Specific [place] 1.016 (1.010-1.025) 08/19/18 13:46 Urine Protein 100 mg/dL (Neg-Trace) H 08/19/18 13:46 Urine Glucose (UA) Normal mg/dL (Normal) 08/19/18 13:46 Urine Ketones Trace mg/dL (Negative) H 08/19/18 13:46 Urine Blood Large (Negative) H 08/19/18 13:46 Urine Nitrite Positive (Negative) A 08/19/18 13:46 Urine Bilirubin Small (Negative) H 08/19/18 13:46 Urine Urobilinogen 2.0 mg/dL (Normal) H 08/19/18 13:46 Ur Leukocyte Esterase Large (Negative) H 08/19/18 13:46 Urine Microscopic RBC Present per hpf (0-3) 08/19/18 13:46 Urine Microscopic WBC TNTC per hpf (0-3) H 08/19/18 13:46 Ur Squamous Epith Cells Many per lpf (None-Few) H 08/19/18 13:46 Urine Bacteria Many per hpf (None-Few) H 08/19/18 13:46 Ur Culture Indicated? NO. (NO) A 08/19/18 13:46 A. baumannii (PCR) Not Detected (Not Detect) 08/18/18 21:20 Vee albicans (PCR) Not Detected (Not Detect) 08/18/18 21:20 C. glabrata (PCR) Not Detected (Not Detect) 08/18/18 21:20 C. krusei (PCR) Not Detected (Not Detect) 08/18/18 21:20 C. parapsilosis (PCR) Not Detected (Not Detect) 08/18/18 21:20 C. tropicalis (PCR) Not Detected (Not Detect) 08/18/18 21:20 Enterobacteriac sp PCR Not Detected (Not Detect) 08/18/18 21:20 E. cloacae complex PCR Not Detected (Not Detect) 08/18/18 21:20 Enterococcus sp PCR Not Detected (Not Detect) 08/18/18 21:20 E. coli (PCR) Not Detected (Not Detect) 08/18/18 21:20 H. influenzae (PCR) Not Detected (Not Detect) 08/18/18 21:20 Klebsiella oxytoca PCR Not Detected (Not Detect) 08/18/18 21:20 Klebsiella pneumoniae Not Detected (Not Detect) 08/18/18 21:20 List. monocytogenes PCR Not Detected (Not Detect) 08/18/18 21:20 N. meningitidis (PCR) Not Detected (Not Detect) 08/18/18 21:20 Proteus species (PCR) Not Detected (Not Detect) 08/18/18 21:20 Serratia marcescens PCR Not Detected (Not Detect) 08/18/18 21:20 Staphylococcus sp PCR Not Detected (Not Detect) 08/18/18 21:20 Staph aureus (PCR) Not Detected (Not Detect) 08/18/18 21:20 mecA-Methicil Res Gene Not Detected (Not Detect) 08/18/18 21:20 Streptococcus sp PCR Not Detected (Not Detect) 08/18/18 21:20 Group A Strep DNA Not Detected (Not Detect) 08/18/18 21:20 Group B Strep (PCR) Not Detected (Not Detect) 08/18/18 21:20 Strep pneumoniae (PCR) Not Detected (Not Detect) 08/18/18 21:20 P. aeruginosa (PCR) Not Detected (Not Detect) 08/18/18 21:20 Manny/B-Vanco Res Genes Not Detected (Not Detect) 08/18/18 21:20 KPC (blaKPC) Detect PCR Not Detected (Not Detect) 08/18/18 21:20 - Impressions Impressions Chest X-Ray 08/20/18 12:58 IMPRESSION: No acute cardiopulmonary process radiographically. Prominent loops of bowel which can be better evaluated with dedicated abdominal films. D/ / Justice Hernandes MD / Justice Hernandes MD Interpreting Provider: Justice Hernandes MD Consult Discharge Plan - Plan Referrals: NONE,PCP [Primary Care Provider] -
--- NOTE | 2018-08-21 12:55 | Internal Med Progress Note ---
Hospitalist Progress Note - Encounter Date of Encounter: 08/21/18 Time of Encounter: 12:53 - Subjective Interval History: Feeling almost same. Spiked low-grade temperature 100.2. Review of the lab with normal white count. Blood culture with gram-positive cocci but no further sensitivity. Urine culture with gram-negative michael with no further sensitivity. Denies headache dizziness chest pain abdominal pain diarrhea - Exam Vitals: Temp Pulse Resp BP Pulse Ox 100.2 F H 79 18 99/65 92 08/21/18 11:06 08/21/18 11:06 08/21/18 11:06 08/21/18 11:06 08/21/18 11:06 Exam: General appearance: No acute distress. alert awake oriented. Trach in place Eye exam: EOMI, PERRLA ENT exam: Moist oral mucosa Neck nontender, supple Respiratory exam: Bilateral decreased sound-slight better Cardiovascular exam: Regular rate and rhythm, no systolic murmur Abdominal exam: Soft, nontender, nondistended, positive bowel sounds Extremities exam: No calf tenderness, no pedal edema Present: Skin-no rash, warm, dry, intact Neurological exam: Cannot move lower extremity is baseline but has some movement with upper extremities. cannot speak due to trach. - - Assessment and Plan (1) Bacteremia Current Visit: Yes Status: Acute Assessment and Plan: Gram-positive cocci in one set but no final sensitivity available. Continue vancomycin. For now (2) UTI (urinary tract infection) Current Visit: Yes Status: Acute Assessment and Plan: Gram-negative michael in urine but final sensitivity report awaited. A started cefepime after discussing with pharmacy. Patient is on chronic suprapubic catheter (3) Aspiration of food Current Visit: Yes Status: Acute Assessment and Plan: Severe dysphagia.in ER RT was able to suction out food particles. Patient states that he has no dietary restrictions, however he is documenting as thickened liquids. Concern for aspiration pneumonia though initial chest x-ray negative. Levaquin empirically as started-continue for now. A spiking temperature even patient on vancomycin and Levaquin. Repeat chest x- ray with no acute finding. Continue breathing treatment, home dose of prednisone. (4) Fever Current Visit: No Status: Acute Assessment and Plan: Kojo temperature while on Levaquin and vancomycin. Please see above. (5) Chronic respiratory failure Current Visit: No Status: Acute Assessment and Plan: No acute respiratory distress at this time. Chronic trach. Continue management. RT on board and changed the trach (6) Dysphagia Current Visit: No Status: Acute Assessment and Plan: Severe. Patient signed dysphagia whenever after explaining severe risk of aspiration choking that can also lead to . His power of outside sales account manager was contacted and he approved for regular diet. Patient get dysphagia waiver signed in every hospitalization upon reviewing the chart. Speech therapist on board (7) Quadriplegia and quadriparesis Current Visit: No Status: Chronic Assessment and Plan: Status post TBI. Is stable (8) Seizure disorder Current Visit: No Status: Chronic Assessment and Plan: Continue home medicine. No active seizure (9) Status post tracheostomy Current Visit: No Status: Chronic Assessment and Plan: Continue trach care. Replace by RT yesterday. Suction when necessary. (10) Suprapubic catheter Current Visit: No Status: Chronic Assessment and Plan: Continue catheter care. Chronic (11) Traumatic brain injury Current Visit: No Status: Chronic Assessment and Plan: Stable. Quadriparesis quadriplegia and chronic trach (12) Major depression, recurrent, chronic Current Visit: Yes Status: Acute Assessment and Plan: In ER there was concern for suicidal ideation. Therefore inpatient psych was consulted. Psych evaluated the patient and did not find any suicidal concern and found him to have capacity to make medical decision. Patient Does not want to start anything for depression or mood but willing to think about it. Stable (13) DVT prophylaxis Current Visit: No Status: Acute Assessment and Plan: SCDs, heparin subcutaneous (14) Hypotension Current Visit: Yes Status: Acute Assessment and Plan: Hold Lasix. Continue to monitor. Will consider a small fluid challenge if needed - Time Spent with Patient Total time spent is greater than 50% in coordination of care (as documented) at patient's floor/unit and/or counseling patient: Greater than 35 minutes Plan of Care Discussed with: nurse Internal Medicine: Result - Labs CBC & Chem 7: 08/21/18 08:31 08/21/18 08:31 Labs: Short CBC 08/20/18 08/21/18 Range/Units 13:21 08:31 WBC 8.2 8.9 (4.3-11.1) K/mcL Hgb 15.3 14.8 (12.9-16.9) g/dL Hct 46.7 46.3 (37.5-50.1) % Plt Count 141 123 L (140-400) K/mcL Neutrophils # 5.9 7.2 (1.6-8.9) K/mcL BMP 08/21/18 08:31 Sodium 137 Potassium 3.6 Chloride 101 Carbon Dioxide 25 BUN 15 Creatinine 0.44 L Glucose 175 H Calcium 9.2 - Impressions Impressions Chest X-Ray 08/20/18 12:58 IMPRESSION: No acute cardiopulmonary process radiographically. Prominent loops of bowel which can be better evaluated with dedicated abdominal films. D/ / Justice Hernandes MD / Justice Hernandes MD Interpreting Provider: Justice Hernandes MD Consult Discharge Plan - Plan Referrals: NONE,PCP [Primary Care Provider] - (2) UTI (urinary tract infection) Qualifiers: Urinary tract infection type: site unspecified Hematuria presence: with hematuria Qualified Code(s): N39.0 - Urinary tract infection, site not specified; R31.9 - Hematuria, unspecified (3) Aspiration of food Qualifiers: Encounter type: initial encounter Qualified Code(s): T17.920A - Food in respiratory tract, part unspecified causing asphyxiation, initial encounter (4) Fever Qualifiers: Fever type: unspecified Qualified Code(s): R50.9 - Fever, unspecified (5) Chronic respiratory failure Qualifiers: Respiratory failure complication: hypoxia Qualified Code(s): J96.11 - Chronic respiratory failure with hypoxia (6) Dysphagia Qualifiers: Qualified Code(s): R13.10 - Dysphagia, unspecified (11) Traumatic brain injury Qualifiers: Encounter type: subsequent encounter Loss of consciousness presence/duration: with LOC of unspecified duration Qualified Code(s): S06.9X9D - Unspecified intracranial injury with loss of consciousness of unspecified duration, subsequent encounter
[2018-08-21] MEDS: Cefepime HCl 2,000 MG in Water for inj. (sterile) 20 ML 20 ML IVP SCH (13:48)
[2018-08-21] MEDS: Levofloxacin 750 MG/150 ML 750 MG/150 ML BAG IVPB SCH (13:54)
[2018-08-21] MEDS: *HR* Heparin 5,000 UNIT/ML VIAL SQ SCH (17:31)
[2018-08-21] MEDS: clonazePAM 1 MG TABLET PO SCH (17:31)
[2018-08-21] MEDS: traZODone 50 MG TABLET PO SCH (20:22)
[2018-08-21] MEDS: Melatonin 3 MG TABLET PO SCH (20:22)
[2018-08-22] MEDS: Insulin LISPRO 300 UNITS/3 ML VIAL SQ SCH ×5 (00:43→22:48)
[2018-08-22] MEDS: Cefepime HCl 2,000 MG in Water for inj. (sterile) 20 ML 20 ML IVP SCH ×2 (00:54→12:03)
[2018-08-22] MEDS: *HR* OxyCODONE Immed Rel 5 MG TABLET PO SCH ×6 (03:21→22:50)
[2018-08-22] MEDS: Ipratropium/Albuterol Neb 3 ML IH SCH ×4 (05:27→22:49)
[2018-08-22] MEDS: *HR* Morphine Sulfate SR (12 HR) 30 MG TABLET.ER PO SCH ×2 (05:37→17:05)
[2018-08-22] MEDS: *HR* Heparin 5,000 UNIT/ML VIAL SQ SCH ×2 (05:37→17:16)
[2018-08-22] MEDS: *HR* Morphine Sulfate SR (12 HR) 15 MG TABLET.ER PO SCH ×2 (05:37→17:05)
[2018-08-22] MEDS ORDERED: MAG PO SCH (09:00)
[2018-08-22] MEDS ORDERED: ASPIRIN PO SCH (09:00)
[2018-08-22] MEDS ORDERED: CALCIUM CARBONATE PO SCH (09:00)
--- NOTE | 2018-08-22 09:05 | Internal Med Progress Note ---
Hospitalist Progress Note - Encounter Date of Encounter: 08/22/18 Time of Encounter: 09:03 - Subjective Interval History: She was seen and examined. No acute events overnight. He is afebrile. The patient is on broad-spectrum antibiotics for aspiration pneumonia as well as bacteremia. He is growing staph capitis from his blood which is likely be a con taminant. He is on vancomycin, cefepime, and Levaquin for now. The patient was admitted with aspiration pneumonia. He is enrolled in [facility] initially. He wanted to be on a regular diet and he was supposed to be on a modified diet. Ended up aspirating and sent to us. He voiced some suicidal thoughts and psychiatry saw him and cleared him. - Exam Vitals: Temp Pulse Resp BP Pulse Ox 98.8 F 60 19 98/70 96 08/22/18 06:59 08/22/18 06:59 08/22/18 06:59 08/22/18 06:59 08/22/18 06:59 Exam: GGEN: NAD CVS: RRR. S1, S2, No m/r/g RESP: Diminished ABD: Soft, NT, ND, +BS EXT: No edema. 2+ DP. No rashes NEURO: Quadriplegic. Has a trach - - Assessment and Plan (1) Fever Current Visit: No Status: Acute Assessment and Plan: Afebrile now. Continue antibiotics as above.. (2) Bacteremia Current Visit: Yes Status: Acute Assessment and Plan: Positive staph capitis likely a contaminant. Will repeat blood cx. (3) Status post tracheostomy Current Visit: No Status: Chronic Assessment and Plan: Continue trach care. Replace by RT yesterday. Suction when necessary. (4) Seizure disorder Current Visit: No Status: Chronic Assessment and Plan: Continue home medicine. No active seizure (5) Traumatic brain injury Current Visit: No Status: Chronic Assessment and Plan: Stable. Quadriplegic (6) Quadriplegia and quadriparesis Current Visit: No Status: Chronic Assessment and Plan: Status post TBI. Is stable (7) Chronic respiratory failure Current Visit: No Status: Acute (8) Suprapubic catheter Current Visit: No Status: Chronic Assessment and Plan: Continue catheter care. Chronic (9) Dysphagia Current Visit: No Status: Acute Assessment and Plan: Severe. Patient signed dysphagia whenever after explaining severe risk of aspir ation choking that can also lead to . His power of transactional attorney was contacted and he approved for regular diet. Patient get dysphagia waiver signed in every hospitalization upon reviewing the chart. Speech therapist on board (10) Aspiration of food Current Visit: Yes Status: Acute Assessment and Plan: Modified diet (11) Major depression, recurrent, chronic Current Visit: Yes Status: Acute Assessment and Plan: In ER there was concern for suicidal ideation. Therefore inpatient psych was consulted. Psych evaluated the patient and did not find any suicidal concern and found him to have capacity to make medical decision. Patient Does not want to start anything for depression or mood but willing to think about it. Stable (12) UTI (urinary tract infection) Current Visit: Yes Status: Acute Assessment and Plan: Gram-negative michael in urine but final sensitivity report awaited. Will keep on cefepime. stop other abx. (13) Hypotension Current Visit: Yes Status: Acute Assessment and Plan: Hold Lasix. Continue to monitor. Will consider a small fluid challenge if needed (14) DVT prophylaxis Current Visit: No Status: Acute Assessment and Plan: SCDs, heparin subcutaneous (15) UTI (urinary tract infection) Current Visit: Yes Status: Acute Assessment and Plan: Will keep on cefepime and stop vanco/Levaquin. (16) Aspiration pneumonia Current Visit: Yes Status: Acute Assessment and Plan: Will add clindamycine. stop vanco/levaquin. c/w O2 supports. nebs. - Time Spent with Patient Total time spent is greater than 50% in coordination of care (as documented) at patient's floor/unit and/or counseling patient: Internal Medicine: Result - Labs CBC & Chem 7: 08/21/18 08:31 08/21/18 08:31 Labs: BMP 08/21/18 08:31 Sodium 137 Potassium 3.6 Chloride 101 Carbon Dioxide 25 BUN 15 Creatinine 0.44 L Glucose 175 H Calcium 9.2 Consult Discharge Plan - Plan Referrals: NONE,PCP [Primary Care Provider] - (1) Fever Qualifiers: Fever type: unspecified Qualified Code(s): R50.9 - Fever, unspecified (5) Traumatic brain injury Qualifiers: Encounter type: subsequent encounter Loss of consciousness presence/duration: with LOC of unspecified duration Qualified Code(s): S06.9X9D - Unspecified intracranial injury with loss of consciousness of unspecified duration, subsequent encounter (7) Chronic respiratory failure Qualifiers: Respiratory failure complication: hypoxia Qualified Code(s): J96.11 - Chronic respiratory failure with hypoxia (9) Dysphagia Qualifiers: Qualified Code(s): R13.10 - Dysphagia, unspecified (10) Aspiration of food Qualifiers: Encounter type: initial encounter Qualified Code(s): T17.920A - Food in respiratory tract, part unspecified causing asphyxiation, initial encounter (12) UTI (urinary tract infection) Qualifiers: Urinary tract infection type: site unspecified Hematuria presence: with hematuria Qualified Code(s): N39.0 - Urinary tract infection, site not specified; R31.9 - Hematuria, unspecified (13) Hypotension Qualifiers: Hypotension type: hypotension due to drug Qualified Code(s): I95.2 - Hypotension due to drugs (15) UTI (urinary tract infection) Qualifiers: Urinary tract infection type: catheter-associated UTI Indwelling urinary catheter type: unspecified Encounter type: initial encounter Qualified Code (s): T83.511A - Infection and inflammatory reaction due to indwelling urethral catheter, initial encounter; N39.0 - Urinary tract infection, site not specified (16) Aspiration pneumonia Qualifiers: Aspiration pneumonia type: due to regurgitated food Laterality: unspecified laterality Lung location: unspecified part of lung Qualified Code(s): J69.0 - Pneumonitis due to inhalation of food and vomit
[2018-08-22] MEDS: Potassium Chloride Elixir 20 MEQ/15 ML UDC PO SCH (09:23)
[2018-08-22] MEDS: predniSONE 20 MG TABLET PO SCH (09:24)
[2018-08-22] MEDS: Aspirin 325 MG TABLET PO SCH (09:24)
[2018-08-22] MEDS: CarBAMazepine XR (12 hr) 100 MG TAB PO SCH ×2 (09:24→22:49)
[2018-08-22] MEDS: GuaiFENesin Liq 200 MG/10 ML UDC PO SCH ×4 (09:24→22:49)
[2018-08-22] MEDS: Artificial Tears SOLN 15 ML BOTTLE BOTH EYES SCH ×2 (09:25→22:42)
[2018-08-22] MEDS: OLANZapine 10 MG TAB.RAPDIS PO SCH ×2 (09:25→22:49)
[2018-08-22] MEDS: Topiramate 100 MG TABLET PO SCH (09:25)
[2018-08-22] MEDS: Baclofen 10 MG TABLET PO SCH ×2 (09:25→22:48)
[2018-08-22] MEDS: Ascorbic Acid 500 MG TABLET PO SCH (09:25)
[2018-08-22] MEDS: Folic Acid 1 MG TABLET PO SCH (09:25)
--- NOTE | 2018-08-22 09:32 | Electrocardiograph Report ---
[address] [address] Test Date: 2018-08-18 Pat Name: Fidel Mathew Department: [id number] Room: 2NE20 Gender: M [employer] Tra[employer]: : 1970 Requested By: Eagle Murray Order Number: [id number] Reading MD: Feliberto Sepulveda Measurements Intervals [place] Rate: 104 P: 76 AR: 152 QRS: 96 QRSD: 87 T: 33 QT: 329 QTc: 433 Interpretive Statements Sinus tachycardia Right atrial enlargement Borderline right axis deviation ST elev, probable normal early repol pattern Electronically Signed On 08-22-2018 9:30:32 EST by Feliberto Sepulveda
[2018-08-22] MEDS: Clindamycin 600 MG/50 ML 600 MG/50 ML IV.SOLN IVPB SCH ×2 (10:56→17:05)
[2018-08-22] MEDS: clonazePAM 1 MG TABLET PO SCH (17:05)
[2018-08-22 21:39] LABS: ABG Base Excess 3 mEq/L (-2 to 3); ABG HCO3 29 mEq/L (21-27); ABG Oxygen Saturation 97 % (95-98); ABG PCO2 53 mmHg (35-45); ABG PH 7.35 pH Units (7.32-7.45); ABG PO2 95 mmHg (85-104); ABG TCO2 31 mEq/L (20-26)
[2018-08-22 21:57] LABS: Basophils % 0.2 %; Eosinophils % 0.2 %; Hematocrit 44.7 % (37.5-50.1); Hemoglobin 14.2 g/dL (12.9-16.9); Immature Granulocytes % 0.6 % (0-4); Lymphocytes % 14.9 %; Mean Corpuscular HGB Conc 31.8 g/dL (31.6-35.5); Mean Corpuscular Hemoglobin 30.2 pg (28.0-33.3); Mean Corpuscular Volume 95.1 fL (83.0-100.0); Mean Platelet Volume 12.5 fL (9.4-12.4); Monocytes # 0.5 K/mcL (0.0-1.3); Monocytes % 7.2 %; Red Cell Distribution Width 13.8 % (11.5-14.5); Segmented Neutrophils % 76.9 %
[2018-08-22 22:10] LABS: Alanine Aminotransferase 52 Units/L (7-52); Albumin 3.6 g/dL (3.5-5.7); Albumin/Globulin Ratio 1.4 (1.1-2.2); Alkaline Phosphatase 88 Units/L (34-104); Aspartate Amino Transferase 39 Units/L (13-39); BUN/Creatinine Ratio 29 (6-26); Bilirubin,Total 0.6 mg/dL (0.3-1.0); Blood Urea Nitrogen 15 mg/dL (6-20); Calcium 8.7 mg/dL (8.6-10.3); Carbon Dioxide 29 mEq/L (23-29); Chloride 101 mEq/L (98-107); Globulin 2.6 g/dL (2.4-3.5); Glucose 316 mg/dL (70-105); Osmolality,Calculated 293 (280-300); Potassium 4.4 mEq/L (3.5-5.1); Sodium 135 mEq/L (136-145); Total Protein 6.2 g/dL (6.4-8.9); eGFR For Non-African Americans > 60 (> 60)
[2018-08-22 22:18] LABS: Platelet Count 91 K/mcL (140-400)
[2018-08-22 22:20] LABS: Platelet Estimate Decreased (Normal)
[2018-08-22] MEDS: traZODone 50 MG TABLET PO SCH (22:49)
[2018-08-22] MEDS: Melatonin 3 MG TABLET PO SCH (22:49)
[2018-08-23] MEDS: MetroNIDAZOLE 500 MG/100 ML 500 MG/100 ML BAG IVPB SCH ×2 (00:50→10:59)
[2018-08-23] MEDS: Clindamycin 600 MG/50 ML 600 MG/50 ML IV.SOLN IVPB SCH ×3 (00:50→17:41)
[2018-08-23] MEDS: Cefepime HCl 2,000 MG in Water for inj. (sterile) 20 ML 20 ML IVP SCH ×2 (00:51→13:16)
--- NOTE | 2018-08-23 01:58 | Event Note ---
Date of Encounter: 08/22/18 Time of Encounter: 21:13 Alerted by pts. nurse DHARMESH Peralta to come and see the pt. ERIN. Went to see the pt. who was in bed and staring straight ahead. Pts. nurse stated that this was different for the pt. who was usually more alert and talkative. Pt. has a trach site where he is receiving his O2. Pt. was arousable but seemed altered. Pt. is a quadriplegic. Patient was admitted with concern for aspiration pneumonia and was placed on vancomycin, cefepime, and clindamycin. Vancomycin had been discontinued. Alerted Dr. Palma of the pt. who came to assess pt. Orders for stat CBC, CMP, lactic acid, and 1V portable CXR placed. Lactic showed 1.5. CXR showed interval development of right midlung airspace disease, atelectasis, or pneumonia. Patient has history of seizures of unknown type. Patient's nurse called [facility] to discuss patient's current condition which he said was not his baseline. Suspicion for possible staring-type seizure on exam. Approximately 20-30 minutes after initial assessment, patient began to become more alert and oriented. Patient stated he was tired. We will continue IVPB clindamycin and cefepime and add metronidazole for aspiration infection coverage. Patient's nurse instructed to monitor patient closely and notify me immediately of any adverse changes.
[2018-08-23] MEDS: *HR* OxyCODONE Immed Rel 5 MG TABLET PO SCH ×3 (03:16→13:11)
[2018-08-23 03:58] LABS: Mean Corpuscular Hemoglobin 30.3 pg (28.0-33.3)
[2018-08-23 04:00] LABS: Basophils % 0.3 %; Eosinophils # 0.1 K/mcL (0.0-0.6); Eosinophils % 0.7 %; Hematocrit 42.1 % (37.5-50.1); Hemoglobin 13.4 g/dL (12.9-16.9); Immature Granulocytes % 0.7 % (0-4); Immature Platelets 14.3 % (1.1-6.1); Lymphocytes # 1.4 K/mcL (0.6-4.6); Lymphocytes % 20.4 %; Mean Corpuscular HGB Conc 31.8 g/dL (31.6-35.5); Mean Corpuscular Volume 95.2 fL (83.0-100.0); Mean Platelet Volume 12.9 fL (9.4-12.4); Monocytes # 0.7 K/mcL (0.0-1.3); Monocytes % 9.8 %; Neutrophils # 4.6 K/mcL (1.6-8.9); Red Blood Count 4.42 M/mcL (4.19-5.50); Red Cell Distribution Width 13.7 % (11.5-14.5); Segmented Neutrophils % 68.1 %
[2018-08-23 04:01] LABS: Platelet Count 91 K/mcL (140-400)
[2018-08-23 04:17] LABS: BUN/Creatinine Ratio 33 (6-26); Blood Urea Nitrogen 14 mg/dL (6-20); Calcium 8.5 mg/dL (8.6-10.3); Carbon Dioxide 27 mEq/L (23-29); Chloride 104 mEq/L (98-107); Glucose 242 mg/dL (70-105); Magnesium 1.8 mg/dL (1.6-2.6); Osmolality,Calculated 290 (280-300); Potassium 3.8 mEq/L (3.5-5.1); Sodium 136 mEq/L (136-145); eGFR For Non-African Americans > 60 (> 60)
[2018-08-23] MEDS: Ipratropium/Albuterol Neb 3 ML IH SCH ×4 (05:09→22:52)
[2018-08-23] MEDS: *HR* Heparin 5,000 UNIT/ML VIAL SQ SCH ×2 (05:35→17:40)
[2018-08-23] MEDS: *HR* Morphine Sulfate SR (12 HR) 15 MG TABLET.ER PO SCH ×3 (05:35→17:40)
[2018-08-23] MEDS: *HR* Morphine Sulfate SR (12 HR) 30 MG TABLET.ER PO SCH ×3 (05:35→17:40)
--- NOTE | 2018-08-23 08:29 | Internal Med Progress Note ---
Hospitalist Progress Note - Encounter Date of Encounter: 08/23/18 Time of Encounter: 08:36 - Subjective Interval History: He was seen and examined. There was suspicion for some seizure activity last night and staring into space. He is afebrile. Yesterday I changed his abx to only Clindamycine for aspiration pneumonia. Patinet was added flagyl last night as CXR showed right mid lung airspace disease. He is afebrile and has no worseing leukocytosis. The patient was on broad-spectrum antibiotics for aspiration pneumonia as well as bacteremia. He is growing staph capitis from his blood which is likely be a contaminant. He was on vancomycin, cefepime, and Levaquin which I stopped. The patient was admitted with aspiration pneumonia. He is enrolled in [facility] hospice initially. He wanted to be on a regular diet and he was supposed to be on a modified diet. Ended up aspirating and sent to us. He signed a dysphagia waiver. He voiced some suicidal thoughts and psychiatry saw him and cleared him. - Exam Vitals: Temp Pulse Resp BP Pulse Ox 97.8 F 53 15 93/61 100 08/23/18 07:53 08/23/18 07:53 08/23/18 07:53 08/23/18 07:53 08/23/18 07:53 Exam: GGEN: NAD CVS: RRR. S1, S2, No m/r/g RESP: Diminished ABD: Soft, NT, ND, +BS EXT: No edema. 2+ DP. No rashes NEURO: Quadriplegic. Has a trach - - Assessment and Plan (1) Aspiration pneumonia Current Visit: Yes Status: Acute Assessment and Plan: Put him on clindamycin /. Flagyl added yesterday due to CXR findings. I don't see a need for flagyl and will stop again. Patient is afebrile and has no worsening leukocytoiss. He is at increased risk for aspiration due to dysphagia and signing dysphagia waiver. c/w O2 supports. nebs. (2) Aspiration of food Current Visit: Yes Status: Acute Assessment and Plan: Modified diet. He signed a dysphagia waiver and is at risk for continued aspiration. (3) UTI (urinary tract infection) Current Visit: Yes Status: Acute Assessment and Plan: Cultures negative. Has chornic calixto. No need to treat (4) Dysphagia Current Visit: No Status: Acute Assessment and Plan: Severe. Patient signed dysphagia waiver after explaining severe risk of aspir ation choking that can also lead to . His power of sports attorney was contacted and he approved for regular diet. Patient get dysphagia waiver signed in every hospitalization upon reviewing the chart. Speech therapist on board (5) Bacteremia Current Visit: Yes Status: Acute Assessment and Plan: Positive staph capitis likely a contaminant.follow up on repeat blood cx. (6) Fever Current Visit: No Status: Acute Assessment and Plan: Afebrile now. Continue antibiotics as above (7) Seizure disorder Current Visit: No Status: Chronic Assessment and Plan: Continue home medicine. consult neurology to see if any thing needs to be changed given suspected seizure episode last night. (8) Status post tracheostomy Current Visit: No Status: Chronic Assessment and Plan: Continue trach care. Replace by RT yesterday. Suction when necessary. (9) Traumatic brain injury Current Visit: No Status: Chronic Assessment and Plan: Stable. Quadriplegic (10) Quadriplegia and quadriparesis Current Visit: No Status: Chronic Assessment and Plan: Status post TBI. Is stable (11) Chronic respiratory failure Current Visit: No Status: Acute Assessment and Plan: No acute respiratory distress at this time. Chronic trach. Continue managemen t. RT on board and changed the trach (12) Suprapubic catheter Current Visit: No Status: Chronic Assessment and Plan: Continue catheter care. Chronic (13) Major depression, recurrent, chronic Current Visit: Yes Status: Acute Assessment and Plan: In ER there was concern for suicidal ideation. Therefore inpatient psych was consulted. Psych evaluated the patient and did not find any suicidal concern and found him to have capacity to make medical decision. Patient Does not want to start anything for depression or mood but willing to think about it. Stable (14) Hypotension Current Visit: Yes Status: Acute Assessment and Plan: Continue to monitor. seems to be chronic for him. (15) DVT prophylaxis Current Visit: No Status: Acute - Time Spent with Patient Total time spent is greater than 50% in coordination of care (as documented) at patient's floor/unit and/or counseling patient: Internal Medicine: Result - Labs CBC & Chem 7: 08/23/18 03:29 08/23/18 03:29 Labs: Short CBC 08/22/18 08/23/18 Range/Units 21:39 03:29 WBC 6.5 6.7 (4.3-11.1) K/mcL Hgb 14.2 13.4 (12.9-16.9) g/dL Hct 44.7 42.1 (37.5-50.1) % Plt Count 91 L 91 L (140-400) K/mcL Neutrophils # 5.0 4.6 (1.6-8.9) K/mcL BMP 08/22/18 08/23/18 21:39 03:29 Sodium 135 L 136 Potassium 4.4 3.8 Chloride 101 104 Carbon Dioxide 29 27 BUN 15 14 Creatinine 0.52 L 0.42 L Glucose 316 H 242 H Calcium 8.7 8.5 L Liver Function 08/22/18 Range/Units 21:39 Total Bilirubin 0.6 (0.3-1.0) mg/dL AST 39 (13-39) Units/L ALT 52 (7-52) Units/L Alkaline Phosphatase 88 (34-104) Units/L Albumin 3.6 (3.5-5.7) g/dL - ABG Interpretation ABG results: ABG ABG pH 7.35 pH Units (7.32-7.45) 08/22/18 21:36 ABG pCO2 53 mmHg (35-45) H 08/22/18 21:36 ABG pO2 95 mmHg (85-104) 08/22/18 21:36 ABG O2 Saturation 97 % (95-98) 08/22/18 21:36 - Impressions Impressions Chest X-Ray 08/22/18 21:18 IMPRESSION: Interval development of right mid lung airspace disease, atelectasis or pneumonia. D/ / Michelle Monge Cha, MD / Michelle Monge Cha, MD Interpreting Provider: Michelle Monge Cha, MD Consult Discharge Plan - Plan Referrals: NONE,PCP [Primary Care Provider] - (1) Aspiration pneumonia Qualifiers: Aspiration pneumonia type: due to regurgitated food Laterality: unspecified laterality Lung location: unspecified part of lung Qualified Code(s): J69.0 - Pneumonitis due to inhalation of food and vomit (2) Aspiration of food Qualifiers: Encounter type: initial encounter Qualified Code(s): T17.920A - Food in respiratory tract, part unspecified causing asphyxiation, initial encounter (3) UTI (urinary tract infection) Qualifiers: Urinary tract infection type: catheter-associated UTI Indwelling urinary catheter type: unspecified Encounter type: initial encounter Qualified Code(s): T83.511A - Infection and inflammatory reaction due to indwelling urethral catheter, initial encounter; N39.0 - Urinary tract infection, site not specified (4) Dysphagia Qualifiers: Qualified Code(s): R13.10 - Dysphagia, unspecified (6) Fever Qualifiers: Fever type: unspecified Qualified Code(s): R50.9 - Fever, unspecified (9) Traumatic brain injury Qualifiers: Encounter type: subsequent encounter Loss of consciousness presence/duration: with LOC of unspecified duration Qualified Code(s): S06.9X9D - Unspecified intracranial injury with loss of consciousness of unspecified duration, subsequent encounter (11) Chronic respiratory failure Qualifiers: Respiratory failure complication: hypoxia Qualified Code(s): J96.11 - Chronic respiratory failure with hypoxia (14) Hypotension Qualifiers: Hypotension type: hypotension due to drug Qualified Code(s): I95.2 - Hypotension due to drugs
[2018-08-23] MEDS: CarBAMazepine XR (12 hr) 100 MG TAB PO SCH ×2 (09:06→21:56)
[2018-08-23] MEDS: Topiramate 100 MG TABLET PO SCH (09:07)
[2018-08-23] MEDS: Aspirin 325 MG TABLET PO SCH (09:07)
[2018-08-23] MEDS: Folic Acid 1 MG TABLET PO SCH (09:07)
[2018-08-23] MEDS: Baclofen 10 MG TABLET PO SCH ×2 (09:07→21:56)
[2018-08-23] MEDS: Potassium Chloride Elixir 20 MEQ/15 ML UDC PO SCH (09:12)
[2018-08-23] MEDS: GuaiFENesin Liq 200 MG/10 ML UDC PO SCH ×4 (09:12→21:56)
[2018-08-23] MEDS: OLANZapine 10 MG TAB.RAPDIS PO SCH ×2 (09:12→21:56)
[2018-08-23] MEDS: Ascorbic Acid 500 MG TABLET PO SCH (09:12)
[2018-08-23] MEDS: Insulin LISPRO 300 UNITS/3 ML VIAL SQ SCH ×4 (09:14→21:58)
--- NOTE | 2018-08-23 09:52 | Neurology - Consult Note ---
Addendum entered and electronically signed by Eugene Campbell DO 08/24/18 08:29: Original Note: <Eugene Campbell - Last Filed: 08/23/18 09:51> Date of Encounter: 08/23/18 Time of Encounter: 09:51 Assessment and Plan (1) Seizure disorder Current Visit: No Status: Chronic - Per event note on 08/23, hospitalist was alerted by nursing staff to see the patient - He was reportedly staring straight ahead, which is unusual for him - Patients baseline mental status involves him being more alert and talkative - Patient seems to be arousable but was altered - At that time, sepsis workup was initiated, including CBC, CMP, lactic acid, CXR - Patient had already been being treated for vancomycin, cefepime, and c lindamycin for possible aspiration PNA - Lactic acid was 1.5, CXR demonstrated right mid lung airspace disease - He does have a known history of seizures of unknown type - Home medications include carbamazepine extended release 300 mg BID, Klonopin 2 mg HS, baclofen 10 mg BID - Approximately 20-30 minutes after initial assessment, patient became more alert and oriented; reported feeling tired Plan: - Continue home medications History of Present Illness HPI: Fidel Mathew presented to [facility] ED as a transfer from [facility] on 08/18 for aspiration. Patient has a chronic tracheostomy and is quadriplegic. During his stay at the hospice facility, patient wanted his diet to be changed to regular diet, despite recommendations of thickened liquids due to aspiration risk. He tried eating some eggs and choked. Since then, he has been having continuing coughing episodes and intermittent cyanosis. Patient is full code per hospice paperwork. In the emergency department, patient reportedly requested to have his tracheostomy tube removed and everything associated with it. When told that he could stop breathing if this was done, he responded with so what? It was unclear if patient had suicidal ideation. Upon arrival to the emergency room, patients vital signs were as follows: Temperature was 98.8, pulse was 103, respiratory rate was 18, blood pressure was 102/81, and O2 saturation was 95. Laboratory analysis demonstrated an elevated glucose at 134. Urinalysis showed positive nitrites, and a large amount of leukocyte esterase. Patient was given breathing treatments and was started on Levaquin. Was evaluated by psychiatry for his statements about removing his trach tube. He was determined to have capacity to make medical decisions. Did not want to start anything for mood at this time. Per chart review, patient is unable to move his legs at baseline, and has some movement with the extremities. Per event note on 08/23, hospitalist was alerted by nursing staff to see the patient. He was reportedly staring straight ahead, which is unusual for him. Patients baseline mental status involves him being more alert and talkative. Patient seems to be arousable but was altered. At that time, sepsis workup was initiated, including CBC, CMP, lactic acid, CXR. Patient had already been being treated for vancomycin, cefepime, and clindamycin for possible aspiration PNA. Lactic acid was 1.5, CXR demonstrated right mid lung airspace disease. He does have a known history of seizures of unknown type. Neurology is consulted for evaluation of possible seizure activity. Per chart review, patient takes carbamazepine XR 300 mg twice a day, Klonopin 2 mg at night, baclofen 10 mg twice a day. Past Med Surg Social Fam HX - Past Medical History Medical history: CHF, hepatitis, hypertension, seizures, other Additional medical history: quadraplegia Psychiatric history: anxiety, bipolar, depression - Past Surgical History Surgical History: tracheostomy Additional surgical history: SUPRAPUBIC CATHETER. trach - Social History Smoking Status: Current every day smoker Smokeless Tobacco Status: No Alcohol use: none, unknown Drug use: none - Family History Mother Living Status: Hx Family Cardiac Disorders: Yes Hx Family Respiratory Disorders: Yes Hx Family Cancer: Yes Medications and Allergies Folic Acid 1 mg PO QAM 07/04/15 [History] Ipratropium/Albuterol Neb [Duoneb] 3 ml IH QID PRN 07/04/15 [History] Topiramate [Topamax] 150 mg PO QAM 11/05/15 [History] Acetaminophen [Tylenol] 650 mg PO Q6HR PRN 12/11/15 [History] Docusate Sodium [Dok] 100 mg PO BID 12/11/15 [History] Polyvinyl Alcohol [Artificial Tears] 1 drop BOTH EYES BID 03/18/16 [History] Ketoconazole Shampoo [Nizoral Shampoo] 1 appl TP QWEEK 08/11/16 [History] Furosemide [Lasix] 40 mg PO DAILY 03/24/17 [History] Melatonin 10 mg PO HS 06/27/17 [History] Potassium Chloride Elixir [Potassium Chloride] 40 meq PO DAILY 06/27/17 [History] Baclofen [Lioresal] 10 mg PO BID #10 tablet 06/30/17 [Rx] Benztropine Mesylate 1 mg PO HS #30 tablet 06/30/17 [Rx] OLANZapine [Zyprexa] 10 mg PO BID #30 tablet 06/30/17 [Rx] carBAMazepine [Carbamazepine ER] 300 mg PO BID #30 tab.er.12h 06/30/17 [Rx] Polyethylene Glycol 3350 [MiraLAX] 17 gm PO DAILY PRN 07/13/17 [History] clonazePAM [Klonopin] 2 mg PO QPM 5 Days #5 tablet 12/06/17 [Rx] Trazodone HCl 100 mg PO HS #30 tablet 12/16/17 [Rx] Ascorbate Calcium [Vitamin C] 500 mg PO DAILY 08/19/18 [History] Aspirin/Calcium Carbonate/Mag [Aspirin Buffered 325 mg Tab] 325 mg PO DAILY 08/19/18 [History] Atropine 1% Opth Drops 2 drop SL Q2H PRN 08/19/18 [History] Guaifenesin [Mucus Relief] 400 mg PO QID 08/19/18 [History] Hyoscyamine Sulfate [Anaspaz] 0.125 mg PO Q2H PRN 08/19/18 [History] Insulin ASPART [NovoLOG] 0 unit SQ TIDWM 08/19/18 [History] Morphine Sulfate SR (12 HR) [MS Contin] 1 tab PO Q12HR 08/19/18 [History] Morphine Sulfate SR (12 HR) [MS Contin] 1 tab PO Q12HR 08/19/18 [History] OxyCODONE Immed Rel [Roxicodone 10 MG] 10 mg PO Q4H PRN 08/19/18 [History] OxyCODONE Immed Rel [Roxicodone 20 MG] 20 mg PO Q4H 08/19/18 [History] OxyCODONE Immed Rel [Roxicodone 20 MG] 30 mg PO Q4HR 08/19/18 [History] Trolamine Salicylate/Aloe Vera [Aspercreme 10%] 10 % TP 3-4XD PRN 08/19/18 [History] Zinc Acetate [Galzin] 50 mg PO DAILY 08/19/18 [History] predniSONE [PredniSONE] 40 mg PO DAILY 08/19/18 [History] Allergy/AdvReac Type Severity Reaction Status Date / Time Penicillins Allergy See Verified 07/16/17 02:08 Comments All Systems: The remainder of the systems were reviewed and are negative Physical Examination - Vital Signs Vital Signs: Initial Vital Signs Temp Pulse Resp BP Pulse Ox 98.8 F 103 18 102/81 95 08/18/18 18:43 08/18/18 18:43 08/18/18 18:43 08/18/18 18:43 08/18/18 18:43 Results - Laboratory Findings CBC and BMP: 08/23/18 03:29 08/23/18 03:29 Abnormal lab findings: Abnormal lab results Plt Count 91 K/mcL (140-400) L 08/23/18 03:29 MPV 12.9 fL (9.4-12.4) H 08/23/18 03:29 Platelet Estimate Decreased (Normal) L 08/22/18 21:39 Immature Plt Fraction 14.3 % (1.1-6.1) H 08/23/18 03:29 ABG pCO2 53 mmHg (35-45) H 08/22/18 21:36 ABG HCO3 29 mEq/L (21-27) H 08/22/18 21:36 ABG Total CO2 31 mEq/L (20-26) H 08/22/18 21:36 Creatinine 0.42 mg/dL (0.70-1.30) L 08/23/18 03:29 BUN/Creatinine Ratio 33 (6-26) H 08/23/18 03:29 Glucose 242 mg/dL (70-105) H 08/23/18 03:29 POC Glucose 345 mg/dL (70-99) H 08/22/18 21:14 Hemoglobin A1c 11.3 % (-5.6) H 08/19/18 05:50 Calcium 8.5 mg/dL (8.6-10.3) L 08/23/18 03:29 Serum Total Protein 6.2 g/dL (6.4-8.9) L 08/22/18 21:39 Ur Specimen Adequacy See below A 08/19/18 13:46 Urine Clarity Turbid (Clear) A 08/19/18 13:46 Urine Protein 100 mg/dL (Neg-Trace) H 08/19/18 13:46 Urine Ketones Trace mg/dL (Negative) H 08/19/18 13:46 Urine Blood Large (Negative) H 08/19/18 13:46 Urine Nitrite Positive (Negative) A 08/19/18 13:46 Urine Bilirubin Small (Negative) H 08/19/18 13:46 Urine Urobilinogen 2.0 mg/dL (Normal) H 08/19/18 13:46 Ur Leukocyte Esterase Large (Negative) H 08/19/18 13:46 Urine Microscopic WBC TNTC per hpf (0-3) H 08/19/18 13:46 Ur Squamous Epith Cells Many per lpf (None-Few) H 08/19/18 13:46 Urine Bacteria Many per hpf (None-Few) H 08/19/18 13:46 Ur Culture Indicated? NO. (NO) A 08/19/18 13:46 Consult Discharge Plan - Plan Referrals: NONE,PCP [Primary Care Provider] - <Kush Resendiz - Last Filed: 08/23/18 17:27> Date of Encounter: 08/23/18 Time of Encounter: 17:13 Assessment and Plan (1) Spell of altered consciousness Current Visit: Yes Status: Acute Patient has been experiencing occasional "staring spells". I suggested to the patient that we might be interested in obtaining an MRI along with an EEG. Patient insists that he wants to go home. My honest opinion is that starting another is not going to substantially improve his current situation, or his quality of life, regardless of whether the "staring spells" are truly seizures or not. He is on 2 different antiepileptic medications currently. My recommendation is to simply maintain them at the current dosages. Otherwise I will reevaluate him at your request. History of Present Illness HPI: The chart was reviewed, the patient was seen and examined personally. The case was discussed with the neurology resident. I agree with his assessment as stated above. Patient is essentially being seen for questionable seizure activity/staring spells. Her only awake but has obvious cognitive impairment. He cannot give me an accurate history of his own medical circumstances. He is currently taking carbamazepine 600 mg twice a day and topiramate 150 mg daily. ROS unobtainable: due to mental status All Systems: The remainder of the systems were reviewed and are negative Physical Examination - Vital Signs Vital Signs: Initial Vital Signs Temp Pulse Resp BP Pulse Ox 98.8 F 103 18 102/81 95 08/18/18 18:43 08/18/18 18:43 08/18/18 18:43 08/18/18 18:43 08/18/18 18:43 - Exam Exam: General Examination: *GENERAL APPEARANCE OF PATIENT patient is in bed without a shirt on, skin on his face is very dry. He is quadriplegic. *EYES: pupils equal, round, reactive to light and accommodation, conjunctiva clear without masses or ulcerations, fundi normal. *CARDIOVASCULAR patient does have edema of his hands and legs. Refer to vital signs Musculoskeletal: *GAIT AND STATION patient is not able to walk. *ASSESSMENT OF MUSCLE STRENGTH IN THE UPPER AND LOWER EXTREMITIES patient has limited movement of the right upper extremity and right lower extremity, he has essentially no movement of the left upper or left lower extremity. He is essentially quadriplegic *MUSCLE TONE IN THE UPPER AND LOWER EXTREMITIES he has extensive atrophy of the upper and lower extremities. No involuntary movements or atrophy are present. Neurological: *ORIENTATION None *RECURRENT AND REMOTE MEMORY poor *ATTENTION AND CONCENTRATION are impaired *LANGUAGE FUNCTION speech was dysarthric and at times difficult to understand through the tracheostomy. *FUND OF KNOWLEDGE patient has difficulty expressing himself seems to have poor cognitive function. *MENTAL as above *CN II optic fundi were normal, no papilledema noted. *CN III,IV, PERRLA extraocular eye movements were full, no nystagmus and no ptosis noted. *CN V shows normal sensation and jaw opens symmetrically. *CN VII shows normal facial movement symmetrically, upper and lower bilaterally. *CN VIII shows no significant hearing loss on examination in the office. *CN XI normal strength in the sternocleidomastoid muscles, symmetrical shoulder shrugging. *CN XII tongue protruded in the midline, with normal strength and movement. *SENSORY EXAMINATION patient not reliable *REFLEXES: deep tendon reflexes were increased throughout *CEREBELLAR TESTING no nystagmus present, we will to test finger to nose. Results - Laboratory Findings CBC and BMP: 08/23/18 03:29 08/23/18 03:29 Abnormal lab findings: Abnormal lab results Plt Count 91 K/mcL (140-400) L 08/23/18 03:29 MPV 12.9 fL (9.4-12.4) H 08/23/18 03:29 Platelet Estimate Decreased (Normal) L 08/22/18 21:39 Immature Plt Fraction 14.3 % (1.1-6.1) H 08/23/18 03:29 ABG pCO2 53 mmHg (35-45) H 08/22/18 21:36 ABG HCO3 29 mEq/L (21-27) H 08/22/18 21:36 ABG Total CO2 31 mEq/L (20-26) H 08/22/18 21:36 Creatinine 0.42 mg/dL (0.70-1.30) L 08/23/18 03:29 BUN/Creatinine Ratio 33 (6-26) H 08/23/18 03:29 Glucose 242 mg/dL (70-105) H 08/23/18 03:29 POC Glucose 238 mg/dL (70-99) H 08/23/18 11:00 Hemoglobin A1c 11.3 % (-5.6) H 08/19/18 05:50 Calcium 8.5 mg/dL (8.6-10.3) L 08/23/18 03:29 Serum Total Protein 6.2 g/dL (6.4-8.9) L 08/22/18 21:39 Ur Specimen Adequacy See below A 08/19/18 13:46 Urine Clarity Turbid (Clear) A 08/19/18 13:46 Urine Protein 100 mg/dL (Neg-Trace) H 08/19/18 13:46 Urine Ketones Trace mg/dL (Negative) H 08/19/18 13:46 Urine Blood Large (Negative) H 08/19/18 13:46 Urine Nitrite Positive (Negative) A 08/19/18 13:46 Urine Bilirubin Small (Negative) H 08/19/18 13:46 Urine Urobilinogen 2.0 mg/dL (Normal) H 08/19/18 13:46 Ur Leukocyte Esterase Large (Negative) H 08/19/18 13:46 Urine Microscopic WBC TNTC per hpf (0-3) H 08/19/18 13:46 Ur Squamous Epith Cells Many per lpf (None-Few) H 08/19/18 13:46 Urine Bacteria Many per hpf (None-Few) H 08/19/18 13:46 Ur Culture Indicated? NO. (NO) A 08/19/18 13:46
[2018-08-23] MEDS: predniSONE 20 MG TABLET PO SCH (10:57)
[2018-08-23] MEDS: Artificial Tears SOLN 15 ML BOTTLE BOTH EYES SCH ×2 (10:57→21:58)
[2018-08-23] MEDS ORDERED: *HR* OxyCODONE Immed Rel 5 MG TABLET PO PRN ×2 (15:24)
[2018-08-23] MEDS: clonazePAM 1 MG TABLET PO SCH (17:40)
[2018-08-23] MEDS: Melatonin 3 MG TABLET PO SCH (21:56)
[2018-08-23] MEDS: traZODone 50 MG TABLET PO SCH (21:56)
[2018-08-24] MEDS: Ipratropium/Albuterol Neb 3 ML IH SCH ×3 (04:25→15:17)
[2018-08-24] MEDS: Cefepime HCl 2,000 MG in Water for inj. (sterile) 20 ML 20 ML IVP SCH (05:50)
[2018-08-24] MEDS: *HR* Morphine Sulfate SR (12 HR) 15 MG TABLET.ER PO SCH (05:51)
[2018-08-24] MEDS: *HR* Heparin 5,000 UNIT/ML VIAL SQ SCH (05:52)
[2018-08-24] MEDS: *HR* Morphine Sulfate SR (12 HR) 30 MG TABLET.ER PO SCH (05:53)
[2018-08-24] MEDS: Clindamycin 600 MG/50 ML 600 MG/50 ML IV.SOLN IVPB SCH ×2 (05:53→09:03)
[2018-08-24 07:38] VITALS: BP 90/59
--- NOTE | 2018-08-24 08:55 | Discharge Summary ---
Orders not resulted at time of discharge: Pending orders 08/22/18 09:10 Culture,Blood [BC] Stat 08/24/18 08:19 EKG [ECG 12 lead ECG] [ECG] Stat 08/25/18 04:00 BMP [Basic Metabolic Panel] AM 0400 Complete Blood Count [HEME] AM 0400 Magnesium AM 0400 Date of Encounter: 08/24/18 Time of Encounter: 08:52 - Discharge Diagnosis (1) Aspiration pneumonia Priority: Primary Status: Acute Qualifiers: Aspiration pneumonia type: due to regurgitated food Laterality: unspecified laterality Lung location: unspecified part of lung Qualified Code(s): J69.0 - Pneumonitis due to inhalation of food and vomit (2) Aspiration of food Priority: Primary Status: Acute Qualifiers: Encounter type: initial encounter Qualified Code(s): T17.920A - Food in respiratory tract, part unspecified causing asphyxiation, initial encounter (3) Dysphagia Priority: Primary Status: Acute Qualifiers: Qualified Code(s): R13.10 - Dysphagia, unspecified (4) Bacteremia Priority: Primary Status: Acute (5) Fever Priority: Primary Status: Acute Qualifiers: Fever type: unspecified Qualified Code(s): R50.9 - Fever, unspecified (6) Seizure disorder Priority: Secondary Status: Chronic (7) Status post tracheostomy Priority: Secondary Status: Chronic (8) Traumatic brain injury Priority: Secondary Status: Chronic Qualifiers: Encounter type: subsequent encounter Loss of consciousness presence/duration: with LOC of unspecified duration Qualified Code(s): S06.9X9D - Unspecified intracranial injury with loss of consciousness of unspecified duration, subsequent encounter (9) Quadriplegia and quadriparesis Priority: Secondary Status: Chronic (10) Chronic respiratory failure Priority: Secondary Status: Acute Qualifiers: Respiratory failure complication: hypoxia Qualified Code(s): J96.11 - Chronic respiratory failure with hypoxia (11) Suprapubic catheter Priority: Secondary Status: Chronic (12) Major depression, recurrent, chronic Priority: Secondary Status: Acute (13) Hypotension Priority: Secondary Status: Acute Qualifiers: Hypotension type: hypotension due to drug Qualified Code(s): I95.2 - Hypotension due to drugs Hospital course: Mr. Mathew is a 48 year old male presented to the emergency room from [facility] for aspiration pneumonia. 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 His diet supposed be thickened liquids due to his aspiration risk, however patient at the hospice facility wanted his diet to be changed to regular despite his risk. He tried eating some eggs and he choked. Since then he has been having coughing episodes and intermittent cyanosis. As per hospice paperwork patient is full code. In the emergency room the physicians were requested by the patient to have his tracheostomy tube removed as well as everything else associated with it. He was explained that this was keeping him alive and if the tube was removed he would stop breathing. At that time the patient responded with, "so what?" Emergency department staff were not clear if the suicidal or not. Patient's initial vital signs were stable, patient's CBC was within normal limits and BMP showed an elevated blood sugar of 389. Chest x-ray showed no acute abnormality, trachea is essentially midline and tracheostomy is in satisfactory position. EKG showed sinus tachycardia but no ischemic changes compared to previous EKGs. Respiratory therapy was able to do deep suctioning and was able to remove food particles that looked like eggs from his trachea. Patient was given breathing treatments started on levofloxacin due to penicillin allergy (could not do Zosyn) he was sent to the medical floor for further management. The patient was eventually agreeble to admission. Had been treated here for aspiration pneumonia and eventually discharged on clindamycin. Patient also required IV steroids and switch to oral steroids and will be discharged on a taper. While he was a. This being seen by psychiatry who saw the patient and deemed nonsuicidal. He refused antidepressants medications offers. Patient was seen by speech and they recommended that he be nothing by mouth and to have a PEG tube placed. The patient refused adamantly. Eventually signed the dysphagia waiver. He was receiving a regular diet here. His requests. There was some questionable episodes of seizure activity the [facility] prior to his discharge and he was seen by neurology who did not believe that to be the case. He was kept on his prior medications in terms of seizures. The patient was eventually discharged on 08/24 2018. He did have some episodes of bradycardia and EKG showed a rate of 60 and in sinus rhythm. - Time Spent with Patient Total time spent providing and/or coordinating discharge services: Greater than 30 minutes - Discharge Medications Prescriptions: Morphine Sulfate SR (12 HR) [MS Contin] 1 tab PO Q12HR 2 Days #4 tablet.er Clindamycin HCl [Cleocin HCl] 300 mg PO TID #9 cap clonazePAM [Klonopin] 2 mg PO QPM 5 Days #5 tablet OxyCODONE Immed Rel [Roxicodone 10 MG] 10 mg PO Q4H PRN 2 Days #12 tablet PRN Reason: Pain OxyCODONE Immed Rel [Roxicodone 5 MG] 20 mg PO Q4H PRN 2 Days #12 tablet PRN Reason: moderate to severe pain predniSONE [PredniSONE] See Taper PO TAPER #30 tablet Home Medications: Folic Acid 1 mg PO QAM 07/04/15 [History] Ipratropium/Albuterol Neb [Duoneb] 3 ml IH QID PRN 07/04/15 [History] Topiramate [Topamax] 150 mg PO QAM 11/05/15 [History] Acetaminophen [Tylenol] 650 mg PO Q6HR PRN 12/11/15 [History] Docusate Sodium [Dok] 100 mg PO BID 12/11/15 [History] Polyvinyl Alcohol [Artificial Tears] 1 drop BOTH EYES BID 03/18/16 [History] Ketoconazole Shampoo [Nizoral Shampoo] 1 appl TP QWEEK 08/11/16 [History] Furosemide [Lasix] 40 mg PO DAILY 03/24/17 [History] Melatonin 10 mg PO HS 06/27/17 [History] Potassium Chloride Elixir [Potassium Chloride] 40 meq PO DAILY 06/27/17 [History] Baclofen [Lioresal] 10 mg PO BID #10 tablet 06/30/17 [Rx] Benztropine Mesylate 1 mg PO HS #30 tablet 06/30/17 [Rx] OLANZapine [Zyprexa] 10 mg PO BID #30 tablet 06/30/17 [Rx] carBAMazepine [Carbamazepine ER] 300 mg PO BID #30 tab.er.12h 06/30/17 [Rx] Polyethylene Glycol 3350 [MiraLAX] 17 gm PO DAILY PRN 07/13/17 [History] Trazodone HCl 100 mg PO HS #30 tablet 12/16/17 [Rx] Ascorbate Calcium [Vitamin C] 500 mg PO DAILY 08/19/18 [History] Aspirin/Calcium Carbonate/Mag [Aspirin Buffered 325 mg Tab] 325 mg PO DAILY 08/19/18 [History] Atropine 1% Opth Drops 2 drop SL Q2H PRN 08/19/18 [History] Guaifenesin [Mucus Relief] 400 mg PO QID 08/19/18 [History] Hyoscyamine Sulfate [Anaspaz] 0.125 mg PO Q2H PRN 08/19/18 [History] Insulin ASPART [NovoLOG] 0 unit SQ TIDWM 08/19/18 [History] Morphine Sulfate SR (12 HR) [MS Contin] 1 tab PO Q12HR 08/19/18 [History] OxyCODONE Immed Rel [Roxicodone 20 MG] 20 mg PO Q4H 08/19/18 [History] OxyCODONE Immed Rel [Roxicodone 20 MG] 30 mg PO Q4HR 08/19/18 [History] Trolamine Salicylate/Aloe Vera [Aspercreme 10%] 10 % TP 3-4XD PRN 08/19/18 [History] Zinc Acetate [Galzin] 50 mg PO DAILY 08/19/18 [History] Clindamycin HCl [Cleocin HCl] 300 mg PO TID #9 cap 08/24/18 [Rx] Morphine Sulfate SR (12 HR) [MS Contin] 1 tab PO Q12HR 2 Days #4 tablet.er 08/24/18 [Rx] OxyCODONE Immed Rel [Roxicodone 10 MG] 10 mg PO Q4H PRN 2 Days #12 tablet 08/24/18 [Rx] OxyCODONE Immed Rel [Roxicodone 5 MG] 20 mg PO Q4H PRN 2 Days #12 tablet 08/24/18 [Rx] clonazePAM [Klonopin] 2 mg PO QPM 5 Days #5 tablet 08/24/18 [Rx] predniSONE [PredniSONE] See Taper PO TAPER #30 tablet 08/24/18 [Rx] Allergies/Adverse Reactions: Allergy/AdvReac Type Severity Reaction Status Date / Time Penicillins Allergy See Verified 07/16/17 02:08 Comments Date of admission: 08/19/18 10:03 Primary care physician: PCP NONE Consults: 08/23/18 08:36 Consult to Neurology [CONS] Routine Consulting Provider: [facility] Reason for Consult: h/o seizures. Please evaluate for possibly new seziure activities Call Completed: No 08/19/18 00:06 Consult to Nutrition [CONS] Routine Comment: Consulting Provider: NUTRITION Reason for Dietary Consult: MST Score Consult to [employer] Librarian [CONS] Routine Reason for SW Consult: patient from [facility], will need f/u upon D/C 08/19/18 02:02 Consult to Nurse Navigator [CONS] Routine Comment: 08/19/18 02:22 Consult to Speech Therapy [CONS] Routine Comment: Evaluate, develop and implement POC Reason for Consult: Aspiration of food. Patient is chronic trach patient, attempted to eat eggs. Call Completed: No 08/19/18 02:47 Consult to Psychiatry [CONS] Routine Consulting Provider: Psychiatry [facility] Reason consult: Capacity assessment Other reason and/or additional details: Patient asked the ER physicians to remove his trach, knowing that this would likely result in ending his life. Would like formal evaluation as paperwork from Hospice indicates full code Call Completed: No - Constitutional Vitals: Temp Pulse Resp BP Pulse Ox 97.6 F 50 14 90/59 94 08/24/18 07:35 08/24/18 07:35 08/24/18 07:35 08/24/18 07:35 08/24/18 07:35 General appearance: Present: cooperative, A&O X 3, pleasant, no acute distress, answers questions appropriately Exam: GGEN: NAD CVS: RRR. S1, S2, No m/r/g RESP: Diminished ABD: Soft, NT, ND, +BS EXT: No edema. 2+ DP. No rashes NEURO: Quadriplegic. Has a trach - Patient Status Disposition: Hospice - Medical Facility Condition: Fair Overall status at discharge: patient is progressing back to baseline - Discharge Instructions Follow Up With: NONE,PCP [Primary Care Provider] - - Diet and Activity Activity: wear oxygen at all times Diet: other (should be NPO and PEG placed. refused. signed a dysphagia waiver)
[2018-08-24] MEDS: Aspirin 325 MG TABLET PO SCH (09:00)
[2018-08-24] MEDS ORDERED: Magnesium Oxide 400 MG TABLET PO SCH (09:00)
[2018-08-24] MEDS: Artificial Tears SOLN 15 ML BOTTLE BOTH EYES SCH (09:01)
[2018-08-24] MEDS: Ascorbic Acid 500 MG TABLET PO SCH (09:02)
[2018-08-24] MEDS: GuaiFENesin Liq 200 MG/10 ML UDC PO SCH ×2 (09:03→12:18)
[2018-08-24] MEDS: Baclofen 10 MG TABLET PO SCH (09:03)
[2018-08-24] MEDS: CarBAMazepine XR (12 hr) 100 MG TAB PO SCH (09:03)
[2018-08-24] MEDS: Folic Acid 1 MG TABLET PO SCH (09:03)
[2018-08-24] MEDS: Potassium Chloride Elixir 20 MEQ/15 ML UDC PO SCH (09:03)
[2018-08-24] MEDS: OLANZapine 10 MG TAB.RAPDIS PO SCH (09:03)
[2018-08-24] MEDS: Insulin LISPRO 300 UNITS/3 ML VIAL SQ SCH ×2 (09:04→12:18)
[2018-08-24] MEDS: Topiramate 100 MG TABLET PO SCH (09:18)
--- NOTE | 2018-08-24 10:21 | Physician Discharge Referral ---
Home Health/Hosp Referral Info Transfer to: Hospice - Diagnosis (1) Aspiration pneumonia Priority: Primary Status: Acute (2) Aspiration of food Priority: Primary Status: Acute (3) Dysphagia Priority: Primary Status: Acute (4) Bacteremia Priority: Primary Status: Acute (5) Fever Priority: Primary Status: Acute (6) Seizure disorder Priority: Secondary Status: Chronic (7) Status post tracheostomy Priority: Secondary Status: Chronic (8) Traumatic brain injury Priority: Secondary Status: Chronic (9) Quadriplegia and quadriparesis Priority: Secondary Status: Chronic (10) Chronic respiratory failure Priority: Secondary Status: Acute (11) Suprapubic catheter Priority: Secondary Status: Chronic (12) Major depression, recurrent, chronic Priority: Secondary Status: Acute (13) Hypotension Priority: Secondary Status: Acute - Respiratory Orders Smoking Cessation: Smoking cessation has been advised. For more information, call the [place] Tobacco Quit Line at 4-373-BTWC-NOW. - Transfer Medications Prescriptions: Morphine Sulfate SR (12 HR) [MS Contin] 1 tab PO Q12HR 2 Days #4 tablet.er Clindamycin HCl [Cleocin HCl] 300 mg PO TID #9 cap clonazePAM [Klonopin] 2 mg PO QPM 5 Days #5 tablet OxyCODONE Immed Rel [Roxicodone 10 MG] 10 mg PO Q4H PRN 2 Days #12 tablet PRN Reason: Pain OxyCODONE Immed Rel [Roxicodone 5 MG] 20 mg PO Q4H PRN 2 Days #12 tablet PRN Reason: moderate to severe pain predniSONE [PredniSONE] See Taper PO TAPER #30 tablet Home Medications: Folic Acid 1 mg PO QAM 07/04/15 [History] Ipratropium/Albuterol Neb [Duoneb] 3 ml IH QID PRN 07/04/15 [History] Topiramate [Topamax] 150 mg PO QAM 11/05/15 [History] Acetaminophen [Tylenol] 650 mg PO Q6HR PRN 12/11/15 [History] Docusate Sodium [Dok] 100 mg PO BID 12/11/15 [History] Polyvinyl Alcohol [Artificial Tears] 1 drop BOTH EYES BID 03/18/16 [History] Ketoconazole Shampoo [Nizoral Shampoo] 1 appl TP QWEEK 08/11/16 [History] Furosemide [Lasix] 40 mg PO DAILY 03/24/17 [History] Melatonin 10 mg PO HS 06/27/17 [History] Potassium Chloride Elixir [Potassium Chloride] 40 meq PO DAILY 06/27/17 [History] Baclofen [Lioresal] 10 mg PO BID #10 tablet 06/30/17 [Rx] Benztropine Mesylate 1 mg PO HS #30 tablet 06/30/17 [Rx] OLANZapine [Zyprexa] 10 mg PO BID #30 tablet 06/30/17 [Rx] carBAMazepine [Carbamazepine ER] 300 mg PO BID #30 tab.er.12h 06/30/17 [Rx] Polyethylene Glycol 3350 [MiraLAX] 17 gm PO DAILY PRN 07/13/17 [History] Trazodone HCl 100 mg PO HS #30 tablet 12/16/17 [Rx] Ascorbate Calcium [Vitamin C] 500 mg PO DAILY 08/19/18 [History] Aspirin/Calcium Carbonate/Mag [Aspirin Buffered 325 mg Tab] 325 mg PO DAILY 08/19/18 [History] Atropine 1% Opth Drops 2 drop SL Q2H PRN 08/19/18 [History] Guaifenesin [Mucus Relief] 400 mg PO QID 08/19/18 [History] Hyoscyamine Sulfate [Anaspaz] 0.125 mg PO Q2H PRN 08/19/18 [History] Insulin ASPART [NovoLOG] 0 unit SQ TIDWM 08/19/18 [History] Morphine Sulfate SR (12 HR) [MS Contin] 1 tab PO Q12HR 08/19/18 [History] OxyCODONE Immed Rel [Roxicodone 20 MG] 20 mg PO Q4H 08/19/18 [History] OxyCODONE Immed Rel [Roxicodone 20 MG] 30 mg PO Q4HR 08/19/18 [History] Trolamine Salicylate/Aloe Vera [Aspercreme 10%] 10 % TP 3-4XD PRN 08/19/18 [History] Zinc Acetate [Galzin] 50 mg PO DAILY 08/19/18 [History] Clindamycin HCl [Cleocin HCl] 300 mg PO TID #9 cap 08/24/18 [Rx] Morphine Sulfate SR (12 HR) [MS Contin] 1 tab PO Q12HR 2 Days #4 tablet.er 08/24/18 [Rx] OxyCODONE Immed Rel [Roxicodone 10 MG] 10 mg PO Q4H PRN 2 Days #12 tablet 08/24/18 [Rx] OxyCODONE Immed Rel [Roxicodone 5 MG] 20 mg PO Q4H PRN 2 Days #12 tablet 08/24/18 [Rx] clonazePAM [Klonopin] 2 mg PO QPM 5 Days #5 tablet 08/24/18 [Rx] predniSONE [PredniSONE] See Taper PO TAPER #30 tablet 08/24/18 [Rx] Allergies/Adverse Reactions: Allergy/AdvReac Type Severity Reaction Status Date / Time Penicillins Allergy See Verified 07/16/17 02:08 Comments Certification: Further, I certify that my clinical findings support that this patient is homebound (i.e. absences from home require considerable and taxing effort and are for medical reasons or buddhism services or infrequently or short duration when for other reasons) because: Homebound Reason: Patient requires assistance of a person or device to safely leave home Attestation: My signature below is to certify that this patient is under my care and that I, or nurse practitioner, or a physician's assistant finance director working with me, has a [id number] encounter with this patient.
--- NOTE | 2018-08-24 10:24 | Physician Discharge Referral ---
ExtendedCare Referral Info Institutional Level of Care: Skilled - Diagnosis (1) Aspiration pneumonia Priority: Primary Status: Acute (2) Aspiration of food Priority: Primary Status: Acute (3) Dysphagia Priority: Primary Status: Acute (4) Bacteremia Priority: Primary Status: Acute (5) Fever Priority: Primary Status: Acute (6) Seizure disorder Priority: Secondary Status: Chronic (7) Status post tracheostomy Priority: Secondary Status: Chronic (8) Traumatic brain injury Priority: Secondary Status: Chronic (9) Quadriplegia and quadriparesis Priority: Secondary Status: Chronic (10) Chronic respiratory failure Priority: Secondary Status: Acute (11) Suprapubic catheter Priority: Secondary Status: Chronic (12) Major depression, recurrent, chronic Priority: Secondary Status: Acute (13) Hypotension Priority: Secondary Status: Acute - Transfer Medications Prescriptions: Morphine Sulfate SR (12 HR) [MS Contin] 1 tab PO Q12HR 2 Days #4 tablet.er Clindamycin HCl [Cleocin HCl] 300 mg PO TID #9 cap clonazePAM [Klonopin] 2 mg PO QPM 5 Days #5 tablet OxyCODONE Immed Rel [Roxicodone 10 MG] 10 mg PO Q4H PRN 2 Days #12 tablet PRN Reason: Pain OxyCODONE Immed Rel [Roxicodone 5 MG] 20 mg PO Q4H PRN 2 Days #12 tablet PRN Reason: moderate to severe pain predniSONE [PredniSONE] See Taper PO TAPER #30 tablet Home Medications: Folic Acid 1 mg PO QAM 07/04/15 [History] Ipratropium/Albuterol Neb [Duoneb] 3 ml IH QID PRN 07/04/15 [History] Topiramate [Topamax] 150 mg PO QAM 11/05/15 [History] Acetaminophen [Tylenol] 650 mg PO Q6HR PRN 12/11/15 [History] Docusate Sodium [Dok] 100 mg PO BID 12/11/15 [History] Polyvinyl Alcohol [Artificial Tears] 1 drop BOTH EYES BID 03/18/16 [History] Ketoconazole Shampoo [Nizoral Shampoo] 1 appl TP QWEEK 08/11/16 [History] Furosemide [Lasix] 40 mg PO DAILY 03/24/17 [History] Melatonin 10 mg PO HS 06/27/17 [History] Potassium Chloride Elixir [Potassium Chloride] 40 meq PO DAILY 06/27/17 [History] Baclofen [Lioresal] 10 mg PO BID #10 tablet 06/30/17 [Rx] Benztropine Mesylate 1 mg PO HS #30 tablet 06/30/17 [Rx] OLANZapine [Zyprexa] 10 mg PO BID #30 tablet 06/30/17 [Rx] carBAMazepine [Carbamazepine ER] 300 mg PO BID #30 tab.er.12h 06/30/17 [Rx] Polyethylene Glycol 3350 [MiraLAX] 17 gm PO DAILY PRN 07/13/17 [History] Trazodone HCl 100 mg PO HS #30 tablet 12/16/17 [Rx] Ascorbate Calcium [Vitamin C] 500 mg PO DAILY 08/19/18 [History] Aspirin/Calcium Carbonate/Mag [Aspirin Buffered 325 mg Tab] 325 mg PO DAILY 08/19/18 [History] Atropine 1% Opth Drops 2 drop SL Q2H PRN 08/19/18 [History] Guaifenesin [Mucus Relief] 400 mg PO QID 08/19/18 [History] Hyoscyamine Sulfate [Anaspaz] 0.125 mg PO Q2H PRN 08/19/18 [History] Insulin ASPART [NovoLOG] 0 unit SQ TIDWM 08/19/18 [History] Morphine Sulfate SR (12 HR) [MS Contin] 1 tab PO Q12HR 08/19/18 [History] OxyCODONE Immed Rel [Roxicodone 20 MG] 20 mg PO Q4H 08/19/18 [History] OxyCODONE Immed Rel [Roxicodone 20 MG] 30 mg PO Q4HR 08/19/18 [History] Trolamine Salicylate/Aloe Vera [Aspercreme 10%] 10 % TP 3-4XD PRN 08/19/18 [History] Zinc Acetate [Galzin] 50 mg PO DAILY 08/19/18 [History] Clindamycin HCl [Cleocin HCl] 300 mg PO TID #9 cap 08/24/18 [Rx] Morphine Sulfate SR (12 HR) [MS Contin] 1 tab PO Q12HR 2 Days #4 tablet.er 08/24/18 [Rx] OxyCODONE Immed Rel [Roxicodone 10 MG] 10 mg PO Q4H PRN 2 Days #12 tablet 08/24/18 [Rx] OxyCODONE Immed Rel [Roxicodone 5 MG] 20 mg PO Q4H PRN 2 Days #12 tablet 08/24/18 [Rx] clonazePAM [Klonopin] 2 mg PO QPM 5 Days #5 tablet 08/24/18 [Rx] predniSONE [PredniSONE] See Taper PO TAPER #30 tablet 08/24/18 [Rx] Allergies/Adverse Reactions: Allergy/AdvReac Type Severity Reaction Status Date / Time Penicillins Allergy See Verified 07/16/17 02:08 Comments - Respiratory Orders Smoking Cessation: Smoking cessation has been advised. For more information, call the [place] Tobacco Quit Line at 1-215-NZLN-NOW. - Rehabiliation Orders Rehab Orders: Evaluation for Physical Therapy, Evaluation for Occupational Therapy, Evaluation for Speech Therapy CERTIFICATION: I certify that the transfer of the above named patient to an Extended Care Facility is necessary for the continuing treatment of the diagnosis listed. The above information is true and accurate reflection of patient's current condition. Confidential - Redisclosure prohibited without a patient's written consent.
[2018-08-24] MEDS: predniSONE 20 MG TABLET PO SCH (12:32)
--- NOTE | 2018-08-24 17:19 | Electrocardiograph Report ---
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
== END 2018-08-24 17:53 | disposition hospice, inpatient (51) | DRG 137 ==
LOC: EMEROOARM 18:37 → 2NENU 18:37 → SUATTDRO 08-19 10:03
PROVIDERS: ADMIT Family Medicine; ATTEND Internal Medicine